=== PATIENT | female | born 1950 | race African-American/Black ===

== ENCOUNTER 2019-10-19 18:30 | Emergency (ER) | payer MEDICARE, OTHER, SELFPAY ==
[2019-10-19 18:40] VITALS: BP 155/81; PULSE 96; RESP 16; TEMP 36.1; O2SAT 99
--- NOTE | 2019-10-19 18:49 | ED.UPPEXIN ---
HPI - Extremity Injury (Upper) General Chief Complaint: Neck Pain/Injury Stated Complaint: JAW/NECK/ARM PAIN Source: patient and RN notes reviewed Mode of arrival: ambulatory Limitations: no limitations History of Present Illness HPI narrative: The right-handed patient, a smoker/nondrinker on minimal medications, presents with right jaw pain. Patient states she has had dental work in the past and now has half week dull right jaw pain like 'teeth have been pulled'. She also notes associated right deltoid shoulder discomfort that is mild, worse with motion; no sore throat, hoarseness, trismus, edema; no lateralizing weakness, headache chest/abdominal pain, numbness/weakness, neck pain. No fever, cough, sore throat; she has been wearing a splint for right CMC and CTS symptoms. Patient's had prior MRI couple years ago showing cervical spondylolysis/DJD; she declines transfer to hospital for further testing , AMA Triage/screening EKG remarkable for sinus rhythm at 90 bpm, CO 0.16, occasional PVC, normal axis, QTC 0.402 The patient has been informed that they may have pre-hypertension or Hypertension based on a BP reading in the department. I recommend that the patient call the primary care provider listed on their discharge instructions or a physician of their choice this week to arrange follow up for further evaluation of possible pre-hypertension or Hypertension Related Data Allergies Allergy/AdvReac Type Severity Reaction Status Date / Time No Known Allergies Allergy Unverified 10/19/19 18:43 Review of Systems Review of Systems: Narrative: General/Constitutional: No weight loss,fever Eyes: N0: Redness,discharge Ears/Nose/Throat: No: Epistaxis,ear discharge Respiratory: Denies: Hemoptysis Gastrointestinal: No Vomiting, Bleeding-rectal Skin: No Lumps, eruption Neurologic: No Focal Weakness,Sz Hematologic: Denies: Petechiae/Purpura Psychiatric: No: Suicida ideationl All Other Systems: Reviewed and Negative [facility] Family History Family History (Updated 01/02/19 @ 14:09 by DOCTOR UNKNOWN) Mother Patient's mother is Family history of blood dyscrasia Family history of emphysema Hypertension Sibling Family history of liver disease Family history of human immunodeficiency virus infection Other Cerebrovascular accident Social History Social History Smoking status: Never smoker Second hand tobacco smoke exposure: Yes Smoking end date: 09/11/07 Alcohol intake: current Comments At time of signature, agree with nursing past medical, surgical, social and family history. There is no relevant family history pertinent to the presenting complaint Exam Narrative: Exam Narrative: General Appearance: Well appearing, No distress EYE: PERRLA, Conjunctiva clear Ears: External ear normal Nose: Normal nose Mouth/Throat: Normal appearing, Normal lips Neck: Supple, SROM/ FAROM nontender Respiratory: Airway patent, No respiratory distress Cardiovascular: RRR Abdomen: Soft, Non-tender, No massess, Musculoskeletal: Full strength:Bi/Tri, EH L-FHL, gastroc-AT, Skin: Warm, Dry Neurological: A&O x3, CN II-X intact Normal reflexes -symmetric, 2+ Bi/Tri Psychiatric: Normal mood, Normal affect Course Vital Signs Vital signs: Vital Signs Temperature 97.0 F L 10/19/19 18:40 Pulse Rate 96 10/19/19 18:40 Respiratory Rate 16 10/19/19 18:40 Blood Pressure 155/81 H 10/19/19 18:40 Pulse Oximetry 99 10/19/19 18:40 Temperature 97.0 F L 10/19/19 18:40 Pulse Rate 96 10/19/19 18:40 Respiratory Rate 16 10/19/19 18:40 Blood Pressure 155/81 H 10/19/19 18:40 Pulse Oximetry 99 10/19/19 18:40 Discharge Plan Discharge Clinical Impression: Mandible pain, Cervical spondylosis Patient Disposition: Left Against Medical Advice Condition: Stable Prescriptions: New prednisone 20 mg tablet 60 mg PO DAILY Qty: 9 RF: 0 tramadol 50 mg tablet 50
--- NOTE | 2019-10-19 18:54 | ECG_ITS ---
Measurements Intervals [place] Rate: 90 P: 50 WV: 164 QRS: 47 QRSD: 81 T: 41 QT: 354 QTc: 434 Interpretive Statements SINUS RHYTHM VENTRICULAR PREMATURE COMPLEX BORDERLINE ST-T WAVE ABNORMALITY- INFERIOR LEADS BORDERLINE ECG Electronically Signed On 10-20-2019 7:58:47 EVENT MARKETING COORDINATOR by Santiago Paniagua D.O.
== END 2019-10-19 19:16 | disposition left against medical advice (07) ==
PROVIDERS: Emergency Provider Emergency Medicine; PCP Internal Medicine
DX: M47.812 Spondylosis without myelopathy or radiculopathy, cervical region (principal); R68.84 Jaw pain; Z85.41 Personal history of malignant neoplasm of cervix uteri; Z92.21 Personal history of antineoplastic chemotherapy; Z92.3 Personal history of irradiation
CPT/HCPCS: 93005; 99213; G0463

== ENCOUNTER 2019-11-01 16:34 | Outpatient (CLI) | payer MEDICARE, OTHER, SELFPAY ==
--- NOTE | ~2019-11-01 | CT_ITS ---
EXAMINATION: CT lung screening DATE: 11/01/2019 17:13 INDICATION: Routine dependence. Smoker. TECHNIQUE: Computed tomography (CT) of the chest was performed without intravenous contrast. The dose -length product was 99.92 mGy-cm. Automated exposure control and iterative reconstruction technique w ere employed. COMPARISON: Chest x-ray dated 09/12/2014 FINDINGS: No mediastinal lymphadenopathy. No significant pleural or pericardial effusion. Calcified g ranulomas right lower lobe. There is dependent atelectasis. Calcified granuloma left lower lobe. No n oncalcified pulmonary nodules are identified. No endobronchial lesions. The upper abdomen is unremark able. No osteolytic or osteoblastic lesions are seen. IMPRESSION: 1. Lung-RADS category 1: Negative. Continue annual screening with noncontrast low-dose chest CT in 12 months. Reviewed, dictated and finalized at location A. MECHANIC IMPRESSION: 1. Lung-RADS category 1: Negative. Continue annual screening with noncontrast l ow-dose chest CT in 12 months.
== END 2019-11-01 16:35 | disposition home or self-care (01) ==
LOC: ANHIMG 16:37
PROVIDERS: PCP Internal Medicine; Visit Provider Physician Assistant
DX: Z12.2 Encounter for screening for malignant neoplasm of respiratory organs (principal); F17.210 Nicotine dependence, cigarettes, uncomplicated
CPT/HCPCS: G0297

== ENCOUNTER 2020-10-02 09:27 | Outpatient (CLI) | payer MEDICARE, OTHER, SELFPAY ==
--- NOTE | ~2020-10-02 | MM_ITS ---
EXAMINATION: MM screening giuseppe BI w chasidy HISTORY: Screening mammogram TECHNIQUE: Craniocaudal and mediolateral oblique 3-D tomosynthesis images were obtained and synthetic 2-D images were generated. CAD analysis was submitted and interpreted. COMPARISON: 10/31/2018, 10/25/2017 bilateral digital screening mammogram examinations BREAST PARENCHYMAL COMPOSITION: There are scattered areas of fibroglandular density. FINDINGS: There is no evidence of suspicious mass, calcification, or architectural distortion to sugg est malignancy in either breast. There has been no suspicious interval change. IMPRESSION: 1. No mammographic evidence of malignancy. 2. Recommend routine screening mammography in one year. BI-RADS Category 1: Negative Reviewed, dictated and finalized at location A. PONY RIDER
== END 2020-10-02 09:28 | disposition home or self-care (01) ==
LOC: ANHIMG 09:33
PROVIDERS: PCP Internal Medicine; Visit Provider Physician Assistant
DX: Z12.31 Encounter for screening mammogram for malignant neoplasm of breast (principal)
CPT/HCPCS: 77063; 77067

== ENCOUNTER 2022-11-24 13:01 | Emergency (ER) | payer MEDICARE, SELFPAY ==
--- NOTE | ~2022-11-24 | XR_ITS ---
XR abdomen/kub 1V 11/24/2022 14:28 INDICATION: Constipation TECHNIQUE: KUB COMPARISON: None FINDINGS: Bowel gas pattern is nonobstructive. Moderate colonic fecal loading. There is no evidence o f free air, mass, organomegaly, ascites or obstruction. No abnormal calculi are seen. The bones jonny ear intact. There are surgical changes in the lower abdomen and pelvis. IMPRESSION: 1: No acute abdominal abnormality identified. Reviewed, dictated and finalized at location A.
[2022-11-24 13:10] VITALS: BP 166/78; PULSE 73; RESP 18; TEMP 36.8; O2SAT 100; O2SAT 99
[2022-11-24 13:15] VITALS: PULSE 74; RESP 20
[2022-11-24 13:30] VITALS: PULSE 73; RESP 19
[2022-11-24 13:39] LABS: Basophils Percent Auto 0.3 % (0.2-1.2); Eosinophils Percent Auto 0.3 % (0-4.4); Hematocrit 41.4 % (37.0-47.0); Hemoglobin 14.4 g/dL (12.0-15.0); Immature Granulocyte Absolute 0.03 K/mm3 (0.00-0.031); Immature Granulocyte Percent A 0.3 % (0-0.5); Lymphocytes Absolute Auto 2.65 K/mm3 (0.9-3.2); Lymphocytes Percent Auto 25.7 % (18.3-44.2); Mean Corpuscular HGB Conc 34.8 g/dl (32-36); Mean Corpuscular Hemoglobin 30.7 pg (26-34); Mean Corpuscular Volume 88.3 fl (80-100); Mean Platelet Volume 8.7 fl (7.4-10.4); Monocytes Absolute Auto 0.6 K/mm3 (0.1-0.6); Monocytes Percent Auto 5.4 % (2.6-8.5); Platelet Count Result 375 k/mm3 (150-375); Red Blood Count 4.69 M/mm3 (4.2-5.4); Red Cell Distribution Width 15.6 % (11.5-14.5); White Blood Count 10.3 K/mm3 (4.5-10.0)
[2022-11-24 13:45] VITALS: PULSE 66; RESP 16
[2022-11-24 14:06] VITALS: PULSE 67; RESP 19
[2022-11-24 14:06] LABS: Alanine Aminotransferase 26 U/L (6-35); Albumin Level 4.3 g/dL (3.5-5.1); Alkaline Phosphatase 119 U/L (38-126); Anion Gap 7 mmol/L (8-16); Aspartate Amino Transferase 28 U/L (14-36); Bilirubin,Total 0.8 mg/dL (0.2-1.3); Blood Urea Nitrogen 9 mg/dL (7-17); Carbon Dioxide 25 mmol/L (22-30); Chloride 107 mmol/L (98-107); Estimated CRCL calculation 50 ml/min; Estimated Glomerular Filt Rate > 60; Glucose 105 mg/dL (65-110); Lipase 73 U/L (23-300); Potassium 4.2 mmol/L (3.4-5.0); Sodium 139 mmol/L (137-145)
[2022-11-24 14:39] LABS: Appearance Urine Clear (Clear); Bilirubin Urine Negative (Negative); Blood Urine Negative (Negative); Color Urine Yellow (Yellow); Glucose Urine UA Negative (Negative); Ketones Urine Negative (Negative); Leukocyte Esterase Ur Negative LEU/UL (Negative); Nitrate Urine Negative (Negative); Protein Urine Negative (Negative); Specific Grav Ur 1.015 (1.001-1.035); Urobilinogen Urine 0.2 mg/dL (<2.0); pH Urine 5.5 (5.0-9.0)
[2022-11-24 15:03] LABS: Add Urine Microscopic? NO
--- NOTE | 2022-11-24 15:21 | ED.ABDPAIN ---
HPI - Abdominal Pain General Chief Complaint: Abdominal Pain Stated Complaint: abd pain Time Seen by Provider: 11/24/22 13:10 History of Present Illness HPI narrative: Patient is a 72-year-old female who presents ER with abdominal cramping. She reports that she has been having constipation and gave herself an enema that helped her have a bowel movement a couple days ago. Since then she has been unable to have another bowel movement but she has been passing gas. She has nausea when she eats. No fevers or chills or sweats. No abdominal pain. She has not started any laxative. She does report her physician suggested she start MiraLAX. No history of bowel obstruction. Related Data Allergies Allergy/AdvReac Type Severity Reaction Status Date / Time No Known Allergies Allergy Verified 11/24/22 13:13 Review of Systems Review of Systems: All systems reviewed & are unremarkable except as noted in HPI and below Constitutional: Constitutional: Denies chills and Denies fever(s) ENT: Denies nasal congestion and Denies sore throat Cardiovascular: Cardiovascular: Denies chest pain, Denies rapid heart rate and Denies radiating jaw, neck or arm pain Respiratory: Respiratory: Denies cough and Denies dyspnea Gastrointestinal: Gastrointestinal: Denies abdominal pain, Reports constipation, Denies diarrhea, Reports nausea and Denies vomiting PMFSH Past Medical History Medical History (Updated 11/24/22 @ 15:28 by Macho Shaw MD) Essential (primary) hypertension Pure hyperglyceridemia Surgical History Surgical History (Updated 11/24/22 @ 15:28 by Macho Shaw MD) History of cholecystectomy History of hysterectomy Family History Family History Mother Patient's mother is Family history of blood dyscrasia Family history of emphysema Hypertension Sibling Family history of liver disease Family history of human immunodeficiency virus infection Other Cerebrovascular accident Social History Social History Smoking packs per day: 0.5 Smoking cigarettes per day: 10.0 Years smoked: 30 Smoking pack-years: 15.00 Smoking status: Current every day smoker Second hand tobacco smoke exposure: Yes Smoking end date: 10/24/19 Alcohol intake: current Exam Narrative: GENERAL: Well-appearing, well-nourished, and in no acute distress. HEAD: Normocephalic, atraumatic. EYES: PERRL and EOMI. CHEST: Clear to auscultation. No respiratory distress. HEART: Regular rate and rhythm. Normal peripheral pulses. ABDOMEN: Soft, nontender, nondistended, normal active bowel sounds. EXTREMITIES: Normal range of motion. No edema. SKIN: Warm, dry, no rash. NEURO: Alert and oriented x3. PSYCH: Normal mood and affect. Course Course Emergency Course: Patient resting comfortably. Informed of results. No evidence of obstruction. Will treat with anti-gas and antinausea medication at home. Patient verbalized understanding of treatment plan. Vital Signs Vital signs: Vital Signs Temperature 98.3 F 11/24/22 13:10 Pulse Rate 73 11/24/22 13:10 Respiratory Rate 18 11/24/22 13:10 Blood Pressure 166/78 H 11/24/22 13:10 Pulse Oximetry 99 11/24/22 13:10 Oxygen Delivery Room Air 11/24/22 13:10 Temperature 98.3 F 11/24/22 13:10 Pulse Rate 67 11/24/22 14:06 Respiratory Rate 19 11/24/22 14:06 Blood Pressure 166/78 H 11/24/22 13:10 Pulse Oximetry 100 11/24/22 13:10 Oxygen Delivery Room Air 11/24/22 13:10 MDM - Abdominal Pain Lab Data 11/24/22 13:31 11/24/22 13:31 Labs: Lab Results 11/24/22 11/24/22 11/24/22 Range/Units 13:31 13:31 14:04 WBC 10.3 H (4.5-10.0) K/mm3 RBC 4.69 (4.2-5.4) M/mm3 Hgb 14.4 (12.0-15.0) g/dL Hct 41.4 (37.0-47.0) % MCV 88.3 (80-100) fl MCH 30.7 (26-34) pg MCHC 34.8
[2022-11-24 15:32] VITALS: BP 134/62; PULSE 68; RESP 16; O2SAT 97
== END 2022-11-24 15:33 | disposition home or self-care (01) ==
PROVIDERS: Emergency Provider Emergency Medicine; PCP Physician Assistant
DX: R14.0 Abdominal distension (gaseous) (principal); R10.9 Unspecified abdominal pain; I10 Essential (primary) hypertension; Z90.710 Acquired absence of both cervix and uterus; Z87.891 Personal history of nicotine dependence
CPT/HCPCS: 36415; 74018; 80053; 81003; 83690; 85025; 99283

== ENCOUNTER 2022-12-07 10:19 | Outpatient (CLI) | payer MEDICARE, SELFPAY ==
--- NOTE | ~2022-12-07 | MM_ITS ---
EXAMINATION: MM screening giuseppe BI w chasidy HISTORY: Screening TECHNIQUE: Craniocaudal and mediolateral oblique 3-D tomosynthesis images were obtained and synthetic 2-D images were generated. CAD analysis was submitted and interpreted. COMPARISON: Comparison to multiple prior studies sequentially, with oldest reviewed study dated 10/25. BREAST PARENCHYMAL COMPOSITION: There are scattered areas of fibroglandular density. FINDINGS: There is no evidence of suspicious mass, calcification, or architectural distortion to sugg est malignancy in either breast. There has been no suspicious interval change. IMPRESSION: 1. No mammographic evidence of malignancy. 2. Recommend routine screening mammography in one year. BI-RADS Category 1: Negative Reviewed, dictated and finalized at location A.
== END 2022-12-07 10:20 | disposition home or self-care (01) ==
LOC: ANHIMG 10:21
PROVIDERS: PCP Physician Assistant; Visit Provider Internal Medicine
DX: Z12.31 Encounter for screening mammogram for malignant neoplasm of breast (principal)
CPT/HCPCS: 77063; 77067

== ENCOUNTER 2023-02-22 11:02 | Inpatient (IN) | payer MEDICARE, SELFPAY ==
--- NOTE | ~2023-02-22 | CT_ITS ---
EXAMINATION: CT abdomen pelvis w con DATE: 02/22/23 INDICATION: Constipation. Nausea. Vomiting. Low abdominal pain. TECHNIQUE: Computed tomography (CT) of the abdomen and pelvis was performed with 100 mL Omnipaque 350 intravenous contrast. Automated exposure control and iterative reconstruction technique were employe d. The dose-length product was 387 mGy-cm. COMPARISON: CT abdomen and pelvis 09/10/2018 FINDINGS: The visualized portions of the lung bases demonstrate mild atelectasis. Calcified right jacob g nodules are consistent with old granulomatous disease. No pleural effusion. The heart size is katy l. No pericardial effusion. There is a small sliding hiatal hernia. There is mild intrahepatic biliar y duct dilatation, and the common duct measures 10 mm, which are expected findings after cholecystect darwin. The spleen, pancreas, and right adrenal gland are normal. There is a 2.0 cm mass in left adrenal gland measuring soft tissue attenuation, stable from 09/10/2018, likely an adenoma. There are cysts in the kidneys measuring up to 1.8 cm on the right. There is moderate atrophy of left kidney. There a re surgical clips from pelvic lymph node dissection. There is wall thickening of the rectosigmoid, wh ich is small in caliber, likely a stricture. The colon is distended proximal to this area and contain s liquid stool. The appendix is normal. There is calcified atherosclerosis of the aorta and many of t he other arteries. There is total occlusion of right external iliac artery with reconstitution of jag w in the right common femoral artery. There is total occlusion of left common femoral artery with rec onstitution. There is moderate lumbar spondylosis. IMPRESSION: 1. Stricture of the rectosigmoid with obstruction. The stricture could be malignant. 2. Arterial occlusive disease. Reviewed, dictated and finalized at location A. IMPRESSION: 1. Stricture of the rectosigmoid with obstruction. The stricture could be malig nant. 2. Arterial occlusive disease.
--- NOTE | ~2023-02-22 | XR_ITS ---
XR abdomen NG/feed tube rechec DATE: 02/26/2023 12:13 INDICATION: NG tube placement TECHNIQUE: Portable upright AP view on 02/26/2023 COMPARISON: 02/22/2023 KUB FINDINGS: A nasogastric tube is present in the distal stomach, the proximal side-port approximately 5 .5 cm distal to the diaphragmatic hiatus. No intraperitoneal free air is evident. Normal heart size. Visualized mid and lower lung zones are clear. No pleural effusion or pulmonary ma ss congestion is noted. IMPRESSION: NG tube in distal stomach Reviewed, dictated and finalized at Location A. Reviewed, dictated and finalized at location A. IMPRESSION: NG tube in distal stomach
--- NOTE | ~2023-02-22 | XR_ITS ---
XR abdomen NG/feed tube insert INDICATION: Evaluate NG tube position. TECHNIQUE: Limited KUB perform for evaluating NG tube . COMPARISON: 02/26/2023 FINDINGS: NG tube tip in the stomach. Visualized bowel gas pattern is unremarkable. IMPRESSION: 1: NG tube tip in the stomach. Reviewed, dictated and finalized at location []
--- NOTE | ~2023-02-22 | XR_ITS ---
EXAMINATION: XR enema water soluble DATE: 02/23/2023 10:45 INDICATION: Rectosigmoid stricture. TECHNIQUE: A electrical prospecting engineer radiograph was obtained. A catheter was inserted into the patient's rectum. Contra st was infused by gravity. Fluoroscopic spot images and conventional radiographs were obtained. Fluor oscopy exposure time was 0.2 minutes. The total number of images was 9. COMPARISON: CT abdomen and pelvis 02/22/2023 FINDINGS: There is a severe stricture of the rectosigmoid with little passage of contrast beyond the stricture. There are surgical clips from pelvic lymph node dissection. IMPRESSION: 1. Severe stricture of the rectosigmoid. Reviewed, dictated and finalized at location A.
--- NOTE | ~2023-02-22 | XR_ITS ---
XR abdomen NG/feed tube insert INDICATION: Evaluate NG tube position. TECHNIQUE: Limited KUB perform for evaluating NG tube . COMPARISON: 11/24/2022 FINDINGS: NG tube tip in the stomach. Visualized bowel gas pattern is unremarkable. IMPRESSION: 1: NG tube tip in the stomach. Reviewed, dictated and finalized at location []
[2023-02-22 20:00] VITALS: BMI 29.5
--- NOTE | 2023-02-22 21:55 | ADMGEN ---
This patient, Victor Manuel Ndiaye, was admitted to [facility] Surg Room 313-01. Patient/family oriented to hospital policies and general routines including ID bracelet, bed and alarms, visiting hours, pain management, procedures, bathroom and other care routines, personal items, smoking policy, room service/diet, and visiting hours. Information on how to activate the Rapid Response Team has been discussed. Patient/Family are encouraged to report perceived risks to care and to ask questions if they do not understand what they are told or what they should do.
[2023-02-22 22:00] VITALS: BP 157/62; PULSE 69; RESP 16; TEMP 36; O2SAT 98
--- NOTE | 2023-02-22 22:53 | PC.NURSE ---
Paper documentation exists on this patient due to [employer] downtime on 02/22/23 from 0030 to [1930] .
[2023-02-23 00:18] LABS: Estimated CRCL calculation 44 ml/min; Estimated Glomerular Filt Rate > 60
[2023-02-23] MEDS: ONDANSETRON INJ 4 MG/2 ML VIAL IV PUSH ×2 (00:25→06:34)
[2023-02-23] MEDS: PIPERACILLN/TAZ 3.375GM/NS50ML 3.375 GM/50 ML BAG IVPB ×5 (00:26→23:51)
[2023-02-23] MEDS: HYDROmorphone HCL INJ (*CRX) 1 MG/ML SYR 0.5 MG IV PUSH ×4 (01:45→15:16)
[2023-02-23] MEDS: DEXTROSE 5%/0.9% SOD CHL 1,000 ML 65 ML IV CONT ×2 (01:45→15:16)
--- NOTE | 2023-02-23 03:55 | HP_ITS ---
DATE OF SERVICE: 02/22/2023 TIME OF EVALUATION: 183. CHIEF COMPLAINT: Abdominal pain, nausea, and vomiting. HISTORY OF PRESENT ILLNESS: This is a very pleasant 72-year-old female who has been remarkably healthy aside from being treated for cervical cancer many years ago who presented to the emergency department from home for evaluation of abdominal pain, nausea, and vomiting. The patient provides the following history. She reports a gradual onset of diffuse abdominal discomfort starting Monday which she describes as a bloating and cramping like pain. She has been nauseated and she vomited over the weekend however the vomiting has ceased. Her doctor called her in some Zofran which seems to be helping. Unfortunately, she continues to have discomfort and she has not had a bowel movement since Monday. CT of the abdomen and pelvis done on arrival to the emergency department shows a at the rectosigmoid junction with obstruction and there are concerns that this stricture may be malignant. CT also showed evidence of arterial occlusive disease including total occlusion of the right external iliac with reconstitution in the right common femoral artery and total occlusion of the left common femoral artery, also with reconstitution. Her labs were significant for white blood cell count of 12.5, hemoglobin 14.5, sodium 139, potassium 3.4, BUN 18, creatinine 0.90. An NG tube has been inserted for decompression and she is being admitted in this setting for further treatment and surgery consultation. She denies fever, chills, sweats, chest pain, pleuritic pain, shortness of breath, weight loss, nausea, vomiting, melena, and hematochezia. She has never had a colonoscopy, but did have a Cologuard done last week, though she does not know the results of that as of yet. No personal or family history of colon cancer. REVIEW OF SYSTEMS: Twelve systems were reviewed. She denies fever, chills, and sweats. Weight has remained stable. No hematemesis, melena, or hematochezia. Occasional pain in calves when walking but she does not seem to have much difficulties doing whatever she wants. She has no known history of peripheral vascular disease. No paresthesias, skin color, or temperature changes of the lower extremities. Except as documented, all other systems were reviewed and are negative. MEDICAL HISTORY: Cervical cancer in 1983, status post laser treatment and ultimate hysterectomy . She was also treated with chemo and radiation. SURGICAL HISTORY: 1. Hysterectomy with bilateral salpingo-oophorectomy. 2. Cholecystectomy. HOME MEDICATIONS: None. ALLERGIES: NO KNOWN DRUG ALLERGIES. FAMILY HISTORY: Mother had emphysema and of heart disease. Father at age 93 of natural causes. She has a brother with dementia. SOCIAL HISTORY: The patient lives with her brother. 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 She has smoked half a pack of cigarettes off and on since the age of 20. No alcohol or illicit substance use. She is retired from working for the [employer]. She has no children. She designates her nephew as her surrogate decision maker and she wishes to be a full code. PHYSICAL EXAM: GENERAL: Well-developed, well-nourished female in a semi-Bravo position in bed, in no acute distress. HEENT: Normocephalic, atraumatic. Pupils reactive. Extraocular motions intact. NG tube in the right naris draining opaque clear fluid. Tacky mucous membranes. NECK: Supple. No lymphadenopathy. RESPIRATORY: Respirations are nonlabored. Lungs are clear to auscultation. CARDIOVASCULAR: Regular rate and rhythm with normal S1, S2. GASTROINTESTINAL: Abdomen is distended and slightly firm with hypoactive bowel sounds in the upper abdomen. She
[2023-02-23 06:33] VITALS: BP 161/79; PULSE 52; RESP 14; TEMP 35.3; O2SAT 100
[2023-02-23 08:13] LABS: Anion Gap 10 mmol/L (8-16); Carbon Dioxide 25 mmol/L (22-30); Chloride 104 mmol/L (98-107); Potassium 3.4 mmol/L (3.4-5.0); Sodium 139 mmol/L (137-145)
[2023-02-23 08:14] LABS: Alanine Aminotransferase 19 U/L (6-35); Albumin Level 4.6 g/dL (3.5-5.1); Alkaline Phosphatase 114 U/L (38-126); Aspartate Amino Transferase 30 U/L (14-36); Bilirubin,Total 0.7 mg/dL (0.2-1.3); Blood Urea Nitrogen 18 mg/dL (7-17); Calcium 9.5 mg/dL (8.4-10.2); Estimated CRCL calculation 44 ml/min; Estimated Glomerular Filt Rate > 60; Glucose 120 mg/dL (65-110); Lipase 75 U/L (23-300); Total Protein 8.1 g/dL (6.3-8.2)
[2023-02-23 08:16] LABS: Hematocrit 41.5 % (37.0-47.0); Hemoglobin 14.5 g/dL (12.0-15.0); Red Blood Count 4.78 M/mm3 (4.2-5.4); White Blood Count 12.8 K/mm3 (4.5-10.0)
[2023-02-23 08:17] LABS: Basophils Percent Auto 0.2 % (0.2-1.2); Eosinophils Percent Auto 0.1 % (0-4.4); Immature Granulocyte Absolute 0.04 K/mm3 (0.00-0.031); Immature Granulocyte Percent A 0.3 % (0-0.5); Lymphocytes Absolute Auto 1.83 K/mm3 (0.9-3.2); Lymphocytes Percent Auto 14.4 % (18.3-44.2); Mean Corpuscular HGB Conc 34.9 g/dl (32-36); Mean Corpuscular Hemoglobin 30.3 pg (26-34); Mean Corpuscular Volume 86.8 fl (80-100); Mean Platelet Volume 9.3 fl (7.4-10.4); Monocytes Absolute Auto 0.8 K/mm3 (0.1-0.6); Neutrophils Absolute Auto 10.1 K/mm3 (1.3-6.7); Platelet Count Result 381 k/mm3 (150-375); Red Cell Distribution Width 14.8 % (11.5-14.5)
[2023-02-23 08:18] LABS: Appearance Urine Clear (Clear); Color Urine Yellow (Yellow); Glucose Urine UA Negative (Negative); Protein Urine 1+ mg/dL (Negative); Specific Grav Ur 1.017 (1.001-1.035); pH Urine 5.5 (5.0-9.0)
[2023-02-23 08:19] LABS: Add Urine Microscopic? YES; Bilirubin Urine Negative (Negative); Blood Urine Trace (Negative); Ketones Urine Negative (Negative); Leukocyte Esterase Ur Negative LEU/UL (Negative); Nitrate Urine Negative (Negative); RBC Urine 0-2 /hpf (0-2); Urobilinogen Urine 0.2 mg/dL (<2.0)
[2023-02-23 08:20] LABS: Hyaline Casts Urine 0-2 /lpf; Squamous Epithelial Cell Urine None seen /hpf (Few); WBC Urine 0-5 /hpf
[2023-02-23 08:21] LABS: Bacteria Urine None seen /hpf
--- NOTE | 2023-02-23 09:06 | WPDGICN ---
Assessment and Plan Assessment and plan (1) Large bowel obstruction: Code(s): K56.609 - Unspecified intestinal obstruction, unspecified as to partial versus complete obstruction Status: Acute Assessment and Plan: Patient with apparent large bowel obstruction appears to be related to sigmoid mass on CT scan imaging. Plan for NG tube decompression. Agree with IV fluid replacement. Gastrografin lower GI will be ordered. Surgical consultation encouraged. Suspect this could be a malignancy. Based on imaging studies. Continue supportive care for now. GI Consult Note Consult date/time: 02/23/23 09:06 Reason for consult: large bowel obstruction HPI: Victor Manuel Ndiaye is a 72 year old female I am asked to see at the request of the hospitalist service because of a large bowel obstruction. Patient reports she was in her usual state of health. Since Monday she has had no bowel movements. Over the last 2 days has had ongoing nausea vomiting. For this reason she presented to the emergency room a CT scan revealed mass with obstruction in the sigmoid colon. Patient reports never having had a colonoscopy in the past. She bowel habits were normal up until Monday. Her family history is noncontributory. Apparently did have a cologuard test in the past but results are known. Last evening place that was placed on NG tube decompression and IV fluids admitted to the hospital. Review of Systems Review of Systems: Review of systems noncontributory. [facility] Past Medical History Medical History Essential (primary) hypertension Pure hyperglyceridemia Surgical History Surgical History History of cholecystectomy History of hysterectomy Family History Family History Mother Patient's mother is Family history of blood dyscrasia Family history of emphysema Hypertension Sibling Family history of liver disease Family history of human immunodeficiency virus infection Other Cerebrovascular accident Social History Social History Smoking packs per day: 0.5 Smoking cigarettes per day: 10.0 Years smoked: 35 Smoking pack-years: 17.50 Smoking status: Current every day smoker Tobacco type: cigarettes Second hand tobacco smoke exposure: Yes Smoking end date: 10/24/19 Alcohol intake: never Substance use: never Substance use type: does not use Lack of Transportation: No Lack of Food: Never True Current Housing: I Have Housing Concerned About Future Housing: No Difficulty Paying Gas/Electric Bills: No Difficulty Paying for Meds: No Currently Unemployed: No Education: Bachelor's Degree Difficulty w/ Childcare or Family Care: No Spiritual care concerns: No Meds Home Medications and Allergies Home Medications Medication Instructions Recorded Confirmed Type ondansetron 4 mg disintegrating 4 - 8 mg PO Q8H PRN nausea and 02/21/23 02/22/23 Rx tablet vomiting #20 tabs Allergies Allergy/AdvReac Type Severity Reaction Status Date / Time No Known Allergies Allergy Verified 01/16/23 08:58 Vital Signs Vital Signs - 24 hr 02/22/23 22:00 02/22/23 20:00 02/23/23 06:33 Temperature 96.8 F L 95.6 F L Pulse Rate 69 52 L Respiratory Rate 16 14 Blood Pressure 157/62 H 161/79 H Pulse Oximetry 98 100 Oxygen Delivery Room Air Exam Narrative: Physical exam reveals patient to be lying in bed. HEENT exam is unremarkable. Patient anicteric. NG tube is in place. Lungs are clear to auscultation and percussion. Heart is without murmur. Abdomen with mild tympany. Relatively soft. High-pitched bowel sounds are noted. Extremities without clubbing cyanosis or edema. Digital exam reveals no obvious mass. Resu
--- NOTE | 2023-02-23 10:10 | PC.NURSE ---
patient to xray. ng clamped for transport.
[2023-02-23 11:36] LABS: Basophils Percent Auto 0.3 % (0.2-1.2); Hematocrit 40.7 % (37.0-47.0); Hemoglobin 13.9 g/dL (12.0-15.0); Immature Granulocyte Absolute 0.04 K/mm3 (0.00-0.031); Immature Granulocyte Percent A 0.4 % (0-0.5); Lymphocytes Absolute Auto 1.93 K/mm3 (0.9-3.2); Lymphocytes Percent Auto 18.1 % (18.3-44.2); Mean Corpuscular HGB Conc 34.2 g/dl (32-36); Mean Corpuscular Hemoglobin 30.1 pg (26-34); Mean Corpuscular Volume 88.1 fl (80-100); Mean Platelet Volume 8.8 fl (7.4-10.4); Monocytes Absolute Auto 0.8 K/mm3 (0.1-0.6); Monocytes Percent Auto 7.2 % (2.6-8.5); Neutrophils Absolute Auto 7.9 K/mm3 (1.3-6.7); Platelet Count Result 364 k/mm3 (150-375); Red Blood Count 4.62 M/mm3 (4.2-5.4); White Blood Count 10.7 K/mm3 (4.5-10.0)
[2023-02-23 11:44] VITALS: BP 184/62; PULSE 58; RESP 18; TEMP 36.4; O2SAT 99
--- NOTE | 2023-02-23 12:45 | WPDCN ---
Assessment and Plan Assessment and plan (1) Large bowel obstruction: Code(s): K56.609 - Unspecified intestinal obstruction, unspecified as to partial versus complete obstruction Status: Acute Assessment and Plan: Patient appears to have a high-grade distal colonic obstruction in the rectosigmoid region. This could be due to malignancy and she has never had a colonoscopy in the past. This could also be due to long-term radiation stricture from her previous pelvic radiation for treatment of her cervical cancer many years ago. Other etiology such as diverticular stricture is less likely as she has not had episodes of diverticulitis in the past. Benign neoplasm is also in the differential as well. Dr. Batista from gastroenterology has seen and evaluated patient. I have ordered a CEA level to be drawn. Flexible sigmoidoscopy to see if we can biopsy the stricture to establish any possibility of malignancy would be beneficial prior to the a surgery. I did discuss with patient that she may need to have a diverting ostomy in the short term since she has such a high-grade stricture. That could hopefully be done laparoscopically. Continue on IV antibiotics for right now. We also need to consider placement of a PICC line for parental nutrition depending on how long the preoperative workup takes. HPI Data of Consult Date/Time: 02/23/23 12:45 Requesting Physician: Abdiaziz Tovar MD Primary Care Provider: Anthony Bennett PA-C Consult Narrative Reason for consult: Rectosigmoid colon obstruction. Narrative: Victor Manuel Ndiaye is a 72 year old female Who presented to the emergency room yesterday complaining of abdominal distension as well as episodes of nausea vomiting for the past week. She has noticed decreasing caliber of her formed stools for the past several weeks. She has denied any loss of weight. She denies any blood per rectum or any dark tarry stools. She has never had a colonoscopy. Prior to last week she has been eating well and not having any issues with bowel movements other than noticing decreasing caliber of her stools. In the emergency room [place] [id number]. She was afebrile. X-rays suggested a distal chronic obstruction. CT scan abdomen pelvis done this morning showed a stricture in the rectosigmoid region and a water-soluble enema this morning has also showed a high-grade rectosigmoid stricture with passage of minimal contrast proximal to the stricture. The patient has had a significant prior history of total abdominal hysterectomy and bilateral salpingo-oophorectomy for cervical cancer over 30 years ago. She did receive pelvic radiation after her surgery. Only other abdominal surgery she had was a robotic assisted laparoscopic cholecystectomy performed by myself about 8 years ago. Presently she has no nausea and her abdominal distention is improved with nasogastric and placed to decompress the GI tract. Review of Systems Review of Systems: The remainder of the review of systems to include constitutional, HEENT, cardiovascular, respiratory, GI, , integumentary, musculoskeletal, endocrine, immunologic, hematologic, psychiatric, and neurologic are all negative except for which is mentioned above in the HPI. [facility] Past Medical History Medical History Essential (primary) hypertension Pure hyperglyceridemia Surgical History Surgical History History of cholecystectomy History of hysterectomy Family History Family History Mother Patient's mother is Family history of blood dyscrasia Family history of emphysema Hypertension Sibling Family history of liver disease Family history of human immunodeficiency virus infection Other Cerebrovascular accident Social History Social History (Reviewed 0
[2023-02-23 13:59] VITALS: BP 171/63; PULSE 60; RESP 18; TEMP 36.3; O2SAT 100
--- NOTE | 2023-02-23 15:01 | PM.IMPN ---
Progress Note: A&P Assessment and Plan (1) Large bowel obstruction: Code(s): K56.609 - Unspecified intestinal obstruction, unspecified as to partial versus complete obstruction Status: Acute (2) Hyperlipidemia: Code(s): E78.5 - Hyperlipidemia, unspecified Status: Acute (3) Tobacco use: Code(s): Z72.0 - Tobacco use Status: Acute Plan This is a 72-year-old female with remote history of cervical cancer, status post chemo, radiation, who presented to the emergency department for evaluation of abdominal pain, bloating, nausea, and vomiting. CT reveal large bowel obstruction with stricture at the rectosigmoid. GI has been consulted. NG tube has been placed. Zosyn empirically for possible infection given the white cell count. 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 hydralazine ? Subjective Date/time seen: 02/23/23 15:01 Interval history: Feeling a little better. Lower abdominal pain and discomfort along with nausea vomiting CT scan findings reviewed. NG has been placed. GI has seen Review of Systems Review of Systems: All systems reviewed & are unremarkable except as noted in HPI and below Exam Narrative: GENERAL:? Well-developed, well-nourished female in a semi-Bravo position in bed, in no acute distress. HEENT:? Normocephalic, atraumatic.? Pupils reactive.? Extraocular motions intact.? NG tube in the right naris draining opaque clear fluid.? Tacky mucous membranes. NECK:? Supple.? No lymphadenopathy. RESPIRATORY:? Respirations are nonlabored. ? Lungs are clear to auscultation. CARDIOVASCULAR:? Regular rate and rhythm with normal S1, S2. GASTROINTESTINAL:? Abdomen is distended and slightly firm with hypoactive bowel sounds in the upper abdomen.? She has mild voluntary guarding, but no obvious rebound tenderness. SKIN:? Warm and dry. EXTREMITIES:? No cyanosis, clubbing, or edema.? Radial pulses palpable. Posterior tibialis pulses palpable.? No palpable nodes or cords.? Negative Martinez sign bilaterally. NEUROLOGIC:? Alert and oriented x4.? Cranial nerves 2 through 12 grossly intact.? No gross focal deficits.? Casual conversation. PSYCHIATRIC:? Normal mood and affect. Objective Data Vital Signs Vital Signs: Vital Signs - 24 hr 02/22/23 22:00 02/22/23 20:00 02/23/23 06:33 Temperature 96.8 F L 95.6 F L Pulse Rate 69 52 L Respiratory Rate 16 14 Blood Pressure 157/62 H 161/79 H Pulse Oximetry 98 100 Oxygen Delivery Room Air 02/23/23 11:44 02/23/23 13:59 Temperature 97.6 F 97.3 F L Pulse Rate 58 L 60 Respiratory Rate 18 18 Blood Pressure 184/62 H 171/63 H Pulse Oximetry 99 100 Oxygen Delivery Intake/Output Intake/Output: Intake & Output 02/20/23 02/21/23 02/22/23 02/23/23 23:59 23:59 23:59 23:59 Intake Total 100 Output Total 800 Balance -700 Meds/Results Medications: Active Medications Generic Name Dose Route Start Last Admin Trade Name Freq PRN Reason Stop Dose Admin Famotidine 20 mg 02/23/23 21:00 Famotidine 20 Mg/2 Ml Vial IV PUSH Q12HR CHANTAL Hydromorphone HCl 0.5 mg 02/23/23 00:53 02/23/23 11:56 Hydromorphone Hcl Inj (*Crx) 1 Mg/Ml Syr IV PUSH 0.5 mg Q3H PRN Administration Pain Rated 7-10 Piperacillin/Tazobactam/Dextrose 3.375 gm in 50 mls @ 100 mls/hr 02/23/23 06:00 02/23/23 12:24 Zosyn 3.375 Gm/Ns 50 Ml IVPB Infused Q6H CHANTAL Infusion Dextrose/Sodium Chloride 1,000 mls @ 65 mls/hr 02/23/23 01:35 02/23/23 01:45 Dextrose 5% Sodium Chloride 0.9% IV CONT 65 mls/hr .[id number] CHANTAL Administration Ondansetron HCl 4 mg 02/22/23 23:17 02/23/23 06:34 Ondansetron Inj 4 Mg/2 Ml Vial IV PUSH 4 mg Q6H PRN Administration Nausea And Vomiting Radiology Results: ITS Impressions Abdomen X-Ray 02/22/23 18:47 IMPRESSION:
[2023-02-23] MEDS: hydrALAZINE HCL 20 MG/ML VIAL 10 MG IV PUSH (15:16)
--- NOTE | 2023-02-23 17:30 | PC.NURSE ---
patient has 600 ml out in ng tube. orange in color. patient had a visitor that brought her in orange gatorade to drink. patient educated on intake and not to drink anything at this time. patient verbalizes understanding and states that she will not drink anymore water or gatorade.
[2023-02-23 17:48] VITALS: BP 119/73; PULSE 73; RESP 18; TEMP 36.4; O2SAT 98
[2023-02-23 20:00] VITALS: BP 149/40; PULSE 56; RESP 16; TEMP 36.3; O2SAT 94
[2023-02-23] MEDS: FAMOTIDINE 20 MG/2 ML VIAL IV PUSH (20:03)
[2023-02-24] VITALS (9 sets, daily range): BP systolic 90–186; BP diastolic 34–96; PULSE 57–68; RESP 16–20; TEMP 35.8–36.8; O2SAT 98–100; BMI 29.5
[2023-02-24] MEDS: hydrALAZINE HCL 20 MG/ML VIAL 10 MG IV PUSH (04:59)
[2023-02-24] MEDS: PIPERACILLN/TAZ 3.375GM/NS50ML 3.375 GM/50 ML BAG IVPB ×3 (05:00→20:15)
[2023-02-24 06:21] LABS: Hematocrit 39.7 % (37.0-47.0); Hemoglobin 13.3 g/dL (12.0-15.0); Mean Corpuscular HGB Conc 33.5 g/dl (32-36); Mean Corpuscular Hemoglobin 29.4 pg (26-34); Mean Corpuscular Volume 87.8 fl (80-100); Mean Platelet Volume 9.1 fl (7.4-10.4); Platelet Count Result 334 k/mm3 (150-375); Red Blood Count 4.52 M/mm3 (4.2-5.4); Red Cell Distribution Width 14.5 % (11.5-14.5); White Blood Count 10.6 K/mm3 (4.5-10.0)
[2023-02-24 06:32] LABS: Anion Gap 5 mmol/L (8-16); Blood Urea Nitrogen 13 mg/dL (7-17); Calcium 8.6 mg/dL (8.4-10.2); Carbon Dioxide 29 mmol/L (22-30); Chloride 110 mmol/L (98-107); Estimated CRCL calculation 40 ml/min; Estimated Glomerular Filt Rate > 60; Glucose 106 mg/dL (65-110); Potassium 2.9 mmol/L (3.4-5.0); Sodium 144 mmol/L (137-145)
[2023-02-24 06:57] LABS: Carcinoembryonic Antigen 15.2 ng/mL (0.0-3.0)
--- NOTE | 2023-02-24 07:16 | WPDGIPROGNO ---
Progress Note: A&P Assessment and Plan (1) Large bowel obstruction: Code(s): K56.609 - Unspecified intestinal obstruction, unspecified as to partial versus complete obstruction Status: Acute Assessment and Plan: Patient with apparent large bowel obstruction. NG tube in place for decompression. Imaging studies suggest this may be a malignancy. Tumor markers such as CEA are pending. Plan to continue NG tube decompression. Will attempt flexible sigmoidoscopy this morning after fleets enema prep. Appreciate surgical input for a ventral decompression surgery. Subjective Date/time seen: 02/24/23 07:16 Interval history: Patient alert more comfortable this morning. NG tube remains in place. Still no significant bowel action. Abdomen is softer. Appreciate surgical notes. Review of Systems Review of Systems: Review of systems noncontributory. Exam Narrative: Physical exam reveals patient be comfortable at rest. NG tube in place. HEENT exam reveals no icterus. Lungs are clear. Heart without murmur. Abdomen is soft and flatter. No significant distention. Rectal exam without lesions. Objective Data Vital Signs Vital Signs: Vital Signs - 24 hr 02/23/23 11:44 02/23/23 13:59 02/23/23 17:48 Temperature 97.6 F 97.3 F L 97.5 F L Pulse Rate 58 L 60 73 Respiratory Rate 18 18 18 Blood Pressure 184/62 H 171/63 H 119/73 Pulse Oximetry 99 100 98 Oxygen Delivery 02/23/23 20:00 02/23/23 20:00 02/24/23 00:00 Temperature 97.4 F L 97.1 F L Pulse Rate 56 L 57 L Respiratory Rate 16 16 Blood Pressure 149/40 H 151/48 H Pulse Oximetry 94 98 Oxygen Delivery Room Air 02/24/23 05:00 02/24/23 06:00 Temperature 96.4 F L Pulse Rate 60 Respiratory Rate 16 Blood Pressure 137/34 L 186/64 H Pulse Oximetry 100 Oxygen Delivery Intake/Output Intake/Output: Intake & Output 02/21/23 02/22/23 02/23/23 02/24/23 23:59 23:59 23:59 23:59 Intake Total 1150 150 Output Total 1573 850 Balance -903 -700 Meds/Results Medications: Active Medications Generic Name Dose Route Start Last Admin Trade Name Freq PRN Reason Stop Dose Admin Famotidine 20 mg 02/23/23 21:00 02/23/23 20:03 Famotidine 20 Mg/2 Ml Vial IV PUSH 20 mg Q12HR CHANTAL Administration Hydralazine HCl 10 mg 02/23/23 15:09 02/24/23 04:59 Hydralazine Hcl 20 Mg/Ml Vial IV PUSH 10 mg Q8H PRN Administration Blood Pressure - High Hydromorphone HCl 0.5 mg 02/23/23 00:53 02/23/23 15:16 Hydromorphone Hcl Inj (*Crx) 1 Mg/Ml Syr IV PUSH 0.5 mg Q3H PRN Administration Pain Rated 7-10 Piperacillin/Tazobactam/Dextrose 3.375 gm in 50 mls @ 100 mls/hr 02/23/23 06:00 02/24/23 05:00 Zosyn 3.375 Gm/Ns 50 Ml IVPB 100 mls/hr Q6H CHANTAL Administration Dextrose/Sodium Chloride 1,000 mls @ 65 mls/hr 02/23/23 01:35 02/23/23 15:16 Dextrose 5% Sodium Chloride 0.9% IV CONT 65 mls/hr .[id number] CHANTAL Administration Ondansetron HCl 4 mg 02/22/23 23:17 02/23/23 06:34 Ondansetron Inj 4 Mg/2 Ml Vial IV PUSH 4 mg Q6H PRN Administration Nausea And Vomiting Radiology Results: ITS Impressions Abdomen X-Ray 02/22/23 18:47 IMPRESSION: 1: NG tube tip in the stomach. Abdomen/Pelvis CT 02/23/23 07:30 IMPRESSION: 1. Stricture of the rectosigmoid with obstruction. The stricture could be malignant. 2. Arterial occlusive disease. Enema w/Water Soluble 02/23/23 10:59 IMPRESSION: 1. Severe stricture of the rectosigmoid. Labs Labs: Laboratory Results - last 24 hr 02/22/23 02/22/23 02/22/23 13:37 15:35 15:35 WBC 12.8 H RBC 4.78 Hgb 14.5 Hct 41.5 MCV 86.8 MCH 30.3 MCHC 34.9 RDW 14.8 H Plt Count 381 H MPV 9.3 Immature Gran % (Auto) 0.3 Neut % (Auto) 79.0 H Lymph % (Auto) 14.4 L [place] % (Auto) 6.0 Eos % (Auto) 0.1 Baso % (Auto) 0.2 Lymph # (Auto) 1.83 Wake # (Auto
[2023-02-24] MEDS: FAMOTIDINE 20 MG/2 ML VIAL IV PUSH ×2 (08:05→20:16)
--- NOTE | 2023-02-24 08:21 | WPDANESEPPF ---
Anes - Initial Pre Proc Eval Procedure: Operation Date: 02/24/23 14:00 Proposed Procedures p Flexible Sigmoidoscopy - Alirio Batista MD Date/Time: 02/24/23 08:21 Surgeon: Abdiaziz Tovar MD Pre Op Diagnosis: LBO/Rectosigmoid Stricture Patient Data Age: 72 Gender: F Height: 1.52 m Weight: 68.63 kg Last Vital Signs Temp 35.8 C L 02/24/23 06:00 Pulse 60 02/24/23 06:00 Resp 16 02/24/23 06:00 BP 186/64 H 02/24/23 06:00 Pulse Ox 100 02/24/23 06:00 O2 Del Method Room Air 02/23/23 20:00 Allergies Allergy/AdvReac Type Severity Reaction Status Date / Time No Known Allergies Allergy Verified 01/16/23 08:58 Home Medications Medication Instructions Recorded Confirmed Type ondansetron 4 mg disintegrating 4 - 8 mg PO Q8H PRN nausea and 02/21/23 02/22/23 Rx tablet vomiting #20 tabs Laboratory Tests 02/22/23 02/22/23 02/23/23 13:37 15:35 11:21 WBC 10.7 H K/mm3 (4.5-10.0) RBC 4.62 M/mm3 (4.2-5.4) Hgb 13.9 g/dL (12.0-15.0) Hct 40.7 % (37.0-47.0) MCV 88.1 fl (80-100) MCH 30.1 pg (26-34) MCHC 34.2 g/dl (32-36) RDW 15.0 H % (11.5-14.5) Plt Count 364 k/mm3 (150-375) MPV 8.8 fl (7.4-10.4) Immature Gran % (Auto) 0.4 % (0-0.5) Neut % (Auto) 74.0 H % (45.5-73.1) Lymph % (Auto) 18.1 L % (18.3-44.2) [place] % (Auto) 7.2 % (2.6-8.5) Eos % (Auto) 0.0 % (0-4.4) Baso % (Auto) 0.3 % (0.2-1.2) Lymph # (Auto) 1.93 K/mm3 (0.9-3.2) [place] # (Auto) 0.8 H K/mm3 (0.1-0.6) Eos # (Auto) 0.0 K/mm3 (0-0.3) Baso # (Auto) 0.0 K/mm3 (0.0-0.1) Abs Immat Gran (auto) 0.04 H K/mm3 (0.00-0.031) Absolute Neuts (auto) 7.9 H K/mm3 (1.3-6.7) Absolute Nucleated RBC 0.0 K/mm3 (0.0-0.012) Nucleated RBC % 0.0 % (0.0-0.2) Sodium Potassium Chloride Carbon Dioxide Anion Gap BUN Creatinine Estim Creat Clear Calc Estimated GFR Glucose Lactic Acid Cancelled Calcium Carcinoembryonic Ag Urine Color Yellow (Yellow) Urine Appearance Clear (Clear) Urine pH 5.5 (5.0-9.0) Ur Specific [place] 1.017 (1.001-1.035) Urine Protein 1+ H mg/dL (Negative) Urine Glucose (UA) Negative mg/dL (Negative) Urine Ketones Negative mg/dL (Negative) Ur Blood (Man) Trace (Negative) Urine Nitrate Negative (Negative) Urine Bilirubin Negative (Negative) Urine Urobilinogen 0.2 mg/dL (<2.0) Leukocyte Esterase Rfl Negative CAPRI/UL (Negative) Urine RBC 0-2 /hpf (0-2) Urine WBC 0-5 /hpf Ur Squamous Epith Cells None seen /hpf (Few) Urine Bacteria None seen /hpf Hyaline Casts 0-2 /lpf (None) 02/24/23 06:02 WBC 10.6 H K/mm3 (4.5-10.0) RBC 4.52 M/mm3 (4.2-5.4) Hgb 13.3 g/dL (12.0-15.0) Hct 39.7 % (37.0-47.0) MCV 87.8 fl (80-100) MCH 29.4 pg (26-34) MCHC 33.5 g/dl (32-36) RDW 14.5 % (11.5-14.5) Plt Count 334 k/mm3 (150-375) MPV 9.1 fl (7.4-10.4) Immature Gran % (Auto) Neut % (Auto) Lymph % (Auto) [place] % (Auto) Eos % (Auto) Baso % (Auto) Lymph # (Auto) [place] # (Auto) Eos # (Auto) Baso # (Auto) Abs Immat Gran (auto) Absolute Neuts (auto) Absolute Nucleated RBC Nucleated RBC % Sodium 144 mmol/L (137-145) Potassium 2.9 L mmol/L (3.4-5.0) Chloride 110 H mmol/L (98-107) Carbon Dioxide 29 mmol/L (22-30) Anion Gap 5 L mmol/L (8-16) BUN 13 D
[2023-02-24] MEDS: LACTATED RINGERS 1,000 ML 150 ML IV CONT (09:33)
[2023-02-24] MEDS: DEXTROSE 5%/0.9% SOD CHL 1,000 ML 65 ML IV CONT (11:21)
--- NOTE | 2023-02-24 11:52 | PM.IMPN ---
Progress Note: A&P Assessment and Plan (1) Large bowel obstruction: Code(s): K56.609 - Unspecified intestinal obstruction, unspecified as to partial versus complete obstruction Status: Acute (2) Hyperlipidemia: Code(s): E78.5 - Hyperlipidemia, unspecified Status: Acute (3) Tobacco use: Code(s): Z72.0 - Tobacco use Status: Acute Plan This is a 72-year-old female with remote history of cervical cancer, status post chemo, radiation, who presented to the emergency department for evaluation of abdominal pain, bloating, nausea, and vomiting. CT reveal large bowel obstruction with stricture at the rectosigmoid. GI has been consulted. NG tube has been placed. Zosyn empirically for possible infection given the white cell count. CEA came back at 15.2. Colonoscopy performed showed colonic stenosis an obstructive lesion at 10 cm from the NS. Grossly suspicious for malignancy. Biopsies were taken. Unable to traverse this narrowing. No clear opening identified. General surgery on board. Needs to be NPO Will give ice chips this to motion for comfort. TPN and PICC line plan noted which has been ordered by her surgery. Plan for decompressive diverting colostomy next week. 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 hydralazine ? Subjective Date/time seen: 02/24/23 11:52 Interval history: Overnight events. WBC count 10.6 hypokalemic at 2.9 CEA came back at 15.2. Colonoscopy performed showed colonic stenosis an obstructive lesion at 10 cm from the NS. Grossly suspicious for malignancy. Biopsies were taken. Unable to traverse this narrowing. No clear opening identified. General surgery on board. Patient denies any abdominal pain. Feels thirsty and wants to drink. Review of Systems Review of Systems: All systems reviewed & are unremarkable except as noted in HPI and below Exam Narrative: GENERAL:? Well-developed, well-nourished female in a semi-Bravo position in bed, in no acute distress. HEENT:? Normocephalic, atraumatic.? Pupils reactive.? Extraocular motions intact.? NG tube in the right naris draining opaque clear fluid.? Tacky mucous membranes. NECK:? Supple.? No lymphadenopathy. RESPIRATORY:? Respirations are nonlabored. ? Lungs are clear to auscultation. CARDIOVASCULAR:? Regular rate and rhythm with normal S1, S2. GASTROINTESTINAL:? Abdomen is distended and slightly firm with hypoactive bowel sounds in the upper abdomen.? She has mild voluntary guarding, but no obvious rebound tenderness. SKIN:? Warm and dry. EXTREMITIES:? No cyanosis, clubbing, or edema.? Radial pulses palpable. Posterior tibialis pulses palpable.? No palpable nodes or cords.? Negative Martinez sign bilaterally. NEUROLOGIC:? Alert and oriented x4.? Cranial nerves 2 through 12 grossly intact.? No gross focal deficits.? Casual conversation. PSYCHIATRIC:? Normal mood and affect. Objective Data Vital Signs Vital Signs: Vital Signs - 24 hr 02/23/23 13:59 02/23/23 17:48 02/23/23 20:00 Temperature 97.3 F L 97.5 F L 97.4 F L Pulse Rate 60 73 56 L Respiratory Rate 18 18 16 Blood Pressure 171/63 H 119/73 149/40 H Pulse Oximetry 100 98 94 Oxygen Delivery 02/23/23 20:00 02/24/23 00:00 02/24/23 05:00 Temperature 97.1 F L Pulse Rate 57 L Respiratory Rate 16 Blood Pressure 151/48 H 137/34 L Pulse Oximetry 98 Oxygen Delivery Room Air 02/24/23 06:00 02/24/23 09:30 02/24/23 08:00 Temperature 96.4 F L 98.3 F Pulse Rate 60 62 Respiratory Rate 16 16 Blood Pressure 186/64 H 150/58 H Pulse Oximetry 100 100 Oxygen Delivery Room Air Room Air 02/24/23 10:23 02/24/23 10:33 02/24/23 10:43 Temperature Pulse Rate 68 67 66 Respiratory Rate 16 18 17 Blood Pressure 90/38 L 98/46 L 159/61 H Pulse Oximetry 99
--- NOTE | 2023-02-24 11:55 | PM.PNGS ---
Progress Note: A&P Assessment and Plan (1) Large bowel obstruction: Code(s): K56.609 - Unspecified intestinal obstruction, unspecified as to partial versus complete obstruction Status: Acute Assessment and Plan: Patient has near complete obstruction of the rectosigmoid junction. Biopsies the mass are pending. She may need to have a decompressive diverting colostomy early next week. For now will keep the nasogastric tube in place and I have ordered a PICC line to be started and was started on TPN this weekend. If the pathology reveals rectal cancer then she may need a low anterior resection but further workup and possible neoadjuvant therapy might be considered before definitive resection. Continue supportive management and await biopsy results. Plan was discussed with the patient she understands. Subjective Subjective Date/Time Seen: 02/24/23 11:55 Interval history: Patient had flexible sigmoidoscopy today. Dr. Batista performed the procedure an finding showed a nearly complete obstruction of the rectosigmoid junction. The mass extends about 10cm from the anal verge on endoscopy. Biopsies were taken and results are pending. Patient remains with a nasogastric tube in place. Output was 1.5L yesterday. She denies any abdominal pain. Exam Const: General: comfortable and no acute distress Neck: Neck: supple and no JVD Resp: Effort & Inspection: normal respiratory effort Auscultation: clear to auscultation bilaterally Cardio: Rate: regular rate Rhythm: regular rhythm GI: Other: Abdomen is soft and mildly distended. No tenderness is noted. Objective Data Vital Signs Vital Signs: Vital Signs - 24 hr 02/23/23 13:59 02/23/23 17:48 02/23/23 20:00 Temperature 36.3 C L 36.4 C L 36.3 C L Pulse Rate 60 73 56 L Respiratory Rate 18 18 16 Blood Pressure 171/63 H 119/73 149/40 H Pulse Oximetry 100 98 94 Oxygen Delivery 02/23/23 20:00 02/24/23 00:00 02/24/23 05:00 Temperature 36.2 C L Pulse Rate 57 L Respiratory Rate 16 Blood Pressure 151/48 H 137/34 L Pulse Oximetry 98 Oxygen Delivery Room Air 02/24/23 06:00 02/24/23 09:30 02/24/23 08:00 Temperature 35.8 C L 36.8 C Pulse Rate 60 62 Respiratory Rate 16 16 Blood Pressure 186/64 H 150/58 H Pulse Oximetry 100 100 Oxygen Delivery Room Air Room Air 02/24/23 10:23 02/24/23 10:33 02/24/23 10:43 Temperature Pulse Rate 68 67 66 Respiratory Rate 16 18 17 Blood Pressure 90/38 L 98/46 L 159/61 H Pulse Oximetry 99 99 100 Oxygen Delivery Room Air Room Air Room Air Intake/Output Intake/Output: Intake & Output 02/21/23 02/22/23 02/23/23 02/24/23 23:59 23:59 23:59 23:59 Intake Total 1150 1200 Output Total 2053 850 Balance -903 350 Meds/Results Medications: Active Medications Generic Name Dose Route Start Last Admin Trade Name Freq PRN Reason Stop Dose Admin Famotidine 20 mg 02/23/23 21:00 02/24/23 08:05 Famotidine 20 Mg/2 Ml Vial IV PUSH 20 mg Q12HR CHANTAL Administration Hydralazine HCl 10 mg 02/23/23 15:09 02/24/23 04:59 Hydralazine Hcl 20 Mg/Ml Vial IV PUSH 10 mg Q8H PRN Administration Blood Pressure - High Hydromorphone HCl 0.5 mg 02/23/23 00:53 02/23/23 15:16 Hydromorphone Hcl Inj (*Crx) 1 Mg/Ml Syr IV PUSH 0.5 mg Q3H PRN Administration Pain Rated 7-10 Piperacillin/Tazobactam/Dextrose 3.375 gm in 50 mls @ 100 mls/hr 02/23/23 06:00 02/24/23 11:22 Zosyn 3.375 Gm/Ns 50 Ml IVPB 100 mls/hr Q6H CHANTAL Administration Dextrose/Sodium Chloride 1,000 mls @ 65 mls/hr 02/23/23 01:35 02/24/23 11:30 Dextrose 5% Sodium Chloride 0.9% IV CONT 0 mls/hr .[id number] CHANTAL Infusion Multivitamins 2.5 ml/ 2,005 mls @ 40 mls/hr 02/24/23 13:00 Multivitamins 2.5 ml/ Amino IV CONT Acids/Electrolytes/Dextrose .Q24H CHANTAL Protocol Dextrose 1,000 mls @ 50 mls/hr 02/24/23 11:26 Dextrose 10% IV CONT .Q20H PRN if PN is interrupte
[2023-02-24 12:00] LABS: Glucose Point of Care 98 mg/dl (65-105)
[2023-02-24] MEDS: POTASSIUM CHLORIDE INJ 40 MEQ in SODIUM CHLORIDE 0.9% IV 500 ML 130 MEQ IVPB (12:12)
[2023-02-24] MEDS: LIDOCAINE HCL 1% PF INJ 5 ML VIAL INFILTRATE (13:15)
--- NOTE | 2023-02-24 13:32 | PCCCNOTE ---
On 02/24/23, the student, [Lluvia Obrien], provided care and completed [facility] documentation on this patient. I have reviewed the student's documentation and agree with the findings.
[2023-02-24] MEDS: AMINO ACIDS 5%/D15W/E-LYTES/CA 2,000 ML with MULTIVITAMINS-12 INJ VIAL 1 2.5 ML, MULTIV... 40 ML IV CONT (15:12)
--- NOTE | 2023-02-24 16:44 | PC.NURSE ---
Communications Equipment Operator was informed upon her inquiry that pt did NOT have a PICC and that the labs due at 1130 would have to be drawn as per standard protocol. I received a call from another oil well shooter at 1645 wanting to know why I did not draw the labs. I informed this oil well shooter that the labs were due at 1130 and pt did not have a PICC until after 1400 therefore any questions as to why the prior oil well shooter chose not to draw the labs should be directed to that person. I was then informed that I would now need to draw those labs as pt currently has a PICC. Pt has continuous TPN running in one lumen and potassium running in the other lumen. Labs will be drawn after the potassium completes.
[2023-02-24 17:53] LABS: Glucose Point of Care 150 mg/dl (65-105)
[2023-02-24] MEDS: CENTRAL LINE FLUSH 10 ML IV PUSH (20:16)
[2023-02-25 00:15] LABS: Glucose Point of Care 138 mg/dl (65-105)
[2023-02-25] MEDS: PIPERACILLN/TAZ 3.375GM/NS50ML 3.375 GM/50 ML BAG IVPB ×4 (00:37→17:30)
[2023-02-25 05:06] LABS: Glucose Point of Care 108 mg/dl (65-105)
[2023-02-25] MEDS: DEXTROSE 5%/0.9% SOD CHL 1,000 ML 65 ML IV CONT (05:30)
[2023-02-25 05:50] LABS: Basophils Percent Auto 0.2 % (0.2-1.2); Eosinophils Absolute Auto 0.1 K/mm3 (0-0.3); Eosinophils Percent Auto 0.7 % (0-4.4); Hemoglobin 11.4 g/dL (12.0-15.0); Immature Granulocyte Absolute 0.03 K/mm3 (0.00-0.031); Immature Granulocyte Percent A 0.4 % (0-0.5); Lymphocytes Percent Auto 28.2 % (18.3-44.2); Mean Corpuscular HGB Conc 34.5 g/dl (32-36); Mean Corpuscular Hemoglobin 30.6 pg (26-34); Mean Corpuscular Volume 88.7 fl (80-100); Mean Platelet Volume 9.1 fl (7.4-10.4); Monocytes Absolute Auto 0.7 K/mm3 (0.1-0.6); Monocytes Percent Auto 8.7 % (2.6-8.5); Neutrophils Absolute Auto 5.3 K/mm3 (1.3-6.7); Neutrophils Percent Auto 61.8 % (45.5-73.1); Platelet Count Result 274 k/mm3 (150-375); Red Blood Count 3.72 M/mm3 (4.2-5.4); Red Cell Distribution Width 14.8 % (11.5-14.5); White Blood Count 8.5 K/mm3 (4.5-10.0)
[2023-02-25 05:55] VITALS: BP 176/56; PULSE 80; RESP 18; TEMP 36.5; O2SAT 100
[2023-02-25 06:02] LABS: Partial Thromboplastin Time 28.5 SECONDS (22.3-36.8)
[2023-02-25 06:13] LABS: Alanine Aminotransferase 16 U/L (6-35); Albumin Level 2.7 g/dL (3.5-5.1); Alkaline Phosphatase 71 U/L (38-126); Anion Gap 3 mmol/L (8-16); Aspartate Amino Transferase 22 U/L (14-36); Bilirubin,Total 0.6 mg/dL (0.2-1.3); Blood Urea Nitrogen 11 mg/dL (7-17); Calcium 7.2 mg/dL (8.4-10.2); Carbon Dioxide 27 mmol/L (22-30); Chloride 113 mmol/L (98-107); Estimated CRCL calculation 42 ml/min; Estimated Glomerular Filt Rate > 60; Glucose 351 mg/dL (65-110); Magnesium 1.9 mg/dL (1.6-2.3); Potassium 2.5 mmol/L (3.4-5.0); Sodium 143 mmol/L (137-145)
[2023-02-25] MEDS: POTASSIUM CHLORIDE INJ 40 MEQ in SODIUM CHLORIDE 0.9% IV 500 ML 130 MEQ IVPB (06:54)
[2023-02-25 07:01] LABS: Transferrin 134 mg/dL (206-381)
[2023-02-25] MEDS: FAMOTIDINE 20 MG/2 ML VIAL IV PUSH ×2 (09:27→20:58)
[2023-02-25] MEDS: FAT EMULSIONS IV 20% 250 ML 20.8 ML IVPB (09:27)
--- NOTE | 2023-02-25 09:36 | WPDGIPROGNO ---
Progress Note: A&P Assessment and Plan (1) Large bowel obstruction: Code(s): K56.609 - Unspecified intestinal obstruction, unspecified as to partial versus complete obstruction Status: Acute Assessment and Plan: Patient with large bowel obstruction. Near complete obstruction noted by flex sig yesterday at the rectosigmoid junction. Only 10cm proximal to the anal verge. Multiple biopsies taken and are pending at this time. Patient has a history of cervical cancer. Plan to review histology to determine whether this is recurrence of cervical cancer a new colon malignancy. Surgical decompression anticipated early next week. Tube decompression NPO for now. Subjective Date/time seen: 02/25/23 09:36 Interval history: patient alert comfortable today. Remains on NG tube decompression. Denies abdominal pain. Review of Systems Review of Systems: Review of systems noncontributory. Exam Narrative: Physical exam reveals abdomen to be soft and flat. Bowel sounds are present. No palpable masses. NG tube decompression and place. Lungs are clear. Heart without murmur. Objective Data Vital Signs Vital Signs: Vital Signs - 24 hr 02/24/23 10:23 02/24/23 10:33 02/24/23 10:43 Temperature Pulse Rate 68 67 66 Respiratory Rate 16 18 17 Blood Pressure 90/38 L 98/46 L 159/61 H Pulse Oximetry 99 99 100 Oxygen Delivery Room Air Room Air Room Air 02/24/23 13:51 02/24/23 21:23 02/25/23 05:55 Temperature 97.5 F L 97.3 F L 97.7 F Pulse Rate 60 60 80 Respiratory Rate 20 16 18 Blood Pressure 122/96 H 154/60 H 176/56 H Pulse Oximetry 100 100 100 Oxygen Delivery Intake/Output Intake/Output: Intake & Output 02/22/23 02/23/23 02/24/23 02/25/23 23:59 23:59 23:59 23:59 Intake Total 1150 1300 1550 Output Total 2053 850 Balance -135 004 2270 Meds/Results Medications: Active Medications Generic Name Dose Route Start Last Admin Trade Name Freq PRN Reason Stop Dose Admin Famotidine 20 mg 02/23/23 21:00 02/25/23 09:27 Famotidine 20 Mg/2 Ml Vial IV PUSH 20 mg Q12HR CHANTAL Administration Hydralazine HCl 10 mg 02/23/23 15:09 02/24/23 04:59 Hydralazine Hcl 20 Mg/Ml Vial IV PUSH 10 mg Q8H PRN Administration Blood Pressure - High Hydromorphone HCl 0.5 mg 02/23/23 00:53 02/23/23 15:16 Hydromorphone Hcl Inj (*Crx) 1 Mg/Ml Syr IV PUSH 0.5 mg Q3H PRN Administration Pain Rated 7-10 Piperacillin/Tazobactam/Dextrose 3.375 gm in 50 mls @ 100 mls/hr 02/23/23 06:00 02/25/23 09:22 Zosyn 3.375 Gm/Ns 50 Ml IVPB Infused Q6H CHANTAL Infusion Multivitamins 2.5 ml/ 2,005 mls @ 40 mls/hr 02/24/23 13:00 02/24/23 15:12 Multivitamins 2.5 ml/ Amino IV CONT 40 mls/hr Acids/Electrolytes/Dextrose .Q24H CHANTAL Administration Protocol Dextrose 1,000 mls @ 50 mls/hr 02/24/23 11:26 Dextrose 10% IV CONT .Q20H PRN if PN is interrupted Fat Emulsion Intravenous 250 mls @ 20.833 mls/hr 02/25/23 09:00 02/25/23 09:27 Lipids 20% IVPB 20.8 mls/hr DAILY CHANTAL Administration Potassium Chloride 40 meq/ 520 mls @ 130 mls/hr 02/25/23 06:19 02/25/23 06:54 Sodium Chloride IVPB 02/25/23 10:18 130 mls/hr ONCE ONE Administration Ondansetron HCl 4 mg 02/22/23 23:17 02/23/23 06:34 Ondansetron Inj 4 Mg/2 Ml Vial IV PUSH 4 mg Q6H PRN Administration Nausea And Vomiting Sodium Chloride 10 ml 02/24/23 22:00 02/25/23 06:26 Central Line Flush IV PUSH Not Given Q8HR CHANTAL Sodium Chloride 10 ml 02/24/23 15:03 Central Line Flush IV PUSH PRN PRN with TPN bag changes Sodium Chloride 20 ml 02/24/23 15:03 Central Line Flush IV PUSH PRN PRN after blood draws Radiology Results: ITS Impressions Abdomen X-Ray 02/22/23 18:47 IMPRESSION: 1: NG tube tip in the stomach. Abdomen/Pelvis CT 02/23/23 07:30 IMPRESSION: 1. Stricture of the rectosigmoid with obst
--- NOTE | 2023-02-25 11:18 | PM.IMPN ---
Progress Note: A&P Assessment and Plan (1) Large bowel obstruction: Code(s): K56.609 - Unspecified intestinal obstruction, unspecified as to partial versus complete obstruction Status: Acute (2) Hyperlipidemia: Code(s): E78.5 - Hyperlipidemia, unspecified Status: Acute (3) Tobacco use: Code(s): Z72.0 - Tobacco use Status: Acute Plan This is a 72-year-old female with remote history of cervical cancer, status post chemo, radiation, who presented to the emergency department for evaluation of abdominal pain, bloating, nausea, and vomiting. CT reveal large bowel obstruction with stricture at the rectosigmoid. GI has been consulted. NG tube has been placed. Zosyn empirically for possible infection given the white cell count. CEA came back at 15.2. Colonoscopy performed showed colonic stenosis an obstructive lesion at 10 cm from the NS. Grossly suspicious for malignancy. Biopsies were taken. Unable to traverse this narrowing. No clear opening identified. General surgery on board. Needs to be NPO Will give ice chips this to motion for comfort. Plan for decompressive diverting colostomy next week. Awaiting pathology. Continue TPN as ordered. Discussed with daughter over the phone who is an anesthesiologist 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 asymptomatic needs follow-up as an outpatient basis Tobacco use Remote history of cervical cancer DVT prophylaxis SCDs Hypertension will order p.r.n. hydralazine ? Subjective Date/time seen: 02/25/23 11:18 Interval history: No overnight events. States her stomach is growling. No pain no nausea vomiting. NG in place. Having loose stool Review of Systems Review of Systems: All systems reviewed & are unremarkable except as noted in HPI and below Exam Narrative: GENERAL:? Well-developed, well-nourished female in a semi-Bravo position in bed, in no acute distress. HEENT:? Normocephalic, atraumatic.? Pupils reactive.? Extraocular motions intact.? NG tube in the right naris draining opaque clear fluid. NECK:? Supple.? No lymphadenopathy. RESPIRATORY:? Respirations are nonlabored. ? Lungs are clear to auscultation. CARDIOVASCULAR:? Regular rate and rhythm with normal S1, S2. GASTROINTESTINAL:? Abdomen is distended and slightly firm with hypoactive bowel sounds in the upper abdomen.? She has mild voluntary guarding, but no obvious rebound tenderness. SKIN:? Warm and dry. EXTREMITIES:? No cyanosis, clubbing, or edema.? Radial pulses palpable. Posterior tibialis pulses palpable.? No palpable nodes or cords.? Negative Martinez sign bilaterally. NEUROLOGIC:? Alert and oriented x4.? Cranial nerves 2 through 12 grossly intact.? No gross focal deficits.? Casual conversation. PSYCHIATRIC:? Normal mood and affect. Objective Data Vital Signs Vital Signs: Vital Signs - 24 hr 02/24/23 13:51 02/24/23 21:23 02/25/23 05:55 Temperature 97.5 F L 97.3 F L 97.7 F Pulse Rate 60 60 80 Respiratory Rate 20 16 18 Blood Pressure 122/96 H 154/60 H 176/56 H Pulse Oximetry 100 100 100 Oxygen Delivery 02/25/23 09:20 Temperature Pulse Rate Respiratory Rate Blood Pressure Pulse Oximetry Oxygen Delivery Room Air Intake/Output Intake/Output: Intake & Output 02/22/23 02/23/23 02/24/23 02/25/23 23:59 23:59 23:59 23:59 Intake Total 1150 1300 1550 Output Total 2053 1350 300 Balance -903 -50 1250 Meds/Results Medications: Active Medications Generic Name Dose Route Start Last Admin Trade Name Freq PRN Reason Stop Dose Admin Famotidine 20 mg 02/23/23 21:00 02/25/23 09:27 Famotidine 20 Mg/2 Ml Vial IV PUSH 20 mg Q12HR CHANTAL Administration Hydralazine HCl 10 mg 02/23/23 15:09 02/24/23 04:59 Hydralazine Hcl 20 Mg/Ml Vial IV PUSH 10 mg Q8H PRN Administration Blood Pressure - High Hydromorphone HCl 0.5 mg 02/23/23 00:53 02/23/23 15:16 Hydromorphone Hcl Inj (*Crx) 1 Mg/Ml Syr
[2023-02-25] MEDS: CENTRAL LINE FLUSH 10 ML IV PUSH ×2 (12:05→21:03)
[2023-02-25 12:07] LABS: Glucose Point of Care 128 mg/dl (65-105)
[2023-02-25 12:52] LABS: Triglycerides 108 mg/dL (<150)
[2023-02-25 13:22] LABS: Potassium 4.5 mmol/L (3.4-5.0)
[2023-02-25 13:58] VITALS: BP 152/69; PULSE 54; RESP 18; TEMP 36.2; O2SAT 100
[2023-02-25] MEDS: AMINO ACIDS 5%/D15W/E-LYTES/CA 2,000 ML with MULTIVITAMINS-12 INJ VIAL 1 2.5 ML, MULTIV... 40 ML IV CONT (17:30)
--- NOTE | 2023-02-25 17:46 | PM.PNGS ---
Progress Note: A&P Assessment and Plan (1) Large bowel obstruction: Code(s): K56.609 - Unspecified intestinal obstruction, unspecified as to partial versus complete obstruction Status: Acute Assessment and Plan: exam benign, cont NG decompression but ok to have sips/chips, cont TPN, await path, OOB Subjective Subjective Date/Time Seen: 02/25/23 17:46 Interval history: feels ok, reports she is hungry and wants to eat Review of Systems Review of Systems: All systems reviewed & are unremarkable except as noted in HPI and below Exam Const: General: cooperative, comfortable and no acute distress GI: Inspection: normal to inspection and distended GI Palp: Yes abdominal tenderness, Yes Soft to palpation, Yes Tenderness to palpation present (GI), No Guarding due to palpation present (GI) and No Rigid due to palpation Objective Data Vital Signs Vital Signs: Vital Signs - 24 hr 02/24/23 21:23 02/25/23 05:55 02/25/23 09:20 Temperature 36.3 C L 36.5 C Pulse Rate 60 80 Respiratory Rate 16 18 Blood Pressure 154/60 H 176/56 H Pulse Oximetry 100 100 Oxygen Delivery Room Air 02/25/23 13:58 Temperature 36.2 C L Pulse Rate 54 L Respiratory Rate 18 Blood Pressure 152/69 H Pulse Oximetry 100 Oxygen Delivery Intake/Output Intake/Output: Intake & Output 02/22/23 02/23/23 02/24/23 02/25/23 23:59 23:59 23:59 23:59 Intake Total 1150 1300 4640 Output Total 2053 1350 850 Balance -903 -50 3790 Meds/Results Medications: Active Medications Generic Name Dose Route Start Last Admin Trade Name Freq PRN Reason Stop Dose Admin Famotidine 20 mg 02/23/23 21:00 02/25/23 09:27 Famotidine 20 Mg/2 Ml Vial IV PUSH 20 mg Q12HR CHANTAL Administration Hydralazine HCl 10 mg 02/23/23 15:09 02/24/23 04:59 Hydralazine Hcl 20 Mg/Ml Vial IV PUSH 10 mg Q8H PRN Administration Blood Pressure - High Hydromorphone HCl 0.5 mg 02/23/23 00:53 02/23/23 15:16 Hydromorphone Hcl Inj (*Crx) 1 Mg/Ml Syr IV PUSH 0.5 mg Q3H PRN Administration Pain Rated 7-10 Piperacillin/Tazobactam/Dextrose 3.375 gm in 50 mls @ 100 mls/hr 02/23/23 06:00 02/25/23 17:30 Zosyn 3.375 Gm/Ns 50 Ml IVPB 100 mls/hr Q6H CHANTAL Administration Multivitamins 2.5 ml/ 2,005 mls @ 40 mls/hr 02/24/23 13:00 02/25/23 17:30 Multivitamins 2.5 ml/ Amino IV CONT 40 mls/hr Acids/Electrolytes/Dextrose .Q24H CHANTAL Administration Protocol Dextrose 1,000 mls @ 50 mls/hr 02/24/23 11:26 Dextrose 10% IV CONT .Q20H PRN if PN is interrupted Fat Emulsion Intravenous 250 mls @ 20.833 mls/hr 02/25/23 09:00 02/25/23 12:05 Lipids 20% IVPB 20.8 mls/hr DAILY CHANTAL Infusion Ondansetron HCl 4 mg 02/22/23 23:17 02/23/23 06:34 Ondansetron Inj 4 Mg/2 Ml Vial IV PUSH 4 mg Q6H PRN Administration Nausea And Vomiting Sodium Chloride 10 ml 02/24/23 22:00 02/25/23 12:05 Central Line Flush IV PUSH 10 ml Q8HR CHANTAL Administration Sodium Chloride 10 ml 02/24/23 15:03 Central Line Flush IV PUSH PRN PRN with TPN bag changes Sodium Chloride 20 ml 02/24/23 15:03 Central Line Flush IV PUSH PRN PRN after blood draws Radiology Results: ITS Impressions Abdomen X-Ray 02/22/23 18:47 IMPRESSION: 1: NG tube tip in the stomach. Abdomen/Pelvis CT 02/23/23 07:30 IMPRESSION: 1. Stricture of the rectosigmoid with obstruction. The stricture could be malignant. 2. Arterial occlusive disease. Enema w/Water Soluble 02/23/23 10:59 IMPRESSION: 1. Severe stricture of the rectosigmoid. Labs Labs: Laboratory Results - last 24 hr 02/24/23 02/25/23 02/25/23 17:50 00:11 05:02 WBC RBC Hgb Hct MCV MCH MCHC RDW Plt Count MPV Immature Gran % (Auto) Neut % (Auto) Lymph % (Auto) [place] % (Auto) Eos % (Auto) Baso % (Auto) Lymph # (Auto) [place] # (Aut
[2023-02-25 18:33] LABS: Glucose Point of Care 137 mg/dl (65-105)
[2023-02-25 21:10] VITALS: BP 142/61; PULSE 70; RESP 14; TEMP 36.3; O2SAT 100
[2023-02-25 23:16] LABS: Glucose Point of Care 113 mg/dl (65-105)
[2023-02-26] MEDS: PIPERACILLN/TAZ 3.375GM/NS50ML 3.375 GM/50 ML BAG IVPB ×4 (00:12→18:19)
[2023-02-26 05:48] VITALS: BP 142/44; PULSE 61; RESP 14; TEMP 36.5; O2SAT 100
[2023-02-26] MEDS: CENTRAL LINE FLUSH 10 ML IV PUSH ×3 (06:09→21:05)
[2023-02-26 06:16] LABS: Basophils Percent Auto 0.2 % (0.2-1.2); Eosinophils Absolute Auto 0.2 K/mm3 (0-0.3); Eosinophils Percent Auto 1.7 % (0-4.4); Hematocrit 34.4 % (37.0-47.0); Hemoglobin 11.9 g/dL (12.0-15.0); Immature Granulocyte Absolute 0.03 K/mm3 (0.00-0.031); Immature Granulocyte Percent A 0.3 % (0-0.5); Lymphocytes Absolute Auto 2.34 K/mm3 (0.9-3.2); Lymphocytes Percent Auto 26.7 % (18.3-44.2); Mean Corpuscular HGB Conc 34.6 g/dl (32-36); Mean Corpuscular Hemoglobin 30.1 pg (26-34); Mean Corpuscular Volume 87.1 fl (80-100); Mean Platelet Volume 8.8 fl (7.4-10.4); Monocytes Absolute Auto 0.7 K/mm3 (0.1-0.6); Monocytes Percent Auto 7.5 % (2.6-8.5); Neutrophils Absolute Auto 5.6 K/mm3 (1.3-6.7); Neutrophils Percent Auto 63.6 % (45.5-73.1); Platelet Count Result 267 k/mm3 (150-375); Red Blood Count 3.95 M/mm3 (4.2-5.4); Red Cell Distribution Width 14.5 % (11.5-14.5); White Blood Count 8.8 K/mm3 (4.5-10.0)
[2023-02-26 06:18] LABS: Glucose Point of Care 116 mg/dl (65-105)
[2023-02-26 07:09] LABS: Alanine Aminotransferase 16 U/L (6-35); Alkaline Phosphatase 63 U/L (38-126); Anion Gap 5 mmol/L (8-16); Aspartate Amino Transferase 18 U/L (14-36); Bilirubin,Total 0.6 mg/dL (0.2-1.3); Blood Urea Nitrogen 11 mg/dL (7-17); Carbon Dioxide 28 mmol/L (22-30); Chloride 106 mmol/L (98-107); Estimated CRCL calculation 42 ml/min; Estimated Glomerular Filt Rate > 60; Glucose 109 mg/dL (65-110); Potassium 2.7 mmol/L (3.4-5.0); Sodium 139 mmol/L (137-145)
[2023-02-26] MEDS: FAT EMULSIONS IV 20% 250 ML 20.8 ML IVPB (09:04)
[2023-02-26] MEDS: FAMOTIDINE 20 MG/2 ML VIAL IV PUSH ×2 (09:04→21:02)
[2023-02-26] MEDS: POTASSIUM CHLORIDE INJ 40 MEQ in SODIUM CHLORIDE 0.9% IV 500 ML 130 MEQ IVPB (09:04)
--- NOTE | 2023-02-26 09:22 | WPDGIPROGNO ---
Progress Note: A&P Assessment and Plan (1) Large bowel obstruction: Code(s): K56.609 - Unspecified intestinal obstruction, unspecified as to partial versus complete obstruction Status: Acute Assessment and Plan: Patient with large bowel obstruction. Obstructing lesion only 10cm from anal verge. Histology pending from colonoscopy on Monday. Plan for surgical decompression. NG tube likely will need to be advanced a little. This information related to the nursing service. Continue NG tube decompression for now. Subjective Date/time seen: 02/26/23 09:22 Interval history: Patient alert comfortable this morning. NG tube repeat main is in place although appears to have come out somewhat. Patient denies specific abdominal pain. Anxious to have decompression surgery. She is hungry. Biopsies of obstructing lesion still pending. Review of Systems Review of Systems: Review of systems noncontributory. Exam Narrative: Physical exam reveals patient to be comfortable rest. Ambulating in room. NG tube appears to have come out somewhat. Lungs are clear. Heart without murmur. Abdomen bowel sounds present soft nontender with no organomegaly. Objective Data Vital Signs Vital Signs: Vital Signs - 24 hr 02/25/23 13:58 02/25/23 21:10 02/26/23 05:48 Temperature 97.2 F L 97.3 F L 97.7 F Pulse Rate 54 L 70 61 Respiratory Rate 18 14 14 Blood Pressure 152/69 H 142/61 H 142/44 H Pulse Oximetry 100 100 100 Intake/Output Intake/Output: Intake & Output 02/23/23 02/24/23 02/25/23 02/26/23 23:59 23:59 23:59 23:59 Intake Total 1150 1300 4690 300 Output Total 2053 1350 850 Balance -903 -50 3840 300 Meds/Results Medications: Active Medications Generic Name Dose Route Start Last Admin Trade Name Freq PRN Reason Stop Dose Admin Famotidine 20 mg 02/23/23 21:00 02/26/23 09:04 Famotidine 20 Mg/2 Ml Vial IV PUSH 20 mg Q12HR CHANTAL Administration Hydralazine HCl 10 mg 02/23/23 15:09 02/24/23 04:59 Hydralazine Hcl 20 Mg/Ml Vial IV PUSH 10 mg Q8H PRN Administration Blood Pressure - High Hydromorphone HCl 0.5 mg 02/23/23 00:53 02/23/23 15:16 Hydromorphone Hcl Inj (*Crx) 1 Mg/Ml Syr IV PUSH 0.5 mg Q3H PRN Administration Pain Rated 7-10 Piperacillin/Tazobactam/Dextrose 3.375 gm in 50 mls @ 100 mls/hr 02/23/23 06:00 02/26/23 06:09 Zosyn 3.375 Gm/Ns 50 Ml IVPB 100 mls/hr Q6H CHANTAL Administration Multivitamins 2.5 ml/ 2,005 mls @ 40 mls/hr 02/24/23 13:00 02/25/23 17:30 Multivitamins 2.5 ml/ Amino IV CONT 40 mls/hr Acids/Electrolytes/Dextrose .Q24H CHANTAL Administration Protocol Dextrose 1,000 mls @ 50 mls/hr 02/24/23 11:26 Dextrose 10% IV CONT .Q20H PRN if PN is interrupted Fat Emulsion Intravenous 250 mls @ 20.833 mls/hr 02/25/23 09:00 02/26/23 09:04 Lipids 20% IVPB 20.8 mls/hr DAILY CHANTAL Administration Potassium Chloride 40 meq/ 520 mls @ 130 mls/hr 02/26/23 08:30 02/26/23 09:04 Sodium Chloride IVPB 02/26/23 12:29 130 mls/hr ONCE ONE Administration Ondansetron HCl 4 mg 02/22/23 23:17 02/23/23 06:34 Ondansetron Inj 4 Mg/2 Ml Vial IV PUSH 4 mg Q6H PRN Administration Nausea And Vomiting Sodium Chloride 10 ml 02/24/23 22:00 02/26/23 06:09 Central Line Flush IV PUSH 10 ml Q8HR CHANTAL Administration Sodium Chloride 10 ml 02/24/23 15:03 Central Line Flush IV PUSH PRN PRN with TPN bag changes Sodium Chloride 20 ml 02/24/23 15:03 Central Line Flush IV PUSH PRN PRN after blood draws Radiology Results: ITS Impressions Abdomen X-Ray 02/22/23 18:47 IMPRESSION: 1: NG tube tip in the stomach. Abdomen/Pelvis CT 02/23/23 07:30 IMPRESSION: 1. Stricture of the rectosigmoid with obstruction. The stricture could be malignant. 2. Arterial occlusive disease. Enema w/Water Soluble 02/23/23 10:59 IMPRESSION: 1.
--- NOTE | 2023-02-26 11:52 | PM.PNGS ---
Progress Note: A&P Assessment and Plan (1) Large bowel obstruction: Code(s): K56.609 - Unspecified intestinal obstruction, unspecified as to partial versus complete obstruction Status: Acute Assessment and Plan: await path, plan for surgery early next week, cont TPN for now Subjective Subjective Date/Time Seen: 02/26/23 11:52 Interval history: no acute issues, cont to have loose BMs, +flatus Review of Systems Review of Systems: All systems reviewed & are unremarkable except as noted in HPI and below Exam Const: General: cooperative, comfortable and no acute distress Resp: Auscultation: clear to auscultation bilaterally Cardio: Rate: regular rate Rhythm: regular rhythm GI: Inspection: normal to inspection and distended GI Palp: No abdominal tenderness, Yes Soft to palpation, No Tenderness to palpation present (GI), No Guarding due to palpation present (GI) and No Rigid due to palpation Objective Data Vital Signs Vital Signs: Vital Signs - 24 hr 02/25/23 13:58 02/25/23 21:10 02/26/23 05:48 Temperature 36.2 C L 36.3 C L 36.5 C Pulse Rate 54 L 70 61 Respiratory Rate 18 14 14 Blood Pressure 152/69 H 142/61 H 142/44 H Pulse Oximetry 100 100 100 Intake/Output Intake/Output: Intake & Output 02/23/23 02/24/23 02/25/23 02/26/23 23:59 23:59 23:59 23:59 Intake Total 1150 1300 4690 300 Output Total 2053 1350 850 Balance -903 -50 3840 300 Meds/Results Medications: Active Medications Generic Name Dose Route Start Last Admin Trade Name Freq PRN Reason Stop Dose Admin Famotidine 20 mg 02/23/23 21:00 02/26/23 09:04 Famotidine 20 Mg/2 Ml Vial IV PUSH 20 mg Q12HR CHANTAL Administration Hydralazine HCl 10 mg 02/23/23 15:09 02/24/23 04:59 Hydralazine Hcl 20 Mg/Ml Vial IV PUSH 10 mg Q8H PRN Administration Blood Pressure - High Hydromorphone HCl 0.5 mg 02/23/23 00:53 02/23/23 15:16 Hydromorphone Hcl Inj (*Crx) 1 Mg/Ml Syr IV PUSH 0.5 mg Q3H PRN Administration Pain Rated 7-10 Piperacillin/Tazobactam/Dextrose 3.375 gm in 50 mls @ 100 mls/hr 02/23/23 06:00 02/26/23 06:09 Zosyn 3.375 Gm/Ns 50 Ml IVPB 100 mls/hr Q6H CHANTAL Administration Multivitamins 2.5 ml/ 2,005 mls @ 40 mls/hr 02/24/23 13:00 02/25/23 17:30 Multivitamins 2.5 ml/ Amino IV CONT 40 mls/hr Acids/Electrolytes/Dextrose .Q24H CHANTAL Administration Protocol Dextrose 1,000 mls @ 50 mls/hr 02/24/23 11:26 Dextrose 10% IV CONT .Q20H PRN if PN is interrupted Fat Emulsion Intravenous 250 mls @ 20.833 mls/hr 02/25/23 09:00 02/26/23 09:04 Lipids 20% IVPB 20.8 mls/hr DAILY CHANTAL Administration Potassium Chloride 40 meq/ 520 mls @ 130 mls/hr 02/26/23 08:30 02/26/23 09:04 Sodium Chloride IVPB 02/26/23 12:29 130 mls/hr ONCE ONE Administration Ondansetron HCl 4 mg 02/22/23 23:17 02/23/23 06:34 Ondansetron Inj 4 Mg/2 Ml Vial IV PUSH 4 mg Q6H PRN Administration Nausea And Vomiting Sodium Chloride 10 ml 02/24/23 22:00 02/26/23 06:09 Central Line Flush IV PUSH 10 ml Q8HR CHANTAL Administration Sodium Chloride 10 ml 02/24/23 15:03 Central Line Flush IV PUSH PRN PRN with TPN bag changes Sodium Chloride 20 ml 02/24/23 15:03 Central Line Flush IV PUSH PRN PRN after blood draws Radiology Results: ITS Impressions Abdomen X-Ray 02/22/23 18:47 IMPRESSION: 1: NG tube tip in the stomach. Abdomen/Pelvis CT 02/23/23 07:30 IMPRESSION: 1. Stricture of the rectosigmoid with obstruction. The stricture could be malignant. 2. Arterial occlusive disease. Enema w/Water Soluble 02/23/23 10:59 IMPRESSION: 1. Severe stricture of the rectosigmoid. Labs Labs: Laboratory Results - last 24 hr 02/25/23 02/25/23 02/25/23 05:33 12:02 13:05 WBC RBC Hgb Hct MCV MCH MCHC RDW Plt Count MPV Immature Gran % (Auto) Neut %
--- NOTE | 2023-02-26 11:59 | PM.IMPN ---
Progress Note: A&P Assessment and Plan (1) Large bowel obstruction: Code(s): K56.609 - Unspecified intestinal obstruction, unspecified as to partial versus complete obstruction Status: Acute (2) Hyperlipidemia: Code(s): E78.5 - Hyperlipidemia, unspecified Status: Acute (3) Tobacco use: Code(s): Z72.0 - Tobacco use Status: Acute Plan This is a 72-year-old female with remote history of cervical cancer, status post chemo, radiation, who presented to the emergency department for evaluation of abdominal pain, bloating, nausea, and vomiting. CT reveal large bowel obstruction with stricture at the rectosigmoid. GI has been consulted. NG tube has been placed. Zosyn empirically for possible infection given the white cell count. CEA came back at 15.2. Colonoscopy performed showed colonic stenosis an obstructive lesion at 10 cm from the NS. Grossly suspicious for malignancy. Biopsies were taken. Unable to traverse this narrowing. No clear opening identified. General surgery on board. Needs to be NPO Will give ice chips this to motion for comfort. Plan for decompressive diverting colostomy next week. Awaiting pathology. Continue TPN as ordered. 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 hydralazine ? Subjective Date/time seen: 02/26/23 11:59 Interval history: No new complaints. No fever chills. No abdominal pain. Having some loose stool. Review of Systems Review of Systems: All systems reviewed & are unremarkable except as noted in HPI and below Exam Narrative: GENERAL:? Well-developed, well-nourished female in a semi-Bravo position in bed, in no acute distress. HEENT:? Normocephalic, atraumatic.? Pupils reactive.? Extraocular motions intact.? NG tube in the right naris draining opaque clear fluid. NECK:? Supple.? No lymphadenopathy. RESPIRATORY:? Respirations are nonlabored. ? Lungs are clear to auscultation. CARDIOVASCULAR:? Regular rate and rhythm with normal S1, S2. GASTROINTESTINAL:? Abdomen is distended and slightly firm with hypoactive bowel sounds in the upper abdomen.? She has mild voluntary guarding, but no obvious rebound tenderness. SKIN:? Warm and dry. EXTREMITIES:? No cyanosis, clubbing, or edema.? Radial pulses palpable. Posterior tibialis pulses palpable.? No palpable nodes or cords.? Negative Martinez sign bilaterally. NEUROLOGIC:? Alert and oriented x4.? Cranial nerves 2 through 12 grossly intact.? No gross focal deficits.? Casual conversation. PSYCHIATRIC:? Normal mood and affect. Objective Data Vital Signs Vital Signs: Vital Signs - 24 hr 02/25/23 13:58 02/25/23 21:10 02/26/23 05:48 Temperature 97.2 F L 97.3 F L 97.7 F Pulse Rate 54 L 70 61 Respiratory Rate 18 14 14 Blood Pressure 152/69 H 142/61 H 142/44 H Pulse Oximetry 100 100 100 Intake/Output Intake/Output: Intake & Output 02/23/23 02/24/23 02/25/23 02/26/23 23:59 23:59 23:59 23:59 Intake Total 1150 1300 4690 300 Output Total 2053 1350 850 Balance -903 -50 3840 300 Meds/Results Medications: Active Medications Generic Name Dose Route Start Last Admin Trade Name Freq PRN Reason Stop Dose Admin Famotidine 20 mg 02/23/23 21:00 02/26/23 09:04 Famotidine 20 Mg/2 Ml Vial IV PUSH 20 mg Q12HR CHANTAL Administration Hydralazine HCl 10 mg 02/23/23 15:09 02/24/23 04:59 Hydralazine Hcl 20 Mg/Ml Vial IV PUSH 10 mg Q8H PRN Administration Blood Pressure - High Hydromorphone HCl 0.5 mg 02/23/23 00:53 02/23/23 15:16 Hydromorphone Hcl Inj (*Crx) 1 Mg/Ml Syr IV PUSH 0.5 mg Q3H PRN Administration Pain Rated 7-10 Piperacillin/Tazobactam/Dextrose 3.375 gm in 50 mls @ 100 mls/hr 02/23/23 06:00 02/26/23 06:09 Zosyn 3.375 Gm/Ns 50 Ml IVPB 100 mls/hr Q6H CHANTAL Administratio
[2023-02-26 12:06] LABS: Glucose Point of Care 102 mg/dl (65-105)
[2023-02-26 14:00] VITALS: BP 110/88; PULSE 62; RESP 16; TEMP 36.4; O2SAT 100
[2023-02-26 18:11] LABS: Glucose Point of Care 120 mg/dl (65-105)
[2023-02-26] MEDS: AMINO ACIDS 5%/D15W/E-LYTES/CA 2,000 ML with MULTIVITAMINS-12 INJ VIAL 1 2.5 ML, MULTIV... 40 ML IV CONT (19:48)
[2023-02-26 21:14] VITALS: BP 123/62; PULSE 62; RESP 14; TEMP 36.3; O2SAT 100
[2023-02-27] MEDS: PIPERACILLN/TAZ 3.375GM/NS50ML 3.375 GM/50 ML BAG IVPB ×2 (00:15→05:35)
[2023-02-27 00:53] LABS: Glucose Point of Care 107 mg/dl (65-105)
[2023-02-27] MEDS: CENTRAL LINE FLUSH 10 ML IV PUSH ×2 (05:43→22:55)
[2023-02-27 05:55] LABS: Basophils Percent Auto 0.4 % (0.2-1.2); Eosinophils Absolute Auto 0.2 K/mm3 (0-0.3); Hematocrit 33.5 % (37.0-47.0); Hemoglobin 11.7 g/dL (12.0-15.0); Immature Granulocyte Absolute 0.02 K/mm3 (0.00-0.031); Immature Granulocyte Percent A 0.2 % (0-0.5); Lymphocytes Absolute Auto 2.33 K/mm3 (0.9-3.2); Lymphocytes Percent Auto 27.3 % (18.3-44.2); Mean Corpuscular HGB Conc 34.9 g/dl (32-36); Mean Corpuscular Hemoglobin 30.5 pg (26-34); Mean Corpuscular Volume 87.5 fl (80-100); Mean Platelet Volume 9.2 fl (7.4-10.4); Monocytes Absolute Auto 0.6 K/mm3 (0.1-0.6); Monocytes Percent Auto 6.8 % (2.6-8.5); Neutrophils Absolute Auto 5.4 K/mm3 (1.3-6.7); Neutrophils Percent Auto 63.3 % (45.5-73.1); Platelet Count Result 279 k/mm3 (150-375); Red Blood Count 3.83 M/mm3 (4.2-5.4); Red Cell Distribution Width 14.7 % (11.5-14.5); White Blood Count 8.6 K/mm3 (4.5-10.0)
[2023-02-27 05:58] LABS: Glucose Point of Care 117 mg/dl (65-105)
[2023-02-27 06:00] VITALS: BP 145/59; PULSE 54; RESP 16; TEMP 36.2; O2SAT 100
[2023-02-27 06:03] LABS: Alanine Aminotransferase 16 U/L (6-35); Albumin Level 3.3 g/dL (3.5-5.1); Alkaline Phosphatase 64 U/L (38-126); Anion Gap 5 mmol/L (8-16); Aspartate Amino Transferase 15 U/L (14-36); Bilirubin,Total 0.7 mg/dL (0.2-1.3); Blood Urea Nitrogen 11 mg/dL (7-17); Calcium 8.2 mg/dL (8.4-10.2); Carbon Dioxide 26 mmol/L (22-30); Chloride 110 mmol/L (98-107); Estimated CRCL calculation 42 ml/min; Estimated Glomerular Filt Rate > 60; Glucose 105 mg/dL (65-110); Magnesium 2.1 mg/dL (1.6-2.3); Potassium 3.1 mmol/L (3.4-5.0); Sodium 141 mmol/L (137-145)
[2023-02-27 06:08] LABS: Prothrombin Time 14.2 Seconds (11.1-14.7)
[2023-02-27 06:09] LABS: Partial Thromboplastin Time 29.8 SECONDS (22.3-36.8)
[2023-02-27 06:10] LABS: Transferrin 147 mg/dL (206-381)
[2023-02-27] MEDS: FAT EMULSIONS IV 20% 250 ML 20.8 ML IVPB (08:42)
[2023-02-27] MEDS: FAMOTIDINE 20 MG/2 ML VIAL IV PUSH ×2 (08:42→20:42)
[2023-02-27] MEDS: KCL 40 MEQ/WATER 100 ML 100 ML 25 ML IVPB (08:42)
[2023-02-27 10:54] LABS: Triglycerides 93 mg/dL (<150)
--- NOTE | 2023-02-27 11:54 | PM.IMPN ---
Progress Note: A&P Assessment and Plan (1) Large bowel obstruction: Code(s): K56.609 - Unspecified intestinal obstruction, unspecified as to partial versus complete obstruction Status: Acute (2) Hyperlipidemia: Code(s): E78.5 - Hyperlipidemia, unspecified Status: Acute (3) Tobacco use: Code(s): Z72.0 - Tobacco use Status: Acute Plan This is a 72-year-old female with remote history of cervical cancer, status post chemo, radiation, who presented to the emergency department for evaluation of abdominal pain, bloating, nausea, and vomiting. CT reveal large bowel obstruction with stricture at the rectosigmoid. GI has been consulted. NG tube has been placed. Zosyn empirically for possible infection given the white cell count which has now been discontinued. CEA came back at 15.2. Colonoscopy performed showed colonic stenosis an obstructive lesion at 10 cm from the NS. Grossly suspicious for malignancy. Biopsies were taken. Unable to traverse this narrowing. No clear opening identified. General surgery on board. Needs to be NPO Will give ice chips this to motion for comfort. Plan for decompressive diverting colostomy this week. Awaiting pathology. Continue TPN as ordered. 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 hydralazine ? Subjective Date/time seen: 02/27/23 11:54 Interval history: No overnight events. Feels well. No nausea vomiting. No abdominal pain. Awaiting pathology report. Review of Systems Review of Systems: All systems reviewed & are unremarkable except as noted in HPI and below Exam Narrative: GENERAL:? Well-developed, well-nourished female in a semi-Bravo position in bed, in no acute distress. HEENT:? Normocephalic, atraumatic.? Pupils reactive.? Extraocular motions intact.? NG tube in the right naris draining opaque clear fluid. NECK:? Supple.? No lymphadenopathy. RESPIRATORY:? Respirations are nonlabored. ? Lungs are clear to auscultation. CARDIOVASCULAR:? Regular rate and rhythm with normal S1, S2. GASTROINTESTINAL:? Abdomen is distended and slightly firm with hypoactive bowel sounds in the upper abdomen.? She has mild voluntary guarding, but no obvious rebound tenderness. SKIN:? Warm and dry. EXTREMITIES:? No cyanosis, clubbing, or edema.? Radial pulses palpable. Posterior tibialis pulses palpable.? No palpable nodes or cords.? Negative Martinez sign bilaterally. NEUROLOGIC:? Alert and oriented x4.? Cranial nerves 2 through 12 grossly intact.? No gross focal deficits.? Casual conversation. PSYCHIATRIC:? Normal mood and affect. Objective Data Vital Signs Vital Signs: Vital Signs - 24 hr 02/26/23 14:00 02/26/23 21:14 02/26/23 20:10 Temperature 97.5 F L 97.4 F L Pulse Rate 62 62 Respiratory Rate 16 14 Blood Pressure 110/88 123/62 Pulse Oximetry 100 100 Oxygen Delivery Room Air 02/27/23 06:00 02/27/23 08:40 Temperature 97.1 F L Pulse Rate 54 L Respiratory Rate 16 Blood Pressure 145/59 H Pulse Oximetry 100 Oxygen Delivery Room Air Intake/Output Intake/Output: Intake & Output 02/24/23 02/25/23 02/26/23 02/27/23 23:59 23:59 23:59 23:59 Intake Total 1300 4690 3225 50 Output Total 1373 484 5406 Balance -50 3840 3225 -1974 Meds/Results Medications: Active Medications Generic Name Dose Route Start Last Admin Trade Name Freq PRN Reason Stop Dose Admin Famotidine 20 mg 02/23/23 21:00 02/27/23 08:42 Famotidine 20 Mg/2 Ml Vial IV PUSH 20 mg Q12HR CHANTAL Administration Hydralazine HCl 10 mg 02/23/23 15:09 02/24/23 04:59 Hydralazine Hcl 20 Mg/Ml Vial IV PUSH 10 mg Q8H PRN Administration Blood Pressure - High Hydromorphone HCl 0.5 mg 02/23/23 00:53 02/23/23 15:16 Hydromorphone Hcl Inj (*Crx) 1 Mg/Ml Syr IV PUSH
[2023-02-27 12:18] LABS: Glucose Point of Care 119 mg/dl (65-105)
--- NOTE | 2023-02-27 12:47 | PCCCNOTE ---
On 02/27/23, the student, [Lluvia Obrien], provided care and completed [facility] documentation on this patient. I have reviewed the student's documentation and agree with the findings.
[2023-02-27 13:42] VITALS: BP 167/55; PULSE 54; RESP 16; TEMP 36.4; O2SAT 100
--- NOTE | 2023-02-27 15:26 | PM.PNGS ---
Progress Note: A&P Assessment and Plan (1) Large bowel obstruction: Code(s): K56.609 - Unspecified intestinal obstruction, unspecified as to partial versus complete obstruction Status: Acute Assessment and Plan: Large near obstructing rectosigmoid mass extending distally to about 10cm from the anal verge on endoscopy. Biopsy results are still pending. CEA level is elevated at 15 which is suggestive of this being a colorectal malignancy. I have discussed with her proceeding with a decompressive diverting colostomy laparoscopically. She is agreeable to having that done. If the pathology confirms that this is a rectal cancer she may be a candidate for neoadjuvant chemoradiation therapy before any attempt at definitive resection. For this reason she was still need to have a diverting colostomy to allow her to eat while she is undergoing neoadjuvant therapy. Upon attempting a laparoscopic diverting loop colostomy tomorrow. Risks, benefits, indications, and expected outcomes were discussed with the patient. She agrees to proceed. Subjective Subjective Date/Time Seen: 02/27/23 15:26 Interval history: Patient without acute changes. Clinically she is very stable. She remains on TPN as she has a distal large bowel rectosigmoid mass causing almost near obstruction. She is having some liquid bowel movements drinking liquids. Recent colonoscopy shows a mass which is in the mid rectal area and pathology is still pending. Her CEA level is elevated at 15. Exam GI: Other: Abdomen soft and nondistended. No abdominal tenderness. No masses appreciated no ventral hernias are noted. Objective Data Vital Signs Vital Signs: Vital Signs - 24 hr 02/26/23 21:14 02/26/23 20:10 02/27/23 06:00 Temperature 36.3 C L 36.2 C L Pulse Rate 62 54 L Respiratory Rate 14 16 Blood Pressure 123/62 145/59 H Pulse Oximetry 100 100 Oxygen Delivery Room Air 02/27/23 08:40 02/27/23 13:42 Temperature 36.4 C Pulse Rate 54 L Respiratory Rate 16 Blood Pressure 167/55 H Pulse Oximetry 100 Oxygen Delivery Room Air Intake/Output Intake/Output: Intake & Output 02/24/23 02/25/23 02/26/23 02/27/23 23:59 23:59 23:59 23:59 Intake Total 1300 4690 3225 50 Output Total 7667 477 7525 Balance -50 3840 3225 -1974 Meds/Results Medications: Active Medications Generic Name Dose Route Start Last Admin Trade Name Freq PRN Reason Stop Dose Admin Famotidine 20 mg 02/23/23 21:00 02/27/23 08:42 Famotidine 20 Mg/2 Ml Vial IV PUSH 20 mg Q12HR CHANTAL Administration Hydralazine HCl 10 mg 02/23/23 15:09 02/24/23 04:59 Hydralazine Hcl 20 Mg/Ml Vial IV PUSH 10 mg Q8H PRN Administration Blood Pressure - High Hydromorphone HCl 0.5 mg 02/23/23 00:53 02/23/23 15:16 Hydromorphone Hcl Inj (*Crx) 1 Mg/Ml Syr IV PUSH 0.5 mg Q3H PRN Administration Pain Rated 7-10 Multivitamins 2.5 ml/ 2,005 mls @ 40 mls/hr 02/24/23 13:00 02/26/23 19:48 Multivitamins 2.5 ml/ Amino IV CONT 40 mls/hr Acids/Electrolytes/Dextrose .Q24H CHANTAL Administration Protocol Dextrose 1,000 mls @ 50 mls/hr 02/24/23 11:26 Dextrose 10% IV CONT .Q20H PRN if PN is interrupted Fat Emulsion Intravenous 250 mls @ 20.833 mls/hr 02/25/23 09:00 02/27/23 08:42 Lipids 20% IVPB 20.8 mls/hr DAILY CHANTAL Administration Ondansetron HCl 4 mg 02/22/23 23:17 02/23/23 06:34 Ondansetron Inj 4 Mg/2 Ml Vial IV PUSH 4 mg Q6H PRN Administration Nausea And Vomiting Sodium Chloride 10 ml 02/24/23 22:00 02/27/23 05:43 Central Line Flush IV PUSH 10 ml Q8HR CHANTAL Administration Sodium Chloride 10 ml 02/24/23 15:03 Central Line Flush IV PUSH PRN PRN with TPN bag changes Sodium Chloride 20 ml 02/24/23 15:03 Central Line Flush IV PUSH PRN PRN after blood draws Radiology Results: ITS Impressions Abdomen/Pelvis CT 02/23/23 07:30 IMPRESSION:
--- NOTE | 2023-02-27 16:49 | PC.NURSE ---
Pt is A&O4 female who participates and contributes in plan of care. Pt denies any pain at this time. Pt is up independent in the room within the lengths of her NG tube. Pt NG came out this shift and new NG was placed. KUB done per protocol that shows proper placement of NG tube. Pt tolerated placement well. Pt denies any needs at this time. Pt to go NPO tonight for procedure tomorrow. Will continue to monitor pt.
[2023-02-27 18:26] LABS: Glucose Point of Care 125 mg/dl (65-105)
[2023-02-27] MEDS: AMINO ACIDS 5%/D15W/E-LYTES/CA 2,000 ML with MULTIVITAMINS-12 INJ VIAL 1 2.5 ML, MULTIV... 40 ML IV CONT (20:42)
[2023-02-27 22:00] VITALS: BP 153/75; PULSE 65; RESP 18; TEMP 36.9; O2SAT 100
[2023-02-28] VITALS (13 sets, daily range): BP systolic 126–204; BP diastolic 48–78; PULSE 54–91; RESP 13–19; TEMP 35.7–36.7; O2SAT 95–100
[2023-02-28 00:47] LABS: Glucose Point of Care 118 mg/dl (65-105)
[2023-02-28] MEDS: CENTRAL LINE FLUSH 10 ML IV PUSH ×2 (06:13→22:35)
[2023-02-28 06:27] LABS: Glucose Point of Care 129 mg/dl (65-105)
[2023-02-28 06:53] LABS: Anion Gap 4 mmol/L (8-16); Blood Urea Nitrogen 11 mg/dL (7-17); Calcium 8.5 mg/dL (8.4-10.2); Carbon Dioxide 28 mmol/L (22-30); Chloride 109 mmol/L (98-107); Estimated CRCL calculation 49 ml/min; Estimated Glomerular Filt Rate > 60; Glucose 107 mg/dL (65-110); Phosphorus 3.6 mg/dL (2.5-4.5); Potassium 3.4 mmol/L (3.4-5.0); Sodium 141 mmol/L (137-145)
[2023-02-28] MEDS: FAMOTIDINE 20 MG/2 ML VIAL IV PUSH ×2 (09:27→22:35)
[2023-02-28] MEDS: FAT EMULSIONS IV 20% 250 ML 20.8 ML IVPB (09:27)
[2023-02-28 11:35] LABS: Glucose Point of Care 122 mg/dl (65-105)
--- NOTE | 2023-02-28 11:54 | PCNFU ---
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 Goal:Meet estimated nutritional needs Pt current nutrition is NPO, TPN for nutrition. Nutrition recommendation: Advance TPN rate to 60ml/hr to better meet estimated needs Last recorded weight is 66.7 kg. Bowel Motility: +BM 02/26 Labs Reviewed: Hgb:11.7, HCT:33.5, Glu:129 Meds Noted: zofran Skin: WNL Additional Notes: Pt continues on TPN for nutrition support. Currently running Clinimix E 01/23 @ 40ml/hr which provides 1182 kcals and 48 g protein. Recommended goal rate for TPN is at 60ml/hr-providing 1522 kcals/72 g protein. Informed nursing. Pt going for surgery this afternoon, will speak with physician. Will monitor, weight, labs, skin, TPN every Monday and Monday.
--- NOTE | 2023-02-28 12:49 | PCWOUND ---
Received orders to wanda patient's left lower abdomen for colostomy. patient abdomen assessed for optimal spot, there is large skin fold noted at the umbilicus. Placed black X just above the fold, covered with tegaderm. Notified surgeon that marking couldn't be placed in the lower abdomen, but more midlevel due to skin fold. Will follow patient after surgery for ostomy education.
[2023-02-28] MEDS: LACTATED RINGERS 1,000 ML 30 ML IV CONT ×2 (14:38→21:07)
[2023-02-28 14:49] LABS: Glucose Point of Care 114 mg/dl (65-105)
--- NOTE | 2023-02-28 15:36 | PM.PNGS ---
Progress Note: A&P Assessment and Plan (1) Large bowel obstruction: Code(s): K56.609 - Unspecified intestinal obstruction, unspecified as to partial versus complete obstruction Status: Acute Assessment and Plan: Preliminary pathology report reveals that the biopsy of the rectal mass is malignant. Definitive type of cancer is still pending further stains. We will go and proceed with laparoscopic attempt at a loop colostomy diversion today. Continue TPN. Subjective Subjective Date/Time Seen: 02/28/23 15:36 Interval history: Patient without acute changes. Nasogastric tube still in place. Remains on TPN. Ready for surgery today pathology to have a preliminary reading that the biopsy the mass is definitely malignant. Further stains are being performed to determine if this is a primary rectal cancer verses metastatic cervical cancer or other metastasis. Exam Resp: Effort & Inspection: normal respiratory effort Auscultation: clear to auscultation bilaterally Cardio: Rate: regular rate Rhythm: regular rhythm GI: Other: Abdomen is soft and nondistended. No tenderness to palpation. Benign. Objective Data Vital Signs Vital Signs: Vital Signs - 24 hr 02/27/23 22:00 02/27/23 20:40 02/28/23 06:00 Temperature 36.9 C 35.9 C L Pulse Rate 65 84 Respiratory Rate 18 18 Blood Pressure 153/75 H 126/54 L Pulse Oximetry 100 99 Oxygen Delivery Room Air 02/28/23 08:00 02/28/23 14:30 Temperature 36.7 C Pulse Rate 54 L Respiratory Rate 18 Blood Pressure 152/55 H Pulse Oximetry 100 Oxygen Delivery Room Air Room Air Intake/Output Intake/Output: Intake & Output 02/25/23 02/26/23 02/27/23 02/28/23 23:59 23:59 23:59 23:59 Intake Total 4690 3225 400 100 Output Total 850 2625 1200 Balance 3840 3225 -2225 -1100 Meds/Results Medications: Active Medications Generic Name Dose Route Start Last Admin Trade Name Freq PRN Reason Stop Dose Admin Famotidine 20 mg 02/23/23 21:00 02/28/23 09:27 Famotidine 20 Mg/2 Ml Vial IV PUSH 20 mg Q12HR CHANTAL Administration Hydralazine HCl 10 mg 02/23/23 15:09 02/24/23 04:59 Hydralazine Hcl 20 Mg/Ml Vial IV PUSH 10 mg Q8H PRN Administration Blood Pressure - High Hydromorphone HCl 0.5 mg 02/23/23 00:53 02/23/23 15:16 Hydromorphone Hcl Inj (*Crx) 1 Mg/Ml Syr IV PUSH 0.5 mg Q3H PRN Administration Pain Rated 7-10 Dextrose 1,000 mls @ 50 mls/hr 02/24/23 11:26 Dextrose 10% IV CONT .Q20H PRN if PN is interrupted Fat Emulsion Intravenous 250 mls @ 20.833 mls/hr 02/25/23 09:00 02/28/23 09:27 Lipids 20% IVPB 20.8 mls/hr DAILY CHANTAL Administration Multivitamins 2.5 ml/ 2,005 mls @ 40 mls/hr 02/27/23 20:00 02/27/23 20:42 Multivitamins 2.5 ml/ Amino IV CONT 40 mls/hr Acids/Electrolytes/Dextrose .Q24H CHANTAL Administration Protocol Lactated Ringer's 1,000 mls @ 30 mls/hr 02/28/23 15:15 02/28/23 14:38 Lr - Lactated Ringers Iv IV CONT 30 mls/hr .Q24H CHANTAL Administration Ondansetron HCl 4 mg 02/22/23 23:17 02/23/23 06:34 Ondansetron Inj 4 Mg/2 Ml Vial IV PUSH 4 mg Q6H PRN Administration Nausea And Vomiting Sodium Chloride 10 ml 02/24/23 22:00 02/28/23 06:13 Central Line Flush IV PUSH 10 ml Q8HR CHANTAL Administration Sodium Chloride 10 ml 02/24/23 15:03 Central Line Flush IV PUSH PRN PRN with TPN bag changes Sodium Chloride 20 ml 02/24/23 15:03 Central Line Flush IV PUSH PRN PRN after blood draws Radiology Results: ITS Impressions Abdomen/Pelvis CT 02/23/23 07:30 IMPRESSION: 1. Stricture of the rectosigmoid with obstruction. The stricture could be malignant. 2. Arterial occlusive disease. Enema w/Water Soluble 02/23/23 10:59 IMPRESSION: 1. Severe stricture of the rectosigmoid. Abdomen X-Ray 02/27/23 12:28 IMPRESSION: 1: NG tube tip in the stomach. Labs
--- NOTE | 2023-02-28 15:49 | WPDPN ---
Progress Note: A&P Assessment and Plan (1) Large bowel obstruction: Code(s): K56.609 - Unspecified intestinal obstruction, unspecified as to partial versus complete obstruction Status: Acute (2) Hyperlipidemia: Code(s): E78.5 - Hyperlipidemia, unspecified Status: Acute (3) Tobacco use: Code(s): Z72.0 - Tobacco use Status: Acute Plan This is a 72-year-old female with remote history of cervical cancer, status post chemo, radiation, who presented to the emergency department for evaluation of abdominal pain, bloating, nausea, and vomiting. CT reveal large bowel obstruction with stricture at the rectosigmoid. GI has been consulted. NG tube has been placed. Zosyn empirically for possible infection given the white cell count which has now been discontinued. CEA came back at 15.2. Colonoscopy performed showed colonic stenosis an obstructive lesion at 10 cm from the NS. Grossly suspicious for malignancy. Biopsies were taken. Unable to traverse this narrowing. No clear opening identified. General surgery on board. Needs to be NPO Will give ice chips this to motion for comfort. Plan for decompressive diverting colostomy this week. Awaiting pathology. Continue TPN as ordered. 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 hydralazine ? 02/28/2023 interval history: Patient with sigmoid mass had a biopsy concerning for malignancy seen by surgery service and patient is scheduled to have diverting colostomy today, patient states feeling better having loose bowel movement denies any abdominal pain nausea or vomiting fever or chill, will continue to monitor Subjective Date/time seen: 02/28/23 15:49 Interval history: This is a 72-year-old female with remote history of cervical cancer, status post chemo, radiation, who presented to the emergency department for evaluation of abdominal pain, bloating, nausea, and vomiting. CT reveal large bowel obstruction with stricture at the rectosigmoid. GI has been consulted. NG tube has been placed. Zosyn empirically for possible infection given the white cell count which has now been discontinued. CEA came back at 15.2. Colonoscopy performed showed colonic stenosis an obstructive lesion at 10 cm from the NS. Grossly suspicious for malignancy. Biopsies were taken. Unable to traverse this narrowing. No clear opening identified. General surgery on board. Needs to be NPO Will give ice chips this to motion for comfort. Plan for decompressive diverting colostomy this week. Awaiting pathology. Continue TPN as ordered. 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 asymptomatic needs follow-up as an outpatient basis 02/28/2023 interval history: Patient with sigmoid mass had a biopsy concerning for malignancy seen by surgery service and patient is scheduled to have diverting colostomy today, patient states feeling better having loose bowel movement denies any abdominal pain nausea or vomiting fever or chill, will continue to monitor Review of Systems Review of Systems: All systems reviewed & are unremarkable except as noted in HPI and below Exam Narrative: Patient is comfortable, NAD HEENT: eyes are clear and none icteric LUNGS: Normal respiratory effort ABD: Distended Lower extremities: no edema SKIN: nonjaundiced Neuro: grossly intact. Objective Data Vital Signs Vital Signs: Vital Signs - 24 hr 02/27/23 22:00 02/27/23 20:40 02/28/23 06:00 Temperature 98.5 F 96.6 F L Pulse Rate 65 84 Respiratory Rate 18 18 Blood Pressure 153/75 H 126/54 L Pulse Oximetry 100 99 Oxygen Delivery Room Air 02/28/23 08:00 02/28/23 14:30 Temperature 98.1 F Pulse Rate 54 L Respiratory Rate 18 Blood Pressure 152/55 H Pulse Oximetry 100 Oxy
--- NOTE | 2023-02-28 17:11 | WPDHPUPDATE1 ---
History and Physical Update Update Date/Time: 02/28/23 17:11 History and Physical has been reviewed, including an updated exam of the patient. There are NO changes in the patient's condition. Risks, benefits, and alternatives have been discussed and questions answered. Patient agrees to proceed with procedure.
--- NOTE | 2023-02-28 17:35 | WPDANESEPPF ---
Anes - Initial Pre Proc Eval Procedure: Operation Date: 02/24/23 14:00 Proposed Procedures p Flexible Sigmoidoscopy - Alirio Batista MD Operation Date: 02/28/23 16:00 Proposed Procedures p Laparoscopic Diverting Loop Colostomy - Enrique Gonzales MD Date/Time: 02/28/23 17:35 Surgeon: Abdiaziz Tovar MD Pre Op Diagnosis: LBO/Rectosigmoid Stricture Patient Data Age: 72 Gender: F Height: 1.52 m Weight: 66.7 kg Last Vital Signs Temp 36.7 C 02/28/23 14:30 Pulse 54 L 02/28/23 14:30 Resp 18 02/28/23 14:30 BP 152/55 H 02/28/23 14:30 Pulse Ox 100 02/28/23 14:30 O2 Del Method Room Air 02/28/23 14:30 Allergies Allergy/AdvReac Type Severity Reaction Status Date / Time No Known Allergies Allergy Verified 01/16/23 08:58 Home Medications Medication Instructions Recorded Confirmed Type ondansetron 4 mg disintegrating 4 - 8 mg PO Q8H PRN nausea and 02/21/23 02/22/23 Rx tablet vomiting #20 tabs Laboratory Tests 02/27/23 02/28/23 02/28/23 18:23 00:45 06:15 Sodium Potassium Chloride Carbon Dioxide Anion Gap BUN Creatinine Estim Creat Clear Calc Estimated GFR Glucose POC Capillary Glucose 125 H mg/dl 118 H mg/dl 129 H mg/dl (65-105) (65-105) (65-105) Calcium Phosphorus 02/28/23 02/28/23 02/28/23 06:23 11:27 14:34 Sodium 141 mmol/L (137-145) Potassium 3.4 mmol/L (3.4-5.0) Chloride 109 H mmol/L (98-107) Carbon Dioxide 28 mmol/L (22-30) Anion Gap 4 L mmol/L (8-16) BUN 11 mg/dL (7-17) Creatinine 0.80 mg/dL (0.7-1.0) Estim Creat Clear Calc 49 ml/min Estimated GFR > 60 (59 - ) Glucose 107 mg/dL (65-110) POC Capillary Glucose 122 H mg/dl 114 H mg/dl (65-105) (65-105) Calcium 8.5 mg/dL (8.4-10.2) Phosphorus 3.6 mg/dL (2.5-4.5) Patient hx anesthesia problems: none Family hx anesthesia problems: none Results Review: All pre-operative results and documents have been reviewed as part of the pre-operative evaluation. [facility] Past Medical History Medical History Cervical cancer Essential (primary) hypertension Pure hyperglyceridemia Tobacco use Surgical History Surgical History History of cholecystectomy History of hysterectomy Family History Family History Mother Patient's mother is Family history of blood dyscrasia Family history of emphysema Hypertension Sibling Family history of liver disease Family history of human immunodeficiency virus infection Other Cerebrovascular accident Social History Social History Smoking packs per day: 0.5 Smoking cigarettes per day: 10.0 Years smoked: 35 Smoking pack-years: 17.50 Smoking status: Current every day smoker Tobacco type: cigarettes Second hand tobacco smoke exposure: Yes Smoking end date: 10/24/19 Alcohol intake: never Substance use: never Substance use type: does not use Lack of Transportation: No Lack of Food: Never True Current Housing: I Have Housing Concerned About Future Housing: No Difficulty Paying Gas/Electric Bills: No Difficulty Paying for Meds: No Currently Unemployed: No Education: Bachelor's Degree Difficulty w/ Childcare or Family Care: No Spiritual care concerns: No Anes - Eval Final PreProcedure Day of Procedure 02/28/23 17:35 Patient weight: overweight Heart: regular rate and rhythm Lungs: clear to auscultation and normal air movement Airway: Mallampati scale class II Neurological: alert and oriented Last oral intake: >/= 8 hours ASA classification: IV Emergent
[2023-02-28] MEDS: LIDO 1%/EPINEPHRINE 1:100,000 50 ML VIAL 20 ML INFILTRATE (19:00)
[2023-02-28] MEDS: BUPivacaine HCL 0.5% 10 ML AMP 20 ML INFILTRATE (19:00)
--- NOTE | 2023-02-28 20:42 | PC.NURSE ---
pt remains off floor in surgery at this time
--- NOTE | 2023-02-28 20:58 | PM.OP ---
Procedure Note - Brief Procedure Note - Brief Date of procedure: 02/28/23 Obstructing rectal cancer Post-op diagnosis: Same Procedure performed: Laparoscopic diverting loop colostomy Surgeon: Enrique Gonzales MD Anesthesia: GETA Estimated blood loss (mL): 25 Urine output (mL): 200 Drains: No Packing: No Pathology: None sent Complications: No immediate complications Condition: Stable Disposition: PACU
--- NOTE | 2023-02-28 21:07 | PC.NURSE ---
pt still off floor
[2023-02-28 21:12] LABS: Glucose Point of Care 124 mg/dl (65-105)
[2023-02-28] MEDS: hydrALAZINE HCL 20 MG/ML VIAL 10 MG IV PUSH (21:50)
--- NOTE | 2023-02-28 22:07 | PC.NURSE ---
report received pt to return from surgery
--- NOTE | 2023-02-28 22:09 | PC.NURSE ---
murray and NG removed in post op
[2023-02-28] MEDS: AMINO ACIDS 5%/D15W/E-LYTES/CA 2,000 ML with MULTIVITAMINS-12 INJ VIAL 1 2.5 ML, MULTIV... 40 ML IV CONT (22:34)
--- NOTE | 2023-02-28 22:43 | PC.NURSE ---
pt back from surgery
[2023-03-01] VITALS (7 sets, daily range): BP systolic 128–170; BP diastolic 49–82; PULSE 56–77; RESP 14–18; TEMP 36.1–37.1; O2SAT 97–100
--- NOTE | 2023-03-01 00:03 | PC.NURSE ---
pt having difficulty urinating unable to void since murray pulled, bladder scan 650ml, called MD Veras to seen if murray can be replaced.
[2023-03-01] MEDS: CENTRAL LINE FLUSH 10 ML IV PUSH ×3 (06:00→22:11)
[2023-03-01 06:30] LABS: Glucose Point of Care 127 mg/dl (65-105)
[2023-03-01 07:18] LABS: Anion Gap 6 mmol/L (8-16); Blood Urea Nitrogen 13 mg/dL (7-17); Calcium 8.5 mg/dL (8.4-10.2); Carbon Dioxide 25 mmol/L (22-30); Chloride 108 mmol/L (98-107); Estimated CRCL calculation 55 ml/min; Estimated Glomerular Filt Rate > 60; Glucose 116 mg/dL (65-110); Phosphorus 3.2 mg/dL (2.5-4.5); Sodium 139 mmol/L (137-145); Triglycerides 63 mg/dL (<150)
[2023-03-01] MEDS: FAMOTIDINE 20 MG/2 ML VIAL IV PUSH ×2 (08:43→20:10)
[2023-03-01] MEDS: oxyCODONE HCL (*CRX) 5 MG TAB IR PO (08:43)
[2023-03-01] MEDS: FAT EMULSIONS IV 20% 250 ML 20.8 ML IVPB (08:43)
--- NOTE | 2023-03-01 11:17 | PM.PNGS ---
Progress Note: A&P Assessment and Plan (1) Large bowel obstruction: Code(s): K56.609 - Unspecified intestinal obstruction, unspecified as to partial versus complete obstruction Status: Acute Assessment and Plan: Postop day 1. Status post laparoscopic diverting loop decompressive descending colostomy. She is doing well today. No output through the ostomy yet. We will continue with clear liquids and may be advanced to full liquids later that afternoon. Will finish the current bag of TPN and then stop. Hopefully can advance to solid food tomorrow and then discharge after teaching for her colostomy and home health nursing set up to aid with colostomy care at home. I spoke with Dr. Maritza Pena who is a colorectal surgeon at [facility] and I will arrange for outpatient evaluation and staging of her rectal cancer at [facility]. 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 Continue supportive management. Go ahead and consult PT and OT the aid with mobilization and safety eval before discharge home. Subjective Subjective Date/Time Seen: 03/01/23 11:17 Post Op day: 1 (Status post laparoscopic diverting loop descending colostomy.) Interval history: Patient is doing well this morning. She is having some pain in the take a pain pill today. No nausea or vomiting. She is tolerating clear liquids. No fever. She has been seen by the wound ostomy nurse but did not feel like participating in ostomy care teaching today. patient information coordinator has been consulted to arrange for home health nurse to aid with colostomy management at home. Exam GI: Other: Abdomen is soft and nondistended. Left lower quadrant loop colostomy viable with some bloody serous drainage but no air or liquid stool in the bag get. Port site incisions are healing well. Objective Data Vital Signs Vital Signs: Vital Signs - 24 hr 02/28/23 14:30 02/28/23 20:55 02/28/23 21:10 Temperature 36.7 C 35.7 C L Pulse Rate 54 L 91 86 Respiratory Rate 18 17 13 Blood Pressure 152/55 H 165/48 H 172/63 H Pulse Oximetry 100 100 100 Oxygen Delivery Room Air Simple Face Mask Simple Face Mask Oxygen Flow Rate 10 10 02/28/23 21:25 02/28/23 21:40 02/28/23 21:55 Temperature Pulse Rate 86 80 82 Respiratory Rate 19 13 17 Blood Pressure 157/77 H 204/74 H Pulse Oximetry 100 96 96 Oxygen Delivery Simple Face Mask Room Air Room Air Oxygen Flow Rate 10 02/28/23 22:06 02/28/23 22:15 02/28/23 22:30 Temperature 36.2 C L 36.1 C L Pulse Rate 82 80 77 Respiratory Rate 14 16 16 Blood Pressure 183/63 H 155/78 H 150/49 H Pulse Oximetry 96 95 100 Oxygen Delivery Room Air Oxygen Flow Rate 02/28/23 23:00 02/28/23 22:43 03/01/23 00:00 Temperature 36.1 C L 36.1 C L Pulse Rate 79 79 77 Respiratory Rate 18 18 16 Blood Pressure 144/57 H 151/54 H Pulse Oximetry 98 98 97 Oxygen Delivery Room Air Oxygen Flow Rate 03/01/23 05:00 03/01/23 08:00 03/01/23 08:00 Temperature 36.7 C 36.4 C L Pulse Rate 59 L 60 60 Respiratory Rate 16 14 14 Blood Pressure 154/50 H 170/53 H Pulse Oximetry 99 100 100 Oxygen Delivery Room Air Oxygen Flow Rate Intake/Output Intake/Output: Intake & Output 02/26/23 02/27/23 02/28/23 03/01/23 23:59 23:59 23:59 23:59 Intake Total 3225 400 2705 120 Output Total 2625 1400 1000 Balance 6866 -9437 1305 -880 Meds/Results Medications: Active Medications Generic Name Dose Route Start Last Admin Trade Name Freq PRN Reason Stop Dose Admin Famotidine 20 mg 02/23/23 21:00 03/01/23 08:43 Famotidine 20 Mg/2 Ml Vial IV PUSH 20 mg Q12HR CHANTLA Administration Hydralazine HCl 10 mg 02/23/23 15:09 02/24/23 04:59 Hydralazine Hcl 20 Mg/Ml Vial IV PUSH 10 mg Q8H PRN Administration Blood Pressure - High Hydromorphone HCl 1 mg 02/28/23 22:08 Hydromorphone Hcl Inj (*Crx) 1 Mg/Ml
--- NOTE | 2023-03-01 12:48 | WPDPN ---
Progress Note: A&P Assessment and Plan (1) Large bowel obstruction: Code(s): K56.609 - Unspecified intestinal obstruction, unspecified as to partial versus complete obstruction Status: Acute (2) Hyperlipidemia: Code(s): E78.5 - Hyperlipidemia, unspecified Status: Acute (3) Tobacco use: Code(s): Z72.0 - Tobacco use Status: Acute Plan This is a 72-year-old female with remote history of cervical cancer, status post chemo, radiation, who presented to the emergency department for evaluation of abdominal pain, bloating, nausea, and vomiting. CT reveal large bowel obstruction with stricture at the rectosigmoid. GI has been consulted. NG tube has been placed. Zosyn empirically for possible infection given the white cell count which has now been discontinued. CEA came back at 15.2. Colonoscopy performed showed colonic stenosis an obstructive lesion at 10 cm from the NS. Grossly suspicious for malignancy. Biopsies were taken. Unable to traverse this narrowing. No clear opening identified. General surgery on board. Needs to be NPO Will give ice chips this to motion for comfort. Plan for decompressive diverting colostomy this week. Awaiting pathology. Continue TPN as ordered. 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 hydralazine 03/01/2023 interval history: Patient with sigmoid mass had a biopsy concerning for malignancy seen by surgery service and patient had diverting colostomy on 02/28 POD#1, seen by her surgoen and will follow up with colorectal oncologist at [facility] as an outpatient, patient states feeling better, denies any abdominal pain nausea or vomiting fever or chill, will have PT/OT evaluate the patient in anticipation of discharge, will continue to monitor Subjective Date/time seen: 03/01/23 12:48 Interval history: This is a 72-year-old female with remote history of cervical cancer, status post chemo, radiation, who presented to the emergency department for evaluation of abdominal pain, bloating, nausea, and vomiting. CT reveal large bowel obstruction with stricture at the rectosigmoid. GI has been consulted. NG tube has been placed. Zosyn empirically for possible infection given the white cell count which has now been discontinued. CEA came back at 15.2. Colonoscopy performed showed colonic stenosis an obstructive lesion at 10 cm from the NS. Grossly suspicious for malignancy. Biopsies were taken. Unable to traverse this narrowing. No clear opening identified. General surgery on board. Needs to be NPO Will give ice chips this to motion for comfort. Plan for decompressive diverting colostomy this week. Awaiting pathology. Continue TPN as ordered. 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 asymptomatic needs follow-up as an outpatient basis 03/01/2023 interval history: Patient with sigmoid mass had a biopsy concerning for malignancy seen by surgery service and patient had diverting colostomy on 02/28 POD#1, seen by her surgoen and will follow up with colorectal oncologist [facility] as an outpatient, patient states feeling better, denies any abdominal pain nausea or vomiting fever or chill, will have PT/OT evaluate the patient in anticipation of discharge, will continue to monitor Review of Systems Review of Systems: All systems reviewed & are unremarkable except as noted in HPI and below Exam Narrative: Patient is comfortable, NAD HEENT: eyes are clear and none icteric LUNGS: Normal respiratory effort ABD: Distended Lower extremities: no edema SKIN: nonjaundiced Neuro: grossly intact. Objective Data Vital Signs Vital Signs: Vital Signs - 24 hr 02/28/23 14:30 02/28/23 20:55 02/28/23 21:10 Temperature 98.1 F 96.3 F L Pulse Rate 54 L 91 86 Respirat
--- NOTE | 2023-03-01 13:31 | W.PM.PROC2 ---
Procedure Note - Detailed Date of Procedure 02/28/23 Pre-op Diagnosis Obstructing rectal cancer Post-op Diagnosis Same Procedure Performed Laparoscopic diverting descending loop colostomy. Surgeon Enrique Gonzales MD Legal Operations Manager N[employer] [facility] [facility] General Indications Patient is a 72-year-old female who has a prior history of cervical cancer over 30 years ago who underwent a total hysterectomy and pelvic lymph node dissection. Received pelvic radiation after the surgery. She then presented recently with a large bowel obstruction. CT scan revealed thickening of the rectosigmoid junction. A colonoscopy was performed showing a nearly completely obstructing mass with the lower extent of the mass being only at 10cm from the anal verge biopsies of the mass reveals a malignancy and final pathology is pending additional special stains to determine if this is a primary rectal cancer versus metastatic for cancer or other cancer. She presents now for a diverting loop colostomy due to the distal rectal obstruction. Findings Initially on entering the abdomen laparoscopically there were some adhesions of the omentum to the former lower midline scar. Once these were released I could see in the pelvis and there was 1 or 2 loops of small bowel going deep in the pelvis with adhesions to the lateral pelvic sidewall. The sigmoid colon was adherent to the retroperitoneum and pelvic sidewall in the left side. There really was not much redundant sigmoid colon. No peritoneal nodules were seen. The liver inspection appeared to be normal. There is no evidence of small-bowel obstruction. Description of Procedure after informed consent was obtained patient brought to the operating room where she was placed supine position and general endotracheal anesthesia was administered. A Rowe catheter was placed to decompress the bladder. She already had a nasogastric tube placed. The abdomen was then prepped and draped usual sterile fashion. A time-out was then performed correctly identifying the patient as well as procedure to be performed. She was given Ancef perioperative IV antibiotics. I then entered the abdomen the left upper quadrant utilizing a 5mm Optiview port with a direct optical insertion. Once inside the abdomen insufflated to adequate pneumoperitoneum 15mmHg of CO2. I could see there were some adhesions of the omentum to the periumbilical in the lower midline of the abdominal wall region. I then placed additional 5mm right upper quadrant trocar port under direct visualization and then switched the laparoscopic to the right upper quadrant selected see the left side of the abdomen. I then proceeded used energized laparoscopic cristino I then also placed another 5mm right lateral abdominal wall trocar port and working through these 3 ports I was able to get the small bowel out of the pelvis for the most part with the patient going in the head-down Trendelenburg position. There were couple loops of small bowel which were adherent to the sigmoid colon and the left no pelvic sidewall. I was able to do a limited a he has a lies of the small bowel to get enough without away so that I could easily see the proximal sigmoid colon and descending left colon. I then proceeded to mobilize the mid and distal portion of the left descending colon and proximal sigmoid colon. A fissure energy device was then used to divide the lateral peritoneal attachments to the proximal sigmoid colon and descending left colon. I continued dissection in the avascular plane and continued to mobilize the proximal sigmoid and descending left colon to almost the midline. Once this was done I felt that I could get this portion of the descending colon and proximal sigmoid colon up to the abdominal wall on the left lower quadrant. I then defect through the mesentery utilizing the LigaSure device and then placed a laparoscopic intermittent through this defect to hold the colon up to the under
[2023-03-01 18:20] LABS: Glucose Point of Care 146 mg/dl (65-105)
[2023-03-01] MEDS: AMINO ACIDS 5%/D15W/E-LYTES/CA 2,000 ML with MULTIVITAMINS-12 INJ VIAL 1 2.5 ML, MULTIV... 20 ML IV CONT (20:10)
[2023-03-02 00:13] LABS: Glucose Point of Care 118 mg/dl (65-105)
[2023-03-02 05:41] LABS: Glucose Point of Care 121 mg/dl (65-105)
[2023-03-02 05:53] LABS: Basophils Percent Auto 0.2 % (0.2-1.2); Eosinophils Absolute Auto 0.1 K/mm3 (0-0.3); Eosinophils Percent Auto 1.1 % (0-4.4); Hematocrit 30.7 % (37.0-47.0); Hemoglobin 10.5 g/dL (12.0-15.0); Immature Granulocyte Absolute 0.05 K/mm3 (0.00-0.031); Immature Granulocyte Percent A 0.4 % (0-0.5); Lymphocytes Absolute Auto 2.03 K/mm3 (0.9-3.2); Lymphocytes Percent Auto 16.1 % (18.3-44.2); Mean Corpuscular HGB Conc 34.2 g/dl (32-36); Mean Corpuscular Hemoglobin 29.8 pg (26-34); Mean Corpuscular Volume 87.2 fl (80-100); Mean Platelet Volume 9.6 fl (7.4-10.4); Monocytes Absolute Auto 1.2 K/mm3 (0.1-0.6); Monocytes Percent Auto 9.3 % (2.6-8.5); Neutrophils Absolute Auto 9.2 K/mm3 (1.3-6.7); Neutrophils Percent Auto 72.9 % (45.5-73.1); Platelet Count Result 334 k/mm3 (150-375); Red Blood Count 3.52 M/mm3 (4.2-5.4); Red Cell Distribution Width 14.6 % (11.5-14.5); White Blood Count 12.6 K/mm3 (4.5-10.0)
[2023-03-02] MEDS: CENTRAL LINE FLUSH 10 ML IV PUSH ×3 (05:55→23:12)
[2023-03-02 06:07] LABS: Alanine Aminotransferase 45 U/L (6-35); Albumin Level 3.2 g/dL (3.5-5.1); Alkaline Phosphatase 73 U/L (38-126); Anion Gap 3 mmol/L (8-16); Aspartate Amino Transferase 23 U/L (14-36); Bilirubin,Total 0.5 mg/dL (0.2-1.3); Blood Urea Nitrogen 10 mg/dL (7-17); Carbon Dioxide 28 mmol/L (22-30); Chloride 108 mmol/L (98-107); Estimated CRCL calculation 44 ml/min; Estimated Glomerular Filt Rate > 60; Glucose 116 mg/dL (65-110); Phosphorus 3.3 mg/dL (2.5-4.5); Sodium 139 mmol/L (137-145)
[2023-03-02 06:17] VITALS: BP 134/50; PULSE 65; RESP 16; TEMP 36.9; O2SAT 100
[2023-03-02] MEDS: POTASSIUM CHLORIDE 20 MEQ ER TABLET 40 MEQ PO (09:14)
[2023-03-02] MEDS: FAMOTIDINE 20 MG/2 ML VIAL IV PUSH ×2 (09:15→20:55)
--- NOTE | 2023-03-02 10:34 | PM.PNGS ---
Progress Note: A&P Assessment and Plan (1) Large bowel obstruction: Code(s): K56.609 - Unspecified intestinal obstruction, unspecified as to partial versus complete obstruction Status: Acute Assessment and Plan: Patient is now status post laparoscopic diverting loop colostomy to decompress the bowel since she has this obstructing rectal cancer. Final pathology is come back in is confirmed this is a case of rectal cancer. For have wound ostomy nurses complete teaching and probably discharge home later today or tomorrow. Nurses been set up to help with colostomy retirement. I will arrange for referral to see Dr. Maritza Pena who is a colorectal surgeon [facility] to further evaluate her and treat her for her rectal cancer. Continue supportive management today. Will also her Rowe catheter out today hopefully she can urinate on her own. Subjective Subjective Date/Time Seen: 03/02/23 10:34 Post Op day: 2 (Status post laparoscopic diverting loop colostomy) Interval history: Patient is doing well today. Sitting up in chair and tolerating solid food. Started to have some gas output into the colostomy bag. No stool yet. Pain is well controlled. He has been weaned off. She did have some urinary retention yesterday was required with replacement of Rowe catheter with output about 650cc urine. Ostomy care nurses are would come by again and tried teaching again with her. Care coordination has arrange for home health nurse. Exam GI: Other: Abdomen soft and nondistended. Incisions are healing well. Left lower quadrant colostomy is viable with some serosanguineous output air but no stool yet. No retraction of the ostomy. Ostomy bridge remains in place. Psych: Mental Status: mental status grossly normal Objective Data Vital Signs Vital Signs: Vital Signs - 24 hr 03/01/23 12:00 03/01/23 15:13 03/01/23 16:00 Temperature 36.4 C L 37.1 C Pulse Rate 56 L 67 Respiratory Rate 14 14 Blood Pressure 141/49 H 128/82 Pulse Oximetry 98 100 Oxygen Delivery Room Air 03/01/23 20:00 03/01/23 21:12 03/02/23 06:17 Temperature 36.3 C L 36.9 C Pulse Rate 68 65 Respiratory Rate 18 16 Blood Pressure 157/54 H 134/50 L Pulse Oximetry 98 97 100 Oxygen Delivery Room Air Intake/Output Intake/Output: Intake & Output 02/27/23 02/28/23 03/01/23 03/02/23 23:59 23:59 23:59 23:59 Intake Total 400 2705 2665 250 Output Total 2625 1400 1800 550 Balance -2225 1305 865 -300 Meds/Results Medications: Active Medications Generic Name Dose Route Start Last Admin Trade Name Freq PRN Reason Stop Dose Admin Famotidine 20 mg 02/23/23 21:00 03/02/23 09:15 Famotidine 20 Mg/2 Ml Vial IV PUSH 20 mg Q12HR CHANTAL Administration Hydralazine HCl 10 mg 02/23/23 15:09 02/24/23 04:59 Hydralazine Hcl 20 Mg/Ml Vial IV PUSH 10 mg Q8H PRN Administration Blood Pressure - High Hydromorphone HCl 1 mg 02/28/23 22:08 Hydromorphone Hcl Inj (*Crx) 1 Mg/Ml Syr IV PUSH Q3H PRN Pain Rated 7-10 Dextrose 1,000 mls @ 50 mls/hr 02/24/23 11:26 Dextrose 10% IV CONT .Q20H PRN if PN is interrupted Lactated Ringer's 1,000 mls @ 30 mls/hr 02/28/23 15:15 02/28/23 20:55 Lr - Lactated Ringers Iv IV CONT Infused .Q24H CHANTAL Infusion Ondansetron HCl 4 mg 02/22/23 23:17 02/23/23 06:34 Ondansetron Inj 4 Mg/2 Ml Vial IV PUSH 4 mg Q6H PRN Administration Nausea And Vomiting Oxycodone HCl 5 mg 02/28/23 22:08 03/01/23 08:43 Oxycodone Hcl (*Crx) 5 Mg Tab Ir PO 5 mg Q4H PRN Administration Pain Rated 7-10 Sodium Chloride 10 ml 02/24/23 22:00 03/02/23 05:55 Central Line Flush IV PUSH 10 ml Q8HR CHANTAL Administration Sodium Chloride 10 ml 02/24/23 15:03 Central Line Flush IV PUSH PRN PRN with TPN bag changes Sodium Chloride 20 ml 02/24/23 15:03 Central Line Flush IV PUSH PRN PRN after blood draws
[2023-03-02 12:18] LABS: Glucose Point of Care 112 mg/dl (65-105)
--- NOTE | 2023-03-02 12:31 | WPDPN ---
Progress Note: A&P Assessment and Plan (1) Large bowel obstruction: Code(s): K56.609 - Unspecified intestinal obstruction, unspecified as to partial versus complete obstruction Status: Acute (2) Hyperlipidemia: Code(s): E78.5 - Hyperlipidemia, unspecified Status: Acute (3) Tobacco use: Code(s): Z72.0 - Tobacco use Status: Acute Plan This is a 72-year-old female with remote history of cervical cancer, status post chemo, radiation, who presented to the emergency department for evaluation of abdominal pain, bloating, nausea, and vomiting. CT reveal large bowel obstruction with stricture at the rectosigmoid. GI has been consulted. NG tube has been placed. Zosyn empirically for possible infection given the white cell count which has now been discontinued. CEA came back at 15.2. Colonoscopy performed showed colonic stenosis an obstructive lesion at 10 cm from the NS. Grossly suspicious for malignancy. Biopsies were taken. Unable to traverse this narrowing. No clear opening identified. General surgery on board. Needs to be NPO Will give ice chips this to motion for comfort. Plan for decompressive diverting colostomy this week. Awaiting pathology. Continue TPN as ordered. 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 hydralazine 03/02/2023 interval history: Patient with sigmoid mass had a biopsy concerning for malignancy seen by surgery service and patient had diverting colostomy on 02/28 POD#2 seen by her surgoen and will follow up with colorectal oncologist and a surgeon at [facility] as an outpatient, patient had been participating in PT OT, patient has received teaching colostomy bag management, patient states feeling better, denies any abdominal pain nausea or vomiting fever or chill, will have PT/OT evaluate the patient in anticipation of discharge, will continue to monitor Subjective Date/time seen: 03/02/23 12:31 Interval history: This is a 72-year-old female with remote history of cervical cancer, status post chemo, radiation, who presented to the emergency department for evaluation of abdominal pain, bloating, nausea, and vomiting. CT reveal large bowel obstruction with stricture at the rectosigmoid. GI has been consulted. NG tube has been placed. Zosyn empirically for possible infection given the white cell count which has now been discontinued. CEA came back at 15.2. Colonoscopy performed showed colonic stenosis an obstructive lesion at 10 cm from the NS. Grossly suspicious for malignancy. Biopsies were taken. Unable to traverse this narrowing. No clear opening identified. General surgery on board. Needs to be NPO Will give ice chips this to motion for comfort. Plan for decompressive diverting colostomy this week. Awaiting pathology. Continue TPN as ordered. 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 asymptomatic needs follow-up as an outpatient basis 03/02/2023 interval history: Patient with sigmoid mass had a biopsy concerning for malignancy seen by surgery service and patient had diverting colostomy on 02/28 POD#2 seen by her surgoen and will follow up with colorectal oncologist and a surgeon at [facility] as an outpatient, patient had been participating in PT OT, patient has received teaching colostomy bag management, patient states feeling better, denies any abdominal pain nausea or vomiting fever or chill, will have PT/OT evaluate the patient in anticipation of discharge, will continue to monitor Review of Systems Review of Systems: All systems reviewed & are unremarkable except as noted in HPI and below Exam Narrative: Patient is comfortable, NAD HEENT: eyes are clear and none icteric LUNGS: Normal respiratory effort ABD: Distended Lower extremities: no edema SKIN:
[2023-03-02 14:00] VITALS: BP 144/53; PULSE 64; RESP 14; TEMP 36.5; O2SAT 98
[2023-03-02 18:24] LABS: Glucose Point of Care 147 mg/dl (65-105)
[2023-03-02 22:10] VITALS: BP 136/58; PULSE 71; RESP 18; TEMP 36.1; O2SAT 100
[2023-03-02] MEDS: oxyCODONE HCL (*CRX) 5 MG TAB IR PO (22:48)
[2023-03-03 00:24] LABS: Glucose Point of Care 115 mg/dl (65-105)
[2023-03-03] MEDS: CENTRAL LINE FLUSH 10 ML IV PUSH ×3 (05:42→20:15)
[2023-03-03 05:48] LABS: Anion Gap 5 mmol/L (8-16); Blood Urea Nitrogen 10 mg/dL (7-17); Calcium 8.2 mg/dL (8.4-10.2); Carbon Dioxide 29 mmol/L (22-30); Chloride 105 mmol/L (98-107); Estimated CRCL calculation 44 ml/min; Estimated Glomerular Filt Rate > 60; Glucose 100 mg/dL (65-110); Phosphorus 3.7 mg/dL (2.5-4.5); Potassium 3.6 mmol/L (3.4-5.0); Sodium 139 mmol/L (137-145)
[2023-03-03 05:56] LABS: Glucose Point of Care 111 mg/dl (65-105)
[2023-03-03 06:01] VITALS: BP 118/50; PULSE 62; RESP 16; TEMP 36.5; O2SAT 99
[2023-03-03] MEDS: FAMOTIDINE 20 MG/2 ML VIAL IV PUSH ×2 (08:41→20:14)
[2023-03-03 11:00] LABS: Triglycerides 124 mg/dL (<150)
[2023-03-03 12:07] LABS: Glucose Point of Care 106 mg/dl (65-105)
--- NOTE | 2023-03-03 13:28 | PM.PNGS ---
Progress Note: A&P Assessment and Plan (1) Large bowel obstruction: Code(s): K56.609 - Unspecified intestinal obstruction, unspecified as to partial versus complete obstruction Status: Acute Assessment and Plan: The obstruction is due to a large primary rectal cancer. Biopsy results confirm this. She has been diverted so that this decompresses the colon relieved the obstruction. The colostomy teaching has begun and home health nurses for aid in the managing of this new colostomy is arranged. We will see if we can get a colostomy bag to fit and not leak. Hopefully we can discharge her from the hospital this weekend. I will arrange for follow-up outpatient appointment to see Dr. Pena at [facility] for colorectal surgery evaluation as an outpatient. Subjective Subjective Date/Time Seen: 03/03/23 13:28 Post Op day: 3 Interval history: Patient is doing well today. She is tolerating a regular diet without difficulty. There is ostomy output of stool. Biggest problem right now is getting a good seal on the ostomy bag. He continues to have leaking from around the ostomy appliance. Wound care nurses are involved. Exam GI: Other: Abdomen is soft and nondistended. Port sites are healing well. The left lower quadrant diverting loop colostomy is functioning and the ostomy is viable. There is no retraction of the ostomy. The colostomy bridge remains in place. Neuro: Speech: normal speech Sensory Exam: normal sensation Psych: Mental Status: mental status grossly normal Affect: normal affect Objective Data Vital Signs Vital Signs: Vital Signs - 24 hr 03/02/23 14:00 03/02/23 22:10 03/02/23 20:00 Temperature 36.5 C 36.1 C L Pulse Rate 64 71 Respiratory Rate 14 18 Blood Pressure 144/53 H 136/58 L Pulse Oximetry 98 100 Oxygen Delivery Room Air 03/03/23 06:01 03/03/23 08:40 Temperature 36.5 C Pulse Rate 62 Respiratory Rate 16 Blood Pressure 118/50 L Pulse Oximetry 99 Oxygen Delivery Room Air Intake/Output Intake/Output: Intake & Output 02/28/23 03/01/23 03/02/23 03/03/23 23:59 23:59 23:59 23:59 Intake Total 2705 2665 1430 360 Output Total 1400 1800 650 400 Balance 1305 865 780 -40 Meds/Results Medications: Active Medications Generic Name Dose Route Start Last Admin Trade Name Freq PRN Reason Stop Dose Admin Famotidine 20 mg 02/23/23 21:00 03/03/23 08:41 Famotidine 20 Mg/2 Ml Vial IV PUSH 20 mg Q12HR CHANTAL Administration Hydralazine HCl 10 mg 02/23/23 15:09 02/24/23 04:59 Hydralazine Hcl 20 Mg/Ml Vial IV PUSH 10 mg Q8H PRN Administration Blood Pressure - High Hydromorphone HCl 1 mg 02/28/23 22:08 Hydromorphone Hcl Inj (*Crx) 1 Mg/Ml Syr IV PUSH Q3H PRN Pain Rated 7-10 Dextrose 1,000 mls @ 50 mls/hr 02/24/23 11:26 Dextrose 10% IV CONT .Q20H PRN if PN is interrupted Ondansetron HCl 4 mg 02/22/23 23:17 02/23/23 06:34 Ondansetron Inj 4 Mg/2 Ml Vial IV PUSH 4 mg Q6H PRN Administration Nausea And Vomiting Oxycodone HCl 5 mg 02/28/23 22:08 03/02/23 22:48 Oxycodone Hcl (*Crx) 5 Mg Tab Ir PO 5 mg Q4H PRN Administration Pain Rated 7-10 Sodium Chloride 10 ml 02/24/23 22:00 03/03/23 08:43 Central Line Flush IV PUSH 10 ml Q8HR CHANTAL Administration Sodium Chloride 10 ml 02/24/23 15:03 Central Line Flush IV PUSH PRN PRN with TPN bag changes Sodium Chloride 20 ml 02/24/23 15:03 Central Line Flush IV PUSH PRN PRN after blood draws Radiology Results: ITS Impressions Abdomen/Pelvis CT 02/23/23 07:30 IMPRESSION: 1. Stricture of the rectosigmoid with obstruction. The stricture could be malignant. 2. Arterial occlusive disease. Enema w/Water Soluble 02/23/23 10:59 IMPRESSION: 1. Severe stricture of the rectosigmoid. Abdomen X-Ray 02/27/23 12:28 IMPRESSION: 1: NG tube tip in the stomach.
--- NOTE | 2023-03-03 13:37 | WPDPN ---
Progress Note: A&P Assessment and Plan (1) Large bowel obstruction: Code(s): K56.609 - Unspecified intestinal obstruction, unspecified as to partial versus complete obstruction Status: Acute (2) Hyperlipidemia: Code(s): E78.5 - Hyperlipidemia, unspecified Status: Acute (3) Tobacco use: Code(s): Z72.0 - Tobacco use Status: Acute Plan This is a 72-year-old female with remote history of cervical cancer, status post chemo, radiation, who presented to the emergency department for evaluation of abdominal pain, bloating, nausea, and vomiting. CT reveal large bowel obstruction with stricture at the rectosigmoid. GI has been consulted. NG tube has been placed. Zosyn empirically for possible infection given the white cell count which has now been discontinued. CEA came back at 15.2. Colonoscopy performed showed colonic stenosis an obstructive lesion at 10 cm from the NS. Grossly suspicious for malignancy. Biopsies were taken. Unable to traverse this narrowing. No clear opening identified. General surgery on board. Needs to be NPO Will give ice chips this to motion for comfort. Plan for decompressive diverting colostomy this week. Awaiting pathology. Continue TPN as ordered. 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 hydralazine 03/03/2023 interval history: Patient with sigmoid mass had a biopsy concerning for malignancy seen by surgery service and patient had diverting colostomy on 02/28 POD#3 seen by her surgoen wish to monitor over the weekend to check any leakage in the colostomy bag will monitor, and patient will follow up with colorectal oncologist and a surgeon at [facility] as an outpatient, patient had been participating in PT OT, patient has received teaching colostomy bag management, patient states feeling better, denies any abdominal pain nausea or vomiting fever or chill, will have PT/OT evaluate the patient in anticipation of discharge soon, will continue to monitor Subjective Date/time seen: 03/03/23 13:37 Interval history: This is a 72-year-old female with remote history of cervical cancer, status post chemo, radiation, who presented to the emergency department for evaluation of abdominal pain, bloating, nausea, and vomiting. CT reveal large bowel obstruction with stricture at the rectosigmoid. GI has been consulted. NG tube has been placed. Zosyn empirically for possible infection given the white cell count which has now been discontinued. CEA came back at 15.2. Colonoscopy performed showed colonic stenosis an obstructive lesion at 10 cm from the NS. Grossly suspicious for malignancy. Biopsies were taken. Unable to traverse this narrowing. No clear opening identified. General surgery on board. Needs to be NPO Will give ice chips this to motion for comfort. Plan for decompressive diverting colostomy this week. Awaiting pathology. Continue TPN as ordered. 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 asymptomatic needs follow-up as an outpatient basis 03/03/2023 interval history: Patient with sigmoid mass had a biopsy concerning for malignancy seen by surgery service and patient had diverting colostomy on 02/28 POD#3 seen by her surgoen wish to monitor over the weekend to check any leakage in the colostomy bag will monitor, and patient will follow up with colorectal oncologist and a surgeon at [facility] as an outpatient, patient had been participating in PT OT, patient has received teaching colostomy bag management, patient states feeling better, denies any abdominal pain nausea or vomiting fever or chill, will have PT/OT evaluate the patient in anticipation of discharge soon, will continue to monitor Review of Systems Review of Systems: All systems reviewed & are unremarkable except
[2023-03-03 13:52] VITALS: BP 133/55; PULSE 60; RESP 15; TEMP 36.2; O2SAT 100
--- NOTE | 2023-03-03 14:07 | PCNFU ---
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 Meet estimanted nutritional needs - Meeting goal PO Goal: Pt current nutrition is Regular diet/ intakes 5-75%. Nutrition recommendation: Oral nutrition supplement: Ensure Enlive BID for additional 350 kcal and 20 g protein each Last recorded weight is 66 kg. Bowel Motility: Last bowel movement 03/02/23 Labs Reviewed:Reviewed. Pertinent labs WNL Meds Noted: Zosyn, Zofran, Dilaudid Skin: Abd incision Additional Notes: TPN stopped, on regular diet. Tolerating diet well. Feeling improved. Has not had ostomy teaching yet. Will DC home with home health. Agreeable to Ensure. Will monitor, weight, labs, skin, TPN every Monday and Monday.
[2023-03-03] MEDS: oxyCODONE HCL (*CRX) 5 MG TAB IR PO ×2 (15:05→20:15)
[2023-03-03 19:15] LABS: Glucose Point of Care 129 mg/dl (65-105)
[2023-03-03 20:00] VITALS: PULSE 82; RESP 16; O2SAT 98
[2023-03-03 21:18] VITALS: BP 115/68; PULSE 85; RESP 20; TEMP 36.5; O2SAT 100
[2023-03-04 00:04] LABS: Glucose Point of Care 116 mg/dl (65-105)
[2023-03-04] MEDS: CENTRAL LINE FLUSH 10 ML IV PUSH ×3 (05:20→21:11)
[2023-03-04 05:45] VITALS: BP 140/51; PULSE 66; RESP 16; TEMP 36.5; O2SAT 99
[2023-03-04 06:12] LABS: Glucose Point of Care 92 mg/dl (65-105)
[2023-03-04 06:30] LABS: Anion Gap 3 mmol/L (8-16); Blood Urea Nitrogen 8 mg/dL (7-17); Calcium 8.1 mg/dL (8.4-10.2); Carbon Dioxide 27 mmol/L (22-30); Chloride 107 mmol/L (98-107); Estimated CRCL calculation 48 ml/min; Estimated Glomerular Filt Rate > 60; Glucose 91 mg/dL (65-110); Potassium 3.4 mmol/L (3.4-5.0); Sodium 137 mmol/L (137-145)
[2023-03-04] MEDS: FAMOTIDINE 20 MG/2 ML VIAL IV PUSH ×2 (08:29→21:03)
[2023-03-04 09:34] LABS: Hematocrit 31.3 % (37.0-47.0); Hemoglobin 10.6 g/dL (12.0-15.0); Mean Corpuscular HGB Conc 33.9 g/dl (32-36); Mean Corpuscular Hemoglobin 29.6 pg (26-34); Mean Corpuscular Volume 87.4 fl (80-100); Mean Platelet Volume 9.5 fl (7.4-10.4); Platelet Count Result 307 k/mm3 (150-375); Red Blood Count 3.58 M/mm3 (4.2-5.4); Red Cell Distribution Width 14.3 % (11.5-14.5); White Blood Count 10.5 K/mm3 (4.5-10.0)
--- NOTE | 2023-03-04 10:03 | WPDPN ---
Progress Note: A&P Assessment and Plan (1) Large bowel obstruction: Code(s): K56.609 - Unspecified intestinal obstruction, unspecified as to partial versus complete obstruction Status: Acute (2) Hyperlipidemia: Code(s): E78.5 - Hyperlipidemia, unspecified Status: Acute (3) Tobacco use: Code(s): Z72.0 - Tobacco use Status: Acute Plan This is a 72-year-old female with remote history of cervical cancer, status post chemo, radiation, who presented to the emergency department for evaluation of abdominal pain, bloating, nausea, and vomiting. CT reveal large bowel obstruction with stricture at the rectosigmoid. GI has been consulted. NG tube has been placed. Zosyn empirically for possible infection given the white cell count which has now been discontinued. CEA came back at 15.2. Colonoscopy performed showed colonic stenosis an obstructive lesion at 10 cm from the NS. Grossly suspicious for malignancy. Biopsies were taken. Unable to traverse this narrowing. No clear opening identified. General surgery on board. Needs to be NPO Will give ice chips this to motion for comfort. Plan for decompressive diverting colostomy this week. Awaiting pathology. Continue TPN as ordered. 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 hydralazine 03/04/2023 interval history: Patient with sigmoid mass had a biopsy concerning for malignancy seen by surgery service and patient had diverting colostomy on 02/28 POD#4 seen by her surgoen wish to monitor over the weekend to check any leakage from the bag as the bag does not close properly in the colostomy bag will monitor, and patient will follow up with colorectal oncologist and a surgeon at [facility] as an outpatient, patient had been participating in PT OT, patient has received teaching colostomy bag management, patient states feeling better, denies any abdominal pain nausea or vomiting fever or chill, will have PT/OT evaluate the patient in anticipation of discharge soon, will continue to monitor Subjective Date/time seen: 03/04/23 10:03 Interval history: This is a 72-year-old female with remote history of cervical cancer, status post chemo, radiation, who presented to the emergency department for evaluation of abdominal pain, bloating, nausea, and vomiting. CT reveal large bowel obstruction with stricture at the rectosigmoid. GI has been consulted. NG tube has been placed. Zosyn empirically for possible infection given the white cell count which has now been discontinued. CEA came back at 15.2. Colonoscopy performed showed colonic stenosis an obstructive lesion at 10 cm from the NS. Grossly suspicious for malignancy. Biopsies were taken. Unable to traverse this narrowing. No clear opening identified. General surgery on board. Needs to be NPO Will give ice chips this to motion for comfort. Plan for decompressive diverting colostomy this week. Awaiting pathology. Continue TPN as ordered. 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 asymptomatic needs follow-up as an outpatient basis 03/04/2023 interval history: Patient with sigmoid mass had a biopsy concerning for malignancy seen by surgery service and patient had diverting colostomy on 02/28 POD#4 seen by her surgoen wish to monitor over the weekend to check any leakage from the bag as the bag does not close properly in the colostomy bag will monitor, and patient will follow up with colorectal oncologist and a surgeon at [facility] as an outpatient, patient had been participating in PT OT, patient has received teaching colostomy bag management, patient states feeling better, denies any abdominal pain nausea or vomiting fever or chill, will have PT/OT evaluate the patient in anticipation of discharge soon, will continue to
--- NOTE | 2023-03-04 10:34 | PM.PNGS ---
Progress Note: A&P Assessment and Plan (1) Large bowel obstruction: Code(s): K56.609 - Unspecified intestinal obstruction, unspecified as to partial versus complete obstruction Status: Acute Assessment and Plan: Clinically stable. However logistically there is going to be issues with sending her home today and getting home health to help with the ostomy care as she is still having leaking from around the ostomy. We will plan on removing the ostomy bridge on Monday hopefully we will be able to the get the wound ostomy nurses to fit a ostomy appliance on their without any leaking. Continue current supportive management Subjective Subjective Date/Time Seen: 03/04/23 10:34 Post Op day: 5 (Status post diverting loop descending colostomy secondary to obstructing rectal cancer) Patient reports: no new complaints (She is tolerating her diet. Ostomy is working. Biggest problem is getting a good seal on the ostomy appliance.) Exam GI: Other: Abdomen soft nondistended. Left lower quadrant diverting loop ostomy is viable and productive of stool. Objective Data Vital Signs Vital Signs: Vital Signs - 24 hr 03/03/23 13:52 03/03/23 21:18 03/03/23 20:00 Temperature 36.2 C L 36.5 C Pulse Rate 60 85 82 Respiratory Rate 15 20 16 Blood Pressure 133/55 L 115/68 Pulse Oximetry 100 100 98 Oxygen Delivery Room Air 03/04/23 05:45 03/04/23 08:25 Temperature 36.5 C Pulse Rate 66 Respiratory Rate 16 Blood Pressure 140/51 L Pulse Oximetry 99 Oxygen Delivery Room Air Intake/Output Intake/Output: Intake & Output 03/01/23 03/02/23 03/03/23 03/04/23 23:59 23:59 23:59 23:59 Intake Total 2665 1430 1200 240 Output Total 1202 937 0670 Balance 865 780 0 240 Meds/Results Medications: Active Medications Generic Name Dose Route Start Last Admin Trade Name Freq PRN Reason Stop Dose Admin Famotidine 20 mg 02/23/23 21:00 03/04/23 08:29 Famotidine 20 Mg/2 Ml Vial IV PUSH 20 mg Q12HR CHANTAL Administration Hydralazine HCl 10 mg 02/23/23 15:09 02/24/23 04:59 Hydralazine Hcl 20 Mg/Ml Vial IV PUSH 10 mg Q8H PRN Administration Blood Pressure - High Hydromorphone HCl 1 mg 02/28/23 22:08 Hydromorphone Hcl Inj (*Crx) 1 Mg/Ml Syr IV PUSH Q3H PRN Pain Rated 7-10 Dextrose 1,000 mls @ 50 mls/hr 02/24/23 11:26 Dextrose 10% IV CONT .Q20H PRN if PN is interrupted Ondansetron HCl 4 mg 02/22/23 23:17 02/23/23 06:34 Ondansetron Inj 4 Mg/2 Ml Vial IV PUSH 4 mg Q6H PRN Administration Nausea And Vomiting Oxycodone HCl 5 mg 02/28/23 22:08 03/03/23 20:15 Oxycodone Hcl (*Crx) 5 Mg Tab Ir PO 5 mg Q4H PRN Administration Pain Rated 7-10 Sodium Chloride 10 ml 02/24/23 22:00 03/04/23 08:29 Central Line Flush IV PUSH 10 ml Q8HR CHANTAL Administration Sodium Chloride 10 ml 02/24/23 15:03 Central Line Flush IV PUSH PRN PRN with TPN bag changes Sodium Chloride 20 ml 02/24/23 15:03 Central Line Flush IV PUSH PRN PRN after blood draws Radiology Results: ITS Impressions Abdomen/Pelvis CT 02/23/23 07:30 IMPRESSION: 1. Stricture of the rectosigmoid with obstruction. The stricture could be malignant. 2. Arterial occlusive disease. Enema w/Water Soluble 02/23/23 10:59 IMPRESSION: 1. Severe stricture of the rectosigmoid. Abdomen X-Ray 02/27/23 12:28 IMPRESSION: 1: NG tube tip in the stomach. Labs Labs: Laboratory Results - last 24 hr 03/03/23 03/03/23 03/03/23 05:25 12:04 19:13 WBC RBC Hgb Hct MCV MCH MCHC RDW Plt Count MPV Sodium Potassium Chloride Carbon Dioxide Anion Gap BUN Creatinine Estim Creat Clear Calc Estimated GFR Glucose POC Capillary Glucose 106 H 129 H Calcium Triglycerides 124 03/04/23 03/04/23 03/04/23 00:01 05:45 09:23 WBC 10.
[2023-03-04 12:00] LABS: Glucose Point of Care 90 mg/dl (65-105)
[2023-03-04 14:00] VITALS: BP 124/67; PULSE 73; RESP 16; TEMP 36.1; O2SAT 97
[2023-03-04 18:48] LABS: Glucose Point of Care 131 mg/dl (65-105)
[2023-03-04 20:00] VITALS: PULSE 67; RESP 22; O2SAT 99
[2023-03-04] MEDS: oxyCODONE HCL (*CRX) 5 MG TAB IR PO (21:11)
[2023-03-04 21:47] VITALS: BP 133/59; PULSE 67; RESP 22; TEMP 36.3; O2SAT 99
[2023-03-05 02:03] LABS: Glucose Point of Care 105 mg/dl (65-105)
[2023-03-05 05:28] LABS: Anion Gap 5 mmol/L (8-16); Blood Urea Nitrogen 8 mg/dL (7-17); Calcium 8.4 mg/dL (8.4-10.2); Carbon Dioxide 27 mmol/L (22-30); Chloride 105 mmol/L (98-107); Estimated CRCL calculation 48 ml/min; Estimated Glomerular Filt Rate > 60; Glucose 98 mg/dL (65-110); Potassium 3.6 mmol/L (3.4-5.0); Sodium 137 mmol/L (137-145); Triglycerides 112 mg/dL (<150)
[2023-03-05] MEDS: CENTRAL LINE FLUSH 10 ML IV PUSH ×3 (05:29→20:14)
[2023-03-05 05:57] LABS: Glucose Point of Care 110 mg/dl (65-105)
[2023-03-05 06:00] VITALS: BP 136/53; PULSE 60; RESP 18; TEMP 36.7; O2SAT 99
[2023-03-05] MEDS: FAMOTIDINE 20 MG/2 ML VIAL IV PUSH ×2 (09:50→20:14)
--- NOTE | 2023-03-05 10:42 | WPDPN ---
Progress Note: A&P Assessment and Plan (1) Large bowel obstruction: Code(s): K56.609 - Unspecified intestinal obstruction, unspecified as to partial versus complete obstruction Status: Acute (2) Hyperlipidemia: Code(s): E78.5 - Hyperlipidemia, unspecified Status: Acute (3) Tobacco use: Code(s): Z72.0 - Tobacco use Status: Acute Plan This is a 72-year-old female with remote history of cervical cancer, status post chemo, radiation, who presented to the emergency department for evaluation of abdominal pain, bloating, nausea, and vomiting. CT reveal large bowel obstruction with stricture at the rectosigmoid. GI has been consulted. NG tube has been placed. Zosyn empirically for possible infection given the white cell count which has now been discontinued. CEA came back at 15.2. Colonoscopy performed showed colonic stenosis an obstructive lesion at 10 cm from the NS. Grossly suspicious for malignancy. Biopsies were taken. Unable to traverse this narrowing. No clear opening identified. General surgery on board. Needs to be NPO Will give ice chips this to motion for comfort. Plan for decompressive diverting colostomy this week. Awaiting pathology. Continue TPN as ordered. 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 hydralazine 03/05/2023 interval history: Patient with sigmoid mass had a biopsy concerning for malignancy seen by surgery service and patient had diverting colostomy on 02/28 POD#5 seen by her surgoen wish to monitor over the weekend to check any leakage from the bag as the bag does not close properly in the colostomy bag, patient may need surgical revision, will monitor, and patient will follow up with colorectal oncologist and a surgeon at [facility] as an outpatient, patient had been participating in PT OT, patient has received teaching colostomy bag management, however does not follow insturction, patient states feeling better, denies any abdominal pain nausea or vomiting fever or chill, will have PT/OT evaluate the patient in anticipation of discharge soon, will continue to monitor Subjective Date/time seen: 03/05/23 10:42 Interval history: This is a 72-year-old female with remote history of cervical cancer, status post chemo, radiation, who presented to the emergency department for evaluation of abdominal pain, bloating, nausea, and vomiting. CT reveal large bowel obstruction with stricture at the rectosigmoid. GI has been consulted. NG tube has been placed. Zosyn empirically for possible infection given the white cell count which has now been discontinued. CEA came back at 15.2. Colonoscopy performed showed colonic stenosis an obstructive lesion at 10 cm from the NS. Grossly suspicious for malignancy. Biopsies were taken. Unable to traverse this narrowing. No clear opening identified. General surgery on board. Needs to be NPO Will give ice chips this to motion for comfort. Plan for decompressive diverting colostomy this week. Awaiting pathology. Continue TPN as ordered. 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 asymptomatic needs follow-up as an outpatient basis 03/05/2023 interval history: Patient with sigmoid mass had a biopsy concerning for malignancy seen by surgery service and patient had diverting colostomy on 02/28 POD#5 seen by her surgoen wish to monitor over the weekend to check any leakage from the bag as the bag does not close properly in the colostomy bag, patient may need surgical revision, will monitor, and patient will follow up with colorectal oncologist and a surgeon at [facility] as an outpatient, patient had been participating in PT OT, patient has received teaching colostomy bag management, however does not follow insturction, patient states feeling be
--- NOTE | 2023-03-05 10:54 | PM.PNGS ---
Progress Note: A&P Assessment and Plan (1) Rectal cancer: Code(s): C20 - Malignant neoplasm of rectum Status: Acute Assessment and Plan: Patient is doing well overall. She is to having issues with leaking from her colostomy bag. We will remove the colostomy bridge tomorrow and see if we get a better fit on the bag to the colostomy and prevent further leaking. Plan is to refer her to Dr. Maritza Pena at [facility], located [facility] for colorectal surgery evaluation as an outpatient. Subjective Subjective Date/Time Seen: 03/05/23 10:54 Interval history: Patient is doing well today. No complaints. New ostomy bag is in place without leaking at the moment. Ostomy output is good. Exam GI: Other: Abdomen is soft and nondistended. Laparoscopic incisions are healing well. The left lower quadrant ostomy is active of stool and viable. Colostomy bridge was then placed. Currently there is no leaking of stool from around the ostomy bag. Objective Data Vital Signs Vital Signs: Vital Signs - 24 hr 03/04/23 14:00 03/04/23 21:47 03/04/23 20:00 Temperature 36.1 C L 36.3 C L Pulse Rate 73 67 67 Respiratory Rate 16 22 H 22 H Blood Pressure 124/67 133/59 L Pulse Oximetry 97 99 99 Oxygen Delivery Room Air 03/05/23 06:00 Temperature 36.7 C Pulse Rate 60 Respiratory Rate 18 Blood Pressure 136/53 L Pulse Oximetry 99 Oxygen Delivery Intake/Output Intake/Output: Intake & Output 03/02/23 03/03/23 03/04/23 03/05/23 23:59 23:59 23:59 23:59 Intake Total 1430 1200 960 740 Output Total 650 1200 900 150 Balance 780 0 60 590 Meds/Results Medications: Active Medications Generic Name Dose Route Start Last Admin Trade Name Freq PRN Reason Stop Dose Admin Famotidine 20 mg 02/23/23 21:00 03/05/23 09:50 Famotidine 20 Mg/2 Ml Vial IV PUSH 20 mg Q12HR CHANTAL Administration Hydralazine HCl 10 mg 02/23/23 15:09 02/24/23 04:59 Hydralazine Hcl 20 Mg/Ml Vial IV PUSH 10 mg Q8H PRN Administration Blood Pressure - High Hydromorphone HCl 1 mg 02/28/23 22:08 Hydromorphone Hcl Inj (*Crx) 1 Mg/Ml Syr IV PUSH Q3H PRN Pain Rated 7-10 Dextrose 1,000 mls @ 50 mls/hr 02/24/23 11:26 Dextrose 10% IV CONT .Q20H PRN if PN is interrupted Ondansetron HCl 4 mg 02/22/23 23:17 02/23/23 06:34 Ondansetron Inj 4 Mg/2 Ml Vial IV PUSH 4 mg Q6H PRN Administration Nausea And Vomiting Oxycodone HCl 5 mg 02/28/23 22:08 03/04/23 21:11 Oxycodone Hcl (*Crx) 5 Mg Tab Ir PO 5 mg Q4H PRN Administration Pain Rated 7-10 Sodium Chloride 10 ml 02/24/23 22:00 03/05/23 09:51 Central Line Flush IV PUSH 10 ml Q8HR CHANTAL Administration Sodium Chloride 10 ml 02/24/23 15:03 Central Line Flush IV PUSH PRN PRN with TPN bag changes Sodium Chloride 20 ml 02/24/23 15:03 Central Line Flush IV PUSH PRN PRN after blood draws Radiology Results: ITS Impressions Abdomen/Pelvis CT 02/23/23 07:30 IMPRESSION: 1. Stricture of the rectosigmoid with obstruction. The stricture could be malignant. 2. Arterial occlusive disease. Enema w/Water Soluble 02/23/23 10:59 IMPRESSION: 1. Severe stricture of the rectosigmoid. Abdomen X-Ray 02/27/23 12:28 IMPRESSION: 1: NG tube tip in the stomach. Labs Labs: Laboratory Results - last 24 hr 03/04/23 03/04/23 03/05/23 11:53 18:38 01:58 Sodium Potassium Chloride Carbon Dioxide Anion Gap BUN Creatinine Estim Creat Clear Calc Estimated GFR Glucose POC Capillary Glucose 90 131 H 105 Calcium Triglycerides 03/05/23 03/05/23 03/05/23 05:06 05:06 05:54 Sodium 137 Potassium 3.6 Chloride 105 Carbon Dioxide 27 Anion Gap 5 L BUN 8 Creatinine 0.80 Estim Creat Clear Calc 48 Estimated GFR > 60 Glucose 98 POC Capillary Glucose 110 H Calcium 8.4 T
[2023-03-05 12:38] LABS: Glucose Point of Care 125 mg/dl (65-105)
[2023-03-05 14:00] VITALS: BP 129/45; PULSE 63; RESP 16; TEMP 36.5; O2SAT 99
[2023-03-05 18:37] LABS: Glucose Point of Care 168 mg/dl (65-105)
[2023-03-05 20:00] VITALS: PULSE 73; RESP 16; O2SAT 100
[2023-03-05 21:30] VITALS: BP 132/54; PULSE 73; RESP 16; TEMP 36.8; O2SAT 100
[2023-03-05 23:20] LABS: Glucose Point of Care 126 mg/dl (65-105)
[2023-03-06 05:13] LABS: Glucose Point of Care 123 mg/dl (65-105)
[2023-03-06] MEDS: CENTRAL LINE FLUSH 10 ML IV PUSH ×2 (05:17→13:30)
[2023-03-06 05:26] VITALS: BP 139/52; PULSE 71; RESP 16; TEMP 36.1; O2SAT 98
[2023-03-06 06:18] LABS: Basophils Percent Auto 0.2 % (0.2-1.2); Eosinophils Absolute Auto 0.3 K/mm3 (0-0.3); Eosinophils Percent Auto 2.7 % (0-4.4); Hematocrit 31.4 % (37.0-47.0); Hemoglobin 10.7 g/dL (12.0-15.0); Immature Granulocyte Absolute 0.05 K/mm3 (0.00-0.031); Immature Granulocyte Percent A 0.5 % (0-0.5); Lymphocytes Absolute Auto 1.74 K/mm3 (0.9-3.2); Lymphocytes Percent Auto 17.3 % (18.3-44.2); Mean Corpuscular HGB Conc 34.1 g/dl (32-36); Mean Corpuscular Hemoglobin 29.6 pg (26-34); Mean Corpuscular Volume 86.7 fl (80-100); Mean Platelet Volume 9.1 fl (7.4-10.4); Monocytes Absolute Auto 0.6 K/mm3 (0.1-0.6); Monocytes Percent Auto 6.1 % (2.6-8.5); Neutrophils Absolute Auto 7.4 K/mm3 (1.3-6.7); Neutrophils Percent Auto 73.2 % (45.5-73.1); Platelet Count Result 338 k/mm3 (150-375); Red Blood Count 3.62 M/mm3 (4.2-5.4); Red Cell Distribution Width 14.3 % (11.5-14.5); White Blood Count 10.1 K/mm3 (4.5-10.0)
[2023-03-06 06:22] LABS: INR 1.1; Prothrombin Time 14.3 Seconds (11.1-14.7)
[2023-03-06 06:23] LABS: Alanine Aminotransferase 25 U/L (6-35); Albumin Level 3.1 g/dL (3.5-5.1); Alkaline Phosphatase 75 U/L (38-126); Anion Gap 3 mmol/L (8-16); Aspartate Amino Transferase 17 U/L (14-36); Bilirubin,Total 0.3 mg/dL (0.2-1.3); Blood Urea Nitrogen 6 mg/dL (7-17); Calcium 8.3 mg/dL (8.4-10.2); Carbon Dioxide 27 mmol/L (22-30); Chloride 107 mmol/L (98-107); Estimated CRCL calculation 45 ml/min; Estimated Glomerular Filt Rate > 60; Glucose 133 mg/dL (65-110); Magnesium 1.9 mg/dL (1.6-2.3); Partial Thromboplastin Time 32.4 SECONDS (22.3-36.8); Potassium 3.3 mmol/L (3.4-5.0); Sodium 137 mmol/L (137-145)
[2023-03-06 06:31] LABS: Transferrin 113 mg/dL (206-381)
[2023-03-06] MEDS: FAMOTIDINE 20 MG/2 ML VIAL IV PUSH (08:08)
[2023-03-06] MEDS: POTASSIUM CHLORIDE 20 MEQ ER TABLET 40 MEQ PO (08:09)
[2023-03-06] MEDS: HYDROmorphone HCL INJ (*CRX) 1 MG/ML SYR IV PUSH (10:39)
--- NOTE | 2023-03-06 12:02 | PM.PNGS ---
Progress Note: A&P Assessment and Plan (1) Rectal cancer: Code(s): C20 - Malignant neoplasm of rectum Status: Acute Assessment and Plan: Will remove the colostomy bridge today. Ostomy nurses will then apply an appropriate ostomy bag and hopefully this will keep her from leaking. There was no issues later this afternoon we will plan on discharging her home with home health to aid with colostomy care. We will get her set for referral to see Dr. Pena at [facility] for colorectal surgery evaluation for rectal cancer. Subjective Subjective Date/Time Seen: 03/06/23 12:02 Interval history: Patient doing well today. Did not have any leaking from the colostomy bag yesterday. Eating normal diet without difficulty. No fevers. Exam GI: Other: Abdomen remains soft and benign. Removing the ostomy appliance there is some erythema of the lower portion of the abdominal wall with irritation of the skin from the stool. No ulceration is seen. Colostomy bridge is still in place. Ostomy is functioning well without any issues of viability. Objective Data Vital Signs Vital Signs: Vital Signs - 24 hr 03/05/23 14:00 03/05/23 21:30 03/05/23 20:00 Temperature 36.5 C 36.8 C Pulse Rate 63 73 73 Respiratory Rate 16 16 16 Blood Pressure 129/45 L 132/54 L Pulse Oximetry 99 100 100 Oxygen Delivery Room Air 03/06/23 05:26 03/06/23 08:00 Temperature 36.1 C L Pulse Rate 71 Respiratory Rate 16 Blood Pressure 139/52 L Pulse Oximetry 98 Oxygen Delivery Room Air Intake/Output Intake/Output: Intake & Output 03/03/23 03/04/23 03/05/23 03/06/23 23:59 23:59 23:59 23:59 Intake Total 0980 229 3573 240 Output Total 1200 900 150 0 Balance 0 60 1870 240 Meds/Results Medications: Active Medications Generic Name Dose Route Start Last Admin Trade Name Freq PRN Reason Stop Dose Admin Famotidine 20 mg 02/23/23 21:00 03/06/23 08:08 Famotidine 20 Mg/2 Ml Vial IV PUSH 20 mg Q12HR CHANTAL Administration Hydralazine HCl 10 mg 02/23/23 15:09 02/24/23 04:59 Hydralazine Hcl 20 Mg/Ml Vial IV PUSH 10 mg Q8H PRN Administration Blood Pressure - High Hydromorphone HCl 1 mg 02/28/23 22:08 Hydromorphone Hcl Inj (*Crx) 1 Mg/Ml Syr IV PUSH Q3H PRN Pain Rated 7-10 Dextrose 1,000 mls @ 50 mls/hr 02/24/23 11:26 Dextrose 10% IV CONT .Q20H PRN if PN is interrupted Ondansetron HCl 4 mg 02/22/23 23:17 02/23/23 06:34 Ondansetron Inj 4 Mg/2 Ml Vial IV PUSH 4 mg Q6H PRN Administration Nausea And Vomiting Oxycodone HCl 5 mg 02/28/23 22:08 03/04/23 21:11 Oxycodone Hcl (*Crx) 5 Mg Tab Ir PO 5 mg Q4H PRN Administration Pain Rated 7-10 Sodium Chloride 10 ml 02/24/23 22:00 03/06/23 05:17 Central Line Flush IV PUSH 10 ml Q8HR CHANTAL Administration Sodium Chloride 20 ml 02/24/23 15:03 Central Line Flush IV PUSH PRN PRN after blood draws Radiology Results: ITS Impressions Abdomen/Pelvis CT 02/23/23 07:30 IMPRESSION: 1. Stricture of the rectosigmoid with obstruction. The stricture could be malignant. 2. Arterial occlusive disease. Enema w/Water Soluble 02/23/23 10:59 IMPRESSION: 1. Severe stricture of the rectosigmoid. Abdomen X-Ray 02/27/23 12:28 IMPRESSION: 1: NG tube tip in the stomach. Labs Labs: Laboratory Results - last 24 hr 03/05/23 03/05/23 03/05/23 12:31 18:33 23:15 WBC RBC Hgb Hct MCV MCH MCHC RDW Plt Count MPV Immature Gran % (Auto) Neut % (Auto) Lymph % (Auto) Harney % (Auto) Eos % (Auto) Baso % (Auto) Lymph # (Auto) Harney # (Auto) Eos # (Auto) Baso # (Auto) Abs Immat Gran (auto) Absolute Neuts (auto) Absolute Nucleated RBC Nucleated RBC % PT INR APTT Sodium Potassium Chloride Carbon Dioxide Anion Gap BUN Crea
--- NOTE | 2023-03-06 12:19 | WPDPN ---
Progress Note: A&P Assessment and Plan (1) Large bowel obstruction: Code(s): K56.609 - Unspecified intestinal obstruction, unspecified as to partial versus complete obstruction Status: Acute (2) Hyperlipidemia: Code(s): E78.5 - Hyperlipidemia, unspecified Status: Acute (3) Tobacco use: Code(s): Z72.0 - Tobacco use Status: Acute Plan This is a 72-year-old female with remote history of cervical cancer, status post chemo, radiation, who presented to the emergency department for evaluation of abdominal pain, bloating, nausea, and vomiting. CT reveal large bowel obstruction with stricture at the rectosigmoid. GI has been consulted. NG tube has been placed. Zosyn empirically for possible infection given the white cell count which has now been discontinued. CEA came back at 15.2. Colonoscopy performed showed colonic stenosis an obstructive lesion at 10 cm from the NS. Grossly suspicious for malignancy. Biopsies were taken. Unable to traverse this narrowing. No clear opening identified. General surgery on board. Needs to be NPO Will give ice chips this to motion for comfort. Plan for decompressive diverting colostomy this week. Awaiting pathology. Continue TPN as ordered. 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 hydralazine 03/06/2023 interval history: Patient with sigmoid mass had a biopsy concerning for malignancy seen by surgery service and patient had diverting colostomy on 02/28 POD#6 seen by her surgoen wish to monitor over the weekend to check any leakage from the bag as the bag does not close properly in the colostomy bag, today the surgeon will take the patient to OR and remove the colostomy bridge and have ostomy nurse apply apporoptriate ostomy bag, and patient will follow up with colorectal oncologist [facility], patient had been participating in PT OT, patient has received teaching colostomy bag management, however does not follow insturction, patient states feeling better, denies any abdominal pain nausea or vomiting fever or chill, will have PT/OT evaluate the patient in anticipation of discharge soon, will continue to monitor Subjective Date/time seen: 03/06/23 12:19 Interval history: This is a 72-year-old female with remote history of cervical cancer, status post chemo, radiation, who presented to the emergency department for evaluation of abdominal pain, bloating, nausea, and vomiting. CT reveal large bowel obstruction with stricture at the rectosigmoid. GI has been consulted. NG tube has been placed. Zosyn empirically for possible infection given the white cell count which has now been discontinued. CEA came back at 15.2. Colonoscopy performed showed colonic stenosis an obstructive lesion at 10 cm from the NS. Grossly suspicious for malignancy. Biopsies were taken. Unable to traverse this narrowing. No clear opening identified. General surgery on board. Needs to be NPO Will give ice chips this to motion for comfort. Plan for decompressive diverting colostomy this week. Awaiting pathology. Continue TPN as ordered. 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 asymptomatic needs follow-up as an outpatient basis 03/06/2023 interval history: Patient with sigmoid mass had a biopsy concerning for malignancy seen by surgery service and patient had diverting colostomy on 02/28 POD#6 seen by her surgoen wish to monitor over the weekend to check any leakage from the bag as the bag does not close properly in the colostomy bag, today the surgeon will take the patient to OR and remove the colostomy bridge and have ostomy nurse apply apporoptriate ostomy bag, and patient will follow up with colorectal oncologist and a [facility] as an outpat
[2023-03-06 14:00] VITALS: BP 114/79; PULSE 71; RESP 14; TEMP 36.6; O2SAT 99
[2023-03-06] MEDS: NEOMYCIN/POLYMYXIN/BACITRACIN OINTMENT PACKET 1 PACKET (18:53)
--- NOTE | 2023-03-07 13:05 | PM.DS ---
DS: Admitting Diagnosis Discharge Date 03/06/23 Admitting Diagnosis Abdominal pain, nausea, and vomiting. ? DS: Discharge Diagnosis Discharge Diagnosis (1) Large bowel obstruction: Code(s): K56.609 - Unspecified intestinal obstruction, unspecified as to partial versus complete obstruction Status: Acute (2) Hyperlipidemia: Code(s): E78.5 - Hyperlipidemia, unspecified Status: Acute (3) Tobacco use: Code(s): Z72.0 - Tobacco use Status: Acute Plan This is a 72-year-old female with remote history of cervical cancer, status post chemo, radiation, who presented to the emergency department for evaluation of abdominal pain, bloating, nausea, and vomiting. CT reveal large bowel obstruction with stricture at the rectosigmoid. GI has been consulted. NG tube has been placed. Zosyn empirically for possible infection given the white cell count which has now been discontinued. CEA came back at 15.2. Colonoscopy performed showed colonic stenosis an obstructive lesion at 10 cm from the NS. Grossly suspicious for malignancy. Biopsies were taken. Unable to traverse this narrowing. No clear opening identified. General surgery on board. Needs to be NPO Will give ice chips this to motion for comfort. Plan for decompressive diverting colostomy this week. Awaiting pathology. Continue TPN as ordered. 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 hydralazine 03/06/2023 interval history: Patient with sigmoid mass had a biopsy concerning for malignancy seen by surgery service and patient had diverting colostomy on 02/28 POD#6 seen by her surgoen wish to monitor over the weekend to check any leakage from the bag as the bag does not close properly in the colostomy bag, today the surgeon will take the patient to OR and remove the colostomy bridge and have ostomy nurse apply apporoptriate ostomy bag, and patient will follow up with colorectal oncologist and a surgeon at [facility] as an outpatient, patient had been participating in PT OT, patient has received teaching colostomy bag management, however does not follow insturction, patient states feeling better, denies any abdominal pain nausea or vomiting fever or chill, will have PT/OT evaluate the patient in anticipation of discharge soon, will continue to monitor DS: Summary Hospital Course Reason for hospitalization: CHIEF COMPLAINT:? Abdominal pain, nausea, and vomiting. ? HISTORY OF PRESENT ILLNESS:? This is a very pleasant 72-year-old female who has been remarkably healthy aside from being treated for cervical cancer many years ago who presented to the emergency department from home for evaluation of abdominal pain, nausea, and vomiting. The patient provides the following history. She reports a gradual onset of diffuse abdominal discomfort starting Monday which she describes as a bloating and cramping like pain. She has been nauseated and she vomited over the weekend however the vomiting has ceased. Her doctor called her in some Zofran which seems to be helping. Unfortunately, she continues to have discomfort and she has not had a bowel movement since Monday. CT of the abdomen and pelvis done on arrival to the emergency department shows a ?at the rectosigmoid junction with obstruction and there are concerns that this stricture may be malignant. CT also showed evidence of arterial occlusive disease including total occlusion of the right external iliac with reconstitution in the right common femoral artery and total occlusion of the left common femoral artery, also with reconstitution. Her labs were significant for white blood cell count of 12.5, hemoglobin 14.5, sodium 139, potassium 3.4, BUN 18, creatinine 0.90.? An NG tube has been inserted for decompression and she is being admitted i
== END 2023-03-06 19:05 | disposition home health service (06) | DRG 330 ==
LOC: ANHED 16:57 → ANH3MEDSUR 23:03
PROVIDERS: Family Medicine; Internal Medicine; Internal Medicine Gastroenterology; Physician Assistant; Surgery; Admitting Provider Chiropractor; Emergency Provider Physician Assistant; PCP Physician Assistant; Visit Provider Hospitalist
PROC: 0DJD8ZZ Inspection of Lower Intestinal Tract, Via Natural or Artificial Opening Endoscopic (ICD-10-PCS; CPT 45330; principal; 2023-02-24 14:00)
PROC: 0DTF4ZZ Resection of Right Large Intestine, Percutaneous Endoscopic Approach (ICD-10-PCS; CPT 44204; principal; 2023-02-28 16:00)
DX: C20 Malignant neoplasm of rectum (principal); K56.609 Unspecified intestinal obstruction, unspecified as to partial versus complete obstruction; E78.00 Pure hypercholesterolemia, unspecified; I10 Essential (primary) hypertension; I73.9 Peripheral vascular disease, unspecified; F17.210 Nicotine dependence, cigarettes, uncomplicated; Z90.49 Acquired absence of other specified parts of digestive tract; Z90.710 Acquired absence of both cervix and uterus; Z85.41 Personal history of malignant neoplasm of cervix uteri; Z92.21 Personal history of antineoplastic chemotherapy; Z92.3 Personal history of irradiation
CPT/HCPCS: 36415; 36569; 74177; 74270; 80048; 80053; 81001; 82378; 82565; 82948; 83605; 83690; 83735; 84100; 84132; 84466; 84478; 85025; 85027; 85610; 85730; 88305; 88342; 96365; 96375; 96376; 97161; 97165; 97535; 99285; A9270; C1751; G0378; J0330; J0360; J0690; J1100; J1170; J2250; J2270; J2370; J2405; J2543; J2704; J3010; J3480; J7030; J7040; J7042; J7120; Q9967

== ENCOUNTER 2023-06-27 15:38 | Emergency (ER) | payer MEDICARE, SELFPAY ==
[2023-06-27 15:44] VITALS: BP 135/83; PULSE 96; RESP 18; TEMP 36.8
--- NOTE | 2023-06-27 16:44 | ED.GENADULT ---
HPI - General Adult General Chief complaint: Unspecified Stated complaint: stoma irritation - surgery in February Time Seen by Provider: 06/27/23 16:12 History of Present Illness HPI narrative: Patient is a 72-year-old female who presents ER with irritation around her stoma site left lower quadrant. She had a colostomy placed at [facility] back in February 2023. Over the last week and a half she has developed irritation and breakdown the skin. She has stool that is weeping around the area. She still continues to have normal stool come out. No fevers or chills or sweats. She has pain due to the irritation. She has not followed up with her surgeon or her PCP. Patient is being treated for colon cancer. Related Data Allergies Allergy/AdvReac Type Severity Reaction Status Date / Time No Known Allergies Allergy Verified 06/27/23 15:39 Review of Systems Review of Systems: All systems reviewed & are unremarkable except as noted in HPI and below Constitutional: Constitutional: Reports no additional constitutional complaints ENT: Reports system reviewed and no additional complaints, except as documented Cardiovascular: Cardiovascular: Reports no additional cardiovascular complaints Respiratory: Respiratory: Reports no additional respiratory complaints Gastrointestinal: Gastrointestinal: Reports no additional gastrointestinal complaints Integumentary/Breasts: Skin/Breast: Reports erythema, Reports rash and Reports skin ulcer PMFSH Past Medical History Medical History Cervical cancer Essential (primary) hypertension Pure hyperglyceridemia Tobacco use Surgical History Surgical History History of cholecystectomy History of hysterectomy S/P laparoscopic colectomy laparoscopic diverting descending loop colostomy 02/23/23 Family History Family History Mother Patient's mother is Family history of blood dyscrasia Family history of emphysema Hypertension Sibling Family history of liver disease Family history of human immunodeficiency virus infection Other Cerebrovascular accident Social History Social History Smoking packs per day: 0.5 Smoking cigarettes per day: 10.0 Years smoked: 35 Smoking pack-years: 17.50 Smoking status: Current every day smoker Tobacco type: cigarettes Second hand tobacco smoke exposure: Yes Smoking end date: 10/24/19 Alcohol intake: never Substance use: never Substance use type: does not use Lack of Transportation: No Lack of Food: Never True Current Housing: I Have Housing Concerned About Future Housing: No Difficulty Paying Gas/Electric Bills: No Difficulty Paying for Meds: No Currently Unemployed: No Education: Bachelor's Degree Difficulty w/ Childcare or Family Care: No Spiritual care concerns: No Exam Narrative: GENERAL: Well-appearing, well-nourished, and in no acute distress. HEAD: Normocephalic, atraumatic. ABDOMEN: Soft, nontender, nondistended. 1 inch stoma site left lower quadrant. There is skin breakdown surrounding the stoma site without overt cellulitis or abscess. EXTREMITIES: Normal range of motion. No edema. SKIN: Warm, dry, see above. NEURO: No focal deficits. Alert and oriented x3. PSYCH: Normal mood and affect. Course Course Emergency Course: Patient educated on proper colostomy care and her was also instructed on how to apply the colostomy bag. Also discussed using barrier cream and following up with PCP. Vital Signs Vital signs: Vital Signs Temperature 98.3 F 06/27/23 15:44 Pulse Rate 96 06/27/23 15:44 Respiratory Rate 18 06/27/23 15:44 Blood Pressure 135/83 06/27/23 15:44 Temperature 98.3 F 06/27/23 15:44 Pulse Rate 96 06/27/23 15:44 Respiratory Rate 18 06/27/23 15:44 Blood Pre
--- NOTE | 2023-06-27 17:06 | PC.NURSE ---
previous colostomy wafer and bag removed. broke down skin around stoma cleansed and barrier cream applied. educated brother on proper technique of cleansing, measuring for wafer and bag placement.
== END 2023-06-27 17:32 | disposition home or self-care (01) ==
PROVIDERS: Emergency Provider Emergency Medicine; PCP Physician Assistant
DX: K94.03 Colostomy malfunction (principal); L24.B1 Irritant contact dermatitis related to digestive stoma or fistula; C18.9 Malignant neoplasm of colon, unspecified; I10 Essential (primary) hypertension; Z85.41 Personal history of malignant neoplasm of cervix uteri; Z87.891 Personal history of nicotine dependence; Z90.49 Acquired absence of other specified parts of digestive tract; Z90.710 Acquired absence of both cervix and uterus; Y83.3 Surgical operation with formation of external stoma as the cause of abnormal reaction of the patient, or of later complication, without mention of misadventure at the time of the procedure
CPT/HCPCS: 99283

== ENCOUNTER 2023-07-07 07:08 | Outpatient (RCR) | payer MEDICARE, SELFPAY | END 2023-09-17 23:59 | disposition home or self-care (01) | LOC: ANHWOC 07:08 | PROVIDERS: PCP Physician Assistant | DX: K94.09 Other complications of colostomy (principal); C20 Malignant neoplasm of rectum | CPT/HCPCS: 99213; G0463 ==

== ENCOUNTER 2023-07-19 14:43 | Outpatient (CLI) | payer MEDICARE, SELFPAY ==
[2023-07-19 15:22] LABS: Hematocrit 35.4 % (37.0-47.0); Mean Corpuscular HGB Conc 33.9 g/dl (32-36); Mean Corpuscular Hemoglobin 29.1 pg (26-34); Mean Corpuscular Volume 85.9 fl (80-100); Platelet Count Result 86 k/mm3 (150-375); Red Blood Count 4.12 M/mm3 (4.2-5.4); Red Cell Distribution Width 18.4 % (11.5-14.5); White Blood Count 10.1 K/mm3 (4.5-10.0)
[2023-07-19 15:47] LABS: Band Neutrophils Percent 5 % (0-6); Lymphocytes Absolute Manual 3.63 K/mm3 (1.1-4.5); Monocytes Percent Manual 6 % (3-9); Neutrophils Absolute Manual 5.85 K/mm3 (1.7-7.2); Neutrophils Percent Manual 53 % (46-73); Total Cells Counted 100
[2023-07-19 15:48] LABS: Platelet Estimate Decreased (Adequate); Schistocytes None Seen (NORMAL)
[2023-07-19 15:49] LABS: Target Cells 2+ (NORMAL)
== END 2023-07-19 14:44 | disposition home or self-care (01) ==
PROVIDERS: PCP Physician Assistant; Visit Provider Internal Medicine Hematology & Oncology
DX: C20 Malignant neoplasm of rectum (principal)
CPT/HCPCS: 36415; 85025; 85055

== ENCOUNTER 2023-11-16 15:54 | Emergency (ER) | payer MEDICARE, SELFPAY ==
[2023-11-16] VITALS (15 sets, daily range): BP systolic 124–180; BP diastolic 64–68; PULSE 73–102; RESP 12–20; TEMP 36.3; O2SAT 98–100
--- NOTE | ~2023-11-16 | CT_ITS ---
Clinical Indication: Leukocytosis, transaminitis CT Scan of the Chest, Abdomen, and Pelvis without Contrast: Technique: Contiguous sections were acquired throughout the chest, abdomen, and pelvis without IV con trast administration. Dose reduction technique was used on this scan by utilizing automated exposure control and iterative reconstruction technique. The dose-length product (DLP) was 333.72 mGy-cm. COMPARISON: 02/22/2023 Findings: There is no evidence of any significant mediastinal, hilar or axillary lymphadenopathy. The mediastin al soft tissues appear normal. There is no evidence of pleural or pericardial effusion. The lungs are clear, aside from calcified right lower lobe granuloma. The liver, spleen, pancreas, right adrenal gland, and left kidney are within normal limits. 1.8 cm le ft adrenal nodule is similar to prior exam. Gallbladder absent. Stable right renal angiomyolipoma. Th ere are atherosclerotic calcifications of the aorta. No lymphadenopathy. Right lower quadrant ostomy present. No bowel obstruction evident. There is an additional wound in th e left lower quadrant anteriorly in the subcutaneous soft tissues extending into the abdominal wall m usculature. Rowe catheter and air present in the urinary bladder. No definite adnexal mass seen. Pelvic ascites versus fluid collection noted probably posterior to the rectum, measuring up to approximately 5.6 x 2 .9 cm in transverse dimensions.. There is subcutaneous soft tissue gas in the right proximal thigh an d right inguinal region, lesser so in the left inguinal region. Impression: Status post bowel surgery with loop ileostomy now present. Suspected fluid collection versus ascites in the posterior pelvis, posterior to the rectum, measuring approximately 5.6 x 2.9 cm. Abscess is a consideration. Additional wound in the left lower quadrant anterior subcutaneous soft tissues. Soft tissue gas predominantly in the anterior right thigh and right middle region, presumably related to recent surgery. Reviewed, dictated and finalized at location [facility]. [employer] Impression: Status post bowel surgery with loop ileostomy now present. Suspected fluid collection versus ascites in the posterior pelvis, posterior to the rectum, measuring approximately 5.6 x 2.9 cm. Abscess is a consideration. Additional wound in the left lower quadrant anterior subcutaneous soft tissues. Soft tissue gas predominantly in the anterior right thigh and right middle [place] on, presumably related to recent surgery.
--- NOTE | ~2023-11-16 | XR_ITS ---
EXAMINATION: XR chest 1V portable DATE: 11/16/2023 19:47 INDICATION: Fatigue. Urinary retention. TECHNIQUE: A single frontal view of the chest was obtained. COMPARISON: Chest 2 views 09/12/2014, CT abdomen and pelvis 02/22/2023 FINDINGS: There is no pneumonia, pleural effusion, or pneumothorax. The heart size is normal. There i s a right internal jugular port with tip in superior vena cava. IMPRESSION: 1. No acute cardiopulmonary disease. Reviewed, dictated and finalized at location [facility]. [employer]
--- NOTE | 2023-11-16 18:28 | ED.FEMALEGU ---
HPI - Female Genitourinary General Chief complaint: Urogenital-Female Stated complaint: URINARY RETENTION S/P JACK REMOVAL Time Seen by Provider: 11/16/23 18:29 Focused HPI: Shahriar is a 72-year-old female patient presenting to the emergency room for urinary retention. She reports she had a Jack removed after a postop surgery yesterday and has been having urinary retention since then. States she has not voided for 24 hours. She denies any bladder discomfort at this time. Bladder scanner was performed and showed approximately 200 mL of urine in her bladder. General: Well-developed, well nourished, in no apparent distress. Head: Normocephalic, atraumatic. Cardio: Regular rate and rhythm, s1 and s2 normal, no murmur appreciated. Resp: Clear to auscultation bilaterally, no rhonchi, rales, wheezing or rubs. Abdomen: Soft, pliable, bowel sounds present, colostomy in the right lower quadrant, mild tender to palpation over the urinary bladder, no organomegly, no CVAT tenderness. Patient screened in triage and initial orders placed. Additional care and disposition to be based upon diagnostic testing and treatment. Related Data Home Medications Medication Instructions Recorded Confirmed cholecalciferol (vitamin D3) 50 50 mcg PO DAILY 10/31/23 10/31/23 mcg (2,000 unit) capsule potassium chloride 20 mEq 20 meq PO BID 10/31/23 10/31/23 tablet,extended release Allergies Allergy/AdvReac Type Severity Reaction Status Date / Time No Known Allergies Allergy Verified 10/31/23 08:22 [facility] Past Medical History Medical History Cervical cancer Essential (primary) hypertension Pure hyperglyceridemia Tobacco use Surgical History Surgical History History of cholecystectomy History of hysterectomy S/P laparoscopic colectomy laparoscopic diverting descending loop colostomy 02/23/23 Family History Family History Mother Patient's mother is Family history of blood dyscrasia Family history of emphysema Hypertension Sibling Family history of liver disease Family history of human immunodeficiency virus infection Other Cerebrovascular accident Social History Social History Smoking packs per day: 0.5 Smoking cigarettes per day: 10.0 Years smoked: 35 Smoking pack-years: 17.50 Smoking status: Current every day smoker Tobacco type: cigarettes Second hand tobacco smoke exposure: Yes Smoking end date: 10/24/19 Alcohol intake: never Substance use: never Substance use type: does not use Lack of Transportation: No Lack of Food: Never True Current Housing: I Have Housing Concerned About Future Housing: No Difficulty Paying Gas/Electric Bills: No Difficulty Paying for Meds: No Currently Unemployed: No Education: Bachelor's Degree Difficulty w/ Childcare or Family Care: No Spiritual care concerns: No Course Vital Signs Vital signs: Vital Signs Pulse Rate 102 H 11/16/23 16:41 Respiratory Rate 18 11/16/23 16:41 Blood Pressure 124/66 11/16/23 16:41 Pulse Oximetry 100 11/16/23 16:41 Oxygen Delivery Room Air 11/16/23 16:41 Temperature 97.4 F L 11/16/23 21:51 Pulse Rate 80 11/17/23 03:31 Respiratory Rate 16 11/17/23 03:31 Blood Pressure 140/76 11/17/23 03:31 Pulse Oximetry 100 11/17/23 03:31 Oxygen Delivery Room Air 11/16/23 16:41 MDM - Female Genitourinary Lab Data 11/17/23 03:02 11/17/23 03:02 Labs: Lab Results 11/16/23 11/16/23 11/16/23 Range/Units 19:40 20:26 22:11 WBC 17.0 H (4.5-10.0) K/mm3 RBC 4.43 (4.2-5.4) M/mm3 Hgb 13.3 (12.0-15.0) g/dL Hct 36.9 L (37.0-47.0) % MCV 83.3 (80-100) fl MCH 30.0 (26-34) pg MCHC 36.0 (32-36) g/dl RDW 13.8 (11.5-14.5) % Plt Count
--- NOTE | 2023-11-16 19:29 | ECG_ITS ---
Measurements Intervals [place] Rate: 90 P: 71 NC: 152 QRS: 71 QRSD: 76 T: 79 QT: 374 QTc: 458 Interpretive Statements SINUS RHYTHM NORMAL ECG COMPARED TO ECG 10/19/2019 18:47:56 NO SIGNIFICANT CHANGES Electronically Signed On 11-17-2023 6:25:18 [employer] by Santiago Paniagua D.O.
[2023-11-16 20:24] LABS: Bacteria Urine None Seen /hpf; Budding Yeast Urine Present /hpf; Mucus Urine Present /lpf; Need Manual Microscopic Reviewed; RBC Urine 21-50 /hpf (0-2); Squamous Epithelial Cell Urine None seen /hpf (Few); WBC Urine 21-50 /hpf
[2023-11-16 20:35] LABS: Appearance Urine Clear (Clear); Color Urine Yellow (Yellow); Glucose Urine UA Negative (Negative); Protein Urine Trace mg/dL (Negative); Specific Grav Ur 1.025 (1.001-1.035)
[2023-11-16 20:35] LABS: Basophils Percent Auto 0.2 % (0.2-1.2); Hematocrit 36.9 % (37.0-47.0); Hemoglobin 13.3 g/dL (12.0-15.0); Immature Granulocyte Absolute 0.15 K/mm3 (0.00-0.031); Immature Granulocyte Percent A 0.9 % (0-0.5); Lymphocytes Absolute Auto 0.85 K/mm3 (0.9-3.2); Mean Corpuscular Volume 83.3 fl (80-100); Mean Platelet Volume 9.5 fl (7.4-10.4); Monocytes Percent Auto 5.7 % (2.6-8.5); Neutrophils Percent Auto 88.2 % (45.5-73.1); Platelet Count Result 513 k/mm3 (150-375); Red Blood Count 4.43 M/mm3 (4.2-5.4); Red Cell Distribution Width 13.8 % (11.5-14.5)
[2023-11-16 20:36] LABS: Add Urine Microscopic? YES; Bilirubin Urine 1+ (Negative); Blood Urine 2+ (Negative); Ketones Urine Negative (Negative); Leukocyte Esterase Ur 1+ LEU/UL (Negative); Nitrate Urine Negative (Negative); Urobilinogen Urine 0.2 mg/dL (<2.0)
[2023-11-16 20:58] LABS: Anisocytosis 1+ (NORMAL); Hypochromasia 1+ (NORMAL); Platelet Estimate Increased (Adequate); Schistocytes None Seen (NORMAL); Target Cells 1+ (NORMAL)
[2023-11-16 21:05] LABS: Alanine Aminotransferase 171 U/L (6-35); Albumin Level 4.8 g/dL (3.5-5.1); Alkaline Phosphatase 183 U/L (38-126); Anion Gap 24 mmol/L (8-16); Aspartate Amino Transferase 179 U/L (14-36); Bilirubin,Total 1.1 mg/dL (0.2-1.3); Calcium 8.4 mg/dL (8.4-10.2); Carbon Dioxide 14 mmol/L (22-30); Chloride 82 mmol/L (98-107); Glucose 122 mg/dL (65-110)
--- NOTE | 2023-11-16 22:04 | ED.FEMALEGU ---
HPI - Female Genitourinary General Chief complaint: Urogenital-Female <Amy Gates PA-C - Last Filed: 11/17/23 04:16> Stated complaint: URINARY RETENTION S/P JACK REMOVAL <Amy Gates PA-C - Last Filed: 11/17/23 04:16> Time Seen by Provider: 11/16/23 18:29 <Amy Gates PA-C - Last Filed: 11/17/23 04:16> History of Present Illness HPI Narrative: 72-year-old female with history of hyperlipidemia, cervical cancer s/p OSIRIS and BSO with pelvic radiation, stage 2 B rectal adenocarcinoma presents to the emergency department for urinary retention. Patient presents with her daughter who assists with history. S patient had a laparoscopic diverting descending loop colostomy on 02/28/[address] Gonzales to resolve bowel obstruction. She then underwent robotic low anterior resection with reversal of loop colostomy with Dr. Pena and had a nail ostomy placed in the right lower quadrant. This is performed and [facility] on 11/06/2023. Her oncology team is at [facility]. Patient' daughter states during her most recent procedure, there was a bladder injury and a Jack catheter was applied. States she followed up with her urologist yesterday and had a Jack catheter were removed during her appointment at 1:00 p.m.. The patient has not urinated since. Daughter also states that the patient has been having decreased p.o. intake since her most recent surgery because she does not have an appetite. Patient's states the patient weighed 123 lb during her preoperative appointment and now weighs 101 lb. Also reporting that her colostomy bag started leaking today. States she has had 3 episodes of vomiting between yesterday and today. Denies abdominal pain, chest pain shortness of breath, cough or congestion, fever, dysuria or hematuria. <Amy Gates PA-C - Last Filed: 11/17/23 04:16> Related Data Home medications: Home Medications Medication Instructions Recorded Confirmed cholecalciferol (vitamin D3) 50 50 mcg PO DAILY 10/31/23 10/31/23 mcg (2,000 unit) capsule potassium chloride 20 mEq 20 meq PO BID 10/31/23 10/31/23 tablet,extended release <Amy Gates PA-C - Last Filed: 11/17/23 04:16> Allergies/Adverse reactions: Allergies Allergy/AdvReac Type Severity Reaction Status Date / Time No Known Allergies Allergy Verified 10/31/23 08:22 <Amy Gates PA-C - Last Filed: 11/17/23 04:16> Review of Systems Review of Systems: CONSTITUTIONAL: Denies fever, chills, or sweats. EYES: Denies visual changes, redness, or discharge. ENT: Denies rhinorrhea, congestion, sore throat, or otalgia. CARDIOVASCULAR: Denies chest pain, palpitations, or edema. RESPIRATORY: Denies cough or dyspnea. GASTROINTESTINAL: See HPI GENITOURINARY: See HPI SKIN: Denies rash or itching. MUSCULOSKELETAL: Denies back pain, joint pain, or myalgia. NEUROLOGIC: Denies headache, numbness, or weakness. PSYCHIATRIC: Denies anxiety or depression. <Amy Gates PA-C - Last Filed: 11/17/23 04:16> [facility] Past Medical History Medical History: Medical History Cervical cancer Essential (primary) hypertension Pure hyperglyceridemia Tobacco use <Amy Gates PA-C - Last Filed: 11/17/23 04:16> Surgical History Surgical History: Surgical History History of cholecystectomy History of hysterectomy S/P laparoscopic colectomy laparoscopic diverting descending loop colostomy 02/23/23 <Amy Gates PA-C - Last Filed: 11/17/23 04:16> Family History Family History: Family History Mother Patient's mother is Family history of blood dyscrasia Family history of emphysema Hypertension Sibling Family history of liver disease Family history of human immunodeficiency virus infection Other Cerebrovascular accident <Amy Gates PA-C
[2023-11-16] MEDS: LACTATED RINGERS 1,000 ML 999 ML IV CONT (22:13)
[2023-11-16 22:29] LABS: CRP 1.5 mg/dL (<1.0)
[2023-11-16 22:36] LABS: Erythrocyte Sedimentation Rate 81 mm/hr (0-20)
--- NOTE | 2023-11-16 22:37 | PCRCNOTE ---
RT was told by provider to wait until test results were obtained before proceeding with abg and neb treatment
[2023-11-16 22:52] LABS: Influenza A QL RT-PCR Negative (Negative); Influenza B QL RT-PCR Negative (Negative); RSV RNA, RT-PCR Negative (Negative); SARS-CoV-2 RNA PCR Positive (Negative)
[2023-11-16 23:29] LABS: Potassium 6.4 mmol/L (3.4-5.0); Sodium 120 mmol/L (137-145)
[2023-11-17] VITALS (31 sets, daily range): BP systolic 121–174; BP diastolic 57–76; PULSE 74–90; RESP 12–23; TEMP 36.4; O2SAT 97–100
[2023-11-17 00:26] LABS: Alanine Aminotransferase 155 U/L (6-35); Albumin Level 4.2 g/dL (3.5-5.1); Alkaline Phosphatase 159 U/L (38-126); Anion Gap 20 mmol/L (8-16); Aspartate Amino Transferase 149 U/L (14-36); Bilirubin,Total 0.9 mg/dL (0.2-1.3); Blood Urea Nitrogen 120 mg/dL (7-17); Calcium 7.9 mg/dL (8.4-10.2); Carbon Dioxide 16 mmol/L (22-30); Chloride 86 mmol/L (98-107); Glucose 100 mg/dL (65-110); Potassium 5.7 mmol/L (3.4-5.0); Sodium 122 mmol/L (137-145)
[2023-11-17 00:55] LABS: Estimated Glomerular Filt Rate 7
[2023-11-17] MEDS: DEXTROSE 50% 25 GM/50 ML SYRINGE IV PUSH (01:59)
[2023-11-17] MEDS: SODIUM ZIRCONIUM CYCLOSILICATE 10 GM POWD.PACK PO (01:59)
[2023-11-17] MEDS: INSULIN HUMAN REGULAR (*BKC) 100 UNITS/ML 10 UNITS IV PUSH (02:00)
[2023-11-17] MEDS: LACTATED RINGERS 1,000 ML 100 ML IV CONT (03:04)
[2023-11-17 03:07] LABS: Fractional Inspired Oxygen 21 %; HCO3 VBG 17.7 mEq/l (24.0-30.0); PO2 VBG 38.6 mmHg (35.0-45.0); pH VBG 7.387 (7.300-7.400)
[2023-11-17 03:08] LABS: Basophils Percent Auto 0.1 % (0.2-1.2); Hematocrit 32.2 % (37.0-47.0); Hemoglobin 11.5 g/dL (12.0-15.0); Immature Granulocyte Percent A 0.8 % (0-0.5); Lymphocytes Absolute Auto 1.31 K/mm3 (0.9-3.2); Lymphocytes Percent Auto 10.3 % (18.3-44.2); Mean Corpuscular HGB Conc 35.7 g/dl (32-36); Mean Corpuscular Hemoglobin 30.3 pg (26-34); Mean Corpuscular Volume 84.7 fl (80-100); Mean Platelet Volume 9.3 fl (7.4-10.4); Monocytes Absolute Auto 0.9 K/mm3 (0.1-0.6); Monocytes Percent Auto 6.7 % (2.6-8.5); Neutrophils Absolute Auto 10.5 K/mm3 (1.3-6.7); Neutrophils Percent Auto 82.1 % (45.5-73.1); Platelet Count Result 446 k/mm3 (150-375); Red Cell Distribution Width 13.7 % (11.5-14.5); White Blood Count 12.8 K/mm3 (4.5-10.0)
[2023-11-17 03:15] LABS: Device ROOM AIR; PCO2 VBG 30.1 mmHg (42.0-48.0)
[2023-11-17 03:34] LABS: Anion Gap 22 mmol/L (8-16); Blood Urea Nitrogen 119 mg/dL (7-17); Calcium 7.8 mg/dL (8.4-10.2); Carbon Dioxide 17 mmol/L (22-30); Chloride 86 mmol/L (98-107); Glucose 115 mg/dL (65-110); Potassium 4.8 mmol/L (3.4-5.0); Sodium 125 mmol/L (137-145)
[2023-11-17 03:53] LABS: Estimated Glomerular Filt Rate 6
--- NOTE | 2023-11-17 04:34 | PC.NURSE ---
ED stretcher switched to hospital bed. New bed plugged in and patient teaching how to use controls on bed to elevate and lower head and feet. New linens and blankets provided. Patient's call light within reach.
--- NOTE | 2023-11-17 06:40 | PC.NURSE ---
Patient awake at this time requesting orange juice and stating she would like to eat something. Per Dr. Covington, patient can have some orange juice.
--- NOTE | 2023-11-17 07:55 | PC.NURSE ---
bed status update - no beds available remains on wait list
--- NOTE | 2023-11-17 08:31 | PC.NURSE ---
Lactated Ringer's restarted at 75mL/hr started per VORB from EDP
[2023-11-17 08:41] LABS: Basophils Percent Auto 0.2 % (0.2-1.2); Eosinophils Percent Auto 0.1 % (0-4.4); Hematocrit 30.8 % (37.0-47.0); Hemoglobin 11.4 g/dL (12.0-15.0); Immature Granulocyte Absolute 0.11 K/mm3 (0.00-0.031); Immature Granulocyte Percent A 0.9 % (0-0.5); Lymphocytes Absolute Auto 1.35 K/mm3 (0.9-3.2); Mean Corpuscular Hemoglobin 30.8 pg (26-34); Mean Corpuscular Volume 83.2 fl (80-100); Mean Platelet Volume 9.4 fl (7.4-10.4); Monocytes Percent Auto 7.8 % (2.6-8.5); Neutrophils Absolute Auto 9.8 K/mm3 (1.3-6.7); Platelet Count Result 442 k/mm3 (150-375); Red Cell Distribution Width 13.9 % (11.5-14.5); White Blood Count 12.3 K/mm3 (4.5-10.0)
[2023-11-17 09:00] LABS: Anion Gap 18 mmol/L (8-16); Blood Urea Nitrogen 117 mg/dL (7-17); Calcium 7.7 mg/dL (8.4-10.2); Carbon Dioxide 19 mmol/L (22-30); Chloride 87 mmol/L (98-107); Glucose 113 mg/dL (65-110); Potassium 4.4 mmol/L (3.4-5.0); Sodium 124 mmol/L (137-145)
[2023-11-17 09:51] LABS: Estimated Glomerular Filt Rate 8
--- NOTE | 2023-11-17 13:39 | PC.NURSE ---
Clear liquid tray ordered for pt
--- NOTE | 2023-11-17 15:11 | PC.NURSE ---
Ostomy bag changed. Stoma cleaned, stoma powder and skin protectant used prior to application of new appliance
--- NOTE | 2023-11-17 16:32 | PC.NURSE ---
Clear liquid tray ordered for pt
--- NOTE | 2023-11-17 17:38 | PC.NURSE ---
No Beds available - Pt Remains on wait list
--- NOTE | 2023-11-17 19:23 | PC.NURSE ---
Report given to Lucian GALLO, all questions answered
--- NOTE | 2023-11-17 19:25 | PC.NURSE ---
Assumed care of pt from SABINO Powell at this time. Awaiting bed placement at [facility].
[2023-11-17 21:11] LABS: Anion Gap 15 mmol/L (8-16); Blood Urea Nitrogen 109 mg/dL (7-17); Calcium 7.7 mg/dL (8.4-10.2); Carbon Dioxide 20 mmol/L (22-30); Chloride 89 mmol/L (98-107); Glucose 132 mg/dL (65-110); Potassium 3.9 mmol/L (3.4-5.0); Sodium 124 mmol/L (137-145)
[2023-11-17 21:43] LABS: Estimated Glomerular Filt Rate 10
[2023-11-18] VITALS (16 sets, daily range): BP systolic 114–149; BP diastolic 55–90; PULSE 70–90; RESP 13–19; TEMP 36.6–36.8; O2SAT 96–100
--- NOTE | 2023-11-18 00:14 | PC.NURSE ---
Ostomy bag changed at this time by this RN and SABINO Hidalgo. Pt tolerated changing bag well. Pt resting comfortably in bed at this time. [place] and drink provided.
[2023-11-18 06:59] LABS: Glucose Point of Care 115 mg/dl (65-105)
--- NOTE | 2023-11-18 06:59 | PC.NURSE ---
BG - 115mg/dL
--- NOTE | 2023-11-18 07:23 | PC.NURSE ---
BSSR given to SABINO Hinton at this time.
--- NOTE | 2023-11-18 07:43 | PC.NURSE ---
Regular tray ordered
--- NOTE | 2023-11-18 11:10 | PC.NURSE ---
Food tray ordered
[2023-11-19] VITALS (18 sets, daily range): BP systolic 119–140; BP diastolic 62–81; PULSE 77–95; RESP 10–21; O2SAT 96–100
--- NOTE | 2023-11-19 03:50 | PC.NURSE ---
ostomy bag changed on patient. This rn also changed pt linen and gave pt a bed bath from the waist down with soap and water. this rn also changed pt wound dressing on the right lower abdomen. per edp dr. hightower this rn changed dressing with dry gauze and a large tegaderm over the top.
[2023-11-19 04:08] LABS: Glucose Point of Care 144 mg/dl (65-105)
--- NOTE | 2023-11-19 09:00 | PC.NURSE ---
breakfast tray ordered at 0900
--- NOTE | 2023-11-19 09:27 | PC.NURSE ---
pressure ulcer noted to right side coccyx. dressing in place. repositioned patient to left side at this time. colostomy bag with green soft stool noted. no leaking at this time. dressing to left side abdomen CDI.
--- NOTE | 2023-11-19 10:14 | PC.NURSE ---
[facility] transfer center called for update on pt, update provided. No bed available at this time.
[2023-11-19 10:51] LABS: Glucose Point of Care 132 mg/dl (65-105)
[2023-11-19] MEDS: HEPARIN SODIUM LOCK FLUSH 500 UNITS/5 ML VIAL (12:38)
[2023-11-19 13:21] LABS: Anion Gap 14 mmol/L (8-16); Blood Urea Nitrogen 80 mg/dL (7-17); Calcium 8.9 mg/dL (8.4-10.2); Carbon Dioxide 24 mmol/L (22-30); Chloride 90 mmol/L (98-107); Estimated Glomerular Filt Rate 21; Glucose 115 mg/dL (65-110); Potassium 3.6 mmol/L (3.4-5.0); Sodium 128 mmol/L (137-145)
== END 2023-11-19 15:09 | disposition short-term general hospital (02) ==
PROVIDERS: Emergency Medicine; Nurse Practitioner Family; Physician Assistant; Emergency Provider Emergency Medicine; PCP Physician Assistant
DX: R33.9 Retention of urine, unspecified (principal); N17.9 Acute kidney failure, unspecified; U07.1 COVID-19; E87.1 Hypo-osmolality and hyponatremia; E87.5 Hyperkalemia; R74.01 Elevation of levels of liver transaminase levels; R62.7 Adult failure to thrive; R82.81 Pyuria; I10 Essential (primary) hypertension; F17.210 Nicotine dependence, cigarettes, uncomplicated; Z85.41 Personal history of malignant neoplasm of cervix uteri; Z98.890 Other specified postprocedural states
CPT/HCPCS: 36415; 71045; 71250; 74176; 80048; 80053; 81001; 82803; 82948; 83735; 85025; 85652; 86140; 87077; 87086; 87088; 87637; 93005; 96361; 96365; 96366; 96367; 96375; 99285; A9270; J0696; J1642; J1815; J7120

== ENCOUNTER 2024-09-05 22:14 | Emergency (ER) | payer MEDICARE, SELFPAY ==
--- NOTE | ~2024-09-05 | CT_ITS ---
EXAMINATION: CT brain wo con DATE: 09/06/2024 01:47 INDICATION: Head injury. TECHNIQUE: Computed tomography (CT) of the head was performed without intravenous contrast. The mA wa s adjusted according to patient size. Iterative reconstruction technique was employed. The dose-lengt h product was 681.00 mGy-cm. COMPARISON: None FINDINGS: There are scattered areas of low attenuation in the cerebral white matter. There is no intr acranial hemorrhage, acute infarction, or abnormal intracranial mass lesion. The ventricles are katy l in size. There is mild mucosal thickening in the paranasal sinuses. The orbits are normal. The mast oid air cells are normal. IMPRESSION: 1. Mild nonspecific cerebral white matter disease, which likely represents chronic small vessel ische kaylee disease. Reviewed, dictated and finalized at location A. DERMATOLOGIST IMPRESSION: 1. Mild nonspecific cerebral white matter disease, which likely represents nurse supervisor miroslava small vessel ischemic disease.
--- NOTE | ~2024-09-05 | XR_ITS ---
EXAM: XR hip RT 2V w AP pelvis DATE: 09/05/2024 23:42 HISTORY: fall from wheelchair, R hip pain . COMPARISON: None available. FINDINGS: Anastomotic sutures over the midline pelvis. Bilateral iliac chain surgical clips. Extensi ve vascular calcification. Degenerative changes in the spine and bilateral hips. Osteopenia. IMPRESSION: No acute osseous finding in the pelvis or right hip. Reviewed, dictated and finalized at location K. ENT ALTERATION EXAMINER
--- NOTE | ~2024-09-05 | CT_ITS ---
EXAMINATION: CT abdomen pelvis w con DATE: 09/06/2024 01:52 INDICATION: Abdominal pain. TECHNIQUE: Computed tomography (CT) of the abdomen and pelvis was performed with 100 mL Omnipaque 350 intravenous contrast. Automated exposure control and iterative reconstruction technique were employe d. The dose-length product was 209.30 mGy-cm. COMPARISON: CT abdomen and pelvis 11/17/2023, 02/22/23 FINDINGS: The visualized portions of the lung bases demonstrate mild atelectasis. A calcified right l haris nodule is consistent with old granulomatous disease. No pleural effusion. The heart size is katy l. There are coronary artery calcifications. No pericardial effusion. The liver and spleen are normal . The gallbladder is absent. There is a gastrostomy tube in expected position. Right adrenal gland is normal. There is a 1.9 cm mass in left adrenal gland without change from 02/22/2023, likely an adenom a. There are cysts in the kidneys measuring up to 1.7 cm on the right. There is a parenchymal calcifi cation in right kidney. There is mild atrophy of left kidney. There is a 2 mm stone in left kidney. T here is an ostomy on the right. There is a 4.6 x 1.3 x 0.8 cm abscess in anterior abdominal wall abut ting the ostomy that likely communicates with the ostomy and the skin. There is presacral fat strandi ng, likely scarring. There is no ascites. There is total occlusion of left external iliac artery. The re is reconstitution of flow in left common femoral artery. There is total occlusion of right externa l iliac artery with reconstitution of flow in common femoral artery. There is a 15 x 15 mm hematoma s uperficial to left common femoral artery, likely subacute or chronic. There are no pathologically enl arged lymph nodes. There is mild osteoarthritis of the hips. IMPRESSION: 1. 4.6 x 1.3 x 0.8 cm in abdominal wall that likely communicates with the ostomy and the skin (entero cutaneous fistula). 2. Arterial occlusive disease. Reviewed, dictated and finalized at location A. ING LAYER UP IMPRESSION: 1. 4.6 x 1.3 x 0.8 cm in abdominal wall that likely communicates with the ostom y and the skin (enterocutaneous fistula). 2. Arterial occlusive disease.
--- NOTE | ~2024-09-05 | CT_ITS ---
EXAMINATION: CT cervical spine wo con DATE: 09/06/2024 01:47 INDICATION: Head injury. TECHNIQUE: Computed tomography (CT) of the cervical spine was performed without intravenous contrast. Automated exposure control and iterative reconstruction technique were employed. The dose-length pro duct was 129.72 mGy-cm. COMPARISON: None FINDINGS: Partially visualizes a right internal jugular central catheter. There is 3 degrees levocurv ature of cervical spine. Vertebral body heights are normal. There is mildly decreased disc height at C5-C6 and C6-C7. The following disc levels are specifically discussed: C2-C3: There is no uncovertebral joint osteoarthritis. There is mild bilateral facet joint osteoarthr itis. There is no neural foraminal stenosis. There is no central canal stenosis. C3-C4: There is mild bilateral uncovertebral joint osteoarthritis. There is mild right and moderate l eft facet joint osteoarthritis. There is mild bilateral neural foraminal stenosis. There is mild cent ral canal stenosis. C4-C5: There is mild bilateral uncovertebral joint osteoarthritis. There is mild right and moderate l eft facet joint osteoarthritis. There is mild left neural foraminal stenosis. There is mild central c anal stenosis. C5-C6: There is severe right and moderate left uncovertebral joint osteoarthritis. There is mild bila teral facet joint osteoarthritis. There is mild bilateral neural foraminal stenosis. There is mild ce ntral canal stenosis. C6-C7: There is moderate right and severe left uncovertebral joint osteoarthritis. There is mild bila teral facet joint osteoarthritis. There is mild bilateral neural foraminal stenosis. There is mild ce ntral canal stenosis. C7-T1: There is no uncovertebral joint osteoarthritis. There is mild right and severe left facet join t osteoarthritis. There is mild left neural foraminal stenosis. There is no central canal stenosis. IMPRESSION: 1. No fracture. 2. Mild cervical spondylosis. Reviewed, dictated and finalized at location A. UCT MARKETER
[2024-09-05 22:14] VITALS: BP 110/74; PULSE 101; RESP 22; TEMP 36.9; O2SAT 95
[2024-09-06] MEDS: ONDANSETRON INJ 4 MG/2 ML VIAL IV PUSH (01:05)
--- NOTE | 2024-09-06 01:07 | ED_ITS ---
HPI - Fall General Chief Complaint: Fall <MEGAN Almeida Last Filed: 09/06/24 03:24> Stated Complaint: HIP PAIN S/P FALL FROM W/C <MEGAN Almeida Last Filed: 09/06/24 03:24> Time Seen by Provider: 09/05/24 23:15 <MEGAN Almeida Last Filed: 09/06/24 03:24> Source: patient and family <MEGAN Almeida Last Filed: 09/06/24 03:24> Mode of arrival: EMS <MEGAN Almeida Last Filed: 09/06/24 03:24> Limitations: no limitations <MEGAN Almeida Last Filed: 09/06/24 03:24> History of Present Illness HPI Narrative: Patient is a 73-year-old female who presents the ED via EMS with report of a fall. Patient is resident of [facility]. Patient reports she was attempting to transfer from her bed to her wheelchair when she fell. She landed on her right side. Complained of right hip pain. Sent here for further evaluation. Did report head injury, no LOC. denies numbness. Patient does report she has been having some abdominal pain and is the reason she was trying to transfer to her wheelchair. Reports nausea, denies vomiting. Has history of G-tube and colostomy. She does note that her colostomy frequently leaks around the back. <MEGAN Almeida Last Filed: 09/06/24 03:24> Related Data Home Medications: Home Medications ?Medication ?Instructions ?Recorded ?Confirmed ?Last Taken ?Type cholecalciferol (vitamin D3) 50 50 mcg PO DAILY 10/31/23 10/31/23 Unknown History mcg (2,000 unit) capsule potassium chloride 20 mEq 20 meq PO BID 10/31/23 10/31/23 Unknown History tablet,extended release <MEGAN Almeida Last Filed: 09/06/24 03:24> Allergies/Adverse Reactions: Allergies Allergy/AdvReac Type Severity Reaction Status Date / Time No Known Allergies Allergy Verified 10/31/23 08:22 <Anayeli Herman PA-C - Last Filed: 09/06/24 03:24> Review of Systems 2 Review of Systems: All systems reviewed & are unremarkable except as noted in HPI. <Anayeli Herman PA-C - Last Filed: 09/06/24 03:24> All systems reviewed & are unremarkable except as noted in HPI and below < Anayeli Herman PA-C - Last Filed: 09/06/24 03:24> [facility] Past Medical History Medical History: Medical History Cervical cancer Pure hyperglyceridemia Essential (primary) hypertension Tobacco use <Anayeli Herman PA-C - Last Filed: 09/06/24 03:24> Surgical History Surgical History: Surgical History S/P laparoscopic colectomy laparoscopic diverting descending loop colostomy 02/23/23 History of hysterectomy History of cholecystectomy <Anayeli Herman PA-C - Last Filed: 09/06/24 03:24> Family History Family History: Family History Mother Patient's mother is Family history of blood dyscrasia Family history of emphysema Hypertension Sibling Family history of liver disease Family history of human immunodeficiency virus infection Other Cerebrovascular accident <Anayeli Herman PA-C - Last Filed: 09/06/24 03:24> Social History Social History: Social History Smoking packs per day: 0.5 Smoking cigarettes per day: 10.0 Years smoked: 35 Smoking pack-years: 17.50 Smoking status: Current every day smoker Tobacco type: cigarettes Second hand tobacco smoke exposure: Yes Smoking end date: 10/24/19 Alcohol intake: never Substance use: never Substance use type: does not use Lack of Transportation: No Lack of Food: Never True Current Housing: I Have Housing Concerned About Future Housing: No Difficulty Paying Gas/Electric Bills: No Difficulty Paying for Meds: No Currently Unemployed: No Education: Bachelor's Degree Difficulty w/ Childcare or Family Care: No Spiritual care concerns: No <Anayeli Herman PA-C - Last Filed: 09/06/24 03:24> Exam 2 Narrative: GENERAL: Chronically ill-appearing, thin, non-toxic, in no acute distress. HEAD: Normocephalic, atraumatic. RESPIRATORY: Airway patent, respirations nonlabored. Clear to auscultation bilaterally, no rales, rhonchi, wheezing. CARDIOVASCULAR: Regular rate and rhythm without murmurs, rubs, or gallops. ABDOMINAL: Soft, no significant focal tenderness. Colostomy in right lower quadrant with leaking green/brown fluid around ostomy seal. G-tube in left upper quadrant. Nondistended. Normoactive BS. MUSCULOSKELETAL: Moves all extremities. No gross deformities. No significant tenderness over hips bilaterally. SKIN: Warm, dry, normal color. NEURO: A&O X3. Somewhat poor historian, but does not appear acutely confused. Speech clear. Cranial nerves II-XII grossly intact. Steady gait. No ataxic movements. PSYCHIATRIC: Appropriate mood and affect. Normal interaction. <Anayeli Herman PA-C - Last Filed: 09/06/24 03:24> Course BLUEPRINT CUTTER/PA Physician Supervision For this patient encounter, I reviewed the BLUEPRINT CUTTER or PA documentation, treatment plan, and medical decision making; and I had [id number] time with this patient. <Gonzalo Vincent MD - Last Filed: 09/06/24 05:18> Vital Signs Vital signs: Vital Signs Temperature 36.9 C 09/05/24 22:14 Pulse Rate 101 H 09/05/24 22:14 Respiratory Rate 22 H 09/05/24 22:14 Blood Pressure 110/74 09/05/24 22:14 Pulse Oximetry 95 09/05/24 22:14 Oxygen Delivery Room Air 09/05/24 22:14 Temperature 36.9 C 09/05/24 22:14 Pulse Rate 84 09/06/24 03:26 Respiratory Rate 15 09/06/24 03:26 Blood Pressure 112/68 09/06/24 03:26 Pulse Oximetry 100 09/06/24 03:26 Oxygen Delivery Room Air 09/05/24 22:14 <Anayeli Herman PA-C - Last Filed: 09/06/24 03:24> Vital Signs Temperature 36.9 C 09/05/24 22:14 Pulse Rate 101 H 09/05/24 22:14 Respiratory Rate 22 H 09/05/24 22:14 Blood Pressure 110/74 09/05/24 22:14 Pulse Oximetry 95 09/05/24 22:14 Oxygen Delivery Room Air 09/05/24 22:14 Temperature 36.9 C 09/05/24 22:14 Pulse Rate 84 09/06/24 03:26 Respiratory Rate 15 09/06/24 03:26 Blood Pressure 112/68 09/06/24 03:26 Pulse Oximetry 100 09/06/24 03:26 Oxygen Delivery Room Air 09/05/24 22:14 <Gonzalo Vincent MD - Last Filed: 09/06/24 05:18> MDM - Fall MDM Narrative Medical decision making narrative: Patient presented to ED fall from wheelchair, complaining of right hip pain. Also reporting abdominal pain. History of G-tube and colostomy. Vitals are stable upon arrival. Patient is in no acute distress. Patient's colostomy was replaced in resealed that was leaking around the bag. X-ray of right hip/pelvis negative for acute fracture. CT brain obtained and negative. CT cervical spine negative. UA with evidence of infection, sent for culture. Will treat. Given dose of Rocephin in the ED. CBC with white blood cell count of 11.8. Hemoglobin is consistent previous records. CMP with potassium of 5.2, patient has had similar reading in the past. Possibly hemolyzed. Fluids ongoing. Kidney function is actually stable decreased from previous records. Liver enzymes are slightly elevated which are again decreased from previous records. CT scan of abdomen of abdomen/pelvis obtained and pending. Care signed out to Dr. Vincent at shift change pending STAT RAD imaging results. <Anayeli Herman PA-C - Last Filed: 09/06/24 03:24> Patient presented to ED fall from wheelchair, complaining of right hip pain. Also reporting abdominal pain. History of G-tube and colostomy. Vitals are stable upon arrival. Patient is in no acute distress. Patient's colostomy was replaced in resealed that was leaking around the bag. X-ray of right hip/pelvis negative for acute fracture. CT brain obtained and negative. CT cervical spine negative. UA with evidence of infection, sent for culture. Will treat. Given dose of Rocephin in the ED. CBC with white blood cell count of 11.8. Hemoglobin is consistent previous records. CMP with potassium of 5.2, patient has had similar reading in the past. Possibly hemolyzed. Fluids ongoing. Kidney function is actually stable decreased from previous records. Liver enzymes are slightly elevated which are again decreased from previous records. CT scan of abdomen of abdomen/pelvis obtained and pending. Care signed out to Dr. Vincent at shift change pending STAT RAD imaging results. Stat read showed no acute intra-abdominal pathology there was 1.9 x 3.1 x 6.4 cm tubular structure that could be a sinus track verses fistula in discussion with the family the patient has a known fistula and is followed at [facility] and reports that she has an appointment scheduled for early September patient will be discharged back to her facility for follow-up <Gonzalo Vincent MD - Last Filed: 09/06/24 05:18> Medical Records Attestation: I reviewed the patient's medical records. <Anayeli Herman PA-C - Last Filed: 09/06/24 03:24> Lab Data Attestation: I reviewed the patient's lab results. <Anayeli Herman PA-C - Last Filed: 09/06/24 03:24> Result diagrams: 09/06/24 00:47 09/06/24 00:47 <Anayeli Herman PA-C - Last Filed: 09/06/24 03:24> Labs: Lab Results 09/06/24 Range/Units 00:47 WBC 11.8 H (4.5-10.0) K/mm3 RBC 3.74 L (4.2-5.4) M/mm3 Hgb 10.6 L (12.0-15.0) g/dL Hct 31.0 L (37.0-47.0) % MCV 82.9 (80-100) fl MCH 28.3 (26-34) pg MCHC 34.2 (32-36) g/dl RDW 16.0 H (11.5-14.5) % Plt Count 482 H (150-375) k/mm3 MPV 8.9 (7.4-10.4) fl Immature Gran % (Auto) 0.5 (0-0.5) % Neut % (Auto) 60.5 (45.5-73.1) % Lymph % (Auto) 28.3 (18.3-44.2) % Mccreary % (Auto) 9.3 H (2.6-8.5) % Eos % (Auto) 1.1 (0-4.4) % Baso % (Auto) 0.3 (0.2-1.2) % Lymph # (Auto) 3.34 H (0.9-3.2) K/mm3 Mccreary # (Auto) 1.1 H (0.1-0.6) K/mm3 Eos # (Auto) 0.1 (0-0.3) K/mm3 Baso # (Auto) 0.0 (0.0-0.1) K/mm3 Abs Immat Gran (auto) 0.06 H (0.00-0.031) K/mm3 Absolute Neuts (auto) 7.1 H (1.3-6.7) K/mm3 Absolute Nucleated RBC 0.000 (0.0-0.012) K/mm3 Nucleated RBC % 0.0 (0.0-0.2) % Sodium 132 L (137-145) mmol/L Potassium 5.2 H (3.4-5.0) mmol/L Chloride 102 (98-107) mmol/L Carbon Dioxide 24 (22-30) mmol/L Anion Gap 6 (4-12) mmol/L BUN 62 H D (7-17) mg/dL Creatinine 1.70 H (0.7-1.0) mg/dL Estim Creat Clear Calc 20 ml/min Estimated GFR 36 L (59 - ) Glucose 94 (65-110) mg/dL Calcium 10.3 H (8.4-10.2) mg/dL Total Bilirubin 0.6 (0.2-1.3) mg/dL AST 64 H (14-36) U/L ALT 80 H (6-35) U/L Alkaline Phosphatase 205 H (38-126) U/L Total Protein 9.0 H (6.3-8.2) g/dL Albumin 4.1 (3.5-5.1) g/dL Urine Color Yellow (Yellow) Urine Appearance Turbid H (Clear) Urine pH 8.0 (5.0-9.0) Ur Specific Theresa 1.014 (1.001-1.035) Urine Protein 2+ H (Negative) mg/dL Urine Glucose (UA) Negative (Negative) mg/dL Urine Ketones Negative (Negative) mg/dL Ur Blood (Man) 2+ H (Negative) Urine Nitrate Negative (Negative) Urine Bilirubin Negative (Negative) Urine Urobilinogen 0.2 (<2.0) mg/dL Add Ur Microanalysis Reviewed Leukocyte Esterase Rfl 3+ H (Negative) CAPRI/UL Urine RBC 51-100 H (0-2) /hpf Urine WBC >100 H (0-3) /hpf Ur Squamous Epith Cells None seen (Few) /hpf Urine Bacteria 4+ /hpf Urine Casts 11-20 Hyaline Casts Present (None) /lpf Urine Yeast (Budding) Present H (None) /hpf <Anayeli Herman PA-C - Last Filed: 09/06/24 03:24> Lab Results 09/06/24 Range/Units 00:47 WBC 11.8 H (4.5-10.0) K/mm3 RBC 3.74 L (4.2-5.4) M/mm3 Hgb 10.6 L (12.0-15.0) g/dL Hct 31.0 L (37.0-47.0) % MCV 82.9 (80-100) fl MCH 28.3 (26-34) pg MCHC 34.2 (32-36) g/dl RDW 16.0 H (11.5-14.5) % Plt Count 482 H (150-375) k/mm3 MPV 8.9 (7.4-10.4) fl Immature Gran % (Auto) 0.5 (0-0.5) % Neut % (Auto) 60.5 (45.5-73.1) % Lymph % (Auto) 28.3 (18.3-44.2) % Mccreary % (Auto) 9.3 H (2.6-8.5) % Eos % (Auto) 1.1 (0-4.4) % Baso % (Auto) 0.3 (0.2-1.2) % Lymph # (Auto) 3.34 H (0.9-3.2) K/mm3 Mccreary # (Auto) 1.1 H (0.1-0.6) K/mm3 Eos # (Auto) 0.1 (0-0.3) K/mm3 Baso # (Auto) 0.0 (0.0-0.1) K/mm3 Abs Immat Gran (auto) 0.06 H (0.00-0.031) K/mm3 Absolute Neuts (auto) 7.1 H (1.3-6.7) K/mm3 Absolute Nucleated RBC 0.000 (0.0-0.012) K/mm3 Nucleated RBC % 0.0 (0.0-0.2) % Sodium 132 L (137-145) mmol/L Potassium 5.2 H (3.4-5.0) mmol/L Chloride 102 (98-107) mmol/L Carbon Dioxide 24 (22-30) mmol/L Anion Gap 6 (4-12) mmol/L BUN 62 H D (7-17) mg/dL Creatinine 1.70 H (0.7-1.0) mg/dL Estim Creat Clear Calc 20 ml/min Estimated GFR 36 L (59 - ) Glucose 94 (65-110) mg/dL Calcium 10.3 H (8.4-10.2) mg/dL Total Bilirubin 0.6 (0.2-1.3) mg/dL AST 64 H (14-36) U/L ALT 80 H (6-35) U/L Alkaline Phosphatase 205 H (38-126) U/L Total Protein 9.0 H (6.3-8.2) g/dL Albumin 4.1 (3.5-5.1) g/dL Urine Color Yellow (Yellow) Urine Appearance Turbid H (Clear) Urine pH 8.0 (5.0-9.0) Ur Specific Theresa 1.014 (1.001-1.035) Urine Protein 2+ H (Negative) mg/dL Urine Glucose (UA) Negative (Negative) mg/dL Urine Ketones Negative (Negative) mg/dL Ur Blood (Man) 2+ H (Negative) Urine Nitrate Negative (Negative) Urine Bilirubin Negative (Negative) Urine Urobilinogen 0.2 (<2.0) mg/dL Add Ur Microanalysis Reviewed Leukocyte Esterase Rfl 3+ H (Negative) CAPRI/UL Urine RBC 51-100 H (0-2) /hpf Urine WBC >100 H (0-3) /hpf Ur Squamous Epith Cells None seen (Few) /hpf Urine Bacteria 4+ /hpf Urine Casts 11-20 Hyaline Casts Present (None) /lpf Urine Yeast (Budding) Present H (None) /hpf <Gonzalo Vincent MD - Last Filed: 09/06/24 05:18> Imaging Data Attestation: I personally reviewed and interpreted this imaging study as follows: < Anayeli Herman PA-C - Last Filed: 09/06/24 03:24> Radiologist's impression: STAT RAD CT cervical spine: Impression: No acute fracture subluxation. No prevertebral soft tissue swelling. Upper lungs are unremarkable. STAT RAD CT brain: No hemorrhage, hydrocephalus, mass effect, or herniation. Bones are unremarkable. <Anayeli Herman PA-C - Last Filed: 09/06/24 03:24> Discharge Plan Discharge Clinical Impression: Accidental fall from wheelchair, Contusion of right hip, Diffuse abdominal pain Urinary tract infection Qualifiers: Urinary tract infection type: acute cystitis Hematuria presence: with hematuria Qualified Code(s): N30.01 - Acute cystitis with hematuria <Anayeli Herman PA-C - Last Filed: 09/06/24 03:24> Patient Disposition: NH [facility]pc/Asst Living <Anayeli Herman PA-C - Last Filed: 09/06/24 03:24> Condition: Stable <Anayeli Herman PA-C - Last Filed: 09/06/24 03:24> Instructions: Antibiotic Form <MEGAN Almeida Last Filed: 09/06/24 03:24> Additional Instructions: Please follow-up with your surgeon at [facility]. <MEGAN Almeida Last Filed: 09/06/24 03:24> Patient Language: Hebrew <MEGAN Almeida Last Filed: 09/06/24 03:24> Prescriptions: New cephalexin 500 mg capsule 500 mg PO Q6H 7 Days Qty: 28 0RF No Action potassium chloride 20 mEq tablet extended release 20 meq PO BID cholecalciferol (vitamin D3) 50 mcg (2,000 unit) capsule 50 mcg PO DAILY magnesium oxide 400 mg magnesium tablet 400 mg PO DAILY Qty: 90 1RF <Anayeli Herman PA-C - Last Filed: 09/06/24 03:24> Follow-up/Referrals: Sabrina,Anthony Alexander PA-C [Primary Care Provider] - <Anayeli Herman PA-C - Last Filed: 09/06/24 03:24> Time of Disposition: 05:17 <Anayeli Herman PA-C - Last Filed: 09/06/24 03:24> 05:17 <Gonzalo Vincent MD - Last Filed: 09/06/24 05:18> Sign Out Sign Out Data: Patient Sign Out occurred on 09/06/24 at 04:06. Patient's care was discussed, and care was transferred from Anayeli Herman PA-C to Gonzalo Vincent MD. <Anayeli Herman PA-C - Last Filed: 09/06/24 03:24>
[2024-09-06 01:08] LABS: Add Urine Microscopic? YES; Appearance Urine Turbid (Clear); Bacteria Urine 4+ /hpf; Bilirubin Urine Negative (Negative); Blood Urine 2+ (Negative); Budding Yeast Urine Present /hpf; Color Urine Yellow (Yellow); Glucose Urine UA Negative (Negative); Hyaline Casts Urine Present /lpf; Ketones Urine Negative (Negative); Leukocyte Esterase Ur 3+ LEU/UL (Negative); Need Manual Microscopic Reviewed; Nitrate Urine Negative (Negative); Protein Urine 2+ mg/dL (Negative); RBC Urine 51-100 /hpf (0-2); Specific Grav Ur 1.014 (1.001-1.035); Squamous Epithelial Cell Urine None Seen /hpf (Few); Urobilinogen Urine 0.2 mg/dL (<2.0); WBC Urine >100 /hpf (0-3)
[2024-09-06 01:22] LABS: Basophils Percent Auto 0.3 % (0.2-1.2); Eosinophils Absolute Auto 0.1 K/mm3 (0-0.3); Eosinophils Percent Auto 1.1 % (0-4.4); Hemoglobin 10.6 g/dL (12.0-15.0); Immature Granulocyte Absolute 0.06 K/mm3 (0.00-0.031); Immature Granulocyte Percent A 0.5 % (0-0.5); Lymphocytes Absolute Auto 3.34 K/mm3 (0.9-3.2); Lymphocytes Percent Auto 28.3 % (18.3-44.2); Mean Corpuscular HGB Conc 34.2 g/dl (32-36); Mean Corpuscular Hemoglobin 28.3 pg (26-34); Mean Corpuscular Volume 82.9 fl (80-100); Mean Platelet Volume 8.9 fl (7.4-10.4); Monocytes Absolute Auto 1.1 K/mm3 (0.1-0.6); Monocytes Percent Auto 9.3 % (2.6-8.5); Neutrophils Absolute Auto 7.1 K/mm3 (1.3-6.7); Neutrophils Percent Auto 60.5 % (45.5-73.1); Platelet Count Result 482 k/mm3 (150-375); Red Blood Count 3.74 M/mm3 (4.2-5.4); White Blood Count 11.8 K/mm3 (4.5-10.0)
[2024-09-06 01:25] LABS: Alanine Aminotransferase 80 U/L (6-35); Albumin Level 4.1 g/dL (3.5-5.1); Alkaline Phosphatase 205 U/L (38-126); Anion Gap 6 mmol/L (4-12); Aspartate Amino Transferase 64 U/L (14-36); Bilirubin,Total 0.6 mg/dL (0.2-1.3); Blood Urea Nitrogen 62 mg/dL (7-17); Calcium 10.3 mg/dL (8.4-10.2); Carbon Dioxide 24 mmol/L (22-30); Chloride 102 mmol/L (98-107); Estimated CRCL calculation 20 ml/min; Estimated Glomerular Filt Rate 36; Glucose 94 mg/dL (65-110); Potassium 5.2 mmol/L (3.4-5.0); Sodium 132 mmol/L (137-145)
[2024-09-06] MEDS: SODIUM CHLORIDE 0.9% IV 1,000 ML 999 ML IV CONT (02:00)
[2024-09-06] MEDS: FLUCONAZOLE 150 MG TABLET PO (02:01)
[2024-09-06 03:26] VITALS: BP 112/68; PULSE 84; RESP 15; O2SAT 100
[2024-09-06 05:56] VITALS: BP 104/64; PULSE 81; RESP 15; O2SAT 98
[2024-09-06 08:00] VITALS: BP 110/60; PULSE 80; RESP 16; TEMP 36.6; O2SAT 97
[2024-09-06 10:18] VITALS: BP 108/66; PULSE 88; RESP 16; TEMP 36.4; O2SAT 97
== END 2024-09-06 10:18 ==
PROVIDERS: Physician Assistant; Emergency Provider Emergency Medicine; PCP Physician Assistant
DX: N30.01 Acute cystitis with hematuria (principal); F17.210 Nicotine dependence, cigarettes, uncomplicated; I10 Essential (primary) hypertension; Z85.41 Personal history of malignant neoplasm of cervix uteri; W05.0XXA Fall from non-moving wheelchair, initial encounter
CPT/HCPCS: 36415; 70450; 72125; 73502; 74177; 80053; 81001; 85025; 87086; 96365; 96375; 99284; A9270; J0696; J2405; J7030; Q9967

== ENCOUNTER 2024-10-29 15:04 | Inpatient (IN) | payer MEDICARE, SELFPAY ==
[2024-10-29] VITALS (14 sets, daily range): BP systolic 89–141; BP diastolic 57–78; PULSE 74–92; RESP 12–28; TEMP 36.3; O2SAT 98–100
--- NOTE | ~2024-10-29 | US_ITS ---
Renal-Bladder ultrasound Clinical History: Acute kidney injury Technique: Real-time sonographic imaging of the kidneys and urinary bladder was performed. Findings: The right kidney measures 9.3 cm in length and the left kidney measures 9 point cm. There i s mild right hydroureteronephrosis. No left hydronephrosis. No spinal stones identified. Renal cortic al echogenicity is within normal limits. There is a 2.1 cm hyperechoic mass at the inferior right nathan al pole, suggestive of angiomyolipoma. The urinary bladder is moderately distended at the time of this exam. Small amount of layering debris present. No abnormal wall thickening is seen. Impression: Mild right hydroureteronephrosis. 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 Small amount of layering debris in the urinary bladder. Reviewed, dictated and finalized at [facility]. CAR LOADER Impression: Mild right hydroureteronephrosis. 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 Small amount of layering debris in the urinary bladder.
--- NOTE | ~2024-10-29 | XR_ITS ---
XR abdomen/kub 1V 10/31/2024 08:00 Indication: Possible small bowel obstruction Procedure: KUB Comparison: Comparison to multiple prior studies sequentially, with oldest reviewed study dated 02/22. Findings: Nonobstructive bowel gas pattern. Gastric tube is present in the left upper abdomen. There are surgical clips in the lower abdomen and pelvis. There is residual contrast in the colon. No abnor mal calcifications. No acute osseous abnormality. Mild lumbar spondylosis. Elevated right diaphragm. Impression: 1: Nonobstructive bowel gas pattern. Reviewed, dictated and finalized at location B. TOP ANALYST Impression: 1: Nonobstructive bowel gas pattern.
--- NOTE | ~2024-10-29 | CT_ITS ---
EXAMINATION: CT abdomen pelvis wo con DATE: 10/29/2024 17:18 INDICATION: RLQ pain TECHNIQUE: Computed tomography (CT) of the abdomen and pelvis was performed without intravenous contr ast. Automated exposure control and iterative reconstruction technique were employed. The dose-length product was 182.52 mGy-cm. COMPARISON: 09/06/2024, 11/17/2023. FINDINGS: Exam limited by arm down positioning, lack of intravenous contrast, and metallic artifact from multip le pelvic and aortoiliac surgical clips. There is hyperdense contrast or ingested material within the colon. Lower thorax: Unremarkable Liver: Normal. Biliary/Gallbladder: Gallbladder is absent. No bile duct dilation. Pancreas: No mass or duct dilation. Spleen: Normal. Adrenals:Stable indeterminate density left adrenal lesion, likely adenoma. Kidneys: Nonobstructing bilateral renal calcifications. Hemorrhagic or proteinaceous right lower pole cyst. Simple left upper and lower pole cysts. Right lower pole AML. GI tract: PEG tube, in good position. Right lower quadrant ostomy, with persistent 4.6 cm fluid and g as collection abutting the ostomy and an adjacent enlarged lymph node. Uncomplicated appearing rectos igmoid anastomosis. No small or large bowel dilation. Appendix not confidently visualized. Mesentery/Peritoneum: No ascites, mass, or free air. Retroperitoneum: No mass. Atherosclerotic calcifications of intra-abdominal arterial vessels. Aortoil iac surgical clips. Pelvis: Multiple pelvic surgical clips. Presacral edema. Uterus and bilateral ovaries not confidently identified. Persistent 1.5 cm fluid collection adjacent to the left common femoral artery. Partially distended urinary bladder with mild wall thickening. Soft Tissues: Bilateral inguinal lymphadenopathy.. Bones: No acute osseous finding. IMPRESSION: Limited examination, as detailed above. 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 Urinary bladder wall thickening, may be secondary to cystitis or incomplete distention. Persistent small fluid collection adjacent to the left common femoral artery, likely chronic hematoma . Bilateral inguinal lymphadenopathy. Reviewed, dictated and finalized at location K. QUE COLLECTOR IMPRESSION: Limited examination, as detailed above. Persistent abscess or enterocutaneous fistula at the right lower quadrant ostom y, with adjacent lymphadenopathy, not significantly changed. Urinary bladder wall thickening, may be secondary to cystitis or incomplete dis tention. Persistent small fluid collection adjacent to the left common femoral artery, l ikely chronic hematoma. Bilateral inguinal lymphadenopathy.
--- NOTE | ~2024-10-29 | XR_ITS ---
EXAMINATION: XR abdomen gastric tube insert DATE: 11/01/2024 15:44 INDICATION: Gastrostomy tube placement. TECHNIQUE: A supine view of the abdomen was obtained. COMPARISON: Abdomen radiograph 10/31/24 FINDINGS: There is contrast in the gastrostomy tube and in the stomach. The stomach is distended. The re are surgical clips in the abdomen. There are no dilated loops of bowel. IMPRESSION: 1. Gastrostomy tube in expected position. Reviewed, dictated and finalized at location A. TIPPING MACHINE TENDER
--- NOTE | ~2024-10-29 | CT_ITS ---
EXAMINATION: CT chest abdomen pelvis wo con DATE: 11/01/2024 22:47 INDICATION: Right abdominal fistula. TECHNIQUE: Computed tomography (CT) of the chest, abdomen, and pelvis was performed without intraveno us contrast. Automated exposure control and iterative reconstruction technique were employed. The dos e-length product was 235.51 mGy-cm. COMPARISON: CT abdomen and pelvis 10/29/2024, 09/06/24, 09/10/18 FINDINGS: CHEST CT: There is mild bronchiectasis bilaterally. There is mucous plugging in left lower lobe. There is mild atelectasis in the lower lobes. A calcified right lung nodule is consistent with old granulomatous di sease. No pleural effusion. There is a right internal jugular port with tip at severe cavoatrial junc tion. The heart size is normal. There are coronary artery calcifications. No pericardial effusion. Th ere is moderate thoracic spondylosis. ABDOMEN/PELVIS CT: The liver is normal. The gallbladder is absent. There is a gastrostomy tube in expected position. The spleen, pancreas, and right adrenal gland are normal. There is a 1.8 cm mass in left adrenal gland m easuring soft tissue attenuation, stable from 09/10/2018, likely an adenoma. There is a 1.8 cm mass o f fat in right kidney, consistent with an angiomyolipoma. There are hemorrhagic cysts in the kidneys measuring up to 8 mm on the right. There is a 3 mm stone in left kidney. There is a Rowe catheter in expected position. There is a diverting ileostomy on the right. Again seen is an enterocutaneous fis vic adjacent to the ostomy. There is mild left inguinal lymphadenopathy, likely reactive. There are stents in the superficial femoral arteries. There are no pathologically enlarged lymph nodes. There i s no free intraperitoneal fluid. There is moderate lumbar spondylosis. IMPRESSION: 1. 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 Reviewed, dictated and finalized at location A. CANE BRAKEMAN IMPRESSION: 1. Diverting ileostomy with unchanged enterocutaneous fistula adjacent to the o stomy.
--- OUTSIDE RECORDS SUMMARY | 2024-10-29 15:35 | XMS_ITS ---
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 - ICD-10-CM) ACTIVE 12/26/2023 UNSPECIFIED SEVERE PROTEIN-C ALORIE MALNUTRITION (E43 - ICD-10-CM) ACTIVE 12/25/2023 ENCOUNTER FOR ATTENTION TO ILEOSTOMY (Z43.2 - ICD-10-C M) ACTIVE 01/05/2024 PRESSURE-INDUCED DEEP TISSUE DAMAGE OF LEFT HEEL (L89.626 - ICD-10-CM) ACTIVE 12/25/2023 PRESSURE ULCER OF RIGHT HEEL , UNSTAGEABLE (L89.610 - ICD-10-CM) ACTIVE 12/25/2023 MALIGNANT NEOPLASM OF RECTUM (C20 - ICD-10-CM) ACTIVE 12/25/2023 MALIGNANT NEOPLASM OF CERVIX UTERI, 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) ACTIVE 12/25/2023 SEPSIS, UNSPECIFIED ORGANISM (A41.9 - ICD-10-CM) ACTIV E 12/25/2023 ACUTE KIDNEY FAILURE, UNSPECIFIED (N17.9 - ICD-10-CM) ACTIVE 12/25/2023 ELEVATED WHITE BLOOD CELL CO UNT, UNSPECIFIED (D72.829 - ICD-10-CM) ACTIVE 12/25/2023 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80 - 10.80 12:17 pm EDT RED BLOOD CELLS 3.05 MIL/mm3 4.20 - 5.40 01/19/2024 1 2:17 pm EDT HEMOGLOBIN 8.9 g/dL 12.0 - 16.0 01/19/2024 12:1 7 pm EDT HEMATOCRIT 28.0 % 37.0 - 47.0 01/19/2024 12:1 7 pm EDT MCV 91.8 fL 81.0 - 99.0 01/19/2024 12:1 7 pm EDT MCH 29.2 pg 27.0 - 33.0 01/19/2024 12:1 7 pm EDT MCHC 31.8 g/dL 32.0 - 36.0 01/19/2024 12:1 7 pm EDT RDW-CV 17.9 % 11.5 - 15.2 01/19/2024 12:1 7 pm EDT PLATELET COUNT 340 THO/mm3 150 - 400 01/19/2024 12 :17 pm EDT MPV 9.1 fL 9.5 - 13.1 01/19/2024 12:1 7 pm EDT * COMPREHENSIVE METABOLIC (CMP) Performed by: [facility] Component Value Range Date GLUCOSE 96 mg/dL 70 - 110 01/19/2024 12:1 7 pm EDT BUN 36 mg/dL 7 - 28 01/19/2024 12:1 7 pm EDT CREATININE 1.59 mg/dL 0.44 - 1.32 01/19/2024 12:1 7 pm EDT BILIRUBIN, TOTAL < 0.15 mg/dL 0.16 - 1.30 01/19/2024 12:17 pm EDT PROTEIN, TOTAL 5.9 g/dL 5.6 - 8.2 01/19/2024 12 :17 pm EDT ALBUMIN 3.2 g/dL 3.2 - 4.9 01/19/2024 12:1 7 pm EDT SODIUM 142 mEq/L 138 - 147 01/19/2024 12:1 7 pm EDT POTASSIUM 4.2 mEq/L 3.6 - 5.0 01/19/2024 12:1 7 pm EDT CHLORIDE 117 mEq/L 99 - 110 01/19/2024 12:1 7 pm EDT CARBON DIOXIDE 13 mmol/L 18 - 30 01/19/2024 12 :17 pm EDT SGPT(ALT) 22 U/L 0 - 42 01/19/2024 12:1 7 pm EDT SGOT(AST) 20 U/L 9 - 35 01/19/2024 12:1 7 pm EDT ALK. PHOSPHATASE 137 U/L 34 - 143 01/19/2024 12:17 pm EDT CALCIUM 8.7 mg/dL 8.7 - 10.5 01/19/2024 12:1 7 pm EDT eGFR If 39 mL/m/1.73m2 >=60 0 01/19/2024 12:17 pm EDT eGFR If Non- 32 mL/m/1.73m2 >=60 01/19/2024 12:17 pm EDT COMPREHENSIVE METABOLIC (CMP) See Attachment 01/19/2024 12:17 pm EDT * Individual Tests: URINALYSIS / MICROSCOPIC / CULTURE, URINE Performed by: [facility] Component Value Range Date Result FINAL 01/19/2024 11:0 5 am EDT * URINALYSIS Performed by: [facility] Component Value Range Date COLOR Yellow Yellow - Dark Yellow 024 11:05 am EDT TURBIDITY Cloudy Clear - Clear 01/19/2024 11: 05 am EDT SPECIFIC GRAVITY 1.017 1.005 - 1.030 01/19/2024 11:05 am EDT PH 5.0 4.0 - 8.0 01/19/2024 11:0 5 am EDT PROTEIN, SEMI-QUANT 30 mg/dL Negative - Negative 0 01/19/2024 11:05 am EDT GLUCOSE, SEMI-QUANT Negative mg/dL Negative - Negative 01/19/2024 11:05 am EDT KETONES, SEMI-QUANT Negative mg/dL Negative - Negative 01/19/2024 11:05 am EDT BILIRUBIN, SEMI-QUANT Negative Negative - Negative 01/19/2024 11:05 am EDT BLOOD, SEMI-QUANT. Negative Negative - Negative 11:05 am EDT NITRITE, SEMI-QUANT Negative Negative - Negative 0 01/19/2024 11:05 am EDT UROBILINOGEN, SEMI-QT 0.2 EU/dL 0.2 - 1.0 2023 11:05 am EDT LEUKOCYTES, SEMI-QT Moderate Negative - Trace 01/09 11:05 am EDT * MICROSCOPIC Performed by: [facility] Component Value Range Date WHITE BLOOD CELLS 10-25/HPF /HPF None - 2-5/HPF 2023 11:05 am EDT RED BLOOD CELLS/HPF 1 /HPF None - 5 01/19/20 24 11:05 am EDT EPITHELIAL CELLS/LPF Few /LPF None - Few 024 11:05 am EDT BACTERIA None Seen None Seen - None Seen 2023 11:05 am EDT YEAST Present None seen - None seen 2023 11:05 am EDT MICROSCOPIC See Attachment 01/19/2024 11 :05 am EDT * COMPREHENSIVE METABOLIC (CMP) Performed by: [facility] Component Value Range Date GLUCOSE 80 mg/dL 70 - 110 01/15/2024 02:0 0 pm EDT BUN 49 mg/dL 7 - 28 01/15/2024 02:0 0 pm EDT CREATININE 2.01 mg/dL 0.44 - 1.32 01/15/2024 02:0 0 pm EDT BILIRUBIN, TOTAL 0.24 mg/dL 0.16 - 1.30 01/15/2024 02:00 pm EDT PROTEIN, TOTAL 7.2 g/dL 5.6 - 8.2 01/15/2024 02 :00 pm EDT ALBUMIN 4.0 g/dL 3.2 - 4.9 01/15/2024 02:0 0 pm EDT SODIUM 135 mEq/L 138 - 147 01/15/2024 02:0 0 pm EDT POTASSIUM 5.1 mEq/L 3.6 - 5.0 01/15/2024 02:0 0 pm EDT CHLORIDE 106 mEq/L 99 - 110 01/15/2024 02:0 0 pm EDT CARBON DIOXIDE 14 mmol/L 18 - 30 01/15/2024 02 :00 pm EDT SGPT(ALT) 38 U/L 0 - 42 01/15/2024 02:0 0 pm EDT SGOT(AST) 37 U/L 9 - 35 01/15/2024 02:0 0 pm EDT ALK. PHOSPHATASE 193 U/L 34 - 143 01/15/2024 02:00 pm EDT CALCIUM 9.8 mg/dL 8.7 - 10.5 01/15/2024 02:0 0 pm EDT eGFR If 30 mL/m/1.73m2 >=60 0 01/15/2024 02:00 pm EDT eGFR If Non- 24 mL/m/1.73m2 >=60 01/15/2024 02:00 pm EDT COMPREHENSIVE METABOLIC (CMP) See Attachment 01/15/2024 02:00 pm EDT * COMPLETE BLOOD COUNT Performed by: [facility] Component Value Range Date WHITE BLOOD CELLS 15.28 THO/mm3 4.80 - 10.80 02:00 pm EDT RED BLOOD CELLS 3.62 MIL/mm3 4.20 - 5.40 01/15/2024 0 2:00 pm EDT HEMOGLOBIN 10.4 g/dL 12.0 - 16.0 01/15/2024 02:0 0 pm EDT HEMATOCRIT 32.2 % 37.0 - 47.0 01/15/2024 02:0 0 pm EDT MCV 89.0 fL 81.0 - 99.0 01/15/2024 02:0 0 pm EDT MCH 28.7 pg 27.0 - 33.0 01/15/2024 02:0 0 pm EDT MCHC 32.3 g/dL 32.0 - 36.0 01/15/2024 02:0 0 pm EDT RDW-CV 17.7 % 11.5 - 15.2 01/15/2024 02:0 0 pm EDT PLATELET COUNT 465 THO/mm3 150 - 400 01/15/2024 02 :00 pm EDT MPV 9.1 fL 9.5 - 13.1 01/15/2024 02:0 0 pm EDT * COMPREHENSIVE METABOLIC (CMP) Performed by: [facility] Component Value Range Date GLUCOSE 95 mg/dL 70 - 110 01/09/2024 12:0 5 pm EDT BUN 35 mg/dL 7 - 28 01/09/2024 12:0 5 pm EDT CREATININE 1.62 mg/dL 0.44 - 1.32 01/09/2024 12:0 5 pm EDT BILIRUBIN, TOTAL 0.21 mg/dL 0.16 - 1.30 01/09/2024 12:05 pm EDT PROTEIN, TOTAL 6.6 g/dL 5.6 - 8.2 01/09/2024 12 :05 pm EDT ALBUMIN 3.6 g/dL 3.2 - 4.9 01/09/2024 12:0 5 pm EDT SODIUM 137 mEq/L 138 - 147 01/09/2024 12:0 5 pm EDT POTASSIUM 5.1 mEq/L 3.6 - 5.0 01/09/2024 12:0 5 pm EDT CHLORIDE 111 mEq/L 99 - 110 01/09/2024 12:0 5 pm EDT CARBON DIOXIDE 15 mmol/L 18 - 30 01/09/2024 12 :05 pm EDT SGPT(ALT) 48 U/L 0 - 42 01/09/2024 12:0 5 pm EDT SGOT(AST) 42 U/L 9 - 35 01/09/2024 12:0 5 pm EDT ALK. PHOSPHATASE 192 U/L 34 - 143 01/09/2024 12:05 pm EDT CALCIUM 9.5 mg/dL 8.7 - 10.5 01/09/2024 12:0 5 pm EDT eGFR If 38 mL/m/1.73m2 >=60 0 01/09/2024 12:05 pm EDT eGFR If Non- 31 mL/m/1.73m2 >=60 01/09/2024 12:05 pm EDT COMPREHENSIVE METABOLIC (CMP) See Attachment 01/09/2024 12:05 pm EDT * CBC W/O DIFFERENTIAL Performed by: [facility] Component Value Range Date WHITE BLOOD CELLS 12.46 THO/mm3 4.80 - 10.80 12:05 pm EDT RED BLOOD CELLS 3.17 MIL/mm3 4.20 - 5.40 01/09/2024 1 2:05 pm EDT HEMOGLOBIN 9.0 g/dL 12.0 - 16.0 01/09/2024 12:0 5 pm EDT HEMATOCRIT 28.5 % 37.0 - 47.0 01/09/2024 12:0 5 pm EDT MCV 89.9 fL 81.0 - 99.0 01/09/2024 12:0 5 pm EDT MCH 28.4 pg 27.0 - 33.0 01/09/2024 12:0 5 pm EDT MCHC 31.6 g/dL 32.0 - 36.0 01/09/2024 12:0 5 pm EDT RDW-CV 17.4 % 11.5 - 15.2 01/09/2024 12:0 5 pm EDT PLATELET COUNT 440 THO/mm3 150 - 400 01/09/2024 12 :05 pm EDT MPV 8.8 fL 9.5 - 13.1 01/09/2024 12:0 5 pm EDT * CBC W/O DIFFERENTIAL Performed by: [facility] Component Value Range Date WHITE BLOOD CELLS 11.50 THO/mm3 4.80 - 10.80 12:01 pm EDT RED BLOOD CELLS 3.08 MIL/mm3 4.20 - 5.40 01/08/2024 1 2:01 pm EDT HEMOGLOBIN 9.0 g/dL 12.0 - 16.0 01/08/2024 12:0 1 pm EDT HEMATOCRIT 27.8 % 37.0 - 47.0 01/08/2024 12:0 1 pm EDT MCV 90.3 fL 81.0 - 99.0 01/08/2024 12:0 1 pm EDT MCH 29.2 pg 27.0 - 33.0 01/08/2024 12:0 1 pm EDT MCHC 32.4 g/dL 32.0 - 36.0 01/08/2024 12:0 1 pm EDT RDW-CV 17.6 % 11.5 - 15.2 01/08/2024 12:0 1 pm EDT PLATELET COUNT 419 THO/mm3 150 - 400 01/08/2024 12 :01 pm EDT MPV 8.9 fL 9.5 - 13.1 01/08/2024 12:0 1 pm EDT * COMPREHENSIVE METABOLIC (CMP) Performed by: [facility] Component Value Range Date GLUCOSE 82 mg/dL 70 - 110 01/08/2024 12:0 1 pm EDT BUN 29 mg/dL 7 - 28 01/08/2024 12:0 1 pm EDT CREATININE 1.49 mg/dL 0.44 - 1.32 01/08/2024 12:0 1 pm EDT BILIRUBIN, TOTAL 0.19 mg/dL 0.16 - 1.30 01/08/2024 12:01 pm EDT PROTEIN, TOTAL 6.4 g/dL 5.6 - 8.2 01/08/2024 12 :01 pm EDT ALBUMIN 3.6 g/dL 3.2 - 4.9 01/08/2024 12:0 1 pm EDT SODIUM 137 mEq/L 138 - 147 01/08/2024 12:0 1 pm EDT POTASSIUM 4.7 mEq/L 3.6 - 5.0 01/08/2024 12:0 1 pm EDT CHLORIDE 108 mEq/L 99 - 110 01/08/2024 12:0 1 pm EDT CARBON DIOXIDE 19 mmol/L 18 - 30 01/08/2024 12 :01 pm EDT SGPT(ALT) 52 U/L 0 - 42 01/08/2024 12:0 1 pm EDT SGOT(AST) 41 U/L 9 - 35 01/08/2024 12:0 1 pm EDT ALK. PHOSPHATASE 191 U/L 34 - 143 01/08/2024 12:01 pm EDT CALCIUM 9.5 mg/dL 8.7 - 10.5 01/08/2024 12:0 1 pm EDT eGFR If 42 mL/m/1.73m2 >=60 0 01/08/2024 12:01 pm EDT eGFR If Non- 34 mL/m/1.73m2 >=60 01/08/2024 12:01 pm EDT COMPREHENSIVE METABOLIC (CMP) See Attachment 01/08/2024 12:01 pm EDT * CBC W/DIFF AND PLATELETS Performed by: [facility] Component Value Range Date WHITE BLOOD CELLS 13.79 THO/mm3 4.80 - 10.80 12:10 pm EDT RED BLOOD CELLS 3.17 MIL/mm3 4.20 - 5.40 01/01/2024 1 2:10 pm EDT HEMOGLOBIN 9.3 g/dL 12.0 - 16.0 01/01/2024 12:1 0 pm EDT HEMATOCRIT 27.9 % 37.0 - 47.0 01/01/2024 12:1 0 pm EDT MCV 88.0 fL 81.0 - 99.0 01/01/2024 12:1 0 pm EDT MCH 29.3 pg 27.0 - 33.0 01/01/2024 12:1 0 pm EDT MCHC 33.3 g/dL 32.0 - 36.0 01/01/2024 12:1 0 pm EDT RDW-CV 17.0 % 11.5 - 15.2 01/01/2024 12:1 0 pm EDT PLATELET COUNT 468 THO/mm3 150 - 400 01/01/2024 12 :10 pm EDT MPV 9.1 fL 9.5 - 13.1 01/01/2024 12:1 0 pm EDT NEUTROPHILS, ABS 7.81 THO/mm3 1.40 - 6.80 01/01/2024 12:10 pm EDT LYMPHOCYTES, ABS 5.15 THO/mm3 0.80 - 3.00 01/01/2024 12:10 pm EDT MONOCYTES, ABS 0.64 THO/mm3 0.20 - 1.00 01/01/2024 12 :10 pm EDT EOSINOPHILS, ABS 0.09 THO/mm3 0.00 - 0.50 01/01/2024 12:10 pm EDT BASOPHILS, ABS 0.04 THO/mm3 0.00 - 0.10 01/01/2024 12 :10 pm EDT IMMATURE GRANS, ABS 0.06 THO/mm3 0.00 - 0.10 01/01/20 12:10 pm EDT NEUTROPHILS % 56.7 % 01/01/2024 12: 10 pm EDT LYMPHOCYTES % 37.3 % 01/01/2024 12: 10 pm EDT MONOCYTES % 4.6 % 01/01/2024 12:1 0 pm EDT EOSINOPHILS % 0.7 % 01/01/2024 12: 10 pm EDT BASOPHILS % 0.3 % 01/01/2024 12:1 0 pm EDT IMMATURE GRANS % 0.4 % 01/01/2024 12:10 pm EDT * COMPREHENSIVE METABOLIC (CMP) Performed by: [facility] Component Value Range Date GLUCOSE 109 mg/dL 70 - 110 01/01/2024 12:1 0 pm EDT BUN 33 mg/dL 7 - 28 01/01/2024 12:1 0 pm EDT CREATININE 2.41 mg/dL 0.44 - 1.32 01/01/2024 12:1 0 pm EDT BILIRUBIN, TOTAL 0.16 mg/dL 0.16 - 1.30 01/01/2024 12:10 pm EDT PROTEIN, TOTAL 7.0 g/dL 5.6 - 8.2 01/01/2024 12 :10 pm EDT ALBUMIN 3.8 g/dL 3.2 - 4.9 01/01/2024 12:1 0 pm EDT SODIUM 136 mEq/L 138 - 147 01/01/2024 12:1 0 pm EDT POTASSIUM 6.2 mEq/L 3.6 - 5.0 01/01/2024 12:1 0 pm EDT CHLORIDE 107 mEq/L 99 - 110 01/01/2024 12:1 0 pm EDT CARBON DIOXIDE 18 mmol/L 18 - 30 01/01/2024 12 :10 pm EDT SGPT(ALT) 52 U/L 0 - 42 01/01/2024 12:1 0 pm EDT SGOT(AST) 42 U/L 9 - 35 01/01/2024 12:1 0 pm EDT ALK. PHOSPHATASE 205 U/L 34 - 143 01/01/2024 12:10 pm EDT CALCIUM 9.8 mg/dL 8.7 - 10.5 01/01/2024 12:1 0 pm EDT eGFR If 24 mL/m/1.73m2 >=60 0 01/01/2024 12:10 pm EDT eGFR If Non- 20 mL/m/1.73m2 >=60 01/01/2024 12:10 pm EDT COMPREHENSIVE METABOLIC (CMP) See Attachment 01/01/2024 12:10 pm EDT * CBC W/O DIFFERENTIAL Performed by: [facility] Component Value Range Date WHITE BLOOD CELLS 10.24 THO/mm3 4.80 - 10.80 01:29 pm EDT RED BLOOD CELLS 2.65 MIL/mm3 4.20 - 5.40 12/26/2023 0 1:29 pm EDT HEMOGLOBIN 7.8 gm/dL 12.0 - 16.0 12/26/2023 01:2 9 pm EDT HEMATOCRIT 23.8 % 37.0 - 47.0 12/26/2023 01:2 9 pm EDT MCV 89.8 um3 81.0 - 99.0 12/26/2023 01:2 9 pm EDT MCH 29.4 uug 27.0 - 33.0 12/26/2023 01:2 9 pm EDT MCHC 32.8 gm/dL 32.0 - 36.0 12/26/2023 01:2 9 pm EDT RDW-CV 17.2 % 11.5 - 15.2 12/26/2023 01:2 9 pm EDT PLATELET COUNT 348 THO/mm3 150 - 400 12/26/2023 01 :29 pm EDT MPV 9.4 um3 9.5 - 13.1 12/26/2023 01:2 9 pm EDT * BASIC METABOLIC Performed by: [facility] Component Value Range Date CREATININE 0.99 mg/dL 0.44 - 1.32 12/26/2023 01:2 9 pm EDT BUN 12 mg/dL 7 - 28 12/26/2023 01:2 9 pm EDT GLUCOSE 88 mg/dL 70 - 110 12/26/2023 01:2 9 pm EDT CALCIUM 8.7 mg/dL 8.7 - 10.5 12/26/2023 01:2 9 pm EDT SODIUM 141 mEq/L 138 - 147 12/26/2023 01:2 9 pm EDT POTASSIUM 4.1 mEq/L 3.6 - 5.0 12/26/2023 01:2 9 pm EDT CHLORIDE 113 mEq/L 99 - 110 12/26/2023 01:2 9 pm EDT CARBON DIOXIDE 19 mM/L 18 - 30 12/26/2023 01 :29 pm EDT eGFR If > 60 mL/m/1.73m2 >=60 12/26/2023 01:29 pm EDT eGFR If Non- 55 mL/m/1.73m2 >=60 12/26/2023 01:29 pm EDT BASIC METABOLIC See Attachment 12/26/2023 01:29 pm EDT * CHEST XRAY Performed by: [id number] [id number] Component Value Range Date CHEST XRAY PROCEDURE CHEST X-RA Y AP viewSee NoteFINDINGS CHEST : Heart is within normal limits with atheromatous changes in the dorsal aorta. There is right jugular venous catheter in position with accentuation of the pulmonary vasculature in both lung bases. The lung pino are otherwise essentially clear.IMPRESSION CHEST : Heart is within normal limits with no active infiltrates.....Electronically Signed by DEVORAH BRENNAN MD at 19-Jan-2024 08:22:23 PM... 01/19/2024 09:22 pm EDT * CHEST XRAY AP ONLY X-RAY Performed by: [place] [id number] Component Value Range Date CHEST XRAY AP ONLY X-RAY PROCEDURE CHEST X-RAY AP viewSee NoteFINDINGS CHEST : Heart is within normal limits with atheromatous changes in the dorsal aorta. There is right jugular venous catheter and right PICC line in position with slight accentuation of the pulmonary vasculature in both lung bases. The lung pino are otherwise essentially clear.IMPRESSION CHEST : Heart is within normal limits with no active infiltrates.....Electronically Signed by DEVORAH BRENNAN MD at 17-Jan-2024 03:00:24 PM... 01/17/2024 04:00 pm EDT * ABDOMEN KUB X-RAY Performed by: [place] [id number] Component Value Range Date ABDOMEN KUB X-RAY PROCEDURE ABDOMEN/KU B X-RAY AP viewSee NoteFINDINGS ABDOMEN/KUB : Examination reveals the bowel gas and to be unremarkable with no definite evidence of bowel obstruction. Some amount of retained fecal debris and air are noted in the rectum and in portions of the colon with slight gastric dilatation with air. Post surgical metallic clips are noted in the lower mid abdomen. Clinical correlation is requested.IMPRESSION ABDOMEN/KUB : No bowel obstruction....Electronically Signed by DEVORAH BRENNAN MD at 15-Jan-2024 08:15:23 PM... 01/15/2024 09:15 pm EDT Encounters Encounter Performer Performer Role Encounter Diagnoses Location Date Discharge - Discharged / Transferred to [facility]. - Acute care [facility] 12/25/2023 05:51 pm EDT - 01/01/2024 03:00 pm EDT Discharge - Discharged / Transferred to another [facility] - [facility] 01/05/2024 03:32 pm EDT - 01/21/2024 12:29 am EDT Immunizations Vaccine Date SARS-COV-2 (COVID-19) 02/28/2021 01:00 a m EDT SARS-COV-2 (COVID-19) 02/05/2021 01:00 a m EDT Influenza (high dose) Social History
--- OUTSIDE RECORDS SUMMARY | 2024-10-29 15:35 | XMS_ITS | Clinical Summary ---
Author Organization [facility] Address [address] [place] [id number] Care Team Providers Care Cnc Field Service Engineer Name Role Phone Anthony Bennett PA-C Primary Care Provider [phone] Social History Tobacco Use Types Packs/Day Years Used Date Smoking Tobacco: Never Assessed Comments Unknown Sex and Gender Information Value Date Recorded Sex Assigned at Not on file Legal Sex Female 4:57 PM CDT Gender Identity Not on file Sexual Orientation Not on file Plan of Treatment Health Maintenance Due Date Last Done Comments Colorectal Cancer Screening Colonoscopy (10 Years) 1952 PHQ-2 (Physician [place]) 1964 Hepatitis C 1970 DTaP, Tdap and Td Vaccines ( 1 - Tdap) 11/18/1971 Mammogram Screening 1992 Zoster Vaccines (1 of 2) 2002 Annual Medicare Wellness Visit 2017 Dexa Scan (General) 2017 Pneumococcal Vaccine: 65+ Ye ars (1 of 1 - PCV) 2017 COVID-19 Vaccine ( - 2023-2 5 season) 2024 Influenza Adult (#1) 2024 PHQ-2 (Physician [facility]) 09/11/2024 RSV Immunization or 60+ Years (1 - 1-dose 75+ series) 11/18/2027 Meningococcal B Vaccine Aged Out No l onger eligible based on patient's age to complete this topic Meningococcal Vaccine Aged Out No jan nikolay eligible based on patient's age to complete this topic RSV Immunizations Under 20 Months Aged Out No longer eligible based on patient's age to complete this topic Insurance MEDICARE Care Teams Cnc Field Service Engineer Relationship Specialty Start Date End Date Anthony Bennett PA-C [id number] [facility] [address] [place] [address] PCP - General PHYSICIAN ABSTRACT CLERK 07/20/23
--- OUTSIDE RECORDS SUMMARY | 2024-10-29 15:35 | XMS_ITS | Encounter Summary ---
Author Organization [facility] Address [address] [place] [address] Care Team Providers Care Photo Offset Printer Name Role Phone Dee Dee Olvera RN Unavailable Unavailabl Mechelle Yuen MD Unavailable [phone] Anthony Bennett PA-C Primary Care Provide r Encounter Details Date Type Department Care Team (Late st Contact Info) Description 05/24/2024 Telephone [facility] [address] [place] [address] Kvng Harris MD [address] [place] [address] Social History Tobacco Use Types Packs/Day Years Used Date Smoking Tobacco: Every Day Cigarettes Smokeless Tobacco: Never Alcohol Use Standard Drinks/Week Comments No 0 (1 standard drink = 0.6 oz pur e alcohol) rare OASIS D0700: Social Isolation Answer Da te Recorded Frequency of experiencing loneliness or isolatio n Never 08/29/2023 OASIS A1250: Transportation Answer Date Recorded Lack of Transportation (Medical) No 08/29/2023 Lack of Transportation (Non-Medical) No 08/29/2023 Patient Unable or Declines to Respond No 08/29/2023 OASIS B1300: Health Literacy Answer Patel e Recorded Frequency of needing help to read materials from doctor or pharmacy Rarely 08/29/2023 AUDIT-C Answer Date Recorded Q1: How often do you have a drink containing alc ohol? Monthly or less 05/21/2024 Q2: How many drinks containi ng alcohol do you have on a typical day when you are drinking? 1 or 2 05/21/2024 Q3: How often do you have si x or more drinks on one occasion? Never 05/21/2024 Overall Financial Resource Strain (CARDIA) Answe r Date Recorded How hard is it for you to pa y for the very basics like food, housing, medical care, and heating? Not hard at all 05/21/2024 PHQ-2 Answer Date Recorded PHQ2 TOTAL SCORE 0 04/12/2023 [facility] - Occupational Stress Questionnaire Answer Date Recorded Do you feel stress - tense, restless, nervous, or anxious, or unable to sleep at night because your mind is troubled all the time - these days? Not at all 05/21/2024 Hunger Vital Sign Answer Date Recorded Within the past 12 months, y ou worried that your food would run out before you got the money to buy more. Never true 05/21/20 24 Within the past 12 months, t he food you bought just didn't last and you didn't have money to get more. Never true 05/21/2024 PRAPARE - Transportation Answer Date Re corded In the past 12 months, has l ack of transportation kept you from medical appointments or from getting medications? No 05/12 In the past 12 months, has l ack of transportation kept you from meetings, work, or from getting things needed for daily living? No 05/21/2024 Housing Stability Vital Sign Answer Patel e Recorded In the last 12 months, was t here a time when you were not able to pay the mortgage or rent on time? No 05/21/2024 In the last 12 months, how many places have you lived? 1 05/21/2024 In the last 12 months, was t here a time when you did not have a steady place to sleep or slept in a senior care (including now)? No 05/21/2024 Sex and Gender Information Value Date Recorded Sex Assigned at Not on file Gender Identity Not on file Sexual Orientation Not on file documented as of this encounter Functional Status Functional Status Response Date of Assess ment Is person deaf or have serious hearing difficult y? No 05/20/2024 Is person blind or have serious difficulty seein g? No 05/20/2024 Does person have serious dif ficulty walking/climbing stairs? Yes 05/20/2024 Does person have difficulty dressing/bathing? Ye s 05/20/2024 Does person have difficulty doing errands alone? Yes 05/20/2024 Cognitive Status Response Date of Assessm ent Does person have difficulty concentrating/remembering/making decisions? Yes 05/20/2024 documented as of this encounter Miscellaneous Notes * Telephone Encounter - Kvng Harris MD - 05/24/2024 1:19 PM CDT Colorectal Surgery Telephone Note: Victor Manuel Ndiaye 73 year old female Discussed over the phone with Julio estrella. Updated her on patient's current status and the plan for a CT scan today with IV contrast given rising leukocytosis. She had a question about theindication for discontinuing the heparin drip. This typewriter tester mentioned that the rationale was becausepatient has chronic ischemia. Discussed a palliative care consult for assistance in medical decision-making giving patient's complex clinical course at this time. Ms. Mariscal was amenable to this idea [place] that at this time patient's mentation has been noted to wax and wane. She had no further questions. Phone call was ended amicably Kvng Harris Jr., MD [facility] 05/24/2024 1:19 PM documented in this encounter Plan of Treatment Upcoming Encounters Date Type Department Care Team (Late st Contact Info) Description 10/31/2024 10:30 AM LEARNING CENTER COORDINATOR Appointment Wound Care at [facility] [address] [place] [address] [place] [address] [place] [id number] 12/17/2024 10:00 AM CDT Office Visit [facility] - Hematology/Oncology [address] [place] [id number] Mechelle Arteaga MD [address] [place] [address] 01/09/2025 10:00 AM CDT Appointment [facility] [address] [place] [address] Robert Daniel MD [address] [facility] [address] [place] [address] 01/09/2025 11:45 AM CDT Office Visit [facility] - Vascular Surgery [address] [facility] [place] [id number] Robert Daniel MD [address] [facility] [address] [place] [address] documented as of this encounter Visit Diagnoses Not on filedocumented in this encounter Care Teams Photo Offset Printer Relationship Specialty Start Date End Date Anthony Bennett PA-C [address] [place] [address] PCP - General Physician Neck Band Maker 11/07/23 Dee Dee Olvera, RN 11/07/17 Mechelle Arteaga MD [address] [place] [address] Hematology and Oncology 11/05/23 documented as of this encounter
--- OUTSIDE RECORDS SUMMARY | 2024-10-29 15:36 | XMS_ITS | Patient Health Summary ---
Author Organization [facility] Address [address] [place] [address] Care Team Providers Care Air Traffic Control Supervisor Name Role Phone Dee Dee Olvera RN Unavailable UnavailMechelle Fierro MD Unavailable [phone] Anthony Bennett PA-C Primary Care Provide r Note from [facility],non-owned Affiliates and Associated Physician Practices is amultiple site organization consisting of ambulatory clinics and hospital sitesin [place], [place], [place] and [place]. This disclosure is being madepursuant to the Care Everywhere program and may not contain all information available regarding this patient. Last updated 18.[facility] Allergies No known active allergies Medications * Be aware that medications may not be up to date on this document. Alwaysverify current medications with the patient. * acetaminophen (Tylenol) 500 MG tablet(Started 11/23/2023) Take 1 (one) tablet by mouth every 6 hours as needed Maximum allowable Acetaminophen amount = 4 Grams (4000 mg) / 24 hours. * multiple vitamins with minerals tablet(Started 11/24/2023) Take 1 (one) tablet by mouth once daily * thiamine (Vitamin B-1) 100 MG tablet(Started 11/24/2023) Take 1 (one) tablet by mouth once daily * Nutritional Supplements (Ensure Plus High Protein) LIQD(Started 03/23/2024) Take 1 container by mouth 3 times daily * sertraline (Zoloft) 50 MG tablet(Started 03/26/2024) Take 1 (one) tablet by mouth once daily * ferrous sulfate 325 (65 FE) MG tablet(Started 03/26/2024) Take 1 (one) tablet by mouth daily with breakfast * loperamide (Imodium) 2 MG capsule(Started 03/26/2024) Take 1 (one) capsule by mouth 3 times daily as needed for Diarrhea (High or purely liquid ileostomyoutput) * gabapentin (Neurontin) 300 MG capsule(Started 06/10/2024) Take 1 (one) capsule by mouth 3 times daily Reasons: Peripheral Nerve Disease * sodium bicarbonate 650 MG tablet(Started 06/18/2024) Take 2 (two) tablets by mouth 2 times daily * loperamide (Imodium) 2 MG capsule(Started 06/18/2024) Take 1 (one) capsule by mouth 3 times daily * mirtazapine (Remeron) 15 MG tablet(Started 06/18/2024) Take 1 (one) tablet by mouth at bedtime Reasons: Major Depressive Disorder * Loperamide (Imodium) 2 MG tablet(Started 10/03/2024) Take 1 (one) tablet by mouth 4 times daily as needed for Diarrhea * Nutritional Supplements (Jevity 1.5 Dusty/Fiber) LIQD(Started 10/03/2024) Take 70 mL by mouth 2 times daily * diazePAM (Valium) 2 MG tablet(Started 10/22/2024) Take 1 (one) tablet by mouth once daily To help with the contrast enema. Take 1 tablet at least 30 minutes before your enema is scheduled. If you still feel anxious, take an additional 1 or 2 tablets. Ensure you have someone to drive you home. 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 Postprocedural intraabdominal abscess 05/20/2024 Bacteremia 05/20/2024 Leukocytosis 05/20/2024 Abdominal pain, generalized 05/18/2024 Normocytic anemia 05/18/2024 Colostomy complication, unspecified 05/18/2024 B12 deficiency 05/01/2024 Iron deficiency anemia hector faust to inadequate dietary iron intake 04/30/2024 Severe malnutrition 03/23/2024 Ileostomy present 03/23/2024 Physical deconditioning 03/23/2024 ELIZABETH (acute kidney injury) 11/23/2023 Failure to thrive in adult 2023 High risk for chemotherapy-induced infectious co mplication 07/05/2023 Rectal adenocarcinoma 04/28/2023 Cancer Staging:Clinical stage from 02/24/2023:Stage IIB(cT4a, cN0, cM0) - Signed by Mechelle Arteaga MD on 09/04/2023 Vaginal high risk human bebeto 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 04/08/2022 Atypical squamous cells esau ot exclude high grade squamous intraepithelial lesion on cytologic smear of vagina (ASC-H) 04/08/2022 Smoker 04/08/2022 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 (FLUAD QUADRIVALENT; 65Y+) (AIIV4)(Given 06/08/2024) * Pneumococcal Pcv13 Conj(Given 03/19/2018) Social History Tobacco Use Types Packs/Day Years Used Date Smoking Tobacco: Every Day Cigarettes Smokeless Tobacco: Never Tobacco Cessation:Ready to Q uit: Not Asked; Counseling Given: Not Answered Alcohol Use Standard Drinks/Week Comments No 0 [...] at all 05/21/2024 PHQ-2 Answer Date Recorded Patient Health Questionnaire-2 Score 0 08/27/2024 [facility] of Occupat ional Health - Occupational Stress [...] place to sleep or slept in a chcf (including now)? No 05/21/2024 Sex and Gender Information Value Date Recorded Sex Assigned at Not on file Gender Identity Not on file Sexual Orientation Not on file Last Filed Vital Signs Vital Sign Reading Time Taken Comments Blood Pressure 120/74 10/11/2024 1:00 PM [facility]REL Pulse 73 10/11/2024 1:00 PM [employer] [employer] Temperature 36.1 C (97 F) 10/11/2024 12:30 PM [employer]REL Respiratory Rate 16 10/11/2024 1:00 PM [employer] [employer]REL Oxygen Saturation 100% 10/11/2024 1:00 PM [employer] [employer] Inhaled Oxygen Concentration - - Weight 46.3 kg (102 lb) 10/11/2024 10:57 AM PAINTER [facility]REL Height 152.4 cm (5') 10/11/2024 10:57 AM [employer] [employer] Body Mass Index 19.92 10/11/2024 10:57 AM PAINTER [facility]REL Medical Devices Implanted Type Area Occupational Therapist'S Assistant Device Identifier Shelf Expiration Date Model / Serial / Lot Port Implinfn Powerport Slim Clrvu Argd Implanted:Qty: 1 on 05/04/2023 at [facility] Right: Chest Bard Peripheral Vascular 12/09/2024 [id number] / / [id number] Procedures * FL LOWER GI WATER SOLUBLE(Performed 10/23/2024) Performed for Ileostomy care (HCC) * ENDOSCOPY, PROCTOSIGMOID(Performed 10/11/2024) * KS SIGMOIDOSCOPY,DIAGNOSTIC(Performed 10/11/2024) Performed for Rectal cancer (HCC) * CT ABDOMEN PELVIS WO CONTRAST(Performed 10/03/2024) Performed for Rectal cancer (HCC) * CREATININE - POCT INTERFACED(Performed 10/03/2024) * TSH(Performed 09/17/2024) Performed for Anemia, unspecified type, At high risk for malnutrition * IRON + TRANSFERRIN PANEL(Performed 09/17/2024) Performed for Anemia, unspecified type, At high risk for malnutrition * FERRITIN(Performed 09/17/2024) Performed for Anemia, unspecified type * VITAMIN B12(Performed 09/17/2024) Performed for Anemia, unspecified type, Anemia due to vitamin B12 deficiency, unspecified B12 deficiency type * COMPREHENSIVE METABOLIC PANEL(Performed 09/17/2024) Performed for Anemia, unspecified type * CBC W AUTO DIFFERENTIAL(Performed 09/17/2024) Performed for Anemia, unspecified type * RETINOL BINDING PROTEIN(Performed 09/17/2024) Performed for Rectal cancer (HCC), Severe malnutrition (HCC) * TRIGLYCERIDES BLOOD(Performed 09/17/2024) Performed for Rectal cancer (HCC), Severe malnutrition (HCC) * PREALBUMIN(Performed 09/17/2024) Performed for Rectal cancer (HCC), Severe malnutrition (HCC) * PHOSPHORUS BLOOD(Performed 06/17/2024) * MAGNESIUM BLOOD(Performed 06/17/2024) * CBC W/O DIFFERENTIAL(Performed 06/17/2024) * BASIC METABOLIC PANEL (CALCIUM TOTAL)(Performed 06/17/2024) * CBC W/O DIFFERENTIAL(Performed 06/16/2024) * PHOSPHORUS BLOOD(Performed 06/16/2024) * MAGNESIUM BLOOD(Performed 06/16/2024) * BASIC METABOLIC PANEL (CALCIUM TOTAL)(Performed 06/16/2024) * PHOSPHORUS BLOOD(Performed 06/16/2024) * MAGNESIUM BLOOD(Performed 06/16/2024) * CBC W/O DIFFERENTIAL(Performed 06/16/2024) * BASIC METABOLIC PANEL (CALCIUM TOTAL)(Performed 06/16/2024) * PHOSPHORUS BLOOD(Performed 06/15/2024) * CBC W/O DIFFERENTIAL(Performed 06/15/2024) * BASIC METABOLIC PANEL (CALCIUM TOTAL)(Performed 06/15/2024) * MAGNESIUM BLOOD(Performed 06/15/2024) * PHOSPHORUS BLOOD(Performed 06/13/2024) * CBC W/O DIFFERENTIAL(Performed 06/13/2024) * BASIC METABOLIC PANEL (CALCIUM TOTAL)(Performed 06/13/2024) * MAGNESIUM BLOOD(Performed 06/13/2024) * GLUCOSE - POINT OF CARE(Performed 06/12/2024) * CBC W/O DIFFERENTIAL(Performed 06/12/2024) * BASIC METABOLIC PANEL (CALCIUM TOTAL)(Performed 06/12/2024) * MAGNESIUM BLOOD(Performed 06/12/2024) * CBC W/O DIFFERENTIAL(Performed 06/11/2024) * BASIC METABOLIC PANEL (CALCIUM TOTAL)(Performed 06/11/2024) * MAGNESIUM BLOOD(Performed 06/11/2024) * CT ABDOMEN PELVIS W CONTRAST(Performed 06/04/2024) Performed for Postprocedural intraabdominal abscess * RENAL FUNCTION PANEL(Performed 06/04/2024) * MAGNESIUM BLOOD(Performed 06/04/2024) * CBC W/O DIFFERENTIAL(Performed 06/04/2024) * RENAL FUNCTION PANEL(Performed 06/03/2024) * MAGNESIUM BLOOD(Performed 06/03/2024) * CBC W/O DIFFERENTIAL(Performed 06/03/2024) * RENAL FUNCTION PANEL(Performed 06/03/2024) * MAGNESIUM BLOOD(Performed 06/03/2024) * CBC W/O DIFFERENTIAL(Performed 06/03/2024) * RENAL FUNCTION PANEL(Performed 06/01/2024) * MAGNESIUM BLOOD(Performed 06/01/2024) * CBC W/O DIFFERENTIAL(Performed 06/01/2024) * RENAL FUNCTION PANEL(Performed 05/30/2024) * MAGNESIUM BLOOD(Performed 05/30/2024) * CBC W/O DIFFERENTIAL(Performed 05/30/2024) * RENAL FUNCTION PANEL(Performed 05/29/2024) * MAGNESIUM BLOOD(Performed 05/29/2024) * CBC W/O DIFFERENTIAL(Performed 05/29/2024) * CBC W/O DIFFERENTIAL(Performed 05/28/2024) * RENAL FUNCTION PANEL(Performed 05/28/2024) * MAGNESIUM BLOOD(Performed 05/28/2024) * CBC W/O DIFFERENTIAL(Performed 05/27/2024) * RENAL FUNCTION PANEL(Performed 05/27/2024) * MAGNESIUM BLOOD(Performed 05/27/2024) * RENAL FUNCTION PANEL(Performed 05/26/2024) * MAGNESIUM BLOOD(Performed 05/26/2024) * CBC W/O DIFFERENTIAL(Performed 05/26/2024) * XR KNEE RIGHT 2VW OR LESS(Performed 05/26/2024) Performed for Fall, initial encounter * XR KNEE LEFT 2VW OR LESS(Performed 05/26/2024) Performed for Fall, initial encounter * RENAL FUNCTION PANEL(Performed 05/25/2024) * VANCOMYCIN LEVEL TROUGH(Performed 05/25/2024) * MAGNESIUM BLOOD(Performed 05/25/2024) * CBC W/O DIFFERENTIAL(Performed 05/25/2024) * RENAL FUNCTION PANEL(Performed 05/24/2024) * MAGNESIUM BLOOD(Performed 05/24/2024) * CBC W/O DIFFERENTIAL(Performed 05/24/2024) * CT ABDOMEN PELVIS W CONTRAST(Performed 05/24/2024) Performed for Enterocutaneous fistula * C-REACTIVE PROTEIN(Performed 05/24/2024) * ERYTHROCYTE SEDIMENTATION RATE(Performed 05/24/2024) * PHOSPHORUS BLOOD(Performed 05/23/2024) * MAGNESIUM BLOOD(Performed 05/23/2024) * COMPREHENSIVE METABOLIC PANEL(Performed 05/23/2024) * CBC W/O DIFFERENTIAL(Performed 05/23/2024) * VANCOMYCIN LEVEL RANDOM(Performed 05/23/2024) * HEPATIC FUNCTION PANEL(Performed 05/23/2024) * BASIC METABOLIC PANEL (CALCIUM TOTAL)(Performed 05/23/2024) * PHOSPHORUS BLOOD(Performed 05/23/2024) * MAGNESIUM BLOOD(Performed 05/23/2024) * CBC W AUTO DIFFERENTIAL(Performed 05/23/2024) * TRANSFUSE RED BLOOD CELL LEUKOREDUCED UNIT(S)(Performed 05/22/2024) * PREPARE RBC LEUKOREDUCED UNIT(Performed 05/22/2024) * TYPE + SCREEN PANEL(Performed 05/22/2024) * DIFFERENTIAL MANUAL(Performed 05/22/2024) * MAGNESIUM BLOOD(Performed 05/22/2024) * CBC W AUTO DIFFERENTIAL(Performed 05/22/2024) * RENAL FUNCTION PANEL(Performed 05/22/2024) * DIFFERENTIAL MANUAL(Performed 05/22/2024) * PTT SLH(Performed 05/22/2024) * CBC W AUTO DIFFERENTIAL(Performed 05/22/2024) * VANCOMYCIN LEVEL RANDOM(Performed 05/22/2024) * DIFFERENTIAL MANUAL(Performed 05/22/2024) * PT-INR SLH(Performed 05/22/2024) * MAGNESIUM BLOOD(Performed 05/22/2024) * PHOSPHORUS BLOOD(Performed 05/22/2024) * CBC W AUTO DIFFERENTIAL(Performed 05/22/2024) * BASIC METABOLIC PANEL (CALCIUM TOTAL)(Performed 05/22/2024) * PTT SLH(Performed 05/22/2024) * PTT SLH(Performed 05/21/2024) * CULTURE BLOOD(Performed 05/21/2024) * CULTURE BLOOD(Performed 05/21/2024) * VANCOMYCIN LEVEL RANDOM(Performed 05/21/2024) * PTT SLH(Performed 05/21/2024) * MAGNESIUM BLOOD(Performed 05/21/2024) * PHOSPHORUS BLOOD(Performed 05/21/2024) * CBC W AUTO DIFFERENTIAL(Performed 05/21/2024) * BASIC METABOLIC PANEL (CALCIUM TOTAL)(Performed 05/21/2024) * PTT SLH(Performed 05/21/2024) * CREATININE URINE RANDOM(Performed 05/21/2024) * LYTES (NA K CL) URINE RANDOM PANEL(Performed 05/21/2024) * PT EVAL AND TREAT(Performed 05/20/2024) * OT EVAL AND TREAT(Performed 05/20/2024) * FL LUIS ALBERTO W ANGIO TEAM(Performed 05/20/2024) Performed for Colostomy complication, unspecified (HCC) * BLOOD GAS+COOX+LYTES+METAB ARTERIAL POCT(Performed 05/20/2024) * BLOOD GAS ART+LYTES+METAB+COOX POC NOTIF(Performed 05/20/2024) Performed for Colostomy complication, unspecified (HCC) * ARTERIAL LINE NOTE(Performed 05/20/2024) * ENDOTRACHEAL TUBE NOTE(Performed 05/20/2024) * KS REMV ART CLOT ILIAC-POP,LEG INCIS(Performed 05/20/2024) Performed for Acute lower limb ischemia * VAS ARTERIAL ANKLE ARM INDEX(Performed 05/20/2024) Performed for Abdominal pain, generalized * CT ANGIO ABDOMEN AORTA W RUNOFF(Performed 05/20/2024) Performed for Foot pain, right * MAGNESIUM BLOOD(Performed 05/20/2024) * PHOSPHORUS BLOOD(Performed 05/20/2024) * CBC W AUTO DIFFERENTIAL(Performed 05/20/2024) * BASIC METABOLIC PANEL (CALCIUM TOTAL)(Performed 05/20/2024) * IRON + TRANSFERRIN PANEL(Performed 05/19/2024) * HEPATIC FUNCTION PANEL(Performed 05/19/2024) * TRIGLYCERIDES BLOOD(Performed 05/19/2024) * PREALBUMIN(Performed 05/19/2024) * MAGNESIUM BLOOD(Performed 05/19/2024) * PHOSPHORUS BLOOD(Performed 05/19/2024) * CBC W AUTO DIFFERENTIAL(Performed 05/19/2024) * BASIC METABOLIC PANEL (CALCIUM TOTAL)(Performed 05/19/2024) * CT ABDOMEN PELVIS WO CONTRAST(Performed 05/18/2024) Performed for Colostomy complication, unspecified (HCC) * PT EVAL AND TREAT(Performed 05/18/2024) * OT EVAL AND TREAT(Performed 05/18/2024) * COMPREHENSIVE METABOLIC PANEL(Performed 05/18/2024) * CULTURE BLOOD(Performed 05/18/2024) * CT ABDOMEN PELVIS W CONTRAST(Performed 05/18/2024) Performed for Abdominal pain, generalized * PT-INR SLH(Performed 05/17/2024) * CBC W AUTO DIFFERENTIAL(Performed 05/17/2024) * CULTURE BLOOD(Performed 05/17/2024) * TYPE + SCREEN PANEL(Performed 05/17/2024) * TSH REFLEX FREE T4(Performed 05/16/2024) Performed for Iron deficiency anemia secondary to inadequate dietary iron intake * TRANSFERRIN(Performed 05/02/2024) Performed for Severe malnutrition (HCC) * PREALBUMIN(Performed 05/02/2024) Performed for Severe malnutrition (HCC) * ALBUMIN BLOOD(Performed 05/02/2024) Performed for Severe malnutrition (HCC) * TSH(Performed 04/30/2024) Performed for Anemia, unspecified type * COMPREHENSIVE METABOLIC PANEL(Performed 04/30/2024) Performed for Rectal cancer (HCC) * CBC W AUTO DIFFERENTIAL(Performed 04/30/2024) Performed for Rectal cancer (HCC) * FOLATE(Performed 04/30/2024) Performed for At high risk for malnutrition, Anemia, unspecified type * VITAMIN B12(Performed 04/30/2024) Performed for At high risk for malnutrition, Anemia, unspecified type, Anemia due to vitamin B12 deficiency, unspecified B12 deficiency type * MAGNESIUM BLOOD(Performed 03/27/2024) * RENAL FUNCTION PANEL(Performed 03/27/2024) * CBC W/O DIFFERENTIAL(Performed 03/27/2024) * MAGNESIUM BLOOD(Performed 03/26/2024) * RENAL FUNCTION PANEL(Performed 03/26/2024) * CBC W/O DIFFERENTIAL(Performed 03/26/2024) * ENDOTRACHEAL TUBE NOTE(Performed 03/25/2024) * KS PLACE GASTROSTOMY TUBE PERC(Performed 03/25/2024) Performed for Failure to thrive in adult * MAGNESIUM BLOOD(Performed 03/25/2024) * RENAL FUNCTION PANEL(Performed 03/25/2024) * CBC W/O DIFFERENTIAL(Performed 03/25/2024) * TRANSFUSE RED BLOOD CELL LEUKOREDUCED UNIT(S)(Performed 03/24/2024) * PREPARE RBC LEUKOREDUCED UNIT(Performed 03/24/2024) * MAGNESIUM BLOOD(Performed 03/24/2024) * RENAL FUNCTION PANEL(Performed 03/24/2024) * CBC W/O DIFFERENTIAL(Performed 03/24/2024) * CEA BLOOD(Performed 03/24/2024) * IRON + TRANSFERRIN PANEL(Performed 03/24/2024) * CT ABDOMEN PELVIS WO CONTRAST(Performed 03/23/2024) Performed for Failure to thrive in adult * EKG 12-LEAD(Performed 03/23/2024) Performed for Failure to thrive in adult * TYPE + SCREEN PANEL(Performed 03/23/2024) * PHOSPHORUS BLOOD(Performed 03/23/2024) * MAGNESIUM BLOOD(Performed 03/23/2024) * PREALBUMIN(Performed 03/23/2024) * COMPREHENSIVE METABOLIC PANEL(Performed 03/23/2024) * CBC W/O DIFFERENTIAL(Performed 03/23/2024) * PHOSPHORUS BLOOD(Performed 11/26/2023) * MAGNESIUM BLOOD(Performed 11/26/2023) * COMPREHENSIVE METABOLIC PANEL(Performed 11/26/2023) * CBC W AUTO DIFFERENTIAL(Performed 11/26/2023) * CBC W/O DIFFERENTIAL(Performed 11/25/2023) * PHOSPHORUS BLOOD(Performed 11/24/2023) * MAGNESIUM BLOOD(Performed 11/24/2023) * COMPREHENSIVE METABOLIC PANEL(Performed 11/24/2023) * CBC W AUTO DIFFERENTIAL(Performed 11/24/2023) * PHOSPHORUS BLOOD(Performed 11/23/2023) * MAGNESIUM BLOOD(Performed 11/23/2023) * COMPREHENSIVE METABOLIC PANEL(Performed 11/23/2023) * CBC W AUTO DIFFERENTIAL(Performed 11/23/2023) * PHOSPHORUS BLOOD(Performed 11/22/2023) * MAGNESIUM BLOOD(Performed 11/22/2023) * COMPREHENSIVE METABOLIC PANEL(Performed 11/22/2023) * CBC W AUTO DIFFERENTIAL(Performed 11/22/2023) * PHOSPHORUS BLOOD(Performed 11/21/2023) * MAGNESIUM BLOOD(Performed 11/21/2023) * COMPREHENSIVE METABOLIC PANEL(Performed 11/21/2023) * CBC W AUTO DIFFERENTIAL(Performed 11/21/2023) * US RETROPERITONEAL COMPLETE(Performed 11/20/2023) Performed for Acute renal failure, unspecified acute renal failure type (HCC) * OSMOLALITY BLOOD(Performed 11/20/2023) * LACTIC ACID BLOOD(Performed 11/20/2023) * PHOSPHORUS BLOOD(Performed 11/20/2023) * MAGNESIUM BLOOD(Performed 11/20/2023) * COMPREHENSIVE METABOLIC PANEL(Performed 11/20/2023) * CBC W AUTO DIFFERENTIAL(Performed 11/20/2023) * OSMOLALITY URINE(Performed 11/20/2023) * XR CHEST 1VW PORTABLE(Performed 11/19/2023) Performed for Failure to thrive in adult * SARS-COV-2 (COVID-19) FLU A/B RSV PCR RAPID(Performed 11/19/2023) * LACTIC ACID BLOOD(Performed 11/19/2023) * CK BLOOD(Performed 11/19/2023) * PHOSPHORUS BLOOD(Performed 11/19/2023) * MAGNESIUM BLOOD(Performed 11/19/2023) * CBC W AUTO DIFFERENTIAL(Performed 11/19/2023) * COMPREHENSIVE METABOLIC PANEL(Performed 11/19/2023) * URINE MICROSCOPIC ONLY REFLEX TO CULTURE(Performed 11/19/2023) * CREATININE URINE RANDOM(Performed 11/19/2023) * UREA NITROGEN URINE RANDOM(Performed 11/19/2023) * SODIUM URINE RANDOM(Performed 11/19/2023) * URINALYSIS REFLEX MICROSCOPIC REFLEX CULTURE(Performed 11/19/2023) * CULTURE URINE(Performed 11/19/2023) * FL CYSTOGRAM(Performed 11/15/2023) Performed for Rectal cancer (HCC) * PHOSPHORUS BLOOD(Performed 11/11/2023) * MAGNESIUM BLOOD(Performed 11/11/2023) * BASIC METABOLIC PANEL (CALCIUM TOTAL)(Performed 11/11/2023) * CBC W AUTO DIFFERENTIAL(Performed 11/11/2023) * PHOSPHORUS BLOOD(Performed 11/10/2023) * MAGNESIUM BLOOD(Performed 11/10/2023) * BASIC METABOLIC PANEL (CALCIUM TOTAL)(Performed 11/10/2023) * CBC W AUTO DIFFERENTIAL(Performed 11/10/2023) * XR ABDOMEN KUB(Performed 11/09/2023) Performed for Rectal cancer (HCC) * PHOSPHORUS BLOOD(Performed 11/09/2023) * MAGNESIUM BLOOD(Performed 11/09/2023) * BASIC METABOLIC PANEL (CALCIUM TOTAL)(Performed 11/09/2023) * CBC W AUTO DIFFERENTIAL(Performed 11/09/2023) * XR ABDOMEN KUB PORTABLE(Performed 11/08/2023) Performed for Rectal cancer (HCC) * PHOSPHORUS BLOOD(Performed 11/08/2023) * MAGNESIUM BLOOD(Performed 11/08/2023) * BASIC METABOLIC PANEL (CALCIUM TOTAL)(Performed 11/08/2023) * CBC W AUTO DIFFERENTIAL(Performed 11/08/2023) * PHOSPHORUS BLOOD(Performed 11/07/2023) * MAGNESIUM BLOOD(Performed 11/07/2023) * BASIC METABOLIC PANEL (CALCIUM TOTAL)(Performed 11/07/2023) * CBC W AUTO DIFFERENTIAL(Performed 11/07/2023) * OT EVAL AND TREAT(Performed 11/06/2023) * PATHOLOGY TISSUE(Performed 11/06/2023) Performed for Rectal cancer (HCC) * PERIPHERAL IV NOTE(Performed 11/06/2023) * ENDOTRACHEAL TUBE NOTE(Performed 11/06/2023) * KS CYSTOSCOPY,INSERT URETERAL STENT(Performed 11/06/2023) Performed for Rectal cancer (HCC) * KS TRAFFIC SIGNAL TECHNICIAN RQR USE ROBOTIC SURG SYS(Performed 11/06/2023) Performed for Rectal cancer (HCC) * NEURAXIAL BLOCK(Performed 11/06/2023) * TYPE + SCREEN PANEL(Performed 11/06/2023) Performed for Pre-op evaluation * TYPE + SCREEN PANEL(Performed 11/01/2023) Performed for Pre-op evaluation * CBC W AUTO DIFFERENTIAL(Performed 11/01/2023) Performed for Rectal cancer (HCC) * BASIC METABOLIC PANEL (CALCIUM TOTAL)(Performed 11/01/2023) Performed for Rectal cancer (HCC) * PREALBUMIN(Performed 11/01/2023) Performed for Rectal cancer (HCC) * ALBUMIN BLOOD(Performed 11/01/2023) Performed for Rectal cancer (HCC) * IRON + TRANSFERRIN PANEL(Performed 11/01/2023) Performed for Rectal cancer (HCC) * EKG 12-LEAD(Performed 11/01/2023) Performed for Pre-op testing * CEA BLOOD(Performed 10/17/2023) Performed for Rectal cancer (HCC), Encounter for antineoplastic chemotherapy * PHOSPHORUS BLOOD(Performed 10/17/2023) Performed for Rectal cancer (HCC), Encounter for antineoplastic chemotherapy * MAGNESIUM BLOOD(Performed 10/17/2023) Performed for Rectal cancer (HCC), Encounter for antineoplastic chemotherapy * COMPREHENSIVE METABOLIC PANEL(Performed 10/17/2023) Performed for Rectal cancer (HCC), Encounter for antineoplastic chemotherapy * CBC W AUTO DIFFERENTIAL(Performed 10/17/2023) Performed for Rectal cancer (HCC), Encounter for antineoplastic chemotherapy * PATHOLOGY TISSUE(Performed 10/03/2023) Performed for Rectal cancer (HCC) * KS COLONOSCOPY, DIAGNOSTIC(Performed 10/03/2023) Performed for Rectal cancer (HCC) * ENDOSCOPY, COLON, DIAGNOSTIC(Performed 10/03/2023) * PREALBUMIN(Performed 10/03/2023) Performed for Inadequate nutrition * ALBUMIN BLOOD(Performed 10/03/2023) Performed for Inadequate nutrition * IRON + TRANSFERRIN PANEL(Performed 10/03/2023) Performed for Inadequate nutrition * FERRITIN(Performed 10/03/2023) Performed for Inadequate nutrition * PHOSPHORUS BLOOD(Performed 09/12/2023) Performed for Rectal cancer (HCC) * MAGNESIUM BLOOD(Performed 09/12/2023) Performed for Rectal cancer (HCC) * COMPREHENSIVE METABOLIC PANEL(Performed 09/12/2023) Performed for Rectal cancer (HCC) * CBC W AUTO DIFFERENTIAL(Performed 09/12/2023) Performed for Rectal cancer (HCC) * CEA BLOOD(Performed 08/30/2023) Performed for Rectal cancer (HCC) * PHOSPHORUS BLOOD(Performed 08/30/2023) Performed for Rectal cancer (HCC) * MAGNESIUM BLOOD(Performed 08/30/2023) Performed for Rectal cancer (HCC) * COMPREHENSIVE METABOLIC PANEL(Performed 08/30/2023) Performed for Rectal cancer (HCC) * CBC W AUTO DIFFERENTIAL(Performed 08/30/2023) Performed for Rectal cancer (HCC) * MRI PELVIS WWO CONTRAST(Performed 08/26/2023) Performed for Rectal cancer (HCC) * PHOSPHORUS BLOOD(Performed 08/09/2023) Performed for Rectal cancer (HCC) * MAGNESIUM BLOOD(Performed 08/09/2023) Performed for Rectal cancer (HCC) * COMPREHENSIVE METABOLIC PANEL(Performed 08/09/2023) Performed for Rectal cancer (HCC) * CBC W AUTO DIFFERENTIAL(Performed 08/09/2023) Performed for Rectal cancer (HCC) * CREATININE - POCT INTERFACED(Performed 07/30/2023) * PHOSPHORUS BLOOD(Performed 07/26/2023) Performed for Rectal cancer (HCC) * MAGNESIUM BLOOD(Performed 07/26/2023) Performed for Rectal cancer (HCC) * COMPREHENSIVE METABOLIC PANEL(Performed 07/26/2023) Performed for Rectal cancer (HCC) * CBC W AUTO DIFFERENTIAL(Performed 07/26/2023) Performed for Rectal cancer (HCC) * LAB RESULTS ORDER(Performed 07/19/2023) * LAB RESULTS ORDER(Performed 07/19/2023) * PHOSPHORUS BLOOD(Performed 07/12/2023) Performed for Rectal cancer (HCC) * MAGNESIUM BLOOD(Performed 07/12/2023) Performed for Rectal cancer (HCC) * COMPREHENSIVE METABOLIC PANEL(Performed 07/12/2023) Performed for Rectal cancer (HCC) * CBC W AUTO DIFFERENTIAL(Performed 07/12/2023) Performed for Rectal cancer (HCC) * DIFFERENTIAL MANUAL(Performed 07/05/2023) * CBC W AUTO DIFFERENTIAL(Performed 07/05/2023) * DIFFERENTIAL MANUAL(Performed 07/05/2023) Performed for Rectal cancer (HCC) * PHOSPHORUS BLOOD(Performed 07/05/2023) Performed for Rectal cancer (HCC) * MAGNESIUM BLOOD(Performed 07/05/2023) Performed for Rectal cancer (HCC) * COMPREHENSIVE METABOLIC PANEL(Performed 07/05/2023) Performed for Rectal cancer (HCC) * CBC W AUTO DIFFERENTIAL(Performed 07/05/2023) Performed for Rectal cancer (HCC) * PHOSPHORUS BLOOD(Performed 06/21/2023) Performed for Rectal cancer (HCC) * MAGNESIUM BLOOD(Performed 06/21/2023) Performed for Rectal cancer (HCC) * COMPREHENSIVE METABOLIC PANEL(Performed 06/21/2023) Performed for Rectal cancer (HCC) * CBC W AUTO DIFFERENTIAL(Performed 06/21/2023) Performed for Rectal cancer (HCC) * PHOSPHORUS BLOOD(Performed 06/07/2023) Performed for Rectal cancer (HCC) * MAGNESIUM BLOOD(Performed 06/07/2023) Performed for Rectal cancer (HCC) * COMPREHENSIVE METABOLIC PANEL(Performed 06/07/2023) Performed for Rectal cancer (HCC) * CBC W AUTO DIFFERENTIAL(Performed 06/07/2023) Performed for Rectal cancer (HCC) * PHOSPHORUS BLOOD(Performed 05/24/2023) Performed for Rectal cancer (HCC) * MAGNESIUM BLOOD(Performed 05/24/2023) Performed for Rectal cancer (HCC) * CBC W AUTO DIFFERENTIAL(Performed 05/24/2023) Performed for Rectal cancer (HCC) * COMPREHENSIVE METABOLIC PANEL(Performed 05/24/2023) Performed for Rectal cancer (HCC) * PHOSPHORUS BLOOD(Performed 05/10/2023) Performed for Rectal cancer (HCC) * MAGNESIUM BLOOD(Performed 05/10/2023) Performed for Rectal cancer (HCC) * COMPREHENSIVE METABOLIC PANEL(Performed 05/10/2023) Performed for Rectal cancer (HCC) * CBC W AUTO DIFFERENTIAL(Performed 05/10/2023) Performed for Rectal cancer (HCC) * CT ABDOMEN W CONTRAST(Performed 05/09/2023) Performed for Rectal cancer (HCC) * IR MARY CATH INSERT(Performed 05/04/2023) Performed for Rectal cancer (HCC) * PT-INR [facility](Performed 05/04/2023) Performed for Rectal cancer (HCC), Pre-op testing * TEMPUS BLOOD DRAW(Performed 04/28/2023) Performed for Rectal cancer (HCC) * COMPREHENSIVE METABOLIC PANEL(Performed 04/28/2023) Performed for Rectal cancer (HCC) * CBC W AUTO DIFFERENTIAL(Performed 04/28/2023) Performed for Rectal cancer (HCC) * TEMPUS XT(Performed 04/28/2023) Performed for Rectal cancer (HCC) * MRI PELVIS WWO CONTRAST(Performed 04/14/2023) Performed for Rectal cancer (HCC), Squamous cell carcinoma of cervix (HCC) * CT CHEST W CONTRAST(Performed 04/14/2023) Performed for Rectal cancer (HCC), Squamous cell carcinoma of cervix (HCC) * CREATININE - POCT INTERFACED(Performed 04/14/2023) * PAP IMAGE-GUIDED W HPV(Performed 04/06/2023) 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) * HPV GENOTYPES 16,18/45(Performed 04/06/2023) 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) * HPV DETECTION HIGH RISK DARRYL(Performed 04/06/2023) 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) * PAP IMAGE-GUIDED(Performed 11/08/2022) 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), History of cervical cancer * PAP IMAGE-GUIDED W HPV(Performed 10/07/2022) 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), Atypical squamous cells cannot exclude high grade squamous intraepithelial lesion on cytologic smear of vagina (ASC-H), 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) * HPV DETECTION HIGH RISK DARRYL(Performed 10/07/2022) 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), Atypical squamous cells cannot exclude high grade squamous intraepithelial lesion on cytologic smear of vagina (ASC-H), 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) * PAP IMAGE-GUIDED W HPV(Performed 04/08/2022) 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), 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), Atypical squamous cells cannot exclude high grade squamous intraepithelial lesion on cytologic smear of vagina (ASC-H), Vaginal high risk human papi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 * HPV GENOTYPES 16,18/45(Performed 04/08/2022) 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), 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), Atypical squamous cells cannot exclude high grade squamous intraepithelial lesion on cytologic smear of vagina (ASC-H), Vaginal high risk human papi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 * HPV DETECTION HIGH RISK DARRYL(Performed 04/08/2022) 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), 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), Atypical squamous cells cannot exclude high grade squamous intraepithelial lesion on cytologic smear of vagina (ASC-H), Vaginal high risk human papi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 * PAP IMAGE-GUIDED W HPV(Performed 10/04/2021) Performed for Encounter for gynecological examination, History of cervical cancer, Carcinoma in situ of vagina, HPV exposure, S/P radiation therapy * HPV GENOTYPES 16,18/45(Performed 10/04/2021) Performed for Encounter for gynecological examination, History of cervical cancer, Carcinoma in situ of vagina, HPV exposure, S/P radiation therapy * HPV DETECTION HIGH RISK DARRYL(Performed 10/04/2021) Performed for Encounter for gynecological examination, History of cervical cancer, Carcinoma in situ of vagina, HPV exposure, S/P radiation therapy * PAP IMAGE-GUIDED W HPV(Performed 03/29/2021) Performed for History of cervical cancer, Carcinoma in situ of vagina, HPV exposure * HPV GENOTYPES 16,18/45(Performed 03/29/2021) Performed for History of cervical cancer, Carcinoma in situ of vagina, HPV exposure * HPV DETECTION HIGH RISK DARRYL(Performed 03/29/2021) Performed for History of cervical cancer, Carcinoma in situ of vagina, HPV exposure * PAP IMAGE-GUIDED W HPV(Performed 09/14/2020) Performed for History of cervical cancer * HPV DETECTION HIGH RISK DARRYL(Performed 09/14/2020) Performed for History of cervical cancer * PAP IMAGE-GUIDED W HPV(Performed 03/02/2020) Performed for History of cervical cancer, Carcinoma in situ of vagina, HPV exposure * HPV DETECTION HIGH RISK DARRYL(Performed 03/02/2020) Performed for History of cervical cancer, Carcinoma in situ of vagina, HPV exposure * PAP IMAGE-GUIDED W HPV(Performed 09/23/2019) Performed for History of cervical cancer, HPV exposure, Carcinoma in situ of vagina, ASCUS with positive high risk HPV cervical * HPV DETECTION HIGH RISK DARRYL(Performed 09/23/2019) Performed for History of cervical cancer, HPV exposure, Carcinoma in situ of vagina, ASCUS with positive high risk HPV cervical * PAP IMAGE-GUIDED W HPV(Performed 04/29/2019) Performed for HGSIL on cytologic smear of vagina, Carcinoma in situ, vagina * HPV DETECTION HIGH RISK DARRYL(Performed 04/29/2019) Performed for HGSIL on cytologic smear of vagina, Carcinoma in situ, vagina * PAP IMAGE-GUIDED W HPV(Performed 12/24/2018) Performed for Carcinoma in situ, vagina, HGSIL on cytologic smear of vagina, HPV exposure * HPV DETECTION HIGH RISK DARRYL(Performed 12/24/2018) Performed for Carcinoma in situ, vagina, HGSIL on cytologic smear of vagina, HPV exposure * PAP IMAGE-GUIDED W HPV(Performed 10/08/2018) Performed for History of cervical cancer, Carcinoma in situ, vagina, High 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 * HPV DETECTION HIGH RISK DARRYL(Performed 10/08/2018) Performed for History of cervical cancer, Carcinoma in situ, vagina, High 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 * PAP IMAGE-GUIDED W HPV(Performed 06/25/2018) Performed for HGSIL on cytologic smear of vagina, HPV (human papilloma virus) infection * HPV DETECTION HIGH RISK DARRYL(Performed 06/25/2018) Performed for HGSIL on cytologic smear of vagina, HPV (human papilloma virus) infection * PAP IMAGE-GUIDED W HPV(Performed 03/26/2018) 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, History of cervical cancer * HPV DETECTION HIGH RISK DARRYL(Performed 03/26/2018) 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, History of cervical cancer * LARYNGEAL MASK AIRWAY(Performed 11/07/2017) * DESTRUCTION LESION WITH LASER (ANY AREA)(Performed 11/07/2017) Performed for Diagnosis unknown * URINE MICROSCOPIC ONLY(Performed 11/07/2017) Performed for Pre-op testing * HGB HCT PANEL(Performed 11/07/2017) Performed for Pre-op testing * URINALYSIS REFLEX TO MICROSCOPIC NO CULTURE(Performed 11/07/2017) Performed for Pre-op testing * BASIC METABOLIC PANEL (CALCIUM TOTAL)(Performed 11/07/2017) Performed for Pre-op testing * PATHOLOGY TISSUE(Performed 09/18/2017) * PAP IMAGE-GUIDED W HPV(Performed 09/18/2017) * PATHOLOGY TISSUE(Performed 09/18/2017) * PATHOLOGY/GENETICS HISTORICAL-ONBASE(Performed 09/18/2017) * PATHOLOGY/GENETICS HISTORICAL-ONBASE(Performed 09/18/2017) * PAP IMAGE-GUIDED W HPV(Performed 06/05/2017) * PATHOLOGY/GENETICS HISTORICAL-ONBASE(Performed 06/05/2017) * PATHOLOGY/GENETICS HISTORICAL-ONBASE(Performed 06/05/2017) * PAP IMAGE-GUIDED W HPV(Performed 12/05/2016) * PATHOLOGY/GENETICS HISTORICAL-ONBASE(Performed 12/05/2016) * PAP IMAGE-GUIDED W HPV(Performed 08/08/2016) * PATHOLOGY/GENETICS HISTORICAL-ONBASE(Performed 08/08/2016) * PATHOLOGY/GENETICS HISTORICAL-ONBASE(Performed 08/08/2016) * PAP IMAGE-GUIDED W HPV(Performed 02/01/2016) * PATHOLOGY/GENETICS HISTORICAL-ONBASE(Performed 02/01/2016) * PAP THINPREP(Performed 10/05/2015) * PAP IMAGE-GUIDED W HPV(Performed 04/01/2015) * PATHOLOGY/GENETICS HISTORICAL-ONBASE(Performed 04/01/2015) * PAP IMAGE-GUIDED W HPV(Performed 10/01/2014) * PATHOLOGY/GENETICS HISTORICAL-ONBASE(Performed 10/01/2014) * PATHOLOGY/GENETICS HISTORICAL-ONBASE(Performed 10/01/2014) * PATHOLOGY/GENETICS HISTORICAL-ONBASE(Performed 05/05/2014) * PATHOLOGY/GENETICS HISTORICAL-ONBASE(Performed 05/05/2014) * PATHOLOGY/GENETICS HISTORICAL-ONBASE(Performed 05/05/2014) * PAP IG RFLX HPV ASCU(Performed 11/04/2013) * PAP IG RFLX HPV ASCU(Performed 02/11/2013) * PAP IG RFLX HPV ASCU(Performed 10/08/2012) * PATHOLOGY/GENETICS HISTORICAL-ONBASE(Performed 05/21/2012) * PAP IG RFLX HPV ASCU(Performed 11/21/2011) * PAP THINPREP(Performed 06/01/2011) * PAP THINPREP(Performed 11/29/2010) * PAP THINPREP(Performed 05/31/2010) * PAP THINPREP(Performed 12/28/2009) * PATHOLOGY/GENETICS HISTORICAL-ONBASE(Performed 07/08/2009) * PAP SMEAR 1 SLIDE(Performed 07/02/2009) Results * FL Lower Gi Water Soluble (10/23/2024 12:11 PM PAINTER BARREL) Anatomical Region Laterality Modality Abdomen Digital Radiogra phy 10/23/2024 11:5 0 AM PAINTER [facility]REL Impressions 10/23/2024 5:00 PM PAINTER BARREL IMPRESSION: Limited exam due to patient discomfort and infusion being obtained through a pediatric tube and leakage. Within the limitations, contrast could be filled up to the cecum without evidence of strictures. > Dictated by Merritt Adams MD, (residential support worker). I, Salima León MD have personally reviewed and interpreted this examination/study. > Interpreting Provider: Salima León MD on 10/23/2024 5:00 PM Narrative 10/23/2024 5:00 PM PAINTER BARREL PROCEDURE: FL LOWER GI WATER SOLUBLE DATE/TIME OF EXAM: 10/23/2024 10:00 AM CLINICAL INFORMATION: None relevant/not provided if blank. Indication: Z43.2: Ileostomy care (HCC) Additional History: COMPARISON: CT abdomen pelvis 10/03/2024. CONTRAST: 600 mL of Isovue-370 administered per rectum via infusion to the level of the cecum. The examination was terminated due to significant patient discomfort and leakage from the rectal area. FLUOROSCOPY: 2 minutes (94.4 mGy) FINDINGS: A thread winder automatic radiograph of the abdomen demonstrates a nonobstructive bowel gas pattern with no findings of free air within the limits of a supine radiograph. Exam limited due to patient discomfort, contrast leaking, and small caliber of rectal tube. The patient could not be positioned appropriately due to associated pain. The rectum appears normal. The course of the visualized rectum and colon up to the cecum appears normal. The bowel could not be distended. Within the limitations, there are no areas of narrowing or abrupt changes in bowel caliber. Procedure Note Diamond León MD - 10/23/2024 PROCEDURE: FL LOWER GI WATER SOLUBLE DATE/TIME OF EXAM: 10/23/2024 10:00 AM CLINICAL INFORMATION: None relevant/not provided if blank. Indication: Z43.2: Ileostomy care (HCC) Additional History: COMPARISON: CT abdomen pelvis 10/03/2024. CONTRAST: 600 mL of Isovue-370 administered per rectum via infusion tothe level of the cecum. The examination was terminated due to significant patient discomfort and leakage from the rectal area. FLUOROSCOPY: 2 minutes (94.4 mGy) FINDINGS: A thread winder automatic radiograph of the abdomen demonstrates a nonobstructive bowelgas pattern with no findings of free air within the limits of a supine radiograph. Exam limited due to patient discomfort, contrast leaking,and small caliber of rectal tube. The patient could not be positioned appropriately due to associated pain. The rectum appears normal. The course of the visualized rectum and colonup to the cecum appears normal. The bowel could not be distended. Withinthe limitations, there are no areas of narrowing or abrupt changes in bowel caliber. IMPRESSION: Limited exam due to patient discomfort and infusion being obtainedthrough a pediatric tube and leakage. Within the limitations, contrast could be filled up to the cecum without evidence of strictures. > Dictated by Merritt Adams MD, (residential support worker). Salima Patel MD have personally reviewed and interpreted this examination/study. > Interpreting Provider: Salima León MD on 10/23/2024 5:00 PM Maritza Pena MD FLUOROSCOPY ORDERA BLES * Endoscopy, Proctosigmoid (10/11/2024 12:04 PM PAINTER BARREL) Report Endoscopy POC Endoscopy Department Report _ Patient Name: Victor Manuel Ndiaye Procedure Date: 10/11/2024 12:04 PM Date of : 1950 Classification: Outpatient Gender: Female Ethnicity: Not or Race: Black or _ Providers: Maritza Pena Referring MD: Anthony Bennett (Referring MD) Procedure: Flexible Sigmoidoscopy Indications: High risk colon cancer surveillance: Personal history of rectal cancer Medications: Propofol per Anesthesia Description of Procedure: After obtaining informed consent, the endoscope was passed under direct vision. Throughout the procedure, the patient's blood pressure, pulse, and oxygen saturations were monitored continuously. The PCF-[id number] was introduced through the anus and advanced to 40 cm from the anal verge. The flexible sigmoidoscopy was accomplished without difficulty. The patient tolerated the procedure well. The quality of the bowel preparation was good. Findings: Patent colorectal anastomosis, no defects appreciated, no stricture, Estimated blood loss: none. Patent viable colorectal anastomosis, no signs of recurrence or stricture, anastomosis intact, Estimated blood loss: none. Estimated Blood Loss: Estimated blood loss: none. Complications: No immediate complications. Impression: - No specimens collected. Recommendation: - High fiber diet indefinitely. Attending Participation: I personally performed the entire procedure. Procedure Code(s): --- Professional --- 58007, Sigmoidoscopy, flexible; diagnostic, including collection of specimen(s) by brushing or washing, when performed (separate procedure) Diagnosis Code(s): --- Professional --- Z85.048, Personal history of other malignant neoplasm of rectum, rectosigmoid junction, and anus CPT copyright 2021 [employer]. All rights reserved. The codes documented in this report are preliminary and upon surgical coder review may be revised to meet current compliance requirements. _ Maritza Pena, 10/11/2024 12:26:03 PM Note Initiated On: 10/11/2024 12:04 PM Number of Addenda: 0 [facility] [address] [place] [address] [facility] 10/11/2024 12:0 4 PM PAINTER BARREL Maritza Pena MD GI PROCEDURE ORDER OSCAR [facility] * CT Abdomen Pelvis Wo Contrast (10/03/2024 12:20 PM PAINTER BARREL) Only the most recent of3 resultswithin the time period is included. Anatomical Region Laterality Modality Abdomen, Pelvis Computed Tomogra phy 10/03/2024 2:06 PM PAINTER BARREL Impressions 10/03/2024 11:11 PM PAINTER BARREL Impression: 1.Postoperative changes with right lower quadrant ileostomy. 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 Overall, the appearance is unchanged. 2.Mildly atrophic left kidney. 3.Approximately 1.2 x 1.5 cm left adrenal nodule, unchanged, indeterminate. > Dictated by Dominic Carvajal MD, (residential support worker). ISalima MD have personally reviewed and interpreted this examination/study. > Interpreting Provider: Salima León MD on 10/03/2024 11:11 PM Narrative 10/03/2024 11:11 PM PAINTER BARREL PROCEDURE: CT ABDOMEN PELVIS WO CONTRAST, DATE/TIME OF EXAM: 10/03/2024 12:20 PM, LOCATION [facility] INDICATION: C20: Rectal cancer (HCC), history of cervical cancer with radiation treatment COMPARISON: CT abdomen and pelvis with contrast dated 06/04/2024. TECHNIQUE: CT of the abdomen and pelvis was performed without intravenous contrast according to standard protocol. Oral contrast was administered. Rectal contrast was unable to be administered due to inability to pass a rectal tube beyond the anal sphincter without significant resistance and patient discomfort. Findings: Lower Chest: Normal. Liver: Normal. Gallbladder and Bile Ducts: The gallbladder is absent. Spleen: Normal. Pancreas: Normal. Adrenals: An approximately 1.2 x 1.5 cm left adrenal nodule is present, indeterminate on this examination. Kidneys: The left kidney is mildly atrophic. A few punctate nonobstructing stones versus parenchymal calcifications are seen in bilateral kidneys. There is a 9 mm hyperdense lesion in the lower pole of the right kidney. 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 Gastrointestinal/peritoneum/retroperitoneum: The right lower quadrant ileostomy is noted. There is a gastrostomy tube. Contrast was given through the gastrostomy tube which fills the stomach and small bowel loops however no contrast is noted in the distal small bowel loops extending into the ostomy. Again noted is a small focal collection which contains gas in the right anterior abdominal wall adjacent to the ostomy (image 84, series 3) most likely represents the previously seen tract extending from the inferior aspect of the afferent limb of the ostomy into the collection representing a fistulous tract. However as no contrast is seen on this examination within the bowel loops extending to the ostomy, no contrast is noted in this tract or in the abdominal wall fluid collection. Overall, the appearance is similar to the prior exam from 06/04/2024. Some of the pelvic small bowel loops are mildly distended measuring up to 3.3 cm (image 108, series 3) that appears to extend towards ostomy, increased in size compared prior examination without definite evidence of obstruction. The colon is decompressed. Suture line is present in the rectum. There is no free air. Mild fat stranding is noted in the left lower abdomen anterior to the bowel loops. Pelvic: The bladder is normal. The uterus is absent. Multiple surgical clips in the bilateral pelvic sidewalls and iliacs chains, compatible with retroperitoneal dissection. Presacral fat stranding is seen likely representing postoperative changes. Vasculature: Atherosclerotic calcification of the aorta and its branch vessels. Surgical clips are noted along the abdominal aorta and iliac arteries. Bones: Bone windows demonstrate no suspicious lytic or blastic lesions. The visible osseous structures are intact. Degenerative changes are seen in the spine and SI joints. Soft tissues: Postoperative changes of midline laparotomy. Redemonstrated prominent inguinal lymph nodes measuring up to 1.4 cm, previously up to 1.8 cm. Procedure Note Diamond León MD - 10/03/2024 PROCEDURE: CT ABDOMEN PELVIS WO CONTRAST, DATE/TIME OF EXAM: 10/03/2024 12:20 PM, LOCATION [facility] INDICATION: C20: Rectal cancer (HCC), history of cervical cancer with radiation treatment COMPARISON: CT abdomen and pelvis with contrast dated 06/04/2024. TECHNIQUE: CT of the abdomen and pelvis was performed withoutintravenous contrast according to standard protocol. Oral contrast was administered. Rectal contrast was unable to be administered due to inability to pass a rectal tube beyond the anal sphincter without significant resistance and patient discomfort. Findings: Lower Chest: Normal. Liver: Normal. Gallbladder and Bile Ducts: The gallbladder is absent. Spleen: Normal. Pancreas: Normal. Adrenals: An approximately 1.2 x 1.5 cm left adrenal nodule is present,indeterminate on this examination. Kidneys: The left kidney is mildly atrophic. A few punctate nonobstructing stones versus parenchymal calcifications are seen in bilateral kidneys. There aleida 9 mm hyperdense lesion in the lower pole of the right kidney. 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 Gastrointestinal/peritoneum/retroperitoneum: The right lower quadrant ileostomy is noted. There is a gastrostomytube. Contrast was given through the gastrostomy tube which fills the stomachand small bowel loops however no contrast is noted in the distal small bowel loops extending into the ostomy. Again noted is a small focal collection which contains gas in the right anterior abdominal wall adjacent to the ostomy (image 84, series 3) most likely represents the previously seen tract extending from the inferior aspect of the afferent limb of theostomy into the collection representing a fistulous tract. However as nocontrast is seen on this examination within the bowel loops extending to theostomy, no contrast is noted in this tract or in the abdominal wall fluid collection. Overall, the appearance is similar to the prior exam from 06/04/2024. Some of the pelvic small bowel loops are mildly distended measuring upto 3.3 cm (image 108, series 3) that appears to extend towards ostomy, increased in size compared prior examination without definite evidenceof obstruction. The colon is decompressed. Suture line is present in the rectum. There is no free air. Mild fat stranding is noted in the left lowerabdomen anterior to the bowel loops. Pelvic: The bladder is normal. The uterus is absent. Multiple surgical clips inthe bilateral pelvic sidewalls and iliacs chains, compatible with retroperitoneal dissection. Presacral fat stranding is seen likely representing postoperative changes. Vasculature: Atherosclerotic calcification of the aorta and its branch vessels.Surgical clips are noted along the abdominal aorta and iliac arteries. Bones: Bone windows demonstrate no suspicious lytic or blastic lesions. The visible osseous structures are intact. Degenerative changes are seen inthe spine and SI joints. Soft tissues: Postoperative changes of midline laparotomy. Redemonstrated prominent inguinal lymph nodes measuring up to 1.4 cm, previously up to 1.8 cm. Impression: 1.Postoperative changes with right lower quadrant ileostomy. No contrastis noted in the distal small bowel loops extending into the ileostomy which limits examination for evaluation of enterocutaneous fistula however, a small collection which contains gas is seen in the right anteriorabdominal wall adjacent to the ostomy likely representing the previously seen fistulous tract extending from the inferior aspect of the afferent limbof the ostomy. Overall, the appearance is unchanged. 2.Mildly atrophic left kidney. 3.Approximately 1.2 x 1.5 cm left adrenal nodule, unchanged,indeterminate. > Dictated by Dominic Carvajal MD, (residential support worker). I, Salima León MD have personally reviewed and interpreted this examination/study. > Interpreting Provider: Salima León MD on 10/03/2024 11:11 PM Maritza Pena MD CT ORDERABLES * (ABNORMAL) CREATININE - POCT INTERFACED (10/03/2024 10:25 AM PAINTER BARREL) Only the most recent of3 resultswithin the time period is included. Creatinine POCT 2.06(H) 0.30 - 1.30 mg/dL 10/03/2024 10:26 AM [facility] eGFR 25(L) >=90 mL/min/1.7 3 m2 10/03/2024 10:26 AM [facility] Blood BLOOD SPECIMEN / Unknown 10/03/2024 10:25 AM [facility] 10/03/2024 10:26 AM [facility] Maritza Pena MD LAB - POINT OF CAR E ORDERABLES [facility] [address] [place] [address], [facility] [phone] * (ABNORMAL) RETINOL BINDING PROTEIN (09/17/2024 12:46 PM [facility]) Retinol Binding Protein 9.1(H) 3.0 - 6.0 mg/dL 09/19/2024 3:35 AM [email or web address] ([facility]) Comment: Performed By: [email or web address] [address] [place] [address] County Demonstrator: José Sharma MD, PhD CLIA Number: [id number] Blood BLOOD SPECIMEN / Unknown Venipuncture / Unknown 09/17/2024 12:46 PM [facility] 09/17/2024 12:57 PM [facility] Maritza Pena MD LAB - CHEMISTRY OR DERABLES Performing Organization Address [facility] Co de Phone Number [facility]) [address] [place] [address] * (ABNORMAL) CBC WITH DIFFERENTIAL (09/17/2024 12:46 PM [facility]) Only the most recent of36 resultswithin the time period is included. WBC 12.3(H) 4.0 - 10.7 x10E9/L 09/17/2024 1:04 PM [facility] RBC Count 3.70(L) 3.90 - 5.20 x10E12/L 09/17/2024 1:04 PM [facility] Hemoglobin 10.0(L) 11.9 - 15.8 g/dL 09/17/2024 1:04 PM [facility] Hematocrit 29.1(L) 34.8 - 46.1 % 09/17/2024 1:04 PM [facility] MCV 78.6(L) 80.0 - 98.0 fL 09/17/2024 1:04 PM [facility] MCH 27.0 26.7 - 33.6 pg 09/17/2024 1:04 PM [facility] MCHC 34.4 31.7 - 36.3 g/dL 09/17/2024 1:04 PM [facility] RDW-CV 16.5(H) 11.3 - 14.8 % 09/17/2024 1:04 PM [facility] Platelet Count 400 150 - 420 x10E9/L 09/17/2024 1:04 PM [facility] MPV 9.5 7.8 - 11.4 fL 09/17/2024 1:04 PM [facility] Preliminary Absolute Neutrophil 8.76(H) 1.60 - 7.50 x10E9/L 09/17/2024 1:04 PM [facility] Neutrophil % 71.4 41.0 - 74.0 % 09/17/2024 1:04 PM [facility] Lymphocyte % 20.4 17.0 - 47.0 % 09/17/2024 1:04 PM [facility] Monocyte % 7.3 3.0 - 11.0 % 09/17/2024 1:04 PM [facility] Eosinophil % 0.2 0.0 - 7.0 % 09/17/2024 1:04 PM [facility] Basophil % 0.2 0.0 - 1.6 % 09/17/2024 1:04 PM [facility] Immature Granulocytes % 0.5 0.0 - 1.0 % 09/17/2024 1:04 PM [facility] Neutrophil Absolute 8.76(H) 1.60 - 7.50 x10E9/L 09/17/2024 1:04 PM [facility] Lymphocyte Absolute 2.50 1.00 - 4.40 x10E9/L 09/17/2024 1:04 PM [facility] Monocyte Absolute 0.90 0.15 - 1.00 x10E9/L 09/17/2024 1:04 PM [facility] Eosinophil Absolute 0.03 0.00 - 0.60 x10E9/L 09/17/2024 1:04 PM [facility] Basophil Absolute 0.03 0.00 - 0.13 x10E9/L 09/17/2024 1:04 PM [facility] Blood BLOOD SPECIMEN / Unknown Venipuncture / Unknown 09/17/2024 12:46 PM [facility] 09/17/2024 12:59 PM [facility] Alexandra HART LAB - HEMATOLOGY OR DERABLES [address] [address], [place] [phone] * TRIGLYCERIDES BLOOD (09/17/2024 12:46 PM [facility]) Only the most recent of2 resultswithin the time period is included. Triglycerides 84 <150 mg/dL 09/17/2024 1:28 PM [facility] Comment: ATP III Classification of Triglycerides: <150 mg/dL: Normal 150 - 199 mg/dL: Borderline High 200 - 400 mg/dL: High >500 mg/dL: Very High Blood BLOOD SPECIMEN / Unknown Venipuncture / Unknown 09/17/2024 12:46 PM [facility] 09/17/2024 12:59 PM [facility] Maritza Pena MD LAB - CHEMISTRY OR DERABLES [address] [address], [place] [phone] * (ABNORMAL) COMPREHENSIVE METABOLIC PANEL (09/17/2024 12:46 PM [facility]) Only the most recent of24 resultswithin the time period is included. BUN 82(H) 7 - 26 mg/dL 09/17/2024 1:28 PM [facility] Creatinine 1.48(H) 0.56 - 0.96 mg/dL 09/17/2024 1:28 PM [facility] Sodium 132(L) 136 - 145 mmol/L 09/17/2024 1:28 PM [facility] Potassium 3.7 3.5 - 4.5 mmol/L 09/17/2024 1:28 PM [facility] Chloride 93(L) 98 - 107 mmol/L 09/17/2024 1:28 PM [facility] CO2 25 22 - 29 mmol/L 09/17/2024 1:28 PM [facility] Glucose 113(H) 70 - 99 mg/dL 09/17/2024 1:28 PM [facility] Calcium 9.9 8.4 - 10.2 mg/dL 09/17/2024 1:28 PM [facility] Protein Total 7.9 6.0 - 8.3 g/dL 09/17/2024 1:28 PM [facility] Albumin 3.2(L) 3.4 - 5.0 g/dL 09/17/2024 1:28 PM [facility] Bilirubin Total 0.5 0.2 - 1.2 mg/dL 09/17/2024 1:28 PM [facility] Alkaline Phosphatase 120 40 - 150 U/L 09/17/2024 1:28 PM [facility] ALT 26 5 - 55 U/L 09/17/2024 1:28 PM [facility] AST 19 5 - 34 U/L 09/17/2024 1:28 PM [facility] Anion Gap 14 6 - 16 09/17/2024 1:28 PM [facility] BUN/Creatinine Ratio >50(H) 7 - 23 09/17/2024 1:28 PM [facility] Osmolality Calculated 300(H) 275 - 295 mOsm/kg 09/17/2024 1:28 PM [facility] Albumin/Globulin Ratio 0.7(L) 1.1 - 2.3 09/17/2024 1:28 PM [facility] eGFR by CKD-EPI 38(L) >=90 mL/min/1.7 3 m2 09/17/2024 1:28 PM [facility] Blood BLOOD SPECIMEN / Unknown Venipuncture / Unknown 09/17/2024 12:46 PM [facility] 09/17/2024 12:59 PM [facility] Alexandra Rooney APRN-DIRECTOR [employer]OY[employer] LAB - CHEMISTRY ORD ERABLES Performing Organization Address City/[facility]/ZIP Co de Phone Number [facility] [address] [place] [address], [place] [phone] * PREALBUMIN (09/17/2024 12:46 PM [facility]) Only the most recent of6 resultswithin the time period is included. Prealbumin 24 16 - 45 mg/dL 09/17/2024 1:29 PM [facility] Blood BLOOD SPECIMEN / Unknown Venipuncture / Unknown 09/17/2024 12:46 PM [facility] 09/17/2024 12:58 PM [facility] Maritza Pena MD LAB - CHEMISTRY OR DERABLES Performing Organization Address City/[facility]/ZIP Co de Phone Number [address] [address], [place] [phone] * VITAMIN B12 (09/17/2024 12:46 PM [facility]) Only the most recent of2 resultswithin the time period is included. Vitamin B12 423 213 - 816 pg/mL 09/17/2024 1:53 PM [facility] Blood BLOOD SPECIMEN / Unknown Venipuncture / Unknown 09/17/2024 12:46 PM [facility] 09/17/2024 12:59 PM [facility] Alexandra Rooney YO-DIRECTOR [employer]OYEE [employer] LAB - CHEMISTRY ORD ERABLES Performing Organization Address City/[facility]/ZIP Co de Phone Number [address] [address], [place] [phone] * TSH (09/17/2024 12:46 PM [facility]) Only the most recent of2 resultswithin the time period is included. TSH 0.512 0.350 - 4.940 uIU/mL 09/17/2024 1:53 PM [facility] Blood BLOOD SPECIMEN / Unknown Venipuncture / Unknown 09/17/2024 12:46 PM [facility] 09/17/2024 12:59 PM [facility] Alexandra [facility] LAB - CHEMISTRY ORD ERABLES Performing Organization Address City/[facility]/ZIP Co de Phone Number [facility] [address] [place] [phone], [facility] [phone] * (ABNORMAL) IRON + TRANSFERRIN PANEL (09/17/2024 12:46 PM [facility]) Only the most recent of5 resultswithin the time period is included. Iron 29(L) 40 - 150 ug/dL 09/17/2024 1:31 PM [facility] Transferrin 196 174 - 382 mg/dL 09/17/2024 1:31 PM [facility] Transferrin Saturation % 12(L) 16 - 50 % 09/17/2024 1:31 PM [facility] TIBC Calculated 245 240 - 450 ug/dL 09/17/2024 1:31 PM [facility] Blood BLOOD SPECIMEN / Unknown Venipuncture / Unknown 09/17/2024 12:46 PM [facility] 09/17/2024 12:58 PM [facility] Alexandra Rooney [facility] LAB - CHEMISTRY ORD ERABLES Performing Organization Address City/[facility]/ZIP Co de Phone Number [address] [address], [facility] [phone] * (ABNORMAL) FERRITIN (09/17/2024 12:46 PM [facility]) Only the most recent of2 resultswithin the time period is included. Ferritin 1,507(H) 13 - 204 ng/mL 09/17/2024 1:47 PM [facility] Comment:Result obtained by celeste lucero. Blood BLOOD SPECIMEN / Unknown Venipuncture / Unknown 09/17/2024 12:46 PM [facility] 09/17/2024 12:58 PM [facility] Alexandra Rooney APRN-DIRECTOR [employer] LAB - CHEMISTRY ORD ERABLES [facility] [address] [place] [address], [facility] [phone] * (ABNORMAL) CBC W/O DIFFERENTIAL (06/17/2024 8:20 PM CDT) Only the most recent of25 resultswithin the time period is included. WBC 9.6 4.0 - 10.7 x10E9/L 06/17/2024 9:20 PM CDT [facility] RBC Count 2.84(L) 3.90 - 5.20 x10E12/L 06/17/2024 9:20 PM T [facility] Hemoglobin 8.6(L) 11.9 - 15.8 g/dL 06/17/2024 9:20 PM [facility] Hematocrit 27.5(L) 34.8 - 46.1 % 06/17/2024 9:20 PM T [facility] MCV 96.8 80.0 - 98.0 fL 06/17/2024 9:20 PM CDT [facility] MCH 30.3 26.7 - 33.6 pg 06/17/2024 9:20 PM T [facility] MCHC 31.3(L) 31.7 - 36.3 g/dL 06/17/2024 9:20 PM T [facility] RDW-CV 18.1(H) 11.3 - 14.8 % 06/17/2024 9:20 PM T [facility] Platelet Count 340 150 - 420 x10E9/L 06/17/2024 9:20 PM T [facility] MPV 11.0 7.8 - 11.4 fL 06/17/2024 9:20 PM [facility] Blood BLOOD SPECIMEN / Unknown Lab Venipuncture / Unknown 06/17/2024 8:20 PM CDT 06/17/2024 9:09 PM CDT Shola [place]ini MD LAB - HEMATOLOGY ORD ERABLES [facility] [address] [place] [address], [facility] [phone] * (ABNORMAL) BASIC METABOLIC PANEL (CALCIUM TOTAL) (06/17/2024 8:20 PM CDT) Only the most recent of19 resultswithin the time period is included. BUN 22 7 - 26 mg/dL 06/17/2024 9:46 PM [facility] Creatinine 1.01(H) 0.56 - 0.96 mg/dL 06/17/2024 9:46 PM [facility] Sodium 139 136 - 145 mmol/L 06/17/2024 9:46 PM [facility] Potassium 4.4 3.5 - 4.5 mmol/L 06/17/2024 9:46 PM [facility] Chloride 112(H) 98 - 107 mmol/L 06/17/2024 9:46 PM [facility] CO2 16(L) 22 - 29 mmol/L 06/17/2024 9:46 PM [facility] Glucose 107 70 - 115 mg/dL 06/17/2024 9:46 PM [facility] Calcium 9.8 8.4 - 10.2 mg/dL 06/17/2024 9:46 PM [facility] Anion Gap 11 6 - 16 06/17/2024 9:46 PM [facility] BUN/Creatinine Ratio 22 7 - 23 06/17/2024 9:46 PM [facility] Osmolality Calculated 292 275 - 295 mOsm/kg 06/17/2024 9:46 PM [facility] eGFR by CKD-EPI 60(L) >=90 mL/min/1.7 3 m2 06/17/2024 9:46 PM [facility] Blood BLOOD SPECIMEN / Unknown Lab Venipuncture / Unknown 06/17/2024 8:20 PM CDT 06/17/2024 9:09 PM CDT Shola [place] MD LAB - CHEMISTRY [place] [place] [address] [place] [address], [facility] [phone] * PHOSPHORUS BLOOD (06/17/2024 8:20 PM CDT) Only the most recent of35 resultswithin the time period is included. Phosphorus 3.5 2.9 - 5.1 mg/dL 06/17/2024 9:46 PM CDT [facility] Blood BLOOD SPECIMEN / Unknown Lab Venipuncture / Unknown 06/17/2024 8:20 PM CDT 06/17/2024 9:09 PM CDT Shola [place] MD LAB - CHEMISTRY [place] [address] [address], [facility] [phone] * (ABNORMAL) MAGNESIUM BLOOD (06/17/2024 8:20 PM CDT) Only the most recent of53 resultswithin the time period is included. Magnesium 1.4(L) 1.6 - 2.6 mg/dL 06/17/2024 9:46 PM CDT [facility] Blood BLOOD SPECIMEN / Unknown Lab Venipuncture / Unknown 06/17/2024 8:20 PM CDT 06/17/2024 9:09 PM CDT Shola [place] MD LAB - CHEMISTRY [place] [address] [address], [place] [phone] * GLUCOSE - POINT OF CARE (06/12/2024 8:49 PM CDT) Glucose WB/POC 100 70 - 115 mg/dL 06/13/2024 5:46 AM CDT [facility] Specimen Type Cap Fingerstick 2023 5:46 AM CDT [facility] Blood BLOOD SPECIMEN / Unknown 06/12/2024 8:49 PM CDT 06/13/2024 5:46 AM CDT Shola [place] MD LAB - POINT OF CARE ORDERABLES [facility] [address] [place] [phone], [facility] [phone] * CT Abdomen Pelvis W Contrast (06/04/2024 10:53 AM CDT) Only the most recent of3 resultswithin the time period is included. Anatomical Region Laterality Modality Abdomen, Pelvis Computed Tomogra phy 06/04/2024 11:3 1 AM CDT Impressions 06/04/2024 1:21 PM CDT Impression: 1.Postoperative changes of a right colectomy and loop ileostomy in the right lower quadrant. 2.Redemonstrated skin thickening and subcutaneous fluid and gas in the anterior abdominal wall adjacent to the ostomy site, appearance is similar to prior exam. 3.Prominent hypoattenuating inguinal lymph nodes bilaterally measuring up to 1.8 cm in short axis likely representing necrotic lymph nodes and concerning for julianna metastasis. Contrast administration was complicated by infiltration of approximately 20 mL of contrast saline mixture in the right antecubital fossa. Evaluation by the on-call residential support worker demonstrated swelling and mild tenderness at the infiltration site with normal and symmetric strength in both hands, 2+ symmetric radial pulses, and <2 seconds capillary refill. The patient was instructed to keep the arm elevated and to apply warm compresses as needed. > Dictated by Oni Frias DO (residential support worker). IOllie MD have personally reviewed and interpreted this examination/study. > Interpreting Provider: Ollie Arnold MD on 06/04/2024 1:21 PM Narrative 06/04/2024 1:21 PM CDT PROCEDURE: CT ABDOMEN PELVIS W CONTRAST, DATE/TIME OF EXAM: 06/04/2024 10:53 AM, LOCATION [facility] INDICATION: T81.43XA: Postprocedural intraabdominal abscess (HCC) ADDITIONAL CLINICAL INFORMATION: Ordering Provider Reason For Exam: intraabdominal absccess COMPARISON: CT abdomen pelvis with contrast 05/24/2024 TECHNIQUE: CT of the abdomen and pelvis was performed following the uneventful administration of 100 mL of Isovue 370 intravenous contrast according to standard protocol. Findings: Lower Chest: Bilateral dependent atelectasis. Otherwise normal. Liver: Normal. Gallbladder and Bile Ducts: The gallbladder is absent. Spleen: Normal. Pancreas: Normal. Adrenals: Normal. Kidneys: Bilateral renal cysts. A 3 mm oval calcification in the lower pole of the right kidney likely represents parenchymal calcification. Gastrointestinal: Postoperative changes of a right colectomy and loop ileostomy in the right lower quadrant. The residual colon appears collapsed. There is a gastrostomy tube that terminates in the stomach. No dilated loops of small bowel. Mesentery/Peritoneum/Retroperitoneum: Mesenteric fat stranding is noted in the right lower quadrant. Bladder: Normal. Reproductive Organs: The uterus is absent. Vasculature: Atherosclerotic calcification of the aorta and its branch vessels. 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 Multiple surgical clips are noted along the abdominal aorta and iliac arteries. Bones: Bone windows demonstrate no suspicious lytic or blastic lesions. The visible osseous structures are intact. Soft tissues: Postoperative changes of a laparotomy with fat stranding and subcutaneous gas noted in the midline anterior abdominal wall. Prominent hypoattenuating inguinal lymph nodes bilaterally measuring up to 1.8 cm in short axis which may represent necrotic lymph nodes. Redemonstrated is skin thickening and subcutaneous fluid and gas in the anterior abdominal wall adjacent to the ostomy site, appearance is similar to prior exam. Procedure Note Ollie Arnold MD - 06/04/2024 PROCEDURE: CT ABDOMEN PELVIS W CONTRAST, DATE/TIME OF EXAM: 06/04/2024 10:53 AM, LOCATION [facility] INDICATION: T81.43XA: Postprocedural intraabdominal abscess (HCC) ADDITIONAL CLINICAL INFORMATION: Ordering Provider Reason For Exam: intraabdominal absccess COMPARISON: CT abdomen pelvis with contrast 05/24/2024 TECHNIQUE: CT of the abdomen and pelvis was performed following the uneventful administration of 100 mL of Isovue 370 intravenous contrast according to standard protocol. Findings: Lower Chest: Bilateral dependent atelectasis. Otherwise normal. Liver: Normal. Gallbladder and Bile Ducts: The gallbladder is absent. Spleen: Normal. Pancreas: Normal. Adrenals: Normal. Kidneys: Bilateral renal cysts. A 3 mm oval calcification in the lower pole ofthe right kidney likely represents parenchymal calcification. Gastrointestinal: Postoperative changes of a right colectomy and loop ileostomy in theright lower quadrant. The residual colon appears collapsed. There is a gastrostomy tube that terminates in the stomach. No dilated loops ofsmall bowel. Mesentery/Peritoneum/Retroperitoneum: Mesenteric fat stranding is noted in the right lower quadrant. Bladder: Normal. Reproductive Organs: The uterus is absent. Vasculature: Atherosclerotic calcification of the aorta and its branch vessels. 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 Multiple surgical clips are noted along the abdominal aorta and iliac arteries. Bones: Bone windows demonstrate no suspicious lytic or blastic lesions. The visible osseous structures are intact. Soft tissues: Postoperative changes of a laparotomy with fat stranding andsubcutaneous gas noted in the midline anterior abdominal wall. Prominenthypoattenuating inguinal lymph nodes bilaterally measuring up to 1.8 cm in short axiswhich may represent necrotic lymph nodes. Redemonstrated is skin thickeningand subcutaneous fluid and gas in the anterior abdominal wall adjacent tothe ostomy site, appearance is similar to prior exam. Impression: 1.Postoperative changes of a right colectomy and loop ileostomy in the right lower quadrant. 2.Redemonstrated skin thickening and subcutaneous fluid and gas in the anterior abdominal wall adjacent to the ostomy site, appearance issimilar to prior exam. 3.Prominent hypoattenuating inguinal lymph nodes bilaterally measuringup to 1.8 cm in short axis likely representing necrotic lymph nodes and concerning for julianna metastasis. Contrast administration was complicated by infiltration of [id number] mL of contrast saline mixture in the right antecubital fossa. Evaluationby the on-call residential support worker demonstrated swelling and mild tendernessat the infiltration site with normal and symmetric strength in both hands,2+ symmetric radial pulses, and <2 seconds capillary refill. The patientwas instructed to keep the arm elevated and to apply warm compresses asneeded. > Dictated by Oni Frias DO (residential support worker). I, Ollie Arnold MD have personally reviewed and interpreted this examination/study. > Interpreting Provider: Ollie Arnold MD on 41:21 PM Vinnie Laci Payton MD CT ORDERABLE S * (ABNORMAL) RENAL FUNCTION PANEL (06/04/2024 5:58 AM CDT) Only the most recent of16 resultswithin the time period is included. BUN 25 7 - 26 mg/dL 06/04/2024 7:31 AM [facility] Creatinine 1.17(H) 0.56 - 0.96 mg/dL 06/04/2024 7:31 AM [facility] Sodium 136 136 - 145 mmol/L 06/04/2024 7:31 AM [facility] Potassium 4.5 3.5 - 4.5 mmol/L 06/04/2024 7:31 AM [facility] Chloride 110(H) 98 - 107 mmol/L 06/04/2024 7:31 AM [facility] CO2 21(L) 22 - 29 mmol/L 06/04/2024 7:31 AM [facility] Glucose 118(H) 70 - 115 mg/dL 06/04/2024 7:31 AM [facility] Albumin 2.2(L) 3.4 - 5.0 g/dL 06/04/2024 7:31 AM [facility] Calcium 9.6 8.4 - 10.2 mg/dL 06/04/2024 7:31 AM [facility] Phosphorus 2.5(L) 2.9 - 5.1 mg/dL 06/04/2024 7:31 AM [facility] Anion Gap 5(L) 6 - 16 06/04/2024 7:31 AM [facility] BUN/Creatinine Ratio 21 7 - 23 06/04/2024 7:31 AM [facility] Osmolality Calculated 287 275 - 295 mOsm/kg 06/04/2024 7:31 AM [facility] eGFR by CKD-EPI 50(L) >=90 mL/min/1.7 3 m2 06/04/2024 7:31 AM [facility] Blood BLOOD SPECIMEN / Unknown Lab Venipuncture / Unknown 06/04/2024 5:58 AM CDT 06/04/2024 7:05 AM CDT Lynda Rasmussen MD LAB - CHEMISTRY [facility]ELA [facility] Organization Address City/State/ZIP Co de Phone Number [facility] [address] [place] [address], [facility] [phone] * XR Knee Right 2Vw or Less (05/26/2024 9:57 AM CDT) Anatomical Region Laterality Modality Lower Extremity Radiographic Kristen ging 05/26/2024 11:0 8 AM CDT Impressions 05/26/2024 11:47 AM CDT IMPRESSION: No acute fracture or dislocation. Soft tissue swelling noted anterior to the knee. Report drafted by Lester Burkett MD (residential support worker) Ollie Patel MD have personally reviewed and interpreted this examination/study. > Interpreting Provider: Ollie Arnold MD on 05/26/2024 11:47 AM Narrative 05/26/2024 11:47 AM CDT EXAMINATION: XR KNEE RIGHT 2VW OR LESS HISTORY: W19.XXXA: Fall, initial encounter COMPARISON: None. FINDINGS: The osseous structures are intact and well aligned without acute fracture or dislocation. The knee joint space is preserved. No joint effusion is seen. Bone density and texture are normal. Soft tissue swelling is noted anterior to the knee along the patella tendon. No bone fractures or avulsions seen. Procedure Note Ollie Arnold MD - 05/26/2024 EXAMINATION: XR KNEE RIGHT 2VW OR LESS HISTORY: W19.XXXA: Fall, initial encounter COMPARISON: None. FINDINGS: The osseous structures are intact and well aligned without acutefracture or dislocation. The knee joint space is preserved. No joint effusion is seen. Bone density and texture are normal. Soft tissue swelling is noted anterior to the knee along the patella tendon. No bone fractures or avulsions seen. IMPRESSION: No acute fracture or dislocation. Soft tissue swelling noted anterior to the knee. Report drafted by Lester Burkett MD (residential support worker) Ollie Patel MD have personally reviewed and interpreted this examination/study. > Interpreting Provider: Ollie Arnold MD on 1:47 AM Lynda Rasmussen MD DIAGNOSTIC IMAGING O RDERABLES * XR Knee Left 2Vw or Less (05/26/2024 9:57 AM CDT) Anatomical Region Laterality Modality Lower Extremity Radiographic Kristen ging 05/26/2024 11:0 7 AM CDT Impressions 05/26/2024 11:48 AM CDT IMPRESSION: No acute fracture or dislocation. Report drafted by Lester Burkett MD (residential support worker) Ollie Patel MD have personally reviewed and interpreted this examination/study. > Interpreting Provider: Ollie Arnold MD on 05/26/2024 11:48 AM Narrative 05/26/2024 11:48 AM CDT EXAMINATION: XR KNEE LEFT 2VW OR LESS HISTORY: W19.XXXA: Fall, initial encounter COMPARISON: None. FINDINGS: The osseous structures are intact and well aligned without acute fracture or dislocation. The knee joint space is preserved. No joint effusion is seen. Bone density and texture are normal. No soft tissue swelling is present. Procedure Note Ollie Arnold MD - 05/26/2024 EXAMINATION: XR KNEE LEFT 2VW OR LESS HISTORY: W19.XXXA: Fall, initial encounter COMPARISON: None. FINDINGS: The osseous structures are intact and well aligned without acutefracture or dislocation. The knee joint space is preserved. No joint effusion is seen. Bone density and texture are normal. No soft tissue swelling is present. IMPRESSION: No acute fracture or dislocation. Report drafted by Lester Burkett MD (residential support worker) Ollie Patel MD have personally reviewed and interpreted this examination/study. > Interpreting Provider: Ollie Arnold MD on 1:48 AM Lynda Rasmussen MD DIAGNOSTIC IMAGING O RDERABLES * VANCOMYCIN LEVEL TROUGH (05/25/2024 8:00 PM CDT) Vancomycin Trough 12.6 10.0 - 20.0 ug/mL 05/25/2024 9:28 PM CDT [facility] Blood BLOOD SPECIMEN / Unknown Lab Venipuncture / Unknown 05/25/2024 8:00 PM CDT 05/25/2024 8:59 PM CDT Narrative [facility] - 05/25/2024 9:28 PM CDT See institution protocol. Lynda Rasmussen MD LAB - CHEMISTRY NEELA [place] Performing Organization Address City/[facility]/ZIP Co de Phone Number [address] [address], [facility] [phone] * (ABNORMAL) C-REACTIVE PROTEIN (05/24/2024 9:57 AM CDT) Pathologist [facility] [place] C-Reactive Protein 11.6(H) <=0.5 mg/dL 05/24/2024 11:04 AM CDT [facility] Blood BLOOD SPECIMEN / Unknown Lab Venipuncture / Unknown 05/24/2024 9:57 AM CDT 05/24/2024 10:31 AM CDT Lynda Rasmussen MD LAB - CHEMISTRY NEELA [place] Performing Organization Address [facility]/ZIP Co de Phone Number [address] [address], [facility] [phone] * (ABNORMAL) ERYTHROCYTE SEDIMENTATION RATE (05/24/2024 9:57 AM CDT) Erythrocyte Sedimentation Rate Westergren 37(H) 0 - 30 MM/HR 05/24/2024 10:39 AM CDT [facility] Blood BLOOD SPECIMEN / Unknown Lab Venipuncture / Unknown 05/24/2024 9:57 AM CDT 05/24/2024 10:31 AM CDT Lynda Rasmussen MD LAB - HEMATOLOGY ORD ERACOOKIE [facility] [address] [place] [address], [place] [phone] * VANCOMYCIN LEVEL RANDOM (05/23/2024 5:29 PM CDT) Only the most recent of3 resultswithin the time period is included. [facility] Vancomycin Random 9.5 Therapeutic Ranges not established for random specimens ug/mL 05/23/2024 6:05 PM CDT [facility] Blood BLOOD SPECIMEN / Unknown Venipuncture / Unknown 05/23/2024 5:29 PM CDT 05/23/2024 5:40 PM CDT Narrative [facility] - 05/23/2024 6:05 PM CDT See institution protocol. Jeyson Foley MD LAB - CHEMISTRY ORDE OCTAVIO [facility] Organization Address City/State/ZIP Co de Phone Number [facility] [address] [place] [phone], [facility] [phone] * (ABNORMAL) HEPATIC FUNCTION PANEL (05/23/2024 6:30 AM CDT) Only the most recent of2 resultswithin the time period is included. [facility] Protein Total 5.5(L) 6.0 - 8.3 g/dL 024 7:07 AM [facility] Comment:Hemolysis detected i n this specimen. Hemolysis is known to cause elevations in this analyte. Caution should be exercised in the interpretation of this result. Recommend repeat testing if clinically indicated. Albumin 1.8(L) 3.4 - 5.0 g/dL 05/23/2024 7:07 AM [facility] Bilirubin Total 0.4 0.2 - 1.2 mg/dL 05/12 7:07 AM [facility] Bilirubin Conjugated 0.2 0.1 - 0.5 mg/dL 05/23/2024 7:07 AM [facility] Bilirubin Unconjugated 0.2 Unconjugated Bilirubin is a calculated value: Reference ranges have not been established. mg/dL 05/23/2024 7:07 AM [facility] Alkaline Phosphatase 58 40 - 150 U/L 05/23/2024 7:07 AM CDT [facility] ALT 9 5 - 55 U/L 05/23/2024 7:07 AM CDT [facility] AST 25 5 - 34 U/L 05/23/2024 7:07 AM CDT [facility] Comment:Hemolysis detected i n this specimen. Hemolysis is known to cause elevations in this analyte. Caution should be exercised in the interpretation of this result. Recommend repeat testing if clinically indicated. Albumin/Globulin Ratio 0.5(L) 1.1 - 2.3 05/23/2024 7:07 AM CDT [facility] Blood BLOOD SPECIMEN / Unknown Venipuncture / Unknown 05/23/2024 6:30 AM CDT 05/23/2024 6:34 AM CDT Lynda Rasmussen MD LAB - CHEMISTRY ORDE OCTAVIO Performing Organization Address [facility]/ZIP Co de Phone Number [address] [address], [facility] [phone] * TRANSFUSE RED BLOOD CELL LEUKOREDUCED UNIT(S) (05/22/2024 10:18 PM CDT) Lynda Rasmussen MD NURSING - BLOOD PROD TRANSFUSION * PREPARE (CROSSMATCH) RBC UNIT(S), 1 Units (05/22/2024 7:22 PM CDT) Only the most recent of2 resultswithin the time period is included. Unit Description AS1 LR PRBC [facility] BLOOD [facility]ANK LAB Unit ABO A [facility] Unit Rh POS [facility] Product Number R02 [facility] B LOOD BANK LAB Unit Donor # [id number] [facility] Unit Status transfused [facility] BLO OD BANK LAB Product Code [id number] [facility] BLO OD [facility]ANK LAB Blood Type Barcode 6200 [facility] LAB Expiration Date [id number] S BLOOD BANK LAB Blood Bank BLOOD SPECIMEN / Unknown 05/22/2024 5:34 PM CDT Lynda Rasmussen MD LAB - BLOOD BANK ORD ERABLES Performing Organization Address City/[facility]/ZIP Co de Phone Number [facility]OD [facility] LAB [address] [place] [address], [facility] [phone] * TYPE + SCREEN PANEL (05/22/2024 5:29 PM CDT) Only the most recent of5 resultswithin the time period is included. Antibody Screen NEG 6:25 PM CDT [facility] BLOOD [facility] LAB ABO Rh A POS 05/22/2024 6:25 PM CDT [facility] BLOOD [facility] LAB Blood Bank BLOOD SPECIMEN / Unknown Lab Venipuncture / Unknown 05/22/2024 5:29 PM CDT 05/22/2024 5:34 PM CDT Lynda Rasmussen MD LAB - BLOOD BANK ORD ERABLES [facility]OD [facility] [address] [place] [address], [facility] [phone] * (ABNORMAL) DIFFERENTIAL MANUAL (05/22/2024 5:29 PM CDT) Only the most recent of5 resultswithin the time period is included. Pathologist [facility] [place] Neutrophil % 64 41 - 74 % 05/22/2024 6:26 PM CDT [facility] Lymphocyte % 33 17 - 47 % 05/22/2024 6:26 PM T [facility] Monocyte % 3 3 - 11 % 05/22/2024 6:26 PM T [facility] Neutrophil Absolute 10.88(H) 1.60 - 7.50 x10E9/L 05/22/2024 6:26 PM T [facility] Lymphocyte Absolute 5.61(H) 1.00 - 4.40 x10E9/L 05/22/2024 6:26 PM T [facility] Monocyte Absolute 0.51 0.15 - 1.00 x10E9/L 05/22/2024 6:26 PM CDT [facility] RBC Morphology NORMAL 05/22/2024 6:26 PM CDT [facility] Blood BLOOD SPECIMEN / Unknown Lab Venipuncture / Unknown 05/22/2024 5:29 PM CDT 05/22/2024 5:39 PM CDT Lynda Rasmussen MD LAB - HEMATOLOGY ORD ERABLES Performing Organization Address [facility]/ZIP Co de Phone Number [address] [address], [facility] [phone] * (ABNORMAL) PTT [facility] (05/22/2024 10:59 AM CDT) Only the most recent of5 resultswithin the time period is included. APTT 65.9(H) 23.0 - 38.4 Seconds 05/22/2024 11:43 AM CDT [facility] Comment:Suggested therapeuti c range for full dose I.V. unfractionated heparin therapy for venous thromboembolism is 71 to 109 seconds. Blood BLOOD SPECIMEN / Unknown Venipuncture / Unknown 05/22/2024 10:59 AM CDT 05/22/2024 11:12 AM CDT Jeyson Foley MD LAB - COAGULATION OR DERABLES Performing Organization Address [facility] Co de Phone Number [address] [address], [facility] [phone] * PT-INR [facility] (05/22/2024 12:18 AM CDT) Only the most recent of3 resultswithin the time period is included. PT 12.7 12.1 - 14.8 Seconds 05/22/2024 1:39 AM CDT [facility] LABORATORY [facility] INR 1.0 See Comment 05/22/2024 1:39 AM CDT [facility] Comment:The suggested therap eutic range for standard coumadin (warfarin) therapy is an INR of 2.0-3.0. For high-risk patients (Mechanical Mitral Valve Prosthesis, etc.), the suggested prophylactic therapeutic range is an INR of 2.5-3.5. Blood BLOOD SPECIMEN / Unknown Lab Venipuncture / Unknown 05/22/2024 12:18 AM CDT 05/22/2024 12:23 AM CDT Maritza Pena MD LAB - COAGULATION ORDERABLES Performing Organization Address City/[facility]/ZIP Co de Phone Number [facility] [address] [place] [address], [place] [phone] * CULTURE BLOOD (05/21/2024 4:33 PM CDT) Only the most recent of4 resultswithin the time period is included. Culture No growth day 5 BEN 05/26/2024 7:[address] [facility] MICROBIOLOGY Blood PERIPHERAL BLOOD / Unknown Venipuncture / Unknown 05/21/2024 4:33 PM CDT 05/21/2024 4:35 PM CDT Jeyson Foley MD LAB - MICROBIOLOGY O RDERABLES Performing Organization Address City/[facility]/ZIP Co de Phone Number [facility] MICROBIOLOGY [address] [place] [address], [facility] [phone] * LYTES (NA K CL) URINE RANDOM PANEL (05/21/2024 12:39 AM CDT) Sodium Urine 69 Not Established mmol/L 05/21/2024 1:16 AM CDT [facility] Potassium Urine 25.6 Not Established mmol/L 05/21/2024 1:16 AM CDT [facility] Chloride Random Urine 65 Not Established mmol/L 05/21/2024 1:16 AM CDT [facility] Urine URINE SPECIMEN OBTAINED BY CLEAN CATCH PROCEDURE / Unknown Collection / Unknown 05/21/2024 12:39 AM CDT 05/21/2024 12:50 AM CDT Maritza Pena MD LAB - URINE CHEMIS TRY ORDERABLES Performing Organization Address City/[facility]/ZIP Co de Phone Number [facility] [address] [place] [address], [place] [phone] * CREATININE URINE RANDOM (05/21/2024 12:39 AM CDT) Only the most recent of2 resultswithin the time period is included. Creatinine Urine 38.01 Not Established mg/dL 05/21/2024 1:16 AM CDT [facility] Urine URINE SPECIMEN OBTAINED BY CLEAN CATCH PROCEDURE / Unknown Collection / Unknown 05/21/2024 12:39 AM CDT 05/21/2024 12:50 AM CDT Maritza Pena MD LAB - URINE CHEMIS TRY ORDERABLES [facility] [address] [place] [address], [facility] [phone] * FL Luis Alberto W Angio Team (05/20/2024 5:51 PM CDT) Narrative [facility] RADIOLOGY - 05/20/2024 5:52 PM CDT Fluoroscopy was used for this exam in the OR. Please see the Operative report. Robert Daniel MD FLUOROSCOPY ORDERABL ES Performing Organization Address City/[facility]/ZIP Co de Phone Number [facility] RADIOLOGY * (ABNORMAL) BLOOD GAS+COOX+LYTES+METAB ARTERIAL POCT (05/20/2024 4:36 PM CDT) pH Arterial 7.33(L) 7.35 - 7.45 pH 05/20/2024 4:36 PM T [facility] pO2 Arterial 251(H) 80 - 100 mmHg 05/20/2024 4:36 PM [facility] pCO2 Arterial 36 35 - 45 mmHg 4:36 PM [facility] HCO3 Arterial 19.0(L) 20.0 - 30.0 mmol/L 05/20/2024 4:36 PM T [facility] BE Arterial -6.3(L) -2.0 - 2.0 mmol/L 05/20/2024 4:36 PM [facility] Oxyhemoglobin Arterial 98.8 % 05/20/2024 4:36 PM [facility] Dexoyhemoglobin (HHB) % <1.0 % 05/20/2024 4:36 PM [facility] Methemoglobin <0.8 0.0 - 2.0 % 05/20/2024 4:36 PM [facility] Carboxyhemoglobin 1.2 0.0 - 2.0 % 2023 4:36 PM [facility] Comment:Carboxyhemoglobin No rmal Concentration: Non-smokers: 0-2%; Smokers: 0- 9%; Toxic: >20% O2 Content Arterial 14.2 Interpret within clinical context ml/dL 05/20/2024 4:36 PM [facility] Hemoglobin by COOX 9.8(L) 12.0 - 15.6 g/dL 05/20/2024 4:36 PM [facility] O2 Saturation Arterial 100 90 - 100 % 05/20/2024 4:36 PM [facility] Sodium Whole Blood 134(L) 135 - 145 mmol/L 05/20/2024 4:36 PM [facility] Potassium Whole Blood 3.9 3.5 - 5.5 mmol/L 05/20/2024 4:36 PM [facility] Chloride WB 111(H) 78 - 107 mmol/L 05/20/2024 4:36 PM [facility] Calcium Ionized 1.28 mmol/L 4:36 PM [facility] Ionized Calcium pH Adjusted 1.24 1.19 - 1.34 mmol/L 05/20/2024 4:36 PM [facility] Anion Gap (AG) Arterial 4(L) 6 - 16 mmol/L 05/20/2024 4:36 PM [facility] Glucose WB 95 70 - 115 mg/dL 05/20/2024 4:36 PM [facility] Lactic Acid Whole Blood 1.2 <=2.0 mmol/L 05/20/2024 4:36 PM [facility] Blood, arterial ARTERIAL BLOOD SPECIMEN / Unknown 05/20/2024 4:36 PM CDT 05/20/2024 4:36 PM [facility] Maritza Pena MD LAB - POINT OF CAR E ORDERABLES [facility] [address] [place] [address], [facility] [phone] * BLOOD GAS ART+LYTES+METAB+COOX POC NOTIF (05/20/2024 4:30 PM CDT) Comment Notification Label Only - See Separate Report 05/20/2024 6:08 PM CDT [facility] LABORATORY [facility] Other MISCELLANEOUS SAMPLES / Unknown Collection / Unknown 05/20/2024 4:30 PM CDT 05/20/2024 4:34 PM CDT Uzma Garcialaxmijoshua CHANDLER LAB - BLOOD GASES ORDERABLES [facility] [address] [place] [address], [facility] [phone] * ARTERIAL LINE PERFORMABLE (05/20/2024 4:20 PM CDT) Narrative Shabnam Boothe Anes Asst - 05/20/2024 4:20 PM CDT Shabnam Boothe Anes Asst 05/20/2024 4:21 PM Arterial Line Placement Procedure Note Patient Location: OR. Insertion Time: 05/20/2024 3:51 PM Procedure: Arterial Line ([id number]) Procedure Section Indications: continuous blood pressure monitoring and blood sampling needed. Consent: informed consent was obtained for the procedure. Skin Prep: Chloraprep. Orientation: Left. Site: radial. Site Identification: ultrasound guided with sterile sleeve and gel and palpation. Gauge: 20. Seldinger Technique Used? Yes Number of Attempts: 1. Line Secured with: tape and Tegaderm. Procedure Tolerance: performed while patient under general anesthesia and no immediate complications. Events: none. Patient Sedated? Yes Sedation Types: general anesthesia Staff Section Anesthesia Provider: Floridalma Salazar MD, Performed the procedure Uzma Valle Radhastew [facility] GENERAL ANESTHESIA ORDERABLES * ETT LINE PERFORMABLE (05/20/2024 4:19 PM CDT) Narrative Shabnam Boothe Anes Asst - 05/20/2024 4:19 PM CDT Shabnam Boothe Anes Asst 05/20/2024 4:20 PM Endotracheal Tube Placement: Patient Location: OR. Intubation Event Date/Time: 05/20/2024 3:40 PM Procedure: intubation ([id number]) Procedure Section: Sedation: under general anesthesia. Indications for Airway Management: anesthesia Induction: rapid sequence Patient Position: supine Mask Ventilation: not attempted. Blade Type: Felipe Blade Size: 3 Laryngoscopy View: grade 1 (full cords) Intubation Adjuncts: stylet and cricoid pressure Tube: endotracheal tube Placement: oral Tube type: cuff - inflated Tube Size (MM): 6.5 Depth of Insertion (CM): 22 Measured From: lips Cuff Inflated With: air Number of Attempts: 1. Placement Verified By: direct visualization, bilateral breath sounds, chest auscultation and CO2 monitor Tube secured with: adhesive tape. Dentition unchanged? Yes Difficult Airway? No. Procedure Start Time: 05/20/2024 3:40 PM. Staff Section Anesthesia Provider: Shabnam Boothe Anes Assmadhu, Performed the procedure Provider #1: Floridalma Salazar MD. Additional Comments: Atraumatic intubation with lips, teeth, and tongue in pre-op condition. Eyes taped prior to intubation. . Uzma Butts DO GENERAL ANESTHESIA ORDERABLES * VAS Arterial Ankle Arm Index (05/20/2024 1:37 PM CDT) Anatomical Region Laterality Modality Ankle / Foot, Upper Extremity Ul trasound 05/20/2024 12:1 4 PM CDT Narrative 05/20/2024 1:50 PM CDT Procedure Note Robert Daniel MD - 05/21/[address] MD VASCULAR LAB ORDERAB LES * CT Angio Abdomen Aorta W Runoff (05/20/2024 10:18 AM CDT) Anatomical Region Laterality Modality Abdomen, Lower Extremity Compute d Tomography 05/20/2024 10:4 1 AM CDT Impressions 05/20/2024 12:13 PM CDT Impression: 1.Unchanged nonopacification of the bilateral external iliac artery and common femoral arteries. However, bilateral superficial femoral and profunda femoris arteries are patent. 2.Nonopacification of the right proximal dorsalis pedis artery level of the ankle. Patent three-vessel runoff to left foot. 3.Previously seen seen abscess along the inferior aspect ostomy site is not seen, however there is some new and small foci of air and fat stranding in this region that could represent evolving infection sequela of enterocutaneous fistula and infection. There is no free intraperitoneal air. These findings were discussed with patient's care provider, Dr. Gomez, by on 05/20/2024 11:08 AM with read back verification. > Dictated by Srinivasan Kim MD, (residential support worker). I, Ollie Arnold MD have personally reviewed and interpreted this examination/study. > Interpreting Provider: Ollie Arnold MD on 05/20/2024 12:13 PM Narrative 05/20/2024 12:13 PM CDT PROCEDURE: CT ANGIO ABDOMEN AORTA W RUNOFF, DATE/TIME OF EXAM: 05/20/2024 10:18 AM, LOCATION [facility] INDICATION: M79.671: Foot pain, right ADDITIONAL CLINICAL INFORMATION: Ordering Provider Reason For Exam: limb ischemia COMPARISON: CT abdomen pelvis with contrast and CT abdomen pelvis without contrast 05/18/2024 TECHNIQUE: CT angiography of the abdomen, pelvis, and lower extremities was performed following the uneventful administration of 100 mL of Isovue 370 intravenous contrast according to standard protocol. Three dimensional postprocessing was performed by the technologist and sent to the workstation for review. Findings: Abdominal aorta: No significant focal stenosis or aneurysm. Celiac axis and major branches: There is narrowing at the origin of the celiac trunk with poststenotic dilation. However, vessels patent. Superior mesenteric artery: Patent without significant focal stenosis. Inferior mesenteric artery: Patent without significant focal stenosis. Right renal artery: Patent. Duplicated right renal artery. Left renal artery: Patent without significant focal stenosis. Right common iliac artery: Assessment of the proximal common iliac artery was limited due to artifacts. Atherosclerotic with mild diffuse luminal narrowing seen distally. Right internal iliac artery: Atherosclerotic with mild multifocal stenoses. Right external iliac artery: Chronic nonopacification of the right external iliac artery. Right common femoral artery: Occluded proximal segment and distal common femoral artery opacified at the bifurcation. Right profunda femoris artery: Patent without significant focal stenosis. Right superficial femoral artery: Patent without significant focal stenosis. Right popliteal artery: Patent without significant focal stenosis. Right anterior tibial artery: Patent without significant focal stenosis. Proximal dorsalis pedis artery is not opacified. Distal arteries are opacified at the first web space. Right tibioperoneal trunk: Patent without significant focal stenosis. Right posterior tibial artery: Patent without significant focal stenosis. This vessel crosses the ankle and supplies the plantar artery. Right peroneal artery: Patent without significant focal stenosis. Left common iliac artery: Assessment of the proximal common iliac artery was limited due to artifacts. Atherosclerotic with mild diffuse luminal narrowing seen distally. Left internal iliac artery: Patent without significant focal stenosis. Left external iliac artery: Nonopacified, unchanged from 05/18/2024 Left common femoral artery: Nonopacified and occluded. Left profunda femoris artery: Patent without significant focal stenosis. Left superficial femoral artery: Patent without significant focal stenosis. Left popliteal artery: Patent without significant focal stenosis. Left anterior tibial artery: Patent without significant focal stenosis. This vessel crosses the ankle and supplies the dorsalis pedis artery. Left tibioperoneal trunk: Patent without significant focal stenosis. Left posterior tibial artery: Patent without significant focal stenosis. This vessel crosses the ankle and supplies the plantar artery. Left peroneal artery: Patent without significant focal stenosis. Lower Chest: Bilateral right greater than left dependent atelectasis Liver: Normal. Gallbladder and Bile Ducts: Patient is status post cholecystectomy. Unchanged intrahepatic and common bile duct dilation, likely secondary to cholecystectomy. Spleen: Normal. Pancreas: Normal. Adrenals: Right adrenal gland is normal. Unchanged left adrenal nodules. Kidneys: Cortical scarring and mild atrophy of the left kidney with multiple cysts and bilateral kidneys. No evidence of hydronephrosis. Gastrointestinal: Percutaneous gastrostomy with the balloon in the stomach. 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 Previously seen abscess inferior to the ostomy site is not clearly seen or significantly decreased in size. However, small foci of air seen in the soft tissues of the site of ostomy, could indicate areas of infection. Subcutaneous sinus tracts are noted adjacent to the osteomy. Mesentery/Peritoneum/Retroperitoneum: No free intraperitoneal air. Bladder: Normal. Reproductive Organs: Uterus is absent Bones: Osteopenia noted in the small bones of the foot bilaterally. No definite evidence of bony erosions or osteomyelitis. Bone windows demonstrate no suspicious lytic or blastic lesions. The visible osseous structures are intact. Soft tissues: Previously seen fluid collection inferior to the ileostomy site has improved. There is no fat stranding and small foci of air in the region, could represent sequela of infection. Foci of air seen in the left abdominal wall soft tissues, unchanged. Procedure Note Ollie Arnold MD - 05/20/2024 PROCEDURE: CT ANGIO ABDOMEN AORTA W RUNOFF, DATE/TIME OF EXAM:05/20/2024 10:18 AM, LOCATION [facility] INDICATION: M79.671: Foot pain, right ADDITIONAL CLINICAL INFORMATION: Ordering Provider Reason For Exam: limb ischemia COMPARISON: CT abdomen pelvis with contrast and CT abdomen pelvis without contrast 05/18/2024 TECHNIQUE: CT angiography of the abdomen, pelvis, and lower extremitieswas performed following the uneventful administration of 100 mL of [id number] intravenous contrast according to standard protocol. Three dimensional postprocessing was performed by the technologist and sent to the workstation for review. Findings: Abdominal aorta: No significant focal stenosis or aneurysm. Celiac axis and major branches: There is narrowing at the origin of the celiac trunk with poststenotic dilation. However, vessels patent. Superior mesenteric artery: Patent without significant focal stenosis. Inferior mesenteric artery: Patent without significant focal stenosis. Right renal artery: Patent. Duplicated right renal artery. Left renal artery: Patent without significant focal stenosis. Right common iliac artery: Assessment of the proximal common iliacartery was limited due to artifacts. Atherosclerotic with mild diffuse luminal narrowing seen distally. Right internal iliac artery: Atherosclerotic with mild multifocalstenoses. Right external iliac artery: Chronic nonopacification of the rightexternal iliac artery. Right common femoral artery: Occluded proximal segment and distal common femoral artery opacified at the bifurcation. Right profunda femoris artery: Patent without significant focalstenosis. Right superficial femoral artery: Patent without significant focal stenosis. Right popliteal artery: Patent without significant focal stenosis. Right anterior tibial artery: Patent without significant focal stenosis. Proximal dorsalis pedis artery is not opacified. Distal arteries are opacified at the first web space. Right tibioperoneal trunk: Patent without significant focal stenosis. Right posterior tibial artery: Patent without significant focalstenosis. This vessel crosses the ankle and supplies the plantar artery. Right peroneal artery: Patent without significant focal stenosis. Left common iliac artery: Assessment of the proximal common iliac artery was limited due to artifacts. Atherosclerotic with mild diffuse luminal narrowing seen distally. Left internal iliac artery: Patent without significant focal stenosis. Left external iliac artery: Nonopacified, unchanged from 05/18/2024 Left common femoral artery: Nonopacified and occluded. Left profunda femoris artery: Patent without significant focal stenosis. Left superficial femoral artery: Patent without significant focalstenosis. Left popliteal artery: Patent without significant focal stenosis. Left anterior tibial artery: Patent without significant focal stenosis. This vessel crosses the ankle and supplies the dorsalis pedis artery. Left tibioperoneal trunk: Patent without significant focal stenosis. Left posterior tibial artery: Patent without significant focal stenosis. This vessel crosses the ankle and supplies the plantar artery. Left peroneal artery: Patent without significant focal stenosis. Lower Chest: Bilateral right greater than left dependent atelectasis Liver: Normal. Gallbladder and Bile Ducts: Patient is status post cholecystectomy. Unchanged intrahepatic andcommon bile duct dilation, likely secondary to cholecystectomy. Spleen: Normal. Pancreas: Normal. Adrenals: Right adrenal gland is normal. Unchanged left adrenal nodules. Kidneys: Cortical scarring and mild atrophy of the left kidney with multiplecysts and bilateral kidneys. No evidence of hydronephrosis. Gastrointestinal: Percutaneous gastrostomy with the balloon in the stomach. 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 Previously seen abscessinferior to the ostomy site is not clearly seen or significantly decreased insize. However, small foci of air seen in the soft tissues of the site ofostomy, could indicate areas of infection. Subcutaneous sinus tracts are noted adjacent to the osteomy. Mesentery/Peritoneum/Retroperitoneum: No free intraperitoneal air. Bladder: Normal. Reproductive Organs: Uterus is absent Bones: Osteopenia noted in the small bones of the foot bilaterally. No definite evidence of bony erosions or osteomyelitis. Bone windows demonstrate no suspicious lytic or blastic lesions. The visible osseous structures are intact. Soft tissues: Previously seen fluid collection inferior to the ileostomy site has improved. There is no fat stranding and small foci of air in the region, could represent sequela of infection. Foci of air seen in the left abdominal wall soft tissues, unchanged. Impression: 1.Unchanged nonopacification of the bilateral external iliac artery and common femoral arteries. However, bilateral superficial femoral and profunda femoris arteries are patent. 2.Nonopacification of the right proximal dorsalis pedis artery level ofthe ankle. Patent three-vessel runoff to left foot. 3.Previously seen seen abscess along the inferior aspect ostomy site isnot seen, however there is some new and small foci of air and fat strandingin this region that could represent evolving infection sequela of enterocutaneous fistula and infection. There is no free intraperitoneal air. These findings were discussed with patient's care provider, Dr. Gomez,by on 05/20/2024 11:08 AM with read back verification. > Dictated by Srinivasan Kim MD, (residential support worker). I, Ollie Arnold MD have personally reviewed and interpreted this examination/study. > Interpreting Provider: Ollie Arnold MD on 2:[address] CT ORDERABLES * TSH REFLEX FREE T4 (05/16/2024 11:44 AM CDT) TSH 0.495 0.350 - 4.940 uIU/mL 05/16/2024 12:45 PM CDT [facility] Blood BLOOD SPECIMEN / Unknown Venipuncture / Unknown 05/16/2024 11:44 AM CDT 05/16/2024 11:56 AM CDT Mechelle Arteaga MD LAB - CHEMISTRY [place] [facility] Organization Address City/State/ZIP Co de Phone Number [facility] [address] [place] [phone], [facility] [phone] * TRANSFERRIN (05/02/2024 3:13 PM CDT) Transferrin 260 174 - 382 mg/dL 05/02/2024 4:44 PM CDT [facility] Blood BLOOD SPECIMEN / Unknown Lab Venipuncture / Unknown 05/02/2024 3:13 PM CDT 05/02/2024 3:57 PM CDT Maritza Pena MD LAB - CHEMISTRY OR DERABLES Performing Organization Address [facility]/ZIP Co de Phone Number [address] [address], [facility] [phone] * ALBUMIN BLOOD (05/02/2024 3:13 PM CDT) Only the most recent of3 resultswithin the time period is included. Albumin 3.5 3.4 - 5.0 g/dL 05/02/2024 4:35 PM CDT [facility] Blood BLOOD SPECIMEN / Unknown Lab Venipuncture / Unknown 05/02/2024 3:13 PM CDT 05/02/2024 4:29 PM CDT Maritza Pena MD LAB - CHEMISTRY OR DERABLES Performing Organization Address [facility] Co de Phone Number [address] [address], [facility] [phone] * FOLATE (04/30/2024 12:19 PM CDT) Folate 12.9 7.0 - 31.4 ng/mL 04/30/2024 1:49 PM CDT [facility] Blood BLOOD SPECIMEN / Unknown Venipuncture / Unknown 04/30/2024 12:19 PM CDT 04/30/2024 12:43 PM CDT Mechelle Arteaga MD LAB - CHEMISTRY [place] Performing Organization Address City/[facility]/ZIP Co de Phone Number [address] [address], [facility] [phone] * ETT LINE PERFORMABLE (03/25/2024 6:42 PM CDT) Narrative Yuliana Moreno DO - 03/25/2024 6:42 PM CDT Yuliana Moreno DO 03/25/2024 6:43 PM Endotracheal Tube Placement: Patient Location: OR. Intubation Event Date/Time: 03/25/2024 6:33 PM Procedure: intubation (26405) Procedure Section: Sedation: under general anesthesia. Indications for Airway Management: anesthesia Induction: standard IV Patient Position: sniffing and supine Mask Ventilation: easy. Blade Type: Felipe Blade Size: 3 Laryngoscopy View: grade 1 (full cords) Tube: endotracheal tube Placement: oral Tube type: cuff - inflated Tube Size (MM): 7 Depth of Insertion (CM): 22 Measured From: teeth Cuff volume (mL): 5 Cuff Inflated With: air Number of Attempts: 1. Placement Verified By: direct visualization, bilateral breath sounds, chest auscultation and CO2 monitor Tube secured with: adhesive tape. Dentition unchanged? Yes Difficult Airway? No. Procedure Start Time: 03/25/2024 6:33 PM. Staff Section Anesthesia Provider: Yuliana Moreno DO, Performed the procedure Provider #1: Arnel Valenzuela MD. Arnel Valenzuela MD GENERAL ANESTHESIA O RDERABLES * TRANSFUSE RED BLOOD CELL LEUKOREDUCED UNIT(S) (03/24/2024 3:37 PM CDT) Maritza Pena MD NURSING - BLOOD KS OD TRANSFUSION * CEA BLOOD (03/24/2024 7:58 AM CDT) Only the most recent of3 resultswithin the time period is included. [facility] CEA <3.0 <=5.0 ng/mL 03/24/2024 8:57 AM CDT [facility] Comment:CEA values will vary depending on testing procedure used. Results are not comparable across different methods. CEA values obtained by [facility] using an Day Alinity immunoassay. Blood BLOOD SPECIMEN / Unknown Venipuncture / Unknown 03/24/2024 7:58 AM CDT 03/24/2024 8:10 AM CDT Maritza Pena MD LAB - CHEMISTRY OR DERABLES [address] [address], [facility] [phone] * EKG 12-LEAD (03/23/2024 2:19 PM CDT) Only the most recent of2 resultswithin the time period is included. Ventricular Rate 110 BPM [facility] Atrial Rate 110 BPM [facility] P-R Interval 134 ms [facility] QRS Duration ms 64 ms [facility] Q-T Interval ms 324 ms [facility] QTC Calculation (Bezet) 438 ms [facility] Calculated P Maurice 68 degrees [facility] Calculated R Maurice 77 degrees [facility] Calculated T Maurice 91 degrees [facility] Interpretation EKG SINUS TACHYCARDIA OTHERWISE NORMAL ECG WHEN COMPARED WITH ECG OF 01-NOV-2023 14:10, VENT. RATE HAS INCREASED BY 44 BPM NONSPECIFIC T WAVE ABNORMALITY NOW EVIDENT IN LATERAL LEADS Confirmed by JASEN MARIA, VIVIANA ([id number]) on 03/25/2024 9:15:31 PM [facility] MUSE 03/23/2024 2:19 PM CDT 03/25/2024 9:15 PM CDT Maritza Pena MD ECG ORDERABLES [facility] MUSE * US RETROPERITONEAL COMPLETE (11/20/2023 10:11 AM CDT) Anatomical Region Laterality Modality Abdomen Ultrasound 11/20/2023 1:54 PM CDT Impressions 11/20/2023 3:11 PM CDT IMPRESSION: 1.No evidence of hydronephrosis. 2.Right kidney inferior pole angiomyolipoma. 3.Mild/moderate atrophy of the left kidney. Normal size of the right kidney. > Dictated by Jose Frias DO (residential support worker). I, Radha George MD have personally reviewed and interpreted this examination/study. > Interpreting Provider: Radha George MD on 11/20/2023 3:11 PM Narrative 11/20/2023 3:11 PM CDT PROCEDURE: US RETROPERITONEAL COMPLETE, DATE/TIME OF EXAM: 11/20/2023 11:10 AM, LOCATION [facility] INDICATION: N17.9: Acute renal failure, unspecified acute renal failure type (CMS-HCC) ADDITIONAL CLINICAL INFORMATION: Ordering Provider Reason For Exam: r/o hydronephrosis Technologist Note: Additional: COMPARISON: CT chest abdomen and pelvis without contrast from outside hospital dated [address] abdomen with contrast dated 05/09/2023 FINDINGS: Right kidney: 10.6 x 4.9 x 4.5 cm. Volume = 121 mL Left kidney: 8.1 x 4.1 x 3.5 cm. Volume = 61 mL Hyperechoic lesion in the inferior pole of the right kidney measuring 2.4 x 2.3 x 2.3 cm without associated internal blood flow. The echogenicity of this lesion is similar to fat. Outside CT done 2023 shows a corresponding fatty lesion at this site. Limited delineation of the left kidney. Simple cyst in the left kidney measuring up to 1.3 cm. There is no evidence of renal calculi or hydronephrosis. Blood flow is seen within the renal arteries and veins. The bladder is decompressed with Rowe catheter in place.. Procedure Note Radha George MD - 11/20/2023 PROCEDURE: US RETROPERITONEAL COMPLETE, DATE/TIME OF EXAM: 11/20/2023 11:10 AM, LOCATION [facility] INDICATION: N17.9: Acute renal failure, unspecified acute renal failure type([facility]-HCC) ADDITIONAL CLINICAL INFORMATION: Ordering Provider Reason For Exam: r/o hydronephrosis Technologist Note: Additional: COMPARISON: CT chest abdomen and pelvis without contrast from outside hospital dated [address] abdomen with contrast dated 05/09/2023 FINDINGS: Right kidney: 10.6 x 4.9 x 4.5 cm. Volume = 121 mL Left kidney: 8.1 x 4.1 x 3.5 cm. Volume = 61 mL Hyperechoic lesion in the inferior pole of the right kidney measuring 2.4x 2.3 x 2.3 cm without associated internal blood flow. The echogenicity of this lesion is similar to fat. Outside CT done 2023 shows a corresponding fatty lesion at this site. Limited delineation of the left kidney. Simple cyst in the left kidney measuring up to 1.3 cm. There isno evidence of renal calculi or hydronephrosis. Blood flow is seen withinthe renal arteries and veins. The bladder is decompressed with Foleycatheter in place.. IMPRESSION: 1.No evidence of hydronephrosis. 2.Right kidney inferior pole angiomyolipoma. 3.Mild/moderate atrophy of the left kidney. Normal size of the right kidney. > Dictated by Jose Frias DO (residential support worker). I, Radha George MD have personally reviewed and interpreted this examination/study. > Interpreting Provider: Radha George MD on 11/20/2023 3:11 PM Chuck Parikh MD US ORDERABLES * OSMOLALITY BLOOD (11/20/2023 8:15 AM CDT) Osmolality 287 275 - 295 mOsm/kg 11/20/2023 11:55 AM CDT [facility] Blood BLOOD SPECIMEN / Unknown Lab Venipuncture / Unknown 11/20/2023 8:15 AM CDT 11/20/2023 8:23 AM CDT Chuck Parikh MD LAB - CHEMISTRY [place] Performing Organization Address City/[facility]/ZIP Co de Phone Number [address] [address], [place] [phone] * LACTIC ACID BLOOD (11/20/2023 8:15 AM CDT) Only the most recent of2 resultswithin the time period is included. Lactic Acid-Stat 1.1 <=2.0 mmol/L 11/20/2023 8:38 AM CDT [facility] Blood BLOOD SPECIMEN / Unknown Lab Venipuncture / Unknown 11/20/2023 8:15 AM CDT 11/20/2023 8:20 AM CDT Chuck Parikh MD LAB - CHEMISTRY [place]ris [place] [address] [address], [place] [phone] * OSMOLALITY URINE (11/20/2023 12:05 AM CDT) Osmolality Urine 380 50 - 1,200 mOsm/kg 11/20/2023 12:45 AM CDT [facility] Urine URINE SPECIMEN OBTAINED BY CLEAN CATCH PROCEDURE / Unknown Collection / Unknown 11/20/2023 12:05 AM CDT 11/20/2023 12:16 AM CDT Chuck Parikh MD LAB - URINE CHEMISTR Y ORDERABLES [facility] [address] [place] [address], [facility] [phone] * XR CHEST 1VW PORTABLE (11/19/2023 6:20 PM CDT) Anatomical Region Laterality Modality Chest Radiographic Kristen ging 11/20/2023 8:29 AM CDT Impressions 11/20/2023 6:38 PM CDT IMPRESSION: No acute pulmonary process. Report dictated by Abdiaziz Chery DO (Scalper Operator). IAmauri MD have personally reviewed and interpreted this examination/study. > Interpreting Provider: Amauri Kathleen MD on 11/20/2023 6:38 PM Narrative 11/20/2023 6:38 PM CDT PROCEDURE: XR CHEST 1VW PORTABLE, DATE/TIME OF EXAM: 11/19/2023 6:20 PM, LOCATION [facility] INDICATION: R62.7: Failure to thrive in adult ADDITIONAL CLINICAL INFORMATION: Ordering Provider Reason For Exam: r/o pna COMPARISON: Portable chest x-ray dated 11/16/2023. TECHNIQUE: Frontal radiograph of the chest. FINDINGS: *Port-A-Cath overlies the right chest wall with tip terminating in the superior cavoatrial junction. Calcified granuloma of the right mid/lower lung field. There is no focal consolidation, pleural effusion, or pneumothorax. The cardiomediastinal silhouette is normal. The visible bony thorax is intact. Procedure Note Amauri Kathleen MD - 11/20/2023 PROCEDURE: XR CHEST 1VW PORTABLE, DATE/TIME OF EXAM: 11/19/2023 6:20PM, LOCATION [facility] INDICATION: R62.7: Failure to thrive in adult ADDITIONAL CLINICAL INFORMATION: Ordering Provider Reason For Exam: r/o pna COMPARISON: Portable chest x-ray dated 11/16/2023. TECHNIQUE: Frontal radiograph of the chest. FINDINGS: *Port-A-Cath overlies the right chest wall with tip terminating in the superior cavoatrial junction. Calcified granuloma of the right mid/lower lung field. There is no focal consolidation, pleural effusion, or pneumothorax. The cardiomediastinal silhouette is normal. The visible bony thorax is intact. IMPRESSION: No acute pulmonary process. Report dictated by Abdiaziz Chery DO (Scalper Operator). I, Amauri Kathleen MD have personally reviewed and interpreted this examination/study. > Interpreting Provider: Amauri Kathleen MD on 11/20/2023 6:38 PM Chuck Parikh MD DIAGNOSTIC IMAGING O RDERABLES * SARS-COV-2 (COVID-19) FLU A/B RSV PCR RAPID (11/19/2023 5:07 PM CDT) COVID-19 PCR Not detected Not detected 11/19/19 6:18 PM CDT [facility] Influenza A PCR Not detected Not detected 11/19/2023 6:18 PM CDT [facility] Influenza B PCR Not detected Not detected 11/19/2023 6:18 PM CDT [facility] RSV PCR Not detected Not detected 11/19/2023 6:18 PM CDT [facility] Microbiology SPECIMEN FROM NASOPHARYNGEAL STRUCTURE / Unknown Collection / Unknown 11/19/2023 5:07 PM CDT 11/19/2023 5:36 PM CDT Narrative [facility] - 11/19/2023 6:18 PM CDT This nucleic acid amplification assay has been authorized by the Food and Drug administration (FDA) under an Emergency Use Authorization (EUA). This test is only authorized for the duration of time the declaration that circumstances exist justifying the authorization of emergency use of in vitro diagnostic tests for detection of SARS-CoV-2 virus and/or diagnosis of COVID-19 infection under section 564(b)(1) of the Act, 21 U.S.C 360bbb-3 (b)(1), unless the authorization is terminated or revoked sooner. Fact Sheets for this EUA assay are available upon request. Julia Montez MD LAB - MICROBIOLOGY O RDDORIS [facility] [address] [place] [address], [facility] [phone] * CK BLOOD (11/19/2023 4:56 PM CDT) CK Total 35 30 - 200 U/L 11/19/2023 5:36 PM CDT [facility] Blood BLOOD SPECIMEN / Unknown Venipuncture / Unknown 11/19/2023 4:56 PM CDT 11/19/2023 5:06 PM CDT Chuck Parikh MD LAB - CHEMISTRY [place] Performing Organization Address City/[facility]/ZIP Co de Phone Number [facility] [address] [place] [phone], [facility] [phone] * (ABNORMAL) URINE MICROSCOPIC ONLY REFLEX TO CULTURE (11/19/2023 4:50 PM CDT) Reflex Status Culture to follow 11/19/2023 6:12 PM CDT [facility] RBC UA 11-20(A) None Seen, 0-2, 3-5 /HPF 11/19/2023 6:12 PM CDT [facility] WBC UA 51-100(A) None Seen, 0-5 /HPF 11/19/2023 6:12 PM CDT [facility] Bacteria UA Trace(A) None /HPF 11/19/2023 6:12 PM CDT [facility] Yeast Budding UA Occasional( A) None /HPF 11/19/2023 6:12 PM CDT [facility] Yeast Hyphenation UA Occasional( A) None /HPF 11/19/2023 6:12 PM CDT [facility] Squamous Epithelial Cells UA None Seen None Seen, 0-2, 3-5 /HPF 11/19/2023 6:12 PM CDT [facility] Urine URINE SPECIMEN OBTAINED BY CLEAN CATCH PROCEDURE / Unknown Collection / Unknown 11/19/2023 4:50 PM CDT 11/19/2023 4:58 PM CDT Narrative [facility] - 11/19/2023 6:12 PM CDT Chuck Parikh MD LAB - URINALYSIS ORD ERABLES [facility] [address] [place] [phone], [facility] [phone] * (ABNORMAL) URINALYSIS REFLEX MICROSCOPIC REFLEX CULTURE (11/19/2023 4:50 PM CDT) Color UA Yellow Straw, Yellow 11/19/2023 5:32 PM CDT [facility] Clarity UA t Cloudy(A) Clear 11/19/2023 5:32 PM CDT [facility] Specific [place] UA 1.011 1.005 - 1.030 11/19/2023 5:32 PM CDT [facility] pH UA 5.0 5.0 - 8.0 pH 11/19/2023 5:32 PM CDT [facility] Protein UA Negative Negative 11/19/2023 5:32 PM CDT [facility] Glucose UA Negative Negative 11/19/2023 5:32 PM CDT [facility] Ketone UA Negative Negative 11/19/2023 5:32 PM CDT [facility] Bilirubin UA Negative Negative 11/19/2023 5:32 PM CDT [facility] Blood UA 2+(A) Negative 11/19/2023 5:32 PM CDT [facility] Nitrite UA Negative Negative 11/19/2023 5:32 PM CDT [facility] Leukocyte Esterase 3+(A) Negative 11/19/2023 5:32 PM T [facility] Urobilinogen UA Negative Negative mg/dL 11/19/2023 5:32 PM T [facility] Urine URINE SPECIMEN OBTAINED BY CLEAN CATCH PROCEDURE / Unknown Collection / Unknown 11/19/2023 4:50 PM CDT 11/19/2023 4:58 PM CDT Narrative [facility] - 11/19/2023 5:32 PM CDT Chuck Parikh MD LAB - URINALYSIS ORD ERABLES [facility] [address] [place] [phone], [facility] [phone] * CULTURE URINE (11/19/2023 4:50 PM CDT) Culture Urine 50,000-100,000 CFU/mL urogenital weston BEN 11/21/2023 7:[address] [facility] MICROBIOLOGY Urine URINE SPECIMEN OBTAINED BY CLEAN CATCH PROCEDURE / Unknown Collection / Unknown 11/19/2023 4:50 PM CDT 11/19/2023 6:12 PM CDT Chuck Parikh MD LAB - MICROBIOLOGY O RDERABLES [facility] MICROBIOLOGY [address] [place] [address], [facility] [phone] * SODIUM URINE RANDOM (11/19/2023 4:50 PM CDT) Sodium Urine <20 Not Established mmol/L 11/19/2023 5:24 PM CDT [facility] Urine URINE SPECIMEN OBTAINED BY CLEAN CATCH PROCEDURE / Unknown Collection / Unknown 11/19/2023 4:50 PM CDT 11/19/2023 4:58 PM CDT Chuck Parikh MD LAB - URINE CHEMISTR Y ORDERABLES Performing Organization Address [facility]/ZIP Co de Phone Number [address] [address], [place] [phone] * UREA NITROGEN URINE RANDOM (11/19/2023 4:50 PM CDT) Urea Nitrogen Random Urine 672 Not Established mg/dL 11/19/2023 5:24 PM CDT [facility] Urine URINE SPECIMEN OBTAINED BY CLEAN CATCH PROCEDURE / Unknown Collection / Unknown 11/19/2023 4:50 PM CDT 11/19/2023 4:58 PM CDT Chuck Parikh MD LAB - URINE CHEMISTR Y ORDERABLES Performing Organization Address City/[facility]/ZIP Co de Phone Number [address] [address], [place] [phone] * FL CYSTOGRAM (11/15/2023 12:31 PM PAINTER BARREL) Anatomical Region Laterality Modality Abdomen, Pelvis Radio Fluoroscop y 11/15/2023 12:4 5 PM PAINTER BARREL Narrative 11/15/2023 1:00 PM PAINTER BARREL PROCEDURE: FL CYSTOGRAM, DATE/TIME OF EXAM: 11/15/2023 12:33 PM, LOCATION [facility] INDICATION: C20: Malignant neoplasm of rectum (CMS-HCC). CYSTOGRAM HISTORY: History of rectal cancer. FINDINGS: General Worker examination demonstrates surgical clips consistent with pelvic and retroperitoneal lymphadenectomy. Subsequent cystogram was performed with dilute iodinated contrast material. There is mild muscular hypertrophy. The bladder is otherwise normal. There is no evidence of a bladder leak. No reflux into the ureters is seen. Single post void image demonstrates minimal residual contrast in the bladder without bladder extravasation. DIAGNOSIS: Normal cystogram. Edited by Nydia Gutiérrez on 11/15/2023 12:48 PM > Interpreting Provider: Frankie Wilks MD on 11/15/2023 1:00 PM Procedure Note Frankie Wilks MD - 11/15/2023 PROCEDURE: FL CYSTOGRAM, DATE/TIME OF EXAM: 11/15/2023 12:33 PM, LOCATION [facility] INDICATION: C20: Malignant neoplasm of rectum (CMS-HCC). CYSTOGRAM HISTORY: History of rectal cancer. FINDINGS: General Worker examination demonstrates surgical clips consistent with pelvic and retroperitoneal lymphadenectomy. Subsequent cystogram was performed with dilute iodinated contrastmaterial. There is mild muscular hypertrophy. The bladder is otherwise normal.There is no evidence of a bladder leak. No reflux into the ureters is seen. Single post void image demonstrates minimal residual contrast in the bladder without bladder extravasation. DIAGNOSIS: Normal cystogram. Edited by Nydia Gutiérrez on 11/15/2023 12:48 PM > Interpreting Provider: Franike Wilks MD on 11/15/2023 1:00 PM Isaura Gao GOVERNMENT AUDITOR-DIRECTOR EMPLOYEE COMMUNICATIONS FLUOROSCOPY ORDER OSCAR * XR ABDOMEN KUB (11/09/2023 2:50 AM PAINTER BARREL) Anatomical Region Laterality Modality Abdomen Radiographic Kristen ging 11/09/2023 7:42 AM PAINTER BARREL Narrative 11/09/2023 2:13 PM PAINTER BARREL PROCEDURE: XR ABDOMEN KUB, DATE/TIME OF EXAM: 11/09/2023 2:50 AM, LOCATION [facility] INDICATION: C20: Rectal cancer ([facility]) ADDITIONAL CLINICAL INFORMATION: Ordering Provider Reason For Exam: ng tube placement COMPARISON: X-ray KUB 11/08/2023. TECHNIQUE: Supine frontal radiograph of the abdomen. FINDINGS/IMPRESSION: *Enteric tube follows the course of the esophagus below the diaphragm, with tip terminating in the region of the gastric body. Bibasilar pulmonary opacities/atelectasis. Right IJ port catheter in place. Small clips projects over the lower abdomen. > Dictated by Ish Mathew MD (Scalper Operator) Levi Patel MD have personally reviewed and interpreted this examination/study. > Interpreting Provider: Levi Bentley MD on 11/09/2023 2:13 PM Procedure Note Levi Bentley MD - 11/09/2023 PROCEDURE: XR ABDOMEN KUB, DATE/TIME OF EXAM: 11/09/2023 2:50 AM,LOCATION [facility] INDICATION: C20: Rectal cancer ([facility]-HCC) ADDITIONAL CLINICAL INFORMATION: Ordering Provider Reason For Exam: ng tube placement COMPARISON: X-ray KUB 11/08/2023. TECHNIQUE: Supine frontal radiograph of the abdomen. FINDINGS/IMPRESSION: *Enteric tube follows the course of the esophagus below the diaphragm,with tip terminating in the region of the gastric body. Bibasilar pulmonary opacities/atelectasis. Right IJ port catheter in place. Small clips projects over the lower abdomen. > Dictated by Ish Mathew MD (Scalper Operator) Levi Patel MD have personally reviewed and interpreted this examination/study. > Interpreting Provider: Levi Bentley MD on 11/09/2023 2:13 PM Maritza Pena MD DIAGNOSTIC IMAGING ORDERABLES * XR ABDOMEN KUB PORTABLE (11/08/2023 7:00 AM PAINTER BARREL) Anatomical Region Laterality Modality Abdomen Radiographic Kristen ging 11/08/2023 7:55 AM PAINTER BARREL Impressions 11/08/2023 8:57 AM PAINTER BARREL IMPRESSION: 1.Non-obstructive bowel gas pattern. 2.Suggestion of free air outlining the descending colon likely attributable to immediate postoperative setting. > Dictated by Shaheed Adair DO (Scalper Operator) I, Ollie Arnold MD have personally reviewed and interpreted this examination/study. > Interpreting Provider: Ollie Arnold MD on 11/08/2023 8:57 AM Narrative 11/08/2023 8:57 AM PAINTER BARREL PROCEDURE: XR ABDOMEN KUB PORTABLE, DATE/TIME OF EXAM: 11/08/2023 7:14 AM, LOCATION [facility] INDICATION: C20: Rectal cancer (CMS-HCC) ADDITIONAL CLINICAL INFORMATION: Ordering Provider Reason For Exam: post-op emesis COMPARISON: CT of the abdomen with contrast dated 05/09/2023. FINDINGS: Multiple surgical clips overlie the abdomen and pelvis. An ileostomy is visualized in the right lower quadrant. There is mild gaseous distention of several loops of small bowel measuring up to 4 cm, otherwise the small and large bowel are nondilated. Free intraperitoneal air is not adequately assessed on supine radiographs. However, there is suggestion of free air outlining the descending colon which may be expected in the immediate postoperative setting. No pathological calcifications are seen. There is demineralization and sclerotic changes of the pelvic bones likely secondary to prior radiation therapy. There are degenerative changes of the lumbar spine. The lung bases are clear. Right chest wall Port-A-Cath tip terminates in the right atrium. Procedure Note Ollie Arnold MD - 11/08/2023 PROCEDURE: XR ABDOMEN KUB PORTABLE, DATE/TIME OF EXAM: 11/08/2023 7:14AM, LOCATION [facility] INDICATION: C20: Rectal cancer (CMS-HCC) ADDITIONAL CLINICAL INFORMATION: Ordering Provider Reason For Exam: post-op emesis COMPARISON: CT of the abdomen with contrast dated 05/09/2023. FINDINGS: Multiple surgical clips overlie the abdomen and pelvis. An ileostomy is visualized in the right lower quadrant. There is mild gaseous distentionof several loops of small bowel measuring up to 4 cm, otherwise the smalland large bowel are nondilated. Free intraperitoneal air is not adequately assessed on supine radiographs. However, there is suggestion of free air outlining the descending colon which may be expected in the immediate postoperative setting. No pathological calcifications are seen. There is demineralization and sclerotic changes of the pelvic bones likelysecondary to prior radiation therapy. There are degenerative changes of the lumbar spine. The lung bases are clear. Right chest wall Port-A-Cath tip terminates in the right atrium. IMPRESSION: 1.Non-obstructive bowel gas pattern. 2.Suggestion of free air outlining the descending colon likelyattributable to immediate postoperative setting. > Dictated by Shaheed Adair DO (Scalper Operator) I, Ollie Arnold MD have personally reviewed and interpreted this examination/study. > Interpreting Provider: Ollie Arnold MD on 48:57 AM Maritza Pena MD DIAGNOSTIC IMAGING ORDERABLES * PATHOLOGY TISSUE (11/06/2023 9:48 AM [facility]INTER [facility]) Only the most recent of4 resultswithin the time period is included. 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) - Carcinoma invades pericolorectal soft tissue, and is present at radial/circumferentia l margin - Distal resection margin with no evidence of malignancy - Adherent distal appendix with no evidence of malignancy Lymph nodes, perirectal, low anterior resection (C): - No evidence of malignancy in twelve lymph nodes (0/12) Appendix, appendectomy (A): - Fibrous adhesions - No evidence of malignancy Soft tissue, anterior peritoneal reflection, biopsy (B/FSB): - Fibrous adhesions with focal crushed inflammation - No evidence of malignancy Large intestine, true distal margin, excision (D): - No evidence of malignancy Large intestine, proximal margin, excision (E): - No evidence of malignancy 4 1:23 PM [facility] Microscopic Description and Comment The grossly observed stricture in the distal portion of the specimen (rectum) shows multiple discontinuous foci of residual tumor-some seen as pools of mucin with malignant glands and single cells floating within, and some seen as malignant infiltrative glands and fibrotic stroma. While there is considerable residual tumor left scattered across the grossly observed stricture (2.5 cm) there also appears to be considerable treatment effect, as there is no bulky luminal tumor, but rather discontinuous foci of mucin-predominant residual foci. There is a background of extensive fibrosis and vascular alterations compatible with treatment effect or prior radiation to the region. The residual carcinoma is mostly centered in the muscularis propria, but extends into the pericolonic soft tissue and is present at the inked radial circumferential margin, focally. Elsewhere, several small foci of tumor are present in the perirectal soft tissue (tumor deposits). The distal rectal resection margin is negative for carcinoma, however. The initial lymph node dissection revealed only 4 small lymph nodes, all without metastatic carcinoma; a second exhausted search was performed including submission of adipose tissue for microscopic lymph nodes, and yielded 8 additional lymph nodes, though all less than 1 mm and without metastatic carcinoma. 1:23 PM [facility] Clinical History The patient is a 72-year-old woman with history of cervical cancer in 1984, status post OSIRIS-BSO and pelvic radiation, rectal adenocarcinoma status post chemotherapy. Most recent colonoscopy showed circumferential stricture with significant ecchymosis. pathology showed reactive changes (mucosa only). 1:23 PM [facility] Intraoperative Consultation B) anterior peritoneal reflection is a 1.7 x 1.0 x 0.7 cm robert-red soft tissue fragment, serially sectioned and submitted entirely as FS B. Intraoperative diagnosis: FS B1, anterior peritoneal reflection : -Negative for carcinoma by Mike Mcclure MD 4 1:23 PM [facility] Gross Description The requisition and specimen(s) are identified with the patient's name, Victor Manuel Ndiaye. Received in formalin, specimen A , is a 2.5 x 0.7 cm focally disrupted, tubular portion of robert tissue consistent with appendix which has a surgical staple line at each end. There is a 0.5 cm transmural defect, 0.5 cm from the nearest stapled margin, inked blue. The opposite stapled ends is inked black. The serosa has scant areas of hemorrhage and is otherwise unremarkable. A small amount of lobular, yellow-robert periappendiceal fat is 1.0 x 0.5 x 0.5 cm. The lumen is pinpoint. There is no nodule or fecalith. The entire appendix is submitted with the two inked margins submitted in cassette A1 and the remaining central portion of the specimen including defect in cassette A2. GW Received in formalin, specimen B is a 1.7 x 1.0 x 0.7 cm portion of robert-red soft tissue, serially sectioned and submitted entirely for frozen section evaluation. The frozen section control tissue is entirely submitted in cassette B1. GW Received in formalin, specimen C , 14.5 cm length x 3 cm in average diameter anterior resection specimen. The rectal envelope distorted with extensive adhesions but appears to be intact/complete, without distinct divots or absent portions of mesorectal fat. The serosa is hemorrhagic and congested. The proximal margin represents the stoma site with 2.5 x 0.3 cm dark robert rim of skin, and the distal resection margin is stapled. There is 2.5 cm length 0.4 cm in diameter segment of appendix adhesed on the right lateral side of the sigmoid colon, 4.5 cm from the distal resection margin, and is dissected off. The specimen is inked as follows: Distal resection margin-blue, and radial margin-black. Opening shows 2.5 x 1.5 x 1.2 cm circumferential stricturing lesion located 2.5 cm from the distal resection margin 10.5 cm proximal resection margin, 8 cm from the mesenteric margin, and less than 0.1 cm from the closest radial margin, less than 0.1 cm below the anterior peritoneal flexion, and 2.5 cm from the attached appendix. The remaining mucosa is pink-robert attenuated with no additional lesion. Bisecting the appendiceal tip shows patent lumen filled with green robert-yellow material. Dissecting the pericolonic fat reveals prominent lymphovascular, calcified fat tissue with few possible lymph nodes measuring 0.2-0.3 cm in greatest dimension. Represent sections are submitted as follows: [id number]-[id number] resection margin, en face C3-proximal mucocutaneous junction, perpendicular C4-mesenteric margin Z6-X9-nlswho with closest radial margin, 3 sections C8-perpendicular section from normal mucosa to lesion T7-C64-bpeoagqqi stricture M77-epmisotkps mucosa, proximal C49-cpcypsfs, bisected tip C14-5 possible lymph nodes C15-3 possible lymph nodes C16-4 possible lymph nodes F32-L01-crqolthie lymph vascular tissue N41-O82-qljvxfpadn fat tissue/ME Received in formalin, specimen D is an unremarkable hyperemic ringlet of bowel tissue, 1.5 x 1.3 x 0.7 cm. There is no polyp, mass or area of ulceration. The specimen is bisected and entirely submitted in cassette D1. GW Received in formalin, specimen E is a 2.0 x 1.5 x 1 cm unremarkable ring length of bowel tissue with embedded blue suture material. There is no polyp, mass or area of ulceration. The specimen is bisected and entirely submitted in cassette E1. GW 4 1:23 PM [facility] Pathologist Location at [facility] 4 1:23 PM [facility] Disclaimer The performance characteristics of all immunohistochemical and indirect immunofluorescence stains (if any) cited in this report were determined by the Histopathology Laboratory of [facility]. Some of these tests were developed by our own laboratory and have not been cleared or approved by the US Food and Drug Administration. The FDA does not require this test to go through premarket FDA review. These tests are used for clinical purposes. They should not be regarded as investigational or for research. This laboratory is certified under the Clinical Laboratory Improvement Amendments (CLIA) as qualified to perform high complexity clinical laboratory testing. This case has been personally reviewed and interpreted by the attending (teaching) pathologist. 4 1:23 PM [facility] Synoptic Report COLON AND RECTUM: Resection COLON AND RECTUM: RESECTION - All Specimens 8th Edition - Protocol posted: 08/23/2023 SPECIMEN Procedure: Low anterior resection Macroscopic Evaluation of Mesorectum: Complete TUMOR Tumor Site: Rectosigmoid Histologic Type: Adenocarcinoma Histologic Grade: G2, moderately differentiated Tumor Size: Greatest dimension (Centimeters): 2.5 cm Tumor Extent: Invades through muscularis propria into the pericolonic or perirectal tissue Macroscopic Tumor Perforation: Not identified Lymphatic and / or Vascular Invasion: Small vessel Perineural Invasion: Not identified Tumor Budding Score: Low (0-4) Number of Tumor Buds: 0 per 'hotspot' field Treatment Effect: Present, with residual cancer showing evident tumor regression, but more than single cells or rare small groups of cancer cells (partial response, score 2) MARGINS Margin Status for Invasive Carcinoma: Invasive carcinoma present at margin Margin(s) Involved by Invasive Carcinoma: Radial (circumferential) Margin Status for Non-Invasive Tumor: All margins negative for high-grade dysplasia / intramucosal carcinoma and low-grade dysplasia REGIONAL LYMPH NODES Regional Lymph Node Status: : All regional lymph nodes negative for tumor Number of Lymph Nodes Examined: 12 Tumor Deposits: Present Number of Tumor Deposits: 2 pTNM CLASSIFICATION (AJCC 8th Edition) Reporting of pT, pN, and (when applicable) pM categories is based on information available to the pathologist at the time the report is issued. As per the AJCC (Chapter 1, 8th Ed.) it is the managing physician s responsibility to establish the final pathologic stage based upon all pertinent information, including but potentially not limited to this pathology report. Modified Classification: y pT Category: pT3 pN Category: pN1c 4 1:23 PM [facility] Embedded Images 1:23 PM [facility] Biopsy, Excision ENTIRE APPENDIX / Unknown 11/06/2023 9:48 AM PAINTER [facility] 11/06/2023 3:10 PM [facility] Comment:Pre-op diagnosis: Rectal cancer Biopsy, Excision (Soft Tissue, Other) 11/06/2023 10:16 AM PAINTER [facility] 11/06/2023 1:27 PM [facility] Comment:Pre-op diagnosis: Rectal cancer Biopsy, Excision ENTIRE APPENDIX / Unknown 11/06/2023 11:57 AM [facility]INTER [facility] 11/06/2023 3:10 PM [facility] Comment:Pre-op diagnosis: Rectal cancer Biopsy, Excision SPECIMEN FROM COLON OBTAINED BY LEFT HEMICOLECTOMY / Unknown 11/06/2023 12:18 PM [facility] 11/06/2023 3:10 PM [facility] Comment:Pre-op diagnosis: Rectal cancer Biopsy, Excision SPECIMEN FROM COLON OBTAINED BY RIGHT HEMICOLECTOMY / Unknown 11/06/2023 12:19 PM [facility] 11/06/2023 3:10 PM [facility] Comment:Pre-op diagnosis: Rectal cancer Maritza Pena MD LAB - PATHOLOGY/CY TOLOGY ORDERABLES [facility] [address] [phone] * IV PLACEMENT PERFORMABLE (11/06/2023 9:17 AM PAINTER [facility]) Narrative Dino Padgett MD - 11/06/2023 9:17 AM [facility] Dino Padgett MD 11/06/2023 9:17 AM Peripheral IV Line Placement: Patient Location: OR Procedure: IV start ([id number]). Procedure Section: Skin Prep: Chloraprep. Orientation: right Location: hand Local Anesthetic Used? No Brand Name: Poole. Catheter Gauge: 18 Catheter Length (in): 1.25 Number of Attempts: 1. Procedure Tolerance: no immediate complications. Procedure Start Time: 11/06/2023 7:50 AM. Procedure End Time: 11/06/2023 7:52 AM. Procedure Total Time: 2 minutes. Staff Section Anesthesia Provider: Dino Padgett MD, Performed the procedure Dino Padgett MD GENERAL ANESTHESIA O RDERABLES * ETT LINE PERFORMABLE (11/06/2023 8:42 AM PAINTER BARREL) Narrative Flynn Lamar Anes Asst - 11/06/2023 8:42 AM PAINTER [facility] Flynn Lamar Anes Asst 11/06/2023 8:43 AM Endotracheal Tube Placement: Patient Location: OR. Intubation Event Date/Time: 11/06/2023 7:49 AM Procedure: intubation ([id number]). Procedure Section: Sedation: under general anesthesia. Indications for Airway Management: anesthesia Induction: standard IV Patient Position: sniffing Mask Ventilation: easy. Blade Type: Felipe Blade Size: 3 Laryngoscopy View: grade 1 (full cords) Intubation Adjuncts: cricoid pressure and stylet Tube: endotracheal tube Placement: oral Tube type: cuff - inflated Tube Size (MM): 7 Depth of Insertion (CM): 20 Measured From: teeth Cuff Inflated With: air Number of Attempts: 1. Placement Verified By: direct visualization, bilateral breath sounds, chest auscultation and CO2 monitor Tube secured with: adhesive tape. Dentition unchanged? Yes Difficult Airway? No. Procedure Start Time: 11/06/2023 7:49 AM. Staff Section Anesthesia Provider: Flynn Lamar Anes Asst, Performed the procedure Provider #1: Dino Padgett MD. Dino Padgett MD GENERAL ANESTHESIA O RDERABLES * EPIDURAL BLOCK PERF (11/06/2023 7:30 AM [facility]INTER [facility]) Narrative Vince Beard MD - 11/06/2023 7:30 AM PAINTER [facility] Vince Beard MD 11/06/2023 7:34 AM Neuraxial Block Note Pre-Procedure: Procedure Name: Neuraxial Block Patient Location: Pre-op Referred By: Lorin. Indications: at surgeon's request and postop pain management Pre-Anesthetic Checklist: Patient identified, IV Checked, Risks and benefits discussed, Surgical consent verified, Monitors and equipment, Site examined, Pre-op evaluation done, Time-out performed, Informed consent obtained, Questions answered/anesthesia questions answered and Allergies reviewed Anticoagulation/ Anti-thrombosis status confirmed? Yes Supplemental O2: nasal cannula Monitors: BP, continuous pluse ox and EKG Patient Condition: awake Patient Sedated? Yes Sedation Type: mild Sedation Agents: fentaNYL (PF) (SUBLIMAZE) injection - Intravenous 25 mcg - 11/06/2023 7:06:00 AM midazolam (VERSED) injection - Intravenous 1 mg - 11/06/2023 7:06:00 AM Procedure: Block Type: Epidural Prep: Chloraprep Sterile Field: mask, cap/hat, sterile established and sterile gloves Approach: midline Skin was localized? Yes Skin localized with: lidocaine (XYLOCAINE) 1 % injection - Infiltration 4 mL - 11/06/2023 7:06:00 AM Epidural Block: Is this procedure for postop pain? Yes Reason: anticipated postoperative pain Needle Type: Tuohy Needle gauge: 18 G Needle length: 90 mm Placement Site: Other - please comment (T8) Loss of Resistance: 6 saline Catheter threaded to (cm): 20 Catheter length at skin (cm): 12 CSF Aspirated from catheter: No Blood Aspirated: No Test Dose: lidocaine 1.5% with 1-200,000 epinephrine 5 mL at 11/06/2023 7:20 AM Test Dose Response: No Epidural Local Anesthetic Used? No Degree of difficulty: none Procedure Tolerance: tolerated well Sensory Level: other - please comment (taken to OR prior to sensory level test) Motor Blockade: No Position post procedure: head of bed elevated 30 degrees Vital Signs: Vital signs moniitored and stable throughout. See nursing vitals flowsheet for details. Start Time: 11/06/2023 7:06 AM End Time: 11/06/2023 7:25 AM Total Time: 19 Staff: Anesthesia Provider: Vince Beard MD - performed the procedure Provider #1: Nik Doyle DO - performed the procedure Additional Notes: I was present the entire time and supervised epidural placement. For post op pain. Vince Beard MD GENERAL ANESTHESIA O RDERABLES * ENDOSCOPY, COLON, DIAGNOSTIC (10/03/2023 1:01 PM [facility]) Report Endoscopy POC Endoscopy Department Report _ Patient Name: Victor Manuel Ndiaye Procedure Date: 10/03/2023 1:01 PM Date of : 1950 Classification: Outpatient Gender: Female Ethnicity: Not or Race: Black or _ Providers: Maritza Pena Referring MD: Luis Rojas MD (Referring MD) Procedure: Colonoscopy Indications: This is the patient's first colonoscopy, For therapy of colorectal cancer Medications: Propofol per Anesthesia Description of Procedure: After I obtained informed consent, the scope was passed under direct vision. Throughout the procedure, the patient's blood pressure, pulse, and oxygen saturations were monitored continuously. The PCF-[id number] was introduced through the anus and advanced to the terminal ileum, with identification of the appendiceal orifice and IC valve. The colonoscopy was performed without difficulty. The patient tolerated the procedure well. The quality of the bowel preparation was adequate to identify polyps greater than 5 mm in size. Findings: The perianal and digital rectal examinations were normal. Pertinent negatives include no palpable masses. Scope advanced thru anus, circumferential sticture with significant ecchymosis, erythema at mid/prox rectum, some adenomatous changes, area biopsied, Biopsies were taken with a cold forceps for histology. Verification of patient identification for the specimen was done by the physician and nurse. Estimated blood loss was minimal. Stoma advanced thru distal loop colostomy, no lesions, then advanced thru proximal limb, prep fair, ICV, appendiceal orifice and cecum reached and photographed. Estimated Blood Loss: Estimated blood loss was minimal. Complications: No immediate complications. Estimated blood loss: None. Impression: - Proximal mid/rectal cancer, s/p neoadjuvant CHEMO, moderate response, area biopsied, stricture appreciated, residual adenomatous changes, no lesions proximal colon Recommendation: - Discharge patient to home (ambulatory). - Resume regular diet indefinitely. - Continue present medications. - Await pathology results. - Return to my office in 2 weeks. Attending Participation: I personally performed the entire procedure. Procedure Code(s): --- Professional --- 24413, Colonoscopy, flexible; with biopsy, single or multiple Diagnosis Code(s): --- Professional --- C19, Malignant neoplasm of rectosigmoid junction CPT copyright 2021 [employer]. All rights reserved. The codes documented in this report are preliminary and upon surgical coder review may be revised to meet current compliance requirements. Maritza Pena, 10/03/2023 2:13:18 PM Note Initiated On: 10/03/2023 1:01 PM Number of Addenda: 0 [facility] [address] [place] [address] [facility] 10/03/2023 1:01 PM [facility]INTER [facility] Maritza Pena MD GI PROCEDURE ORDER OSCAR [facility] * MRI PELVIS WWO CONTRAST (08/26/2023 7:23 PM PAINTER BARREL) Only the most recent of2 resultswithin the time period is included. Anatomical Region Laterality Modality Pelvis Magnetic Resonan ce 08/28/2023 1:06 AM [facility] Impressions 08/28/2023 1:40 AM [facility] IMPRESSION: 1. Intermediate response to treatment with predominant fibrosis and residual tumor signal with areas of mucin and invasion of the peritoneal reflection. There is a stricture at the site of the treatment/fibrosis. No enlarged lymph nodes. [id number] > Interpreting Provider: Roel Vieira MD on 08/28/2023 1:40 AM Narrative 08/28/2023 1:40 AM [facility] PROCEDURE: MRI PELVIS WWO CONTRAST, DATE/TIME OF EXAM: 08/26/2023 7:24 PM, LOCATION [facility] INDICATION: rectal cancer ADDITIONAL CLINICAL INFORMATION: Ordering Provider Reason For Exam: Technologist Note: Additional: COMPARISON: 04/14/2023. Technique: Multiplanar MRI of the pelvis performed without and with intravenous contrast according to the rectal cancer staging protocol. Note that although this exam started on 07/30/2023, exam was apparently terminated at that time. Diagnostic images are performed on 08/26/2023 with prompt interpretation of the imaging once performed and provided on the PACS. Contrast: GADOBENATE DIMEGLUMINE 529 MG/ML IV SOLN:12 mL Findings: Residual tumor: Yes. There is residual tumor signal and areas of mucin with diffusion restriction that could be seen on series 10 image 19 as well as series 32 image 64 with invasion of the peritoneal reflection. T4a . Distance of residual tumor to the anal verge: 10 cm Distance of residual tumor to the top of sphincter complex/anorectal junction: 6.5 cm Presence of fibrosis: Yes Response assessment: Intermediate response (predominant fibrosis, limited tumor remnant) yMRF: No invasion of the mesorectal Fascia MRF yN-Stage: Residual mesorectal/superior rectal lymph nodes and/or tumor deposits: cN0 (no lymph nodes measuring greater than 5 mm) Residual suspicious extra mesorectal lymph nodes: No Residual extramural vascular invasion EMVI: No OTHER: There is a stricture at the rectosigmoid junction and the region of the rectal cancer and treatment fibrosis. Colostomy partially visualized. Procedure Note Roel Vieira MD - 08/28/2023 PROCEDURE: MRI PELVIS WWO CONTRAST, DATE/TIME OF EXAM: 08/26/2023 7:24 PM, LOCATION [facility] INDICATION: rectal cancer ADDITIONAL CLINICAL INFORMATION: Ordering Provider Reason For Exam: Technologist Note: Additional: COMPARISON: 04/14/2023. Technique: Multiplanar MRI of the pelvis performed without and with intravenous contrast according to the rectal cancer staging protocol. Note that although this exam started on 07/30/2023, exam was apparently terminated at that time. Diagnostic images are performed on 08/26/2023with prompt interpretation of the imaging once performed and provided on the PACS. Contrast: GADOBENATE DIMEGLUMINE 529 MG/ML IV SOLN:12 mL Findings: Residual tumor: Yes. There is residual tumor signal and areas of mucinwith diffusion restriction that could be seen on series 10 image 19 as wellas series 32 image 64 with invasion of the peritoneal reflection. T4a . Distance of residual tumor to the anal verge: 10 cm Distance of residual tumor to the top of sphincter complex/anorectal junction: 6.5 cm Presence of fibrosis: Yes Response assessment: Intermediate response (predominant fibrosis, limited tumor remnant) yMRF: No invasion of the mesorectal Fascia MRF yN-Stage: Residual mesorectal/superior rectal lymph nodes and/or tumor deposits: cN0 (no lymph nodes measuring greater than 5 mm) Residual suspicious extra mesorectal lymph nodes: No Residual extramural vascular invasion EMVI: No OTHER: There is a stricture at the rectosigmoid junction and the regionof the rectal cancer and treatment fibrosis. Colostomy partially visualized. IMPRESSION: 1. Intermediate response to treatment with predominant fibrosis and residual tumor signal with areas of mucin and invasion of the peritoneal reflection. There is a stricture at the site of the treatment/fibrosis.No enlarged lymph nodes. [id number] > Interpreting Provider: Roel Vieira MD on 08/28/2023 1:40 AM Bernardo Soriano MD MR ORDERABLES * LAB RESULTS ORDER (07/19/2023) Only the most recent of2 resultswithin the time period is included. 07/19/2023 Narrative 07/19/2023 Ordered by an unspecified provider. Scanned Document LAB - THERAPEUTIC DR UG MONITORING ORDERABLES * CT ABDOMEN W CONTRAST (05/09/2023 7:31 AM CDT) Anatomical Region Laterality Modality Abdomen Computed Tomogra phy 05/09/2023 8:33 AM CDT Impressions 05/09/2023 10:34 AM CDT IMPRESSION: 1.Unchanged left adrenal gland nodules. 2.No evidence of metastatic lesions in the liver parenchyma. No significantly enlarged retroperitoneal lymph nodes. Postoperative changes noted in the lower retroperitoneum. 3.Multiple scarring associated with atrophy of the left kidney. Report dictated by Honey Yeung MD I, Ollie Arnold MD have personally reviewed and interpreted this examination/study. > Interpreting Provider: Ollie Arnold MD on 05/09/2023 10:34 AM Narrative 05/09/2023 10:34 AM CDT PROCEDURE: CT ABDOMEN W CONTRAST, DATE/TIME OF EXAM: 05/09/2023 7:31 AM, LOCATION [facility] INDICATION: C20: Rectal cancer (CMS/HCC) ADDITIONAL CLINICAL INFORMATION: Ordering Provider Reason For Exam: Rectal cancer. Evaluate for liver metastases and adrenal nodule. COMPARISON: CT chest with contrast from 04/14/2023. An CT abdomen and pelvis with contrast from 02/22/2023. TECHNIQUE: CT of the abdomen with IOPAMIDOL 76 % IV SOLN:100 mL IV contrast. Coronal and sagittal reformatted images were submitted. The reported CTDIvol (mGy) and DLP (mGy-cm) values are generated from scan acquisition factors based on 32 cm (body) or 16 cm (head) phantoms and may underestimate or overestimate the actual patient dose based on patient size and other factors. FINDINGS: Tubes/Lines/Drains: None. Chest: Mild dependent groundglass opacities lung bases. Unchanged subcentimeter calcification in the posterior aspect of the right lower lobe (series 3 image 2). Hepatobiliary: Normal liver size and attenuation. Gallbladder is surgically absent. Unchanged common bile duct dilation at 1.1 cm in its greatest dimension (series 3 image 48), likely secondary to cholecystectomy. Pancreas: Normal without peripancreatic fluid collection. Spleen: Normal attenuation without mass. Adrenal glands: Unchanged 1.8 cm nodule originating from the lateral limb of the left adrenal gland (series 3 image 40 and series 4 image 51). Unchanged 1 cm nodule originating from the medial limb of the left adrenal gland (series 3 image 32 and series 4 image 54). : Left kidney shows scarring and mildly atrophic. Unchanged 1.5 cm round cystic lesion at the superior pole of the left kidney (series 3 image 36). Unchanged 2.1 cm round cystic lesion in the interpolar region of the left kidney (series 3 image 52). Right kidney shows unchanged 1.7 cm round cystic lesion at the inferior pole of the right kidney (series 3 image 69). Otherwise the right kidney is unremarkable. 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 No bladder or deep pelvic soft tissue abnormality is seen. GI: Partially visualized diverting colostomy in the left lower quadrant. Heterogeneous enhancement of the cecum and ascending colon is seen associated with the prominent vessels suggestive of angiodysplasia changes, differential diagnosis is mild colitis. Vascular: Atherosclerotic plaques noted in the distal abdominal aorta. Assessment of the aortic bifurcation and iliac arteries are obscured by the metallic artifacts from the surgical debby. No significantly enlarged retroperitoneal lymph nodes are seen. Other: Multiple surgical clips are seen within the pelvis. Bones: Multilevel degenerative changes of spine. Focal sclerosis noted in the L5 vertebral body. Soft tissues: Normal. Procedure Note Ollie Arnold MD - 05/09/2023 PROCEDURE: CT ABDOMEN W CONTRAST, DATE/TIME OF EXAM: 05/09/2023 7:31AM, LOCATION [facility] INDICATION: C20: Rectal cancer (CMS/HCC) ADDITIONAL CLINICAL INFORMATION: Ordering Provider Reason For Exam: Rectal cancer. Evaluate for liver metastases and adrenal nodule. COMPARISON: CT chest with contrast from 04/14/2023. An CT abdomen and pelvis with contrast from 02/22/2023. TECHNIQUE: CT of the abdomen with IOPAMIDOL 76 % IV SOLN:100 mL IV contrast. Coronal and sagittal reformatted images were submitted. The reported CTDIvol (mGy) and DLP (mGy-cm) values are generated fromscan acquisition factors based on 32 cm (body) or 16 cm (head) phantoms andmay underestimate or overestimate the actual patient dose based on patientsize and other factors. FINDINGS: Tubes/Lines/Drains: None. Chest: Mild dependent groundglass opacities lung bases. Unchanged subcentimeter calcification in the posterior aspect of the right lowerlobe (series 3 image 2). Hepatobiliary: Normal liver size and attenuation. Gallbladder issurgically absent. Unchanged common bile duct dilation at 1.1 cm in its greatest dimension (series 3 image 48), likely secondary to cholecystectomy. Pancreas: Normal without peripancreatic fluid collection. Spleen: Normal attenuation without mass. Adrenal glands: Unchanged 1.8 cm nodule originating from the laterallimb of the left adrenal gland (series 3 image 40 and series 4 image 51). Unchanged 1 cm nodule originating from the medial limb of the leftadrenal gland (series 3 image 32 and series 4 image 54). : Left kidney shows scarring and mildly atrophic. Unchanged 1.5 cmround cystic lesion at the superior pole of the left kidney (series 3 image36). Unchanged 2.1 cm round cystic lesion in the interpolar region of theleft kidney (series 3 image 52). Right kidney shows unchanged 1.7 cm round cystic lesion at the inferior pole of the right kidney (series 3 image 69). Otherwise the right kidneyis unremarkable. 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 No bladder or deep pelvic soft tissue abnormality is seen. GI: Partially visualized diverting colostomy in the left lower quadrant. Heterogeneous enhancement of the cecum and ascending colon is seen associated with the prominent vessels suggestive of angiodysplasiachanges, differential diagnosis is mild colitis. Vascular: Atherosclerotic plaques noted in the distal abdominal aorta. Assessment of the aortic bifurcation and iliac arteries are obscured bythe metallic artifacts from the surgical debby. No significantly enlarged retroperitoneal lymph nodes are seen. Other: Multiple surgical clips are seen within the pelvis. Bones: Multilevel degenerative changes of spine. Focal sclerosis notedin the L5 vertebral body. Soft tissues: Normal. IMPRESSION: 1.Unchanged left adrenal gland nodules. 2.No evidence of metastatic lesions in the liver parenchyma. No significantly enlarged retroperitoneal lymph nodes. Postoperativechanges noted in the lower retroperitoneum. 3.Multiple scarring associated with atrophy of the left kidney. Report dictated by Honey Yeung MD IOllie MD have personally reviewed and interpreted this examination/study. > Interpreting Provider: Ollie Arnold MD on 0:34 AM Bernardo Soriano MD CT ORDERABLES * IR MARY CATH INSERT (05/04/2023 12:28 PM CDT) Anatomical Region Laterality Modality Chest X-Ray Angiograph y 05/04/2023 1:59 PM CDT Impressions 05/07/2023 7:35 PM CDT Impression: Successful placement of a single lumen 8 Macanese x 20 cm chest slim line power port via the right internal jugular vein under ultrasound and fluoroscopic guidance, as described above. Note: Keep the dressing clean and dry for 5 days. Recommend port access after 5 days to minimize infection and allow better healing. IFreddie PA, was present and performed/supervised the entire procedure > Dictated by Denny Moyer (Scalper Operator) 05/04/2023 1:59 PM I, Domo Aburto MD have personally reviewed and interpreted this examination/study. > Interpreting Provider: Domo Aburto MD on 05/07/2023 7:35 PM Narrative 05/07/2023 7:35 PM CDT PROCEDURE: IR MARY CATH INSERT DATE/TIME OF EXAM: 05/04/2023 12:28 PM CLINICAL INFORMATION: History: This is a 72-year-old -[place]ammar[place] female with recent diagnosis of rectal cancer who presents for chest port placement for the administration of chemotherapy Operators: RIKKI Coello Anesthesia: 1.Local anesthesia - 20 mL of 1% lidocaine 2.Intravenous Anxiolysis- Versed 1 mg and Fentanyl 50 mcg Procedure: 1.Ultrasound-guided access of the right internal jugular vein. 2.Creation of subcutaneous pocket and subcutaneous tunnel on the right chest. 3.Fluoroscopy-guided placement of single lumen 8 Macanese x 20 cm chest slim line power port via the right internal jugular vein. Fluoroscopic time: 0.1 minutes Procedure details: The procedure, risks, and possible complications were explained to the patient in detail and informed consent was obtained. The patient was placed supine on the angiography table. The right neck and upper chest were prepped and draped in the usual sterile manner. A thread winder automatic film of chest was obtained, which was unremarkable. Limited ultrasound of the right lower neck demonstrated a patent and compressible internal jugular vein. A wolff scale image was documented. After instillation of lidocaine , a small incision was made in the right lower neck. Under real time ultrasound guidance, using a micropuncture needle, the right internal jugular vein was accessed. The needle entry was documented. Following a series of exchanges, a 0.035 wire was advanced through the right atrium into the inferior vena cava. Following administration of lidocaine , a skin incision was made over the right upper chest and a subcutaneous pocket was created using blunt and sharp dissection techniques. The port was connected to the catheter and placed in the pocket. Using a tunneling device, the catheter was tunneled from the pocket to the venotomy site in the right neck, after administering lidocaine with epinephrine along the tunnel. The catheter was cut to the appropriate length. A peel-away sheath and dilator combination was advanced over the guidewire into the right atrium under fluoroscopic guidance. The guidewire and dilator were removed, and the catheter was advanced through the peel-away sheath into the right atrium. The peel-away was then removed. The port was accessed, aspirated, and flushed easily. An appropriate amount of heparin (500 units/mL) was placed in the port as per protocol. The pocket was closed using 3.0 and 4.0 vicryl sutures. The neck incision was closed with dermabond. A sterile dressing was applied. Final imaging revealed the port in the right chest with tip of the catheter in the right atrium in good position with no kink along the course of the catheter. The patient tolerated the procedure well and was transferred to the holding area in stable condition. There were no immediate complications associated with the procedure. Procedure Note Domo Aburto MD - 05/07/2023 PROCEDURE: IR MARY CATH INSERT DATE/TIME OF EXAM: 05/04/2023 12:28 PM CLINICAL INFORMATION: History: This is a 72-year-old -[place]ammar[place] female with recent diagnosis of rectal cancer who presents for chestport placement for the administration of chemotherapy Operators: RIKKI Coello Anesthesia: 1.Local anesthesia - 20 mL of 1% lidocaine 2.Intravenous Anxiolysis- Versed 1 mg and Fentanyl 50 mcg Procedure: 1.Ultrasound-guided access of the right internal jugular vein. 2.Creation of subcutaneous pocket and subcutaneous tunnel on the right chest. 3.Fluoroscopy-guided placement of single lumen 8 Macanese x 20 cm chestslim line power port via the right internal jugular vein. Fluoroscopic time: 0.1 minutes Procedure details: The procedure, risks, and possible complications were explained to the patient in detail and informed consent was obtained. The patient wasplaced supine on the angiography table. The right neck and upper chest were prepped and draped in the usual sterile manner. A thread winder automatic film of chestwas obtained, which was unremarkable. Limited ultrasound of the right lower neck demonstrated a patent and compressible internal jugular vein. A wolff scale image was documented. After instillation of lidocaine , a small incision was made in the right lower neck. Under real time ultrasound guidance, using a micropuncture needle, the right internal jugular vein was accessed. The needle entrywas documented. Following a series of exchanges, a 0.035 wire was advanced through the right atrium into the inferior vena cava. Following administration of lidocaine , a skin incision was made overthe right upper chest and a subcutaneous pocket was created using blunt and sharp dissection techniques. The port was connected to the catheter and placed in the pocket. Using a tunneling device, the catheter wastunneled from the pocket to the venotomy site in the right neck, afteradministering lidocaine with epinephrine along the tunnel. The catheter was cut to the appropriate length. A peel-away sheath and dilator combination was advanced over theguidewire into the right atrium under fluoroscopic guidance. The guidewire and dilator were removed, and the catheter was advanced through thepeel-away sheath into the right atrium. The peel-away was then removed. The port was accessed, aspirated, and flushed easily. An appropriateamount of heparin (500 units/mL) was placed in the port as per protocol. The pocket was closed using 3.0 and 4.0 vicryl sutures. The neck incisionwas closed with dermabond. A sterile dressing was applied. Final imaging revealed the port in the right chest with tip of the catheter in theright atrium in good position with no kink along the course of the catheter. The patient tolerated the procedure well and was transferred to theholding area in stable condition. There were no immediate complicationsassociated with the procedure. Impression: Successful placement of a single lumen 8 Macanese x 20 cmchest slim line power port via the right internal jugular vein underultrasound and fluoroscopic guidance, as described above. Note: Keep the dressing clean and dry for 5 days. Recommend port access after 5 days to minimize infection and allow better healing. Freddie Patel PA, was present and performed/supervised the entire procedure > Dictated by Denny Moyer (Scalper Operator) 05/04/2023 1:59 PM IDomo MD have personally reviewed and interpreted this examination/study. > Interpreting Provider: Domo Aburto MD on 05/07/2023 7:35 PM Bernardo Soriano MD IR ORDERABLES * [facility] BLOOD DRAW (04/28/2023 12:56 PM CDT) Blood Sent to [facility] 04/28/2023 2:00 PM CDT [facility] ([facility]) Comment:Collection and sendo ut completed. Blood BLOOD SPECIMEN / Unknown 04/28/2023 12:56 PM CDT 04/28/2023 12:56 PM CDT Bernardo Soriano MD LAB - HEMATOLOGY ORD ERABLES [facility] ([facility]) [address], [address] [place] [address] * [facility] XT (04/28/2023 12:07 PM CDT) Pathology/Cytolo gy MISCELLANEOUS SAMPLES / Unknown 04/28/2023 12:07 PM CDT 04/28/2023 12:07 PM CDT Bernardo Soriano MD LAB - PATHOLOGY/CYTO LOGY ORDERABLES [facility] ([facility]) [address], [address] [place] [address] * CT CHEST W CONTRAST (04/14/2023 9:32 AM CDT) Anatomical Region Laterality Modality Chest Computed Tomogra phy 04/14/2023 10:1 1 AM CDT Impressions 04/14/2023 12:25 PM CDT Impression: 1.No evidence of metastasis in the chest. 2.Indeterminate left adrenal nodules measuring up to 1.9 cm. Consider comparison with any available outside hospital images versus further evaluation with CT/MRI abdomen adrenal mass protocol. > Dictated by Jasen Soriano MD (residential support worker). I, Javier Whiting have personally reviewed and interpreted this examination/study. > Interpreting Provider: Javier Whiting on 04/14/2023 12:25 PM Narrative 04/14/2023 12:25 PM CDT EXAMINATION: CT CHEST W CONTRAST DATE/TIME OF EXAM: 04/14/2023 9:33 AM, LOCATION [facility] HISTORY: C20: Rectal cancer (CMS/HCC) C53.9: Squamous cell carcinoma of cervix (CMS/HCC) rectal cancer staging COMPARISON: Outside hospital CT abdomen pelvis with contrast dated 02/22/2023 TECHNIQUE: CT of the chest was performed following the uneventful administration of 100 mL of Isovue 370 intravenous contrast according to standard protocol. Findings: Lines and tubes: None. Lower Neck and Axillae: The thyroid gland is slightly heterogeneous, with hypodense nodule on the left measuring up to 1.2 cm (series 3 image 10). No abnormal supraclavicular or axillary lymphadenopathy is seen. Airway, Lungs and pleura: The central airway is patent. Subsegmental bilateral dependent atelectasis. Small subcentimeter calcification in the right lower lobe posteriorly (series 4 image 56). No suspicious pulmonary nodule is identified. No pleural effusion or focal pleural thickening is identified. There is no evidence of pneumothorax. Heart and Pericardium: The heart size is normal. No pericardial effusion is present. Mediastinum and Maira: No enlarged lymph nodes are present. No mediastinal mass is identified. Thoracic Vasculature: There is a left-sided two-vessel aortic arch. The aorta and main pulmonary artery are normal in course and caliber. Minimal coronary artery calcification. Bones and Chest Wall: Bone windows demonstrate no suspicious lytic or blastic lesions. The visible osseous structures are intact. Mild degenerative changes are seen in the spine. Upper Abdomen: The gallbladder is absent. The common bile duct is mildly dilated for the patient's age measuring 1.0 cm transaxially (series 3 image 91), likely related to the postcholecystectomy status. 1.9 x 1.2 cm left lateral limb adrenal nodule (series 3 image 93) and 1.0 x 0.8 cm left medial limb adrenal nodule (series 3 image 86). The right adrenal gland is normal. The left kidney is atrophic with several cysts. 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 Findings: Lines and tubes: None. Lower Neck and Axillae: The thyroid gland is slightly heterogeneous, with hypodense nodule onthe left measuring up to 1.2 cm (series 3 image 10). No abnormal supraclavicular or axillary lymphadenopathy is seen. Airway, Lungs and pleura: The central airway is patent. Subsegmental bilateral dependent atelectasis. Small subcentimeter calcification in the right lower lobe posteriorly (series 4 image 56). No suspicious pulmonary nodule is identified. No pleural effusion or focal pleural thickening isidentified. There is no evidence of pneumothorax. Heart and Pericardium: The heart size is normal. No pericardial effusion is present. Mediastinum and Maira: No enlarged lymph nodes are present. No mediastinal mass is identified. Thoracic Vasculature: There is a left-sided two-vessel aortic arch. The aorta and mainpulmonary artery are normal in course and caliber. Minimal coronary artery calcification. Bones and Chest Wall: Bone windows demonstrate no suspicious lytic or blastic lesions. The visible osseous structures are intact. Mild degenerative changes areseen in the spine. Upper Abdomen: The gallbladder is absent. The common bile duct is mildly dilated forthe patient's age measuring 1.0 cm transaxially (series 3 image 91), likely related to the postcholecystectomy status. 1.9 x 1.2 cm left laterallimb adrenal nodule (series 3 image 93) and 1.0 x 0.8 cm left medial limb adrenal nodule (series 3 image 86). The right adrenal gland is normal.The left kidney is atrophic with several cysts. Impression: 1.No evidence of metastasis in the chest. 2.Indeterminate left adrenal nodules measuring up to 1.9 cm. Consider comparison with any available outside hospital images versus further evaluation with CT/MRI abdomen adrenal mass protocol. > Dictated by Jasen Soriano MD (residential support worker). I, Javier Whiting have personally reviewed and interpreted this examination/study. > Interpreting Provider: Javier Whiting on 04/14/2023 12:25 PM Maritza Pena MD CT ORDERABLES * (ABNORMAL) HPV DETECTION HIGH RISK DARRYL (04/06/2023 9:38 AM CDT) Only the most recent of13 resultswithin the time period is included. High Risk Human Papilloma Result Detected( A) Not detected 04/10/2023 2:19 PM CDT [facility] High Risk Human Papilloma Interp 04/10/2023 2:19 PM CDT [facility] Comment:High Risk Human Bebeto lloma Virus - Detected Pathology/Cytolo gy ENTIRE VAGINA / Unknown 04/06/2023 9:38 AM CDT 04/07/2023 11:28 AM CDT Narrative [facility] - 04/10/2023 2:19 PM CDT Nucleic acid isolated from the specimen was analyzed with a nucleic acid amplification test (FDA approved Gen-Probe HPV Assay) to detect high risk human papilloma virus (Types: 16, 18, 31, 33, 35, 39, 45, 51, 52, 56, 58, 59, 66, and 68). The reference range is Not Detected . Comment: These test results should not be used as the sole basis for clinical assessment and treatment of patients. These results should always be correlated with other available data (cytology, histology, and clinical information). Uzma Dominguez MD LAB - MICROBIOLOGY ORDERABLES [facility] [address] [phone] * PAP IMAGE-GUIDED W HPV (04/06/2023 9:38 AM CDT) Only the most recent of20 resultswithin the time period is included. Case Report Gynecologic Cytology Report Case: [id number] Authorizing Provider: Uzma Dominguez MD Collected: 04/06/2023 09:38 AM Ordering Location: [facility] - Received: 04/07/2023 11:28 AM [facility] Screen: Bryan Amor Pathologist: John Back MD Specimen: THINPREP - IMAGE GUIDED, Vagina 04/14/2023 4:29 PM CDT [facility] LMP remote 04/14/2023 4:29 PM CDT [facility] Menstrual Status Hysterectomy 2022 4:29 PM CDT [facility] Clinical History The patient, a 72-year-old woman, is visiting today for surveillance of Cervical cancer and follow-up of an ASC-H/HPV+ Pap smear. 04/14/2023 4:29 PM CDT [facility] Specimen Adequacy Satisfactory for evaluation. 04/14/2023 4:29 PM CDT [facility] Categorization Epithelial cell abnormality. 04/14/2023 4:29 PM CDT [facility] Interpretation DOCK GUARD Low grade squamous intraepithelial lesion (LSIL). 04/14/2023 4:29 PM CDT [facility] Note(s) The specimen shows abundant lubricant material with few cellular clusters. 04/14/2023 4:29 PM CDT [facility] Pap Footnote The Pap Smear is a screening test. False positive and false negative results occur. Negative results do not preclude abnormalities, thus clinical correlation is required. This specimen was evaluated by the ThinPrep Imaging System along with an additional manual rescreening by a card setter and/or pathologist. 04/14/2023 4:29 PM CDT [facility] Embedded Images 4:29 PM CDT [facility] Pathology/Cytolo gy ENTIRE VAGINA / Unknown 04/06/2023 9:38 AM CDT 04/07/2023 11:28 AM CDT Uzma Dominguez MD LAB - PATHOLOGY/CY TOLOGY ORDERABLES Performing Organization Address [facility] Co de Phone Number [facility] [address] [phone] * HPV GENOTYPES 16,18/45 (04/06/2023 9:38 AM CDT) Only the most recent of4 resultswithin the time period is included. Human papillomavirus Genotype 16 by TMA Not detected Not detected 04/13/2023 11:52 AM CDT [facility] Human papillomavirus Genotype 18/45 by TMA Not detected Not detected 04/13/2023 11:52 AM CDT [facility] Pathology/Cytolo gy ENTIRE VAGINA / Unknown 04/06/2023 9:38 AM CDT 04/07/2023 11:28 AM CDT Narrative [facility] - 04/13/2023 11:52 AM CDT This test detects E6/E7 viral messenger RNA of high-risk HPV types 16, 18, 31, 33, 35, 39, 45, 51, 52, 56, 58, 59, 66, and 68 associated with cervical cancer and its precursor lesions. Cross-reactivity with low risk HPV genotypes 26, 67, 70, and 82 may occur. Sensitivity may be affected by specimen collection methods, stage of infection, and the presence of interfering substances. Results should be interpreted in conjunction with other available laboratory and clinical data. Uzma Dominguez MD LAB - MICROBIOLOGY ORDERABLES Performing Organization Address City/[facility]/ZIP Co de Phone Number [facility] [address] [phone] * PAP IMAGE-GUIDED (11/08/2022 4:08 PM [facility]) Case Report Gynecologic Cytology Report Case: [id number] Authorizing Provider: Uzma Dominguez MD Collected: 11/08/2022 04:08 PM Ordering Location: [facility] Obstetrics Received: 11/09/2022 11:11 AM [facility] First Screen: Bryan Amor Specimen: THINPREP - NON IMAGE GUIDED, Vagina 11/09/2022 2:24 PM [facility] LMP remote 11/09/2022 2:24 PM [facility] Menstrual Status Postmenopausal Hysterectomy 11/09/2022 2:24 PM [facility] Specimen Adequacy Unsatisfactory due to scant cellularity. 11/09/2022 2:24 PM [facility] Categorization Unable to render interpretation. 11/09/2022 2:24 PM [facility] Interpretation DOCK GUARD Unsatisfactory for interpretation. 11/09/2022 2:24 PM [facility] Note(s) Specimen processed and examined but unsatisfactory for evaluation of epithelial abnormality because of scant squamous component and lubricant. To better ensure specimen adequacy, the use of lubricant is not recommended. 11/09/2022 2:24 PM [facility] Pap Footnote The Pap Smear is a screening test. False positive and false negative results occur. Negative results do not preclude abnormalities, thus clinical correlation is required. This specimen was evaluated by the ThinPrep Imaging System along with an additional manual rescreening by a card setter and/or pathologist. 11/09/2022 2:24 PM [facility] Embedded Images 2:24 PM [facility] Pathology/Cytolo gy ENTIRE VAGINA / Unknown 11/08/2022 4:08 PM [facility] 11/09/2022 11:11 AM [facility] Uzma Dominguez MD LAB - PATHOLOGY/CY TOLOGY ORDERABLES [facility] [address] [phone] * (ABNORMAL) URINALYSIS ROUTINE AUTO Urine Random (11/07/2017 11:42 AM [facility]) Color UA Yellow Straw, Yellow 11/07/2017 12:09 PM [facility] Clarity UA Clear Clear 11/07/2017 12:09 PM [facility] Glucose UA Negative Negative 11/07/2017 12:09 PM [facility] Bilirubin UA Negative Negative 11/07/2017 12:09 PM [facility] Ketone UA Negative Negative 11/07/2017 12:09 PM [facility] Specific [place] UA 1.013 1.005 - 1.030 11/07/2017 12:09 PM [facility] Blood UA Negative Negative 11/07/2017 12:09 PM [facility] pH UA 5.0 5.0 - 8.0 pH 11/07/2017 12:09 PM [facility] Protein UA Negative Negative 11/07/2017 12:09 PM [facility] Urobilinogen UA Negative Negative mg/dL 11/07/2017 12:09 PM [facility] Nitrite UA Negative Negative 11/07/2017 12:09 PM [facility] Leukocyte UA 2+(A) Negative 11/07/2017 12:09 PM [facility] Urine Microscopy Urine microscopy to follow 11/07/2017 12:09 PM [facility] Urine URINE SPECIMEN OBTAINED BY CLEAN CATCH PROCEDURE / Unknown Collection / Unknown 11/07/2017 11:42 AM [facility] 11/07/2017 11:54 AM [facility] Narrative [facility] - 11/07/2017 12:09 PM [facility] Adelina Macdonald MD LAB - URINALYSIS ORD ERABLES [facility] [address] [place] [address] * URINALYSIS MICROSCOPIC ONLY (11/07/2017 11:42 AM [facility]) RBC UA 0-5 0-5, None Seen # /hpf 11/07/2017 12:09 PM [facility] WBC UA 0-5 0-5, None Seen # /hpf 11/07/2017 12:09 PM [facility] Bacteria UA None Seen None Seen 11/07/2017 12:09 PM [facility] Squamous Epithelial Cells 3-5 None Seen, 0-2, 3-5 /hpf 11/07/2017 12:09 PM [facility] Mucus UA 1+ /LPF 11/07/2017 12:09 PM [facility] Urine URINE SPECIMEN OBTAINED BY CLEAN CATCH PROCEDURE / Unknown Collection / Unknown 11/07/2017 11:42 AM [facility] 11/07/2017 11:54 AM [facility] Narrative [facility] - 11/07/2017 12:09 PM [facility] Adelina Macdonald MD LAB - URINALYSIS ORD ERABLES Performing Organization Address City/[facility]/ZIP Co de Phone Number [facility] [address] [place] [address] * HGB HCT PANEL (11/07/2017 11:42 AM [facility]) Hemoglobin 14.1 12.0 - 15.6 gm/dL 11/07/2017 11:58 AM [facility] Hematocrit 41.9 35.9 - 45.5 % 11/07/2017 11:58 AM [facility] Blood BLOOD SPECIMEN / Unknown Venipuncture / Unknown 11/07/2017 11:42 AM [facility] 11/07/2017 11:54 AM [facility] Adelina Macdonald MD LAB - HEMATOLOGY ORD ERABLES Performing Organization Address [facility] Co de Phone Number [facility] [address] [place] [address] * PATHOLOGY/GENETICS HISTORICAL-ONBASE (09/18/2017) Only the most recent of16 resultswithin the time period is included. 09/18/2017 Adelina Macdonald MD LAB - CHEMISTRY [place] [id number] [address] * (ABNORMAL) PAP THINPREP (10/05/2015 2:10 PM [facility]) Only the most recent of5 resultswithin the time period is included. Pap Tmi-Babyn-Xkb ded Liquid-Based Specimen:Vaginal ThinPrep Slides:1 SPECIMEN ADEQUACY: SATISFACTORY FOR EVALUATION INTERPRETATION: EPITHELIAL CELL ABNORMALITY HIGH GRADE SQUAMOUS INTRAEPITHELIAL LESION NOTE(S): If a biopsy is evaluated at another institution, please forward a copy of the pathology report to the [facility], Cytopathology, for automotive quality engineer purposes. Retrospective Review: - No previous negative slide(s) available for review Initial Evaluation performed by Cirilo VELA(ASCP). Electronically signed 10/07/2015 Interpretation performed by Jesse Browne MD. Electronically signed 10/08/2015 (A) [facility] ([facility]) Cervical swab (specimen) PART OF UTERINE CERVIX / Unknown 10/05/2015 2:10 PM [facility] 10/06/2015 12:23 PM [facility] Narrative [facility] ([facility]) - 10/08/2015 11:26 AM [facility] Previous Pap:->04/01/15 LGSIL Results of last pap?->Abnormal Clinical Information:->H/O GUTIERREZ 111 Adelina Macdonald MD LAB - PATHOLOGY/CYTO LOGY ORDERABLES Performing Organization Address City/[facility]/ZIP Co de Phone Number [facility] ([facility]) * PAP IG RFLX HPV ASCU (11/04/2013) Only the most recent of4 resultswithin the time period is included. ENTIRE VAGINA / Unknown 11/04/2013 [facility] - 11/08/2013 11:37 AM [facility] Adelina Macdonald MD LAB - PATHOLOGY/CYTO LOGY ORDERABLES Performing Organization Address City/[facility]/ZIP Co de Phone Number [facility] [address] * PAP SMEAR 1 SLIDE (07/02/2009) Other (qualifier value) 07/02/2009 [facility] - 07/06/2009 1:31 PM CDT This external order was created through the Results Console. 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
--- OUTSIDE RECORDS SUMMARY | 2024-10-29 15:36 | XMS_ITS | Referral Summary ---
Author Organization [facility] Address [address] [place] [address] Care Team Providers Care Necktie Stitcher Name Role Phone Dee Dee Olvera RN Unavailable UnavailMechelle Fierro MD Unavailable [phone] Anthony Bennett PA-C Primary Care Provide r Source Comments [facility],non-owned Affiliates and Associated Physician Practices is amultiple site organization consisting of ambulatory clinics and hospital sitesin [place], [place], [place] and [place]. This disclosure is being madepursuant to the Care Everywhere program and may not contain all information available regarding this patient. Last updated 18.[facility] Encounters Date Type Department Care Team Description 10/24/2024 Telephone [facility] - General Surgery [address] [facility] [place] [phone] Leanne Crawley, SABINO Update 10/23/2024 10:00 AM DOOR TECHNICIAN - 10/23/2024 11:59 PM DOOR TECHNICIAN Hospital Encounter [facility] [address] [place] [phone] Maritza Pena MD Discharge Disposition: Home or Self Care 10/22/2024 Orders Only [facility] - General Surgery [address] [facility], [place] [address] Mary Gonzalez MD 10/14/2024 Travel 10/11/2024 Orders Only [facility] - General Surgery [address] [place] [phone] Maritza Pena MD Ileostomy care ([facility]) 10/11/2024 Travel 10/11/2024 12:08 PM DOOR TECHNICIAN Anesthesia Event [facility] ENDOSCOPY [address] [place] [address] Yoan Mae, Estefania Pacheco, Yaras Asst 10/11/2024 Orders Only [facility] - Vascular Surgery [address] [place] [phone] Diana Rooney RN Ischemic ulcer, limited to breakdown of skin ([facility]) 10/11/2024 11:30 AM DOOR TECHNICIAN - 10/11/2024 12:00 PM DOOR TECHNICIAN Surgery [facility] [address] [place] [address] Maritza Pena MD SIGMOIDOSCOPY FLEXIBLE DIAGNOSTIC w/ [facility] 10/11/2024 10:28 AM DOOR TECHNICIAN - 10/11/2024 1:25 PM DOOR TECHNICIAN Hospital Encounter [facility] OP [address] [place] [address] Maritza Pena MD Surgery General Discharge Disposition: Home or Self Care 10/10/2024 Travel 10/10/2024 11:30 AM DOOR TECHNICIAN Office Visit [facility] - Vascular Surgery [address] [place] [phone] Robert Daniel MD PAD (peripheral artery disease) ([facility]) (Primary Dx) 10/07/2024 Travel 10/04/2024 Orders Only [facility] - General Surgery [address] [place] [phone] Maritza Pena MD Rectal cancer (HCC) 10/03/2024 Travel 10/03/2024 11:00 AM DOOR TECHNICIAN Office Visit [facility] - General Surgery [address] [place] [address] Maritza Pena MD Chronic wound (Primary Dx); Rectal adenocarcinoma (HCC) 10/03/2024 9:30 AM DOOR TECHNICIAN - 10/03/2024 11:59 PM DOOR TECHNICIAN Hospital Encounter [facility] CAT SCAN [address] [place] [address] Maritza Pena MD Discharge Disposition: Home or Self Care 09/19/2024 Orders Only [facility] - Hematology/Oncolog y [address] [place] [address] Rooney, Alexandra, BOSOM PRESSER-ETL ANALYST Anemia due to vitamin B12 deficiency, unspecified B12 deficiency type ; Anemia, unspecified type 09/17/2024 Travel 09/17/2024 Orders Only [facility] - Hematology/Oncolog y [address] [place] [address] Rooney, Alexandra, BOSOM PRESSER-ETL ANALYST Anemia, unspecified type ; Anemia due to vitamin B12 deficiency, unspecified B12 deficiency type; At high risk for malnutrition 09/17/2024 1:20 PM DOOR TECHNICIAN Office Visit [facility] - Hematology/Oncolog y [address] [place] [phone] Rooney, Alexandra, BOSOM PRESSER-ETL ANALYST Rectal cancer (HCC) (Primary Dx) 09/17/2024 12:00 PM DOOR TECHNICIAN - 09/17/2024 11:59 PM DOOR TECHNICIAN Hospital Encounter [facility] [address] [place] [address] Mechelle Arteaga MD Discharge Disposition: Home or Self Care 09/10/2024 Orders Only [facility] - General Surgery [address] [place] [address] Maritza Pena MD Rectal cancer (HCC) ; Severe malnutrition (HCC) 08/27/2024 Travel 08/22/2024 Telephone [facility] - Hematology/Oncolog y [address] [place] [address] Angelica Christina Appointment (See note) from Last 3 Months Allergies No known active allergies Medications * Be aware that medications may not be up to date on this document. Alwaysverify current medications with the patient. Medication Sig Dispensed Refills Start Date End Date Status acetaminophen (Tylenol) 500 MG tablet Take 1 (one) tablet by mouth every 6 hours as needed Maximum allowable Acetaminophen amount = 4 Grams (4000 mg) / 24 hours. 11/23/2023 Active Additional Information Patient not taking.Reason: Other, Informant: Patient, Reported on 10/11/2024 multiple vitamins with minerals tablet Take 1 (one) tablet by mouth once daily 11/24/2023 Active Additional Information Patient not taking.Reason: Other, Informant: Patient, Reported on 10/11/2024 thiamine (Vitamin B-1) 100 MG tablet Take 1 (one) tablet by mouth once daily 11/24/2023 Active Additional Information Patient not taking.Reason: Other, Informant: Patient, Reported on 10/11/2024 Nutritional Supplements (Ensure Plus High Protein) LIQD Take 1 container by mouth 3 times daily 03/23/2024 Active sertraline (Zoloft) 50 MG tablet Take 1 (one) tablet by mouth once daily 03/26/2024 Active Additional Information Patient not taking.Reason: Other, Informant: Patient, Reported on 10/11/2024 ferrous sulfate 325 (65 FE) MG tablet Take 1 (one) tablet by mouth daily with breakfast 03/26/2024 Active Additional Information Patient not taking.Reason: Other, Informant: Patient, Reported on 10/11/2024 loperamide (Imodium) 2 MG capsule Take 1 (one) capsule by mouth 3 times daily as needed for Diarrhea (High or purely liquid ileostomy output) 03/26/2024 Active Additional Information Patient not taking.Reason: Other, Informant: Patient, Reported on 10/11/2024 gabapentin (Neurontin) 300 MG capsuleIndications :Peripheral Neuropathy Take 1 (one) capsule by mouth 3 times daily Reasons: Peripheral Nerve Disease 06/10/2024 Active Additional Information Patient not taking.Reason: Other, Informant: Patient, Reported on 10/11/2024 sodium bicarbonate 650 MG tablet Take 2 (two) tablets by mouth 2 times daily 06/18/2024 Active Additional Information Patient not taking.Reason: Other, Informant: Patient, Reported on 10/11/2024 loperamide (Imodium) 2 MG capsule Take 1 (one) capsule by mouth 3 times daily 06/18/2024 Active Additional Information Patient not taking.Reason: Other, Informant: Patient, Reported on 10/11/2024 mirtazapine (Remeron) 15 MG tabletIndications: Major Depressive Disorder Take 1 (one) tablet by mouth at bedtime Reasons: Major Depressive Disorder 06/18/2024 Active Additional Information Patient not taking.Reason: Other, Informant: Patient, Reported on 10/11/2024 Loperamide (Imodium) 2 MG tablet Take 1 (one) tablet by mouth 4 times daily as needed for Diarrhea 30 tablet 10/03/2024 Active Additional Information Patient not taking.Reason: Other, Informant: Patient, Reported on 10/11/2024 Nutritional Supplements (Jevity 1.5 Dusty/Fiber) LIQD Take 70 mL by mouth 2 times daily 1000 mL 10/03/2024 Active diazePAM (Valium) 2 MG tablet Take 1 (one) tablet by mouth once daily To help with the contrast enema. Take 1 tablet at least 30 minutes before your enema is scheduled. If you still feel anxious, take an additional 1 or 2 tablets. Ensure you have someone to drive you home. 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 (FLUAD QUADRIVALENT; 65Y+) (AIIV4) 06/08/2024 Pneumococcal Pcv13 Conj 03/19/2018 Social History Tobacco Use Types Packs/Day Years [...] Recorded Patient Health Questionnaire-2 Score 0 08/27/2024 [facility] - Occupational Stress [...] place to sleep or slept in a fdc (including now)? No 05/21/2024 Sex and Gender Information Value Date Recorded Sex Assigned at Not on file Gender Identity Not on file Sexual Orientation Not on file Last Filed Vital Signs Vital Sign Reading Time Taken Comments Blood Pressure 120/74 10/11/2024 1:00 PM DOOR TECHNICIAN Pulse 73 10/11/2024 1:00 PM DOOR TECHNICIAN Temperature 36.1 C (97 F) 10/11/2024 12:30 PM DOOR TECHNICIAN Respiratory Rate 16 10/11/2024 1:00 PM DOOR TECHNICIAN Oxygen Saturation 100% 10/11/2024 1:00 PM DOOR TECHNICIAN Inhaled Oxygen Concentration - - Weight 46.3 kg (102 lb) 10/11/2024 10:57 AM DOOR TECHNICIAN Height 152.4 cm (5') 10/11/2024 10:57 AM DOOR TECHNICIAN Body Mass Index 19.92 10/11/2024 10:57 AM DOOR TECHNICIAN Functional Status Functional Status Response Date of Assess ment Is person deaf or have serious hearing difficult y? No 10/11/2024 Is person blind or have serious difficulty seein g? No 10/11/2024 Does person have serious dif ficulty walking/climbing stairs? Yes 10/11/2024 Does person have difficulty dressing/bathing? Ye s 10/11/2024 Does person have difficulty doing errands alone? Yes 10/11/2024 Cognitive Status Response Date of Assessm ent Does person have difficulty concentrating/remembering/making decisions? Yes 10/11/2024 Plan of Treatment Upcoming Encounters Date Type Department Care Team (Late st Contact Info) Description 10/31/2024 10:30 AM DOOR TECHNICIAN Appointment [place] [facility] [place] 2[place] [address] [place] [address] Bel Downs PA [address] [place] [address] 12/17/2024 10:00 AM CDT Office Visit [facility] - Hematology/Oncology [address] [place] [phone] Mechelle Arteaga MD [address] [address] 01/09/2025 10:00 AM CDT Appointment [facility] V[facility]ULAR [address] [place] [phone] Robert Daniel MD [address] [facility] [address] [place] [address] 01/09/2025 11:45 AM CDT Office Visit [facility] - Vascular Surgery [address] [facility] [place] [phone] Robert Daniel MD [address] [facility] [address] [place] [address] Medical Devices Implanted Type Area Bale Opener Device Identifier Shelf Expiration Date Model / Serial / Lot Port Implinfn Powerport Slim Clrvu Argd Implanted:Qty: 1 on 05/04/2023 at [facility] Right: Chest [employer] 12/09/2024 [id number] / / [id number] Procedures Procedure Name Priority Date/Time Associated Diagnosis Comments FL LOWER GI WATER SOLUBLE Routine 10/23/2024 12:11 PM DOOR TECHNICIAN Ileostomy care (HCC) ENDOSCOPY, PROCTOSIGMOID Routine 10/11/2024 12:04 PM DOOR TECHNICIAN MT SIGMOIDOSCOPY,DIAGNO STIC 10/11/2024 12:03 PM DOOR TECHNICIAN Rectal cancer (HCC) Special Needs From: Maritza Pena MD Sent: 10/04/2024 2:04 PM DOOR TECHNICIAN To: Melissa Grant; Nora Hurd RN; * Subject: RE: Oct 11 Andrew Becerra - Female, 73 year old, 1950 Just flex sig! Thank you ----- Message ----- From: Nora Hurd RN Sent: 10/04/2024 1:30 PM DOOR TECHNICIAN To: Melissa Grant; Maritza Pena MD; * Subject: RE: Oct 11 No problem Yep Who you got? ----- Message ----- From: Maritza Pena MD Sent: 10/04/2024 9:02 AM DOOR TECHNICIAN To: Melissa Grant; Nora Hurd RN; * Subject: Oct 11 Kat sifuentes Nora, jenae AGUILAR, I have an anorectal case on 10/11 at 7:30am... I will not be ready to scope until 8:30 most likely, if this is a problem let me know. Also, would I ruel able to add on another flex sig?? Let me know CT ABDOMEN PELVIS WO CONTRAST Routine 10/03/2024 12:20 PM DOOR TECHNICIAN Rectal cancer (HCC) CREATININE - POCT INTERFACED Routine 10/03/2024 10:25 AM DOOR TECHNICIAN TSH HANSEL 09/17/2024 12:46 PM DOOR TECHNICIAN Anemia, unspecified type At high risk for malnutrition IRON + TRANSFERRIN PANEL Routine 09/17/2024 12:46 PM DOOR TECHNICIAN Anemia, unspecified type At high risk for malnutrition FERRITIN Routine 09/17/2024 12:46 PM DOOR TECHNICIAN Anemia, unspecified type VITAMIN B12 Routine 09/17/2024 12:46 PM DOOR TECHNICIAN Anemia, unspecified type Anemia due to vitamin B12 deficiency, unspecified B12 deficiency type COMPREHENSIVE METABOLIC PANEL Routine 09/17/2024 12:46 PM DOOR TECHNICIAN Anemia, unspecified type CBC W AUTO DIFFERENTIAL Routine 09/17/2024 12:46 PM DOOR TECHNICIAN Anemia, unspecified type RETINOL BINDING PROTEIN Routine 09/17/2024 12:46 PM DOOR TECHNICIAN Rectal cancer (HCC) Severe malnutrition (HCC) TRIGLYCERIDES BLOOD Routine 09/17/2024 12:46 PM DOOR TECHNICIAN Rectal cancer (HCC) Severe malnutrition (HCC) PREALBUMIN Routine 09/17/2024 12:46 PM DOOR TECHNICIAN Rectal cancer (HCC) Severe malnutrition (HCC) ENDOSCOPY, COLON, DIAGNOSTIC Routine 10/03/2023 1:01 PM DOOR TECHNICIAN from Last 3 Months or Most Recently Relevant to Health Maintenance Results * FL Lower Gi Water Soluble (10/23/2024 12:11 PM DOOR TECHNICIAN) Anatomical Region Laterality Modality Abdomen Digital Radiogra phy 10/23/2024 11:5 0 AM DOOR TECHNICIAN Impressions 10/23/2024 5:00 PM DOOR TECHNICIAN IMPRESSION: Limited exam due to patient discomfort and infusion being obtained through a pediatric tube and leakage. Within the limitations, contrast could be filled up to the cecum without evidence of strictures. > Dictated by Merritt Adams MD, (vice president media relations). Salima Patel MD have personally reviewed and interpreted this examination/study. > Interpreting Provider: Salima León MD on 10/23/2024 5:00 PM Narrative 10/23/2024 5:00 PM DOOR TECHNICIAN PROCEDURE: FL LOWER GI WATER SOLUBLE DATE/TIME [...] FLUOROSCOPY: 2 minutes (94.4 mGy) FINDINGS: A mica parts sprayer radiograph of the abdomen demonstrates a nonobstructive [...] FLUOROSCOPY: 2 minutes (94.4 mGy) FINDINGS: A mica parts sprayer radiograph of the abdomen demonstrates a nonobstructive [...] strictures. > Dictated by Merritt Adams MD, (vice president media relations). ISalima MD have personally reviewed and interpreted this examination/study. > Interpreting Provider: Salima León MD on 10/23/2024 5:00 PM Maritza Pnea MD FLUOROSCOPY ORDERA BLES * Endoscopy, Proctosigmoid (10/11/2024 12:04 PM DOOR TECHNICIAN) Report Endoscopy POC Endoscopy Department Report _ Patient Name: Andrew Alarcon Procedure Date: 10/11/2024 12:04 PM Date of [...] entire procedure. Procedure Code(s): --- Professional --- 82811, Sigmoidoscopy, flexible; diagnostic, including collection of specimen(s) by brushing or washing, when performed (separate procedure) Diagnosis Code(s): --- Professional --- Z85.048, Personal history of other malignant neoplasm of rectum, rectosigmoid junction, and anus CPT copyright 2021 [employer]. All rights reserved. The codes documented in this report are preliminary and upon domestic housekeeper review may be revised to meet current compliance requirements. _ Maritza Pena, 10/11/2024 12:26:03 PM Note Initiated On: 10/11/2024 12:04 PM Number of Addenda: [phone] [place] [address] PROVATION 10/11/2024 12:0 4 PM DOOR TECHNICIAN Maritza Pena MD GI PROCEDURE ORDER [facility] * CT Abdomen Pelvis Wo Contrast (10/03/2024 12:20 PM DOOR TECHNICIAN) Anatomical Region Laterality Modality Abdomen, Pelvis Computed Tomogra phy 10/03/2024 2:06 PM DOOR TECHNICIAN Impressions 10/03/2024 11:11 PM DOOR TECHNICIAN Impression: 1.Postoperative changes with right lower quadrant [...] indeterminate. > Dictated by Dominic Carvajal MD, (vice president media relations). ISalima MD have personally reviewed and interpreted this examination/study. > Interpreting Provider: Salima León MD on 10/03/2024 11:11 PM Narrative 10/03/2024 11:11 PM DOOR TECHNICIAN PROCEDURE: CT ABDOMEN PELVIS WO CONTRAST, DATE/TIME OF EXAM: 10/03/2024 12:20 PM, LOCATION [facility] INDICATION: C20: Rectal cancer (HCC), history of [...] DATE/TIME OF EXAM: 10/03/2024 12:20 PM, LOCATION [facility] INDICATION: C20: Rectal cancer (HCC), history of [...] unchanged,indeterminate. > Dictated by Dominic Carvajal MD, (vice president media relations). ISalima MD have personally reviewed and interpreted this examination/study. > Interpreting Provider: Salima León MD on 10/03/2024 11:[address] ORDERABLES * (ABNORMAL) CREATININE - POCT INTERFACED (10/03/2024 10:25 AM DOOR TECHNICIAN) [facility] Creatinine POCT 2.06(H) 0.30 - 1.30 mg/dL 10/03/2024 10:26 AM DOOR TECHNICIAN [facility] eGFR 25(L) >=90 mL/min/1.7 3 m2 10/03/2024 10:26 AM DOOR TECHNICIAN [facility] Blood BLOOD SPECIMEN / Unknown 10/03/2024 10:25 AM DOOR TECHNICIAN 10/03/2024 10:26 AM DOOR TECHNICIAN Maritza Pena MD LAB - POINT OF CAR E ORDERABLES [facility] [address] [place] [phone], [facility] [phone] * (ABNORMAL) RETINOL BINDING PROTEIN (09/17/2024 12:46 PM DOOR TECHNICIAN) [facility] Retinol Binding Protein 9.1(H) 3.0 - 6.0 mg/dL 09/19/2024 3:35 AM DOOR TECHNICIAN [employer] ([facility]) Comment: Performed By: [employer] [address] [place] [id number] Product Development Assistant: José Sharma MD, PhD CLIA Number: [id number] Blood BLOOD SPECIMEN / Unknown Venipuncture / Unknown 09/17/2024 12:46 PM DOOR TECHNICIAN 09/17/2024 12:57 PM DOOR TECHNICIAN Maritza Pena MD LAB - CHEMISTRY OR DERABLES [facility]) [address] [place] [address] * (ABNORMAL) CBC WITH DIFFERENTIAL (09/17/2024 12:46 PM DOOR TECHNICIAN) WBC 12.3(H) 4.0 - 10.7 x10E9/L 09/17/2024 1:04 PM [facility] RBC Count 3.70(L) 3.90 - 5.20 x10E12/L 09/17/2024 1:04 PM [facility] Hemoglobin 10.0(L) 11.9 - 15.8 g/dL 09/17/2024 1:04 PM [facility] Hematocrit 29.1(L) 34.8 - 46.1 % 09/17/2024 1:04 PM [facility] MCV 78.6(L) 80.0 - 98.0 fL 09/17/2024 1:04 PM [facility] MCH 27.0 26.7 - 33.6 pg 09/17/2024 1:04 PM [facility] MCHC 34.4 31.7 - 36.3 g/dL 09/17/2024 1:04 PM [facility] RDW-CV 16.5(H) 11.3 - 14.8 % 09/17/2024 1:04 PM [facility] Platelet Count 400 150 - 420 x10E9/L 09/17/2024 1:04 PM [facility] MPV 9.5 7.8 - 11.4 fL 09/17/2024 1:04 PM [facility] Preliminary Absolute Neutrophil 8.76(H) 1.60 - 7.50 x10E9/L 09/17/2024 1:04 PM DOOR TECHNICIAN [facility] Neutrophil % 71.4 41.0 - 74.0 % 09/17/2024 1:04 PM [facility] Lymphocyte % 20.4 17.0 - 47.0 % 09/17/2024 1:04 PM [facility] Monocyte % 7.3 3.0 - 11.0 % 09/17/2024 1:04 PM [facility] Eosinophil % 0.2 0.0 - 7.0 % 09/17/2024 1:04 PM [facility] Basophil % 0.2 0.0 - 1.6 % 09/17/2024 1:04 PM [facility] Immature Granulocytes % 0.5 0.0 - 1.0 % 09/17/2024 1:04 PM [facility] Neutrophil Absolute 8.76(H) 1.60 - 7.50 x10E9/L 09/17/2024 1:04 PM [facility] Lymphocyte Absolute 2.50 1.00 - 4.40 x10E9/L 09/17/2024 1:04 PM [facility] Monocyte Absolute 0.90 0.15 - 1.00 x10E9/L 09/17/2024 1:04 PM [facility] Eosinophil Absolute 0.03 0.00 - 0.60 x10E9/L 09/17/2024 1:04 PM [facility] Basophil Absolute 0.03 0.00 - 0.13 x10E9/L 09/17/2024 1:04 PM [facility] Blood BLOOD SPECIMEN / Unknown Venipuncture / Unknown 09/17/2024 12:46 PM DOOR TECHNICIAN 09/17/2024 12:59 PM [facility] Alexandra Rooney BOSOM PRESSER-ETL ANALYST LAB - HEMATOLOGY OR DERABLES Performing Organization Address City/State/[facility] Co de Phone Number [facility] [address] [place] [address], [facility] [phone] * TRIGLYCERIDES BLOOD (09/17/2024 12:46 PM DOOR TECHNICIAN) Triglycerides 84 <150 mg/dL 09/17/2024 1:28 PM [facility] Comment: ATP III Classification of Triglycerides: <150 mg/dL: Normal 150 - 199 mg/dL: Borderline High 200 - 400 mg/dL: High >500 mg/dL: Very High Blood BLOOD SPECIMEN / Unknown Venipuncture / Unknown 09/17/2024 12:46 PM DOOR TECHNICIAN 09/17/2024 12:59 PM DOOR TECHNICIAN Maritza Pena MD LAB - CHEMISTRY OR DERABLES Performing Organization Address [facility] Co de Phone Number [facility] [address] [place] [address] [phone] * (ABNORMAL) COMPREHENSIVE METABOLIC PANEL (09/17/2024 12:46 PM DOOR TECHNICIAN) BUN 82(H) 7 - 26 mg/dL 09/17/2024 1:28 PM [facility] Creatinine 1.48(H) 0.56 - 0.96 mg/dL 09/17/2024 1:28 PM [facility] Sodium 132(L) 136 - 145 mmol/L 09/17/2024 1:28 PM [facility] Potassium 3.7 3.5 - 4.5 mmol/L 09/17/2024 1:28 PM [facility] Chloride 93(L) 98 - 107 mmol/L 09/17/2024 1:28 PM [facility] CO2 25 22 - 29 mmol/L 09/17/2024 1:28 PM [facility] Glucose 113(H) 70 - 99 mg/dL 09/17/2024 1:28 PM [facility] Calcium 9.9 8.4 - 10.2 mg/dL 09/17/2024 1:28 PM [facility] Protein Total 7.9 6.0 - 8.3 g/dL 09/17/2024 1:28 PM [facility] Albumin 3.2(L) 3.4 - 5.0 g/dL 09/17/2024 1:28 PM [facility] Bilirubin Total 0.5 0.2 - 1.2 mg/dL 09/17/2024 1:28 PM [facility] Alkaline Phosphatase 120 40 - 150 U/L 09/17/2024 1:28 PM [facility] ALT 26 5 - 55 U/L 09/17/2024 1:28 PM [facility] AST 19 5 - 34 U/L 09/17/2024 1:28 PM [facility] Anion Gap 14 6 - 16 09/17/2024 1:28 PM [facility] BUN/Creatinine Ratio >50(H) 7 - 23 09/17/2024 1:28 PM [facility] Osmolality Calculated 300(H) 275 - 295 mOsm/kg 09/17/2024 1:28 PM [facility] Albumin/Globulin Ratio 0.7(L) 1.1 - 2.3 09/17/2024 1:28 PM [facility] eGFR by CKD-EPI 38(L) >=90 mL/min/1.7 3 m2 09/17/2024 1:28 PM [facility] Blood BLOOD SPECIMEN / Unknown Venipuncture / Unknown 09/17/2024 12:46 PM DOOR TECHNICIAN 09/17/2024 12:59 PM DOOR TECHNICIAN Alexandra HART LAB - CHEMISTRY ORD ERABLES [address] [address], [facility] [phone] * PREALBUMIN (09/17/2024 12:46 PM DOOR TECHNICIAN) Prealbumin 24 16 - 45 mg/dL 09/17/2024 1:29 PM [facility] Blood BLOOD SPECIMEN / Unknown Venipuncture / Unknown 09/17/2024 12:46 PM DOOR TECHNICIAN 09/17/2024 12:58 PM DOOR TECHNICIAN Maritza Pena MD LAB - CHEMISTRY OR DERABLES [address] [address], [facility] [phone] * VITAMIN B12 (09/17/2024 12:46 PM DOOR TECHNICIAN) Vitamin B12 423 213 - 816 pg/mL 09/17/2024 1:53 PM DOOR TECHNICIAN [facility] Blood BLOOD SPECIMEN / Unknown Venipuncture / Unknown 09/17/2024 12:46 PM DOOR TECHNICIAN 09/17/2024 12:59 PM DOOR TECHNICIAN [facility] - CHEMISTRY ORD ERABLES [address] [address], [place] [phone] * TSH (09/17/2024 12:46 PM DOOR TECHNICIAN) TSH 0.512 0.350 - 4.940 uIU/mL 09/17/2024 1:53 PM [facility] Blood BLOOD SPECIMEN / Unknown Venipuncture / Unknown 09/17/2024 12:46 PM DOOR TECHNICIAN 09/17/2024 12:59 PM DOOR TECHNICIAN Alexandra Rooney [facility] LAB - CHEMISTRY ORD ERABLES [address] [address], [place] [phone] * (ABNORMAL) IRON + TRANSFERRIN PANEL (09/17/2024 12:46 PM DOOR TECHNICIAN) Iron 29(L) 40 - 150 ug/dL 09/17/2024 1:31 PM [facility] Transferrin 196 174 - 382 mg/dL 09/17/2024 1:31 PM [facility] Transferrin Saturation % 12(L) 16 - 50 % 09/17/2024 1:31 PM [facility] TIBC Calculated 245 240 - 450 ug/dL 09/17/2024 1:31 PM [facility] Blood BLOOD SPECIMEN / Unknown Venipuncture / Unknown 09/17/2024 12:46 PM DOOR TECHNICIAN 09/17/2024 12:58 PM DOOR TECHNICIAN Alexandra Ro[facility] - CHEMISTRY ORD ERABLES [address] [address], [place] [phone] * (ABNORMAL) FERRITIN (09/17/2024 12:46 PM DOOR TECHNICIAN) Ferritin 1,507(H) 13 - 204 ng/mL 09/17/2024 1:47 PM DOOR TECHNICIAN [facility] Comment:Result obtained by ecleste lucero. Blood BLOOD SPECIMEN / Unknown Venipuncture / Unknown 09/17/2024 12:46 PM DOOR TECHNICIAN 09/17/2024 12:58 PM DOOR TECHNICIAN Alexandra Rooney [facility] - CHEMISTRY ORD ERABLES [facility] [address] [place] [id number], [facility] [phone] * ENDOSCOPY, COLON, DIAGNOSTIC (10/03/2023 1:01 PM DOOR TECHNICIAN) Report Endoscopy POC Endoscopy Department Report _ Patient Name: Andrew Alarcon Procedure Date: 10/03/2023 1:01 PM Date of [...] entire procedure. Procedure Code(s): --- Professional --- 40453, Colonoscopy, flexible; with biopsy, single or multiple Diagnosis Code(s): --- Professional --- C19, Malignant neoplasm of rectosigmoid junction CPT copyright 2021 [employer]. All rights reserved. The codes documented in this report are preliminary and upon domestic housekeeper review may be revised to meet current compliance requirements. Maritza Pena, 10/03/2023 2:13:18 PM Note Initiated On: 10/03/2023 1:01 PM Number of Addenda: [address] [facility] [address] [place] [address] [facility] 10/03/2023 1:01 PM DOOR TECHNICIAN Maritza Pena MD GI PROCEDURE ORDER [facility] from Last 3 Months or Most Recently Relevant to Health Maintenance Advance Directives * Full Code (Latest Code Status on File) Date Activated Date Inactivated Comments 05/18/2024 4:37 AM 06/18/2024 7:41 PM * Full Code Date Activated Date Inactivated Comments 03/22/2024 10:13 PM 03/28/2024 12:06 AM * Full Code Date Activated Date Inactivated Comments 11/19/2023 4:07 PM 11/26/2023 4:19 PM * Full Code Date Activated Date Inactivated Comments 11/19/2023 4:07 PM 11/19/2023 4:07 PM * Full Code Date Activated Date Inactivated Comments 11/06/2023 5:45 PM 11/11/2023 6:39 PM Care Teams Necktie Stitcher Relationship Specialty Start Date End Date Anthony Bennett PA-C [address] [place] [address] PCP - General Physician Deputy Juvenile Officer 11/07/23 Dee Dee Olvera, RN 11/07/17 Mechelle Arteaga MD [id number] [address] Hematology and Oncology 11/05/23
--- OUTSIDE RECORDS SUMMARY | 2024-10-29 15:36 | XMS_ITS | Referral Summary ---
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 45 tablet 12/28/2023 Active enoxaparin (LOVENOX) 40 MG/0.4ML injectable solution Inject 40 mg into the skin daily. Active ferrous sulfate 325 (65 FE) MG tablet Take 325 mg by mouth 5 days a week. M-W-F-Sa-Paredes Active melatonin 3 MGIndications:Insomnia Take 6 mg by mouth nightly as needed. Indications: Trouble Sleeping Active mirtazapine (REMERON) 15 MG tablet Take 15 mg by mouth at bedtime. Active thiamine (VITAMIN B1) 100 MG tablet Take 100 mg by mouth daily. Active acetaminophen (TYLENOL) 325 MG tablet Take 650 mg by mouth every 6 hours as needed for Pain. Active Ascorbic Acid (vitamin C) 500 MG tablet Take 500 mg by mouth daily. Active zinc sulfate (ZINCATE) 220 (50 Zn) MG capsule Take 220 mg by mouth daily. Active Acidophilus Lactobacillus Cap Take 1 capsule by mouth in the morning and 1 capsule in the evening. Active cloNIDine (CATAPRES-TTS 2) 0.2 MG/24HR Place 1 patch onto the skin 1 day a week. Box includes patch and non-medicated adhesive cover. Apply adhesive cover if patch begins to lift. 4 patch 01/29/2024 Active gabapentin (NEURONTIN) 250 MG/5ML solution Take 2 mLs by mouth in the morning and 2 mLs at noon and 2 mLs in the evening. 180 mL 01/26/2024 Active metoPROLOL succinate (TOPROL-XL) 25 MG 24 hr tablet Take 0.5 tablets by mouth in the morning and 0.5 tablets in the evening. 30 tablet 01/26/2024 Active Active Problems Problem Noted Date Diagnosed Date Intestinal obstruction (CMD) 01/30/2024 Small bowel obstruction (CMD) 01/21/2024 Debility 01/15/2024 Renal failure 01/01/2024 Unspecified septicemia(038.9) (CMD) 12/26/2023 Recurrent major depression (CMD) 12/26/2023 Muscular paralysis 12/26/2023 Malignant neoplasm of rectum (CMD) 12/26/2023 Leukocytosis (leucocytosis) 12/26/2023 Cervical cancer (CMD) 12/26/2023 Anemia due to chemotherapy 12/26/2023 Acute unilateral obstructive uropathy 12/26/2023 Acute kidney failure, unspecified (CMD) 12/26/19 Social History Tobacco Use Types Packs/Day Years Used Date Smoking Tobacco: Every Day Cigarettes Smokeless Tobacco: Former Tobacco Cessation:Ready to Q uit: Not Asked; Counseling Given: Not Answered Alcohol Use Standard Drinks/Week Comments Not Currently 0 (1 standard drink = 0.6 oz pur e alcohol) Utilities Answer Date Recorded In the past 12 months has [employer], gas, oil, or water [employer] threatened to shut off services in your home? No 01/03/2024 PHQ-2 Answer Date Recorded Initial depression screening score: 0 01/02/2024 Social Connections Answer Date Recorded How often do you see or talk to people that you care about and feel close to? (For example: talking to friends on the phone, visiting friends or family, going to congregation or club meetings) Patient declined 01/21/2024 Alcohol Use Answer Date Recorded Audit C Total Score 0 01/21/2024 Financial Resource Strain Answer Date R ecorded In the past year, have you o r any family members you live with been unable to get any of the following when it was really needed? Check all that apply. None 01/03/2024 Food Insecurity Answer Date Recorded Within the past 12 months, y ou worried that your food would run out before you got money to buy more. Never true 01/02/2024 Within the past 12 months, t he food you bought just didn't last and you didn't have money to get more. Never true 01/02/2024 Inadequate Housing Answer Date Recorded What is your living situatio n today? Patient unable to answer 01/21/2024 Do you have problems with an y of the following? None of the above 01/21/2024 Interpersonal Safety Answer Date Record ed How often does anyone, jose padilla family and friends, physically hurt you? Never 01/02/2024 How often does anyone, jose padilla family and friends, insult or talk down to you? Never 01/02/2024 How often does anyone, jose padilla family and friends, threaten you with harm? Never 01/02/2024 How often does anyone, jose padilla family and friends, scream or curse at you? Never 01/02/2024 Transportation Needs Answer Date Record ed In the past 12 months, has l ack of reliable transportation kept you from medical appointments, meetings, work or from getting things needed for daily living? No 01/03/2024 Sex and Gender Information Value Date Recorded Sex Assigned at Not on file Gender Identity Not on file Sexual Orientation Not on file Job Start Date Occupation Industry Not on file Not on file Not on file Last Filed Vital Signs Vital Sign Reading Time Taken Comments Blood Pressure 104/59 02/20/2024 2:03 PM CDT Pulse 101 02/20/2024 2:03 PM CDT Temperature 37.1 C (98.8 F) 01/27/2024 5:00 AM CDT Respiratory Rate 16 02/09/2024 2:18 PM CDT Oxygen Saturation 100% 02/20/2024 2:03 PM CDT Inhaled Oxygen Concentration - - Weight 48.6 kg (107 lb 2.3 oz) 01/21/2024 1:00 P M CDT Height 162.6 cm (5' 4 ) 01/21/2024 1:00 PM CDT Body Mass Index 18.39 01/21/2024 1:00 PM CDT Functional Status Functional Status Response Date of Assess ment RETIRED Are you deaf or do y ou have serious difficulty hearing? No 01/21/2024 RETIRED Are you blind or do you have serious difficulty seeing, even when wearing glasses? No 01/21/2024 Do you have serious difficul ty walking or climbing stairs? Yes 01/22/2024 Do you have difficulty dressing or bathing? No 01/03/2024 Because of a physical, menta l, or emotional condition, do you have difficulty doing errands alone? Yes 01/03/2024 Cognitive Status Response Date of Assessm ent Because of a physical, menta l, or emotional condition, do you have serious difficulty concentrating, remembering or making decisions? Yes 01/22/2024 Plan of Treatment Not on file Interventions Intervention Date/Time Recommendation to Nicotine A nonymous (Flynn) - Virtual Support Meetings-findhelp for Substance Use Services to address Tobacco Use(Recommended) 01/05/2024 8:28 AM CDT Advance Directives * Full Resuscitation (Latest Code Status on File) Date Activated Date Inactivated Comments 01/21/2024 8:32 AM 01/27/2024 3:56 PM * Full Resuscitation Date Activated Date Inactivated Comments 01/02/2024 9:32 AM 01/05/2024 4:15 PM * Full Resuscitation Date Activated Date Inactivated Comments 01/01/2024 9:05 PM 01/02/2024 9:32 AM Care Teams Dressmaker Garment Fitter Relationship Specialty Start Date End Date Zay Dixon MD [address] [place] [address] PCP - General Internal Medicine 01/21/24 Zay Dixon MD [address] [address] Internal Medicine 01/01/24
--- OUTSIDE RECORDS SUMMARY | 2024-10-29 15:36 | XMS_ITS | Clinical Summary ---
Author Organization [facility] Address [address] [facility] [place] [address] Care Team Providers Care Hat Marker Name Role Phone Dee Dee Olvera RN Unavailable Unavailabl Mechelle Yuen MD Unavailable [phone] Anthony Bennett PA-C Primary Care Provide r Source Comments [facility],non-owned Affiliates and Associated Physician Practices is amultiple site organization consisting of ambulatory clinics and hospital sitesin [place], [place], [place] and [place]. This disclosure is being madepursuant to the Care Everywhere program and may not contain all information available regarding this patient. Last updated 18.[facility] Allergies No known active allergies Medications * [...] 05/18/2024 B12 deficiency 05/01/2024 Iron deficiency anemia secon christianne to inadequate dietary iron intake 04/30/2024 Severe [...] Date Resolved Date Pre-op testing 11/07/2017 05/20/2024 Encounters Date Type Department Care Team Description 10/24/2024 Telephone [facility] - General Surgery [address] [place] [phone] Leanne Crawley, RN Update 10/23/2024 10:00 AM TOWEL STRETCHER - 10/23/2024 11:59 PM TOWEL STRETCHER Hospital Encounter [facility] DIAGNOSTIC RAD [address] [place] [address] Maritza Pena MD Discharge Disposition: Home or Self Care 10/22/2024 Orders Only [facility] - General Surgery [address] [place] [phone] Mary Gonzalez MD 10/14/2024 Travel 10/11/2024 12:08 PM TOWEL STRETCHER Anesthesia Event [facility] ENDOSCOPY [address] [place] [address] Yoan Mae, Estefania Pacheco, Yaras Asst 10/11/2024 11:30 AM TOWEL STRETCHER - 10/11/2024 12:00 PM TOWEL STRETCHER Surgery [facility] ENDOSCOPY [address] [place] [address] Maritza Pena MD SIGMOIDOSCOPY FLEXIBLE DIAGNOSTIC w/ selwyn 10/11/2024 10:28 AM TOWEL STRETCHER - 10/11/2024 1:25 PM TOWEL STRETCHER Hospital Encounter [facility] TUCKER OP [address] [place] [address] Maritza Pena MD Surgery General Discharge Disposition: Home or Self Care 10/11/2024 Orders Only [facility] - General Surgery [address] [place] [phone] Maritza Pena MD Ileostomy care ([facility]) 10/11/2024 Travel 10/11/2024 Orders Only [facility] - Vascular Surgery [address] [place] [phone] Diana Rooney RN Ischemic ulcer, limited to breakdown of skin ([facility]) 10/10/2024 11:30 AM TOWEL STRETCHER Office Visit [facility] - Vascular Surgery [address] [place] [phone] Robert Daniel MD PAD (peripheral artery disease) ([facility]) (Primary Dx) 10/10/2024 Travel 10/07/2024 Travel 10/04/2024 Orders Only [facility] - General Surgery [address] [place] [phone] Maritza Pena MD Rectal cancer ([facility]) 10/03/2024 11:00 AM TOWEL STRETCHER Office Visit [facility] - General Surgery [address] [place] [phone] Maritza Pena MD Chronic wound (Primary Dx); Rectal adenocarcinoma ([facility]) 10/03/2024 9:30 AM TOWEL STRETCHER - 10/03/2024 11:59 PM TOWEL STRETCHER Hospital Encounter [facility] CAT SCAN [address] [place] [address] Maritza Pena MD Discharge Disposition: Home or Self Care 10/03/2024 Travel 09/19/2024 Orders Only [facility] - Hematology/Oncolog y [address] [place] [address] Alexandra Rooney APRN-KEN Anemia due to vitamin B12 deficiency, unspecified B12 deficiency type ; Anemia, unspecified type 09/17/2024 1:20 PM TOWEL STRETCHER Office Visit [facility] - Hematology/Oncolog y [address] [place] [phone] Rooney, Alexandra, BULLET MAKER-RADIOLOGY SUPERVISOR Rectal cancer (HCC) (Primary Dx) 09/17/2024 12:00 PM TOWEL STRETCHER - 09/17/2024 11:59 PM TOWEL STRETCHER Hospital Encounter [facility] INFUSION CENTER [address] [place] [address] Mechelle Arteaga MD Discharge Disposition: Home or Self Care 09/17/2024 Travel 09/17/2024 Orders Only [facility] - Hematology/Oncolog y [address] [place] [phone] Rooney, Alexandra, BULLET MAKER-RADIOLOGY SUPERVISOR Anemia, unspecified type ; Anemia due to vitamin B12 deficiency, unspecified B12 deficiency type; At high risk for malnutrition 09/10/2024 Orders Only [facility] - General Surgery [address] [facility] [place] [address] Maritza Pena MD Rectal cancer (HCC) ; Severe malnutrition (HCC) 08/27/2024 Travel 08/22/2024 Telephone [facility] - Hematology/Oncolog y [address] [place] [phone] Angelica Christina Appointment (See note) from Last 3 Months Immunizations Name Administration Dates Next Due INFLUENZA [...] Recorded Patient Health Questionnaire-2 Score 0 08/27/2024 [facility] - Occupational Stress [...] place to sleep or slept in a jail (including now)? No 05/21/2024 Sex and Gender Information Value Date Recorded Sex Assigned at Not on file Gender Identity Not on file Sexual Orientation Not on file Last Filed Vital Signs Vital Sign Reading Time Taken Comments Blood Pressure 120/74 10/11/2024 1:00 PM TOWEL STRETCHER Pulse 73 10/11/2024 1:00 PM TOWEL STRETCHER Temperature 36.1 C (97 F) 10/11/2024 12:30 PM TOWEL STRETCHER Respiratory Rate 16 10/11/2024 1:00 PM TOWEL STRETCHER Oxygen Saturation 100% 10/11/2024 1:00 PM TOWEL STRETCHER Inhaled Oxygen Concentration - - Weight 46.3 kg (102 lb) 10/11/2024 10:57 AM TOWEL STRETCHER Height 152.4 cm (5') 10/11/2024 10:57 AM TOWEL STRETCHER Body Mass Index 19.92 10/11/2024 10:57 AM TOWEL STRETCHER Plan of Treatment Upcoming Encounters Date Type Department Care Team (Late st Contact Info) Description 10/31/2024 10:30 AM TOWEL STRETCHER Appointment Wound Care at [facility] [address] [place] [address] [place] Downs PA [address] [place] [address] 12/17/2024 10:00 AM CDT Office Visit [facility] - Hematology/Oncology [address] [place] [phone] Mechelle Arteaga MD [address] [address] 01/09/2025 10:00 AM CDT Appointment [facility] VASCULAR US [address] [place] [phone] Robert Daniel MD [address] [facility] [address] [place] [address] 01/09/2025 11:45 AM CDT Office Visit [facility] - Vascular Surgery [address] [facility] [place] [phone] Robert Daniel MD [address] [facility] [address] [place] [address] Health Maintenance Due Date Last Done Comments BONE DENSITY TESTING 1950 COLOGUARD (AGES 45-75) - COL ON CA SCREENING 1950 CT COLONOGRAPHY - COLON CA SCREENING 1950 FIT - COLON CA SCREENING 1950 FLEX SIG - COLON CA SCREENING 1950 LIPID TESTING 1950 MAMMOGRAM 1950 MEDICARE AWV 12 MONTHS 1950 HEPATITIS C SCREENING 11/13/1970 DTAP/TDAP/TD VACCINES (1 - Tdap) 11/18/1971 ZOSTER VACCINE (1 of 2) 2002 Respiratory Syncytial Virus (RSV) Vaccine Pt: or over 60 yrs (1 - Risk 60-74 years 1-dose series) 2012 PNEUMOCOCCAL VACCINE 50+ (2 of 2 - PPSV23) 05/14/2018 03/19/2018 COVID-19 VACCINE (3 - 2023-2 5 season) 2024 02/28/2021, 02/05/2021 DEPRESSION SCREENING 09/11/2024 08/27/2024, 04/12/2023 COLON MONITORING 10/03/2033 10/03/2023, 10/03/2023 COLONOSCOPY - COLON CA SCREENING 10/03/2033 10/03/2023, 10/03/2023 Colorectal Cancer Screening 10/03/2033 INFLUENZA VACCINE Completed 06/08/2024 HEPATITIS B VACCINE Aged Out No longe r eligible based on patient's age to complete this topic HIB VACCINE Aged Out No longer eligi ble based on patient's age to complete this topic HPV VACCINE Aged Out No longer eligi ble based on patient's age to complete this topic MENINGOCOCCAL (Group B) VACCINE Aged Out No longer eligible b ased on patient's age to complete this topic MENINGOCOCCAL VACCINE Aged Out No jan nikolay eligible based on patient's age to complete this topic Medical Devices Implanted Type Area Rack Cleaner Device Identifier Shelf Expiration Date Model / Serial / Lot Port Implinfn Powerport Slim Clrvu Argd Implanted:Qty: 1 on 05/04/2023 at [facility] Right: Chest Bard Peripheral Vascular 12/09/2024 [id number] / / [id number] Procedures Procedure Name Priority Date/Time Associated Diagnosis Comments FL LOWER GI WATER SOLUBLE Routine 10/23/2024 12:11 PM TOWEL STRETCHER Ileostomy care (HCC) ENDOSCOPY, PROCTOSIGMOID Routine 10/11/2024 12:04 PM TOWEL STRETCHER PA SIGMOIDOSCOPY,DIAGNO STIC 10/11/2024 12:03 PM TOWEL STRETCHER Rectal cancer (HCC) Special Needs From: Maritza Pena MD Sent: 10/04/2024 2:04 PM TOWEL STRETCHER To: Melissa Grant; Nora Hurd, RN; * Subject: RE: Oct 11 Andrew Becerra - Female, 73 year old, 1950 Just flex sig! Thank you ----- Message ----- From: Nora Hurd, SABINO Sent: 10/04/2024 1:30 PM TOWEL STRETCHER To: Melissa Grnat; Maritza Pena MD; * Subject: RE: Oct 11 No problem Yep Who you got? ----- Message ----- From: Maritza Pena MD Sent: 10/04/2024 9:02 AM TOWEL STRETCHER To: Melissa Grant; Nora Hurd, RN; * Subject: Oct 11 Nora Her just FYI, I have an anorectal case on 10/11 at 7:30am... I will not be ready to scope until 8:30 most likely, if this is a problem let me know. Also, would I ruel able to add on another flex sig?? Let me know CT ABDOMEN PELVIS WO CONTRAST Routine 10/03/2024 12:20 PM TOWEL STRETCHER Rectal cancer (HCC) CREATININE - POCT INTERFACED Routine 10/03/2024 10:25 AM TOWEL STRETCHER TSH HANSEL 09/17/2024 12:46 PM TOWEL STRETCHER Anemia, unspecified type At high risk for malnutrition IRON + TRANSFERRIN PANEL Routine 09/17/2024 12:46 PM TOWEL STRETCHER Anemia, unspecified type At high risk for malnutrition FERRITIN Routine 09/17/2024 12:46 PM TOWEL STRETCHER Anemia, unspecified type VITAMIN B12 Routine 09/17/2024 12:46 PM TOWEL STRETCHER Anemia, unspecified type Anemia due to vitamin B12 deficiency, unspecified B12 deficiency type COMPREHENSIVE METABOLIC PANEL Routine 09/17/2024 12:46 PM TOWEL STRETCHER Anemia, unspecified type CBC W AUTO DIFFERENTIAL Routine 09/17/2024 12:46 PM TOWEL STRETCHER Anemia, unspecified type RETINOL BINDING PROTEIN Routine 09/17/2024 12:46 PM TOWEL STRETCHER Rectal cancer (HCC) Severe malnutrition (HCC) TRIGLYCERIDES BLOOD Routine 09/17/2024 12:46 PM TOWEL STRETCHER Rectal cancer (HCC) Severe malnutrition (HCC) PREALBUMIN Routine 09/17/2024 12:46 PM TOWEL STRETCHER Rectal cancer (HCC) Severe malnutrition (HCC) ENDOSCOPY, COLON, DIAGNOSTIC Routine 10/03/2023 1:01 PM TOWEL STRETCHER from Last 3 Months or Most Recently Relevant to Health Maintenance Results * FL Lower Gi Water Soluble (10/23/2024 12:11 PM TOWEL STRETCHER) Anatomical Region Laterality Modality Abdomen Digital Radiogra phy 10/23/2024 11:5 0 AM TOWEL STRETCHER Impressions 10/23/2024 5:00 PM TOWEL STRETCHER IMPRESSION: Limited exam due to patient discomfort and infusion being obtained through a pediatric tube and leakage. Within the limitations, contrast could be filled up to the cecum without evidence of strictures. > Dictated by Merritt Adams MD, (marketing services vice president). ISalima MD have personally reviewed and interpreted this examination/study. > Interpreting Provider: Salima León MD on 10/23/2024 5:00 PM Narrative 10/23/2024 5:00 PM TOWEL STRETCHER PROCEDURE: FL LOWER GI WATER SOLUBLE DATE/TIME [...] FLUOROSCOPY: 2 minutes (94.4 mGy) FINDINGS: A script reader radiograph of the abdomen demonstrates a nonobstructive [...] FLUOROSCOPY: 2 minutes (94.4 mGy) FINDINGS: A script reader radiograph of the abdomen demonstrates a nonobstructive [...] strictures. > Dictated by Merritt Adams MD, (marketing services vice president). Salima Patel MD have personally reviewed and interpreted this examination/study. > Interpreting Provider: Salima León MD on 10/23/2024 5:00 PM Maritza Pena MD FLUOROSCOPY ORDEREleonora GARY * Endoscopy, Proctosigmoid (10/11/2024 12:04 PM TOWEL STRETCHER) Report Endoscopy POC Endoscopy Department Report _ [...] entire procedure. Procedure Code(s): --- Professional --- 86934, Sigmoidoscopy, flexible; diagnostic, including collection of specimen(s) by brushing or washing, when performed (separate procedure) Diagnosis Code(s): --- Professional --- Z85.048, Personal history of other malignant neoplasm of rectum, rectosigmoid junction, and anus CPT copyright 2021 [employer]. All rights reserved. The codes documented in this report are preliminary and upon software sales consultant review may be revised to meet current compliance requirements. _ Maritza Pena, 10/11/2024 12:26:03 PM Note Initiated On: 10/11/2024 12:04 PM Number of Addenda: [phone] [place] [address] PROVATION 10/11/2024 12:0 4 PM TOWEL STRETCHER Maritza Pena MD GI PROCEDURE ORDER [facility] * CT Abdomen Pelvis Wo Contrast (10/03/2024 12:20 PM TOWEL STRETCHER) Anatomical Region Laterality Modality Abdomen, Pelvis Computed Tomogra phy 10/03/2024 2:06 PM TOWEL STRETCHER Impressions 10/03/2024 11:11 PM TOWEL STRETCHER Impression: 1.Postoperative changes with right lower quadrant [...] indeterminate. > Dictated by Dominic Carvajal MD, (marketing services vice president). I, E. Vic León MD have personally reviewed and interpreted this examination/study. > Interpreting Provider: Salima León MD on 10/03/2024 11:11 PM Narrative 10/03/2024 11:11 PM TOWEL STRETCHER PROCEDURE: CT ABDOMEN PELVIS WO CONTRAST, DATE/TIME OF EXAM: 10/03/2024 12:20 PM, LOCATION [facility] INDICATION: C20: Rectal cancer (HCC), [...] DATE/TIME OF EXAM: 10/03/2024 12:20 PM, LOCATION [facility] INDICATION: C20: Rectal cancer (HCC), [...] unchanged,indeterminate. > Dictated by Dominic Carvajal MD, (marketing services vice president). ISalima MD have personally reviewed and interpreted this examination/study. > Interpreting Provider: Salima León MD on 10/03/2024 11:[address] ORDERABLES * (ABNORMAL) CREATININE - POCT INTERFACED (10/03/2024 10:25 AM TOWEL STRETCHER) [facility] Creatinine POCT 2.06(H) 0.30 - 1.30 mg/dL 10/03/2024 10:26 AM TOWEL STRETCHER [facility] eGFR 25(L) >=90 mL/min/1.7 3 m2 10/03/2024 10:26 AM TOWEL STRETCHER [facility] Blood BLOOD SPECIMEN / Unknown 10/03/2024 10:25 AM TOWEL STRETCHER 10/03/2024 10:26 AM TOWEL STRETCHER Maritza Pena MD LAB - POINT OF CAR E ORDERABLES [address] [address], [facility] [phone] * (ABNORMAL) RETINOL BINDING PROTEIN (09/17/2024 12:46 PM TOWEL STRETCHER) [facility] Retinol Binding Protein 9.1(H) 3.0 - 6.0 mg/dL 09/19/2024 3:35 AM TOWEL STRETCHER [employer] ([facility]) Comment: Performed By: [employer] [address] [place] [address] Supervisor Process Testing: José Sharma MD, PhD CLIA Number: [id number] Blood BLOOD SPECIMEN / Unknown Venipuncture / Unknown 09/17/2024 12:46 PM TOWEL STRETCHER 09/17/2024 12:57 PM TOWEL STRETCHER Maritza Pena MD LAB - CHEMISTRY OR DERABLES [employer] [facility]) [address] * (ABNORMAL) CBC WITH DIFFERENTIAL (09/17/2024 12:46 PM TOWEL STRETCHER) [facility] WBC 12.3(H) 4.0 - 10.7 x10E9/L 09/17/2024 1:04 PM TOWEL STRETCHER [facility] RBC Count 3.70(L) 3.90 - 5.20 x10E12/L 09/17/2024 1:04 PM [facility] Hemoglobin 10.0(L) 11.9 - 15.8 g/dL 09/17/2024 1:04 PM [facility] Hematocrit 29.1(L) 34.8 - 46.1 % 09/17/2024 1:04 PM [facility] MCV 78.6(L) 80.0 - 98.0 fL 09/17/2024 1:04 PM [facility] MCH 27.0 26.7 - 33.6 pg 09/17/2024 1:04 PM [facility] MCHC 34.4 31.7 - 36.3 g/dL 09/17/2024 1:04 PM [facility] RDW-CV 16.5(H) 11.3 - 14.8 % 09/17/2024 1:04 PM [facility] Platelet Count 400 150 - 420 x10E9/L 09/17/2024 1:04 PM [facility] MPV 9.5 7.8 - 11.4 fL 09/17/2024 1:04 PM [facility] Preliminary Absolute Neutrophil 8.76(H) 1.60 - 7.50 x10E9/L 09/17/2024 1:04 PM [facility] Neutrophil % 71.4 41.0 - 74.0 % 09/17/2024 1:04 PM [facility] Lymphocyte % 20.4 17.0 - 47.0 % 09/17/2024 1:04 PM [facility] Monocyte % 7.3 3.0 - 11.0 % 09/17/2024 1:04 PM [facility] Eosinophil % 0.2 0.0 - 7.0 % 09/17/2024 1:04 PM [facility] Basophil % 0.2 0.0 - 1.6 % 09/17/2024 1:04 PM [facility] Immature Granulocytes % 0.5 0.0 - 1.0 % 09/17/2024 1:04 PM [facility] Neutrophil Absolute 8.76(H) 1.60 - 7.50 x10E9/L 09/17/2024 1:04 PM [facility] Lymphocyte Absolute 2.50 1.00 - 4.40 x10E9/L 09/17/2024 1:04 PM [facility] Monocyte Absolute 0.90 0.15 - 1.00 x10E9/L 09/17/2024 1:04 PM [facility] Eosinophil Absolute 0.03 0.00 - 0.60 x10E9/L 09/17/2024 1:04 PM [facility] Basophil Absolute 0.03 0.00 - 0.13 x10E9/L 09/17/2024 1:04 PM [facility] Blood BLOOD SPECIMEN / Unknown Venipuncture / Unknown 09/17/2024 12:46 PM TOWEL STRETCHER 09/17/2024 12:59 PM TOWEL STRETCHER Alexandra HART LAB - HEMATOLOGY OR DERABLES Performing Organization Address City/[facility]/ZIP Co de Phone Number [address] [address], [facility] [phone] * TRIGLYCERIDES BLOOD (09/17/2024 12:46 PM TOWEL STRETCHER) Triglycerides 84 <150 mg/dL 09/17/2024 1:28 PM [facility] Comment: ATP III Classification of Triglycerides: <150 mg/dL: Normal 150 - 199 mg/dL: Borderline High 200 - 400 mg/dL: High >500 mg/dL: Very High Blood BLOOD SPECIMEN / Unknown Venipuncture / Unknown 09/17/2024 12:46 PM TOWEL STRETCHER 09/17/2024 12:59 PM TOWEL STRETCHER Maritza Pena MD LAB - CHEMISTRY OR DERABLES [address] [address], [place] [phone] * (ABNORMAL) COMPREHENSIVE METABOLIC PANEL (09/17/2024 12:46 PM TOWEL STRETCHER) BUN 82(H) 7 - 26 mg/dL 09/17/2024 1:28 PM [facility] Creatinine 1.48(H) 0.56 - 0.96 mg/dL 09/17/2024 1:28 PM [facility] Sodium 132(L) 136 - 145 mmol/L 09/17/2024 1:28 PM [facility] Potassium 3.7 3.5 - 4.5 mmol/L 09/17/2024 1:28 PM [facility] Chloride 93(L) 98 - 107 mmol/L 09/17/2024 1:28 PM [facility] CO2 25 22 - 29 mmol/L 09/17/2024 1:28 PM [facility] Glucose 113(H) 70 - 99 mg/dL 09/17/2024 1:28 PM [facility] Calcium 9.9 8.4 - 10.2 mg/dL 09/17/2024 1:28 PM [facility] Protein Total 7.9 6.0 - 8.3 g/dL 09/17/2024 1:28 PM [facility] Albumin 3.2(L) 3.4 - 5.0 g/dL 09/17/2024 1:28 PM [facility] Bilirubin Total 0.5 0.2 - 1.2 mg/dL 09/17/2024 1:28 PM [facility] Alkaline Phosphatase 120 40 - 150 U/L 09/17/2024 1:28 PM [facility] ALT 26 5 - 55 U/L 09/17/2024 1:28 PM [facility] AST 19 5 - 34 U/L 09/17/2024 1:28 PM [facility] Anion Gap 14 6 - 16 09/17/2024 1:28 PM [facility] BUN/Creatinine Ratio >50(H) 7 - 23 09/17/2024 1:28 PM [facility] Osmolality Calculated 300(H) 275 - 295 mOsm/kg 09/17/2024 1:28 PM [facility] Albumin/Globulin Ratio 0.7(L) 1.1 - 2.3 09/17/2024 1:28 PM [facility] eGFR by CKD-EPI 38(L) >=90 mL/min/1.7 3 m2 09/17/2024 1:28 PM [facility] Blood BLOOD SPECIMEN / Unknown Venipuncture / Unknown 09/17/2024 12:46 PM TOWEL STRETCHER 09/17/2024 12:59 PM TOWEL STRETCHER Alexandra Rooney YOJavanKEN LAB - CHEMISTRY ORD ERABLES Performing Organization Address City/[facility]/ZIP Co de Phone Number [facility] [address] [place] [phone], [facility] [phone] * PREALBUMIN (09/17/2024 12:46 PM TOWEL STRETCHER) Prealbumin 24 16 - 45 mg/dL 09/17/2024 1:29 PM TOWEL STRETCHER [facility] Blood BLOOD SPECIMEN / Unknown Venipuncture / Unknown 09/17/2024 12:46 PM TOWEL STRETCHER 09/17/2024 12:58 PM TOWEL STRETCHER Maritza Pena MD LAB - CHEMISTRY OR DERABLES Performing Organization Address City/[facility]/ZIP Co de Phone Number [address] [address], [place] [phone] * VITAMIN B12 (09/17/2024 12:46 PM TOWEL STRETCHER) Vitamin B12 423 213 - 816 pg/mL 09/17/2024 1:53 PM TOWEL STRETCHER [facility] Blood BLOOD SPECIMEN / Unknown Venipuncture / Unknown 09/17/2024 12:46 PM TOWEL STRETCHER 09/17/2024 12:59 PM TOWEL STRETCHER Alexandra Rooney YO-KEN LAB - CHEMISTRY ORD ERABLES [address] [address], [place] [phone] * TSH (09/17/2024 12:46 PM TOWEL STRETCHER) TSH 0.512 0.350 - 4.940 uIU/mL 09/17/2024 1:53 PM TOWEL STRETCHER [facility] Blood BLOOD SPECIMEN / Unknown Venipuncture / Unknown 09/17/2024 12:46 PM TOWEL STRETCHER 09/17/2024 12:59 PM TOWEL STRETCHER Alexandra Rooney [facility] LAB - CHEMISTRY ORD ERABLES [address] [address], [facility] [phone] * (ABNORMAL) IRON + TRANSFERRIN PANEL (09/17/2024 12:46 PM TOWEL STRETCHER) Iron 29(L) 40 - 150 ug/dL 09/17/2024 1:31 PM TOWEL STRETCHER [facility] Transferrin 196 174 - 382 mg/dL 09/17/2024 1:31 PM TOWEL STRETCHER [facility] Transferrin Saturation % 12(L) 16 - 50 % 09/17/2024 1:31 PM [facility] TIBC Calculated 245 240 - 450 ug/dL 09/17/2024 1:31 PM [facility] Blood BLOOD SPECIMEN / Unknown Venipuncture / Unknown 09/17/2024 12:46 PM TOWEL STRETCHER 09/17/2024 12:58 PM TOWEL STRETCHER Alexandra Rooney [facility] LAB - CHEMISTRY ORD ERABLES Performing Organization Address City/[facility]/ZIP Co de Phone Number [address] [address], [facility] [phone] * (ABNORMAL) FERRITIN (09/17/2024 12:46 PM TOWEL STRETCHER) [facility] Ferritin 1,507(H) 13 - 204 ng/mL 09/17/2024 1:47 PM TOWEL STRETCHER [facility] Comment:Result obtained by celeste lucero. Blood BLOOD SPECIMEN / Unknown Venipuncture / Unknown 09/17/2024 12:46 PM TOWEL STRETCHER 09/17/2024 12:58 PM TOWEL STRETCHER Alexandra Rooney [facility] LAB - CHEMISTRY ORD ERABLES [address] [address], [place] [phone] * ENDOSCOPY, COLON, DIAGNOSTIC (10/03/2023 1:01 PM TOWEL STRETCHER) Report Endoscopy POC Endoscopy Department Report _ [...] entire procedure. Procedure Code(s): --- Professional --- 29595, Colonoscopy, flexible; with biopsy, single or multiple Diagnosis Code(s): --- Professional --- C19, Malignant neoplasm of rectosigmoid junction CPT copyright 2021 [employer]. All rights reserved. The codes documented in this report are preliminary and upon software sales consultant review may be revised to meet current compliance requirements. Maritza Pena, 10/03/2023 2:13:18 PM Note Initiated On: 10/03/2023 1:01 PM Number of Addenda: [address] [address] [facility] PROVATION 10/03/2023 1:01 PM TOWEL STRETCHER Maritza Pena MD GI PROCEDURE ORDER OSCAR [facility] PROVATION from Last 3 Months or Most [...] 5:45 PM 11/11/2023 6:39 PM Care Teams Hat Marker Relationship Specialty Start Date End Date Anthony Bennett PA-C [address] [facility] [address] [place] [address] PCP - General Physician [employer] 11/07/23 Dee Dee Olvera, RN 11/07/17 Mechelle Arteaga MD [address] [address] Hematology and Oncology 11/05/23
--- OUTSIDE RECORDS SUMMARY | 2024-10-29 15:36 | XMS_ITS ---
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 Other Current Plans SUPPORT (CYANOCOBALAMIN)* Plan Start Date:05/16/2024 Plan Provider:Mechelle Arteaga MD Linked Problems B12 deficiency Treatment Medications Current Day (Day 1 , Cycle 4 - Planned for 10/15/2024) Next Day (Day 1, Cycle 5 - Planned for 11/12/2024) No medications scheduled. No medications schedul ed. No medications scheduled. Past Plans ONCOLOGY TREATMENT Plan Name Start Date Discontinue Date Treatment Medications Discontinue Reason Plan Provider Cycles RECTAL NEOADJ (LEUCOVORIN FLUOROURACIL OXALIPLATIN) Q14 DAYS (MFOLFOX 6) 05/10/20 23 11/20/2023 fluorouracil (Adrucil)fluorouraci l infusionleucovorin (Wellcovorin)oxalipl atin (Eloxatin) Infusion Therapy Complete Bernardo Soriano MD 8 of 8 cycles started Radiation Treatments * No radiation treatments are documented for this patient in [facility]. Treatments may have been administered in another system. Lifetime Dose Tracking * Chemical Lifetime Dose Automatic Entry Manual Entr y Dose Length Product 475 mGy-cm 475 mGy-cm 0 mGy-cm Resolved Problems Problem Noted Date Diagnosed Date Resolved Date Pre-op testing 11/07/2017 05/20/2024
--- OUTSIDE RECORDS SUMMARY | 2024-10-29 15:36 | XMS_ITS ---
Author Organization [facility] Address [address] [place] [id number] Care Team Providers Care Refrigerating Machine Operator Name Role Phone Zay Dixon MD Primary Care Provider [phone] Zay Dixon MD Unavailable [phone] Active Problems Problem Noted Date Diagnosed Date Intestinal obstruction (CMD) 01/30/2024 Small bowel obstruction (CMD) 01/21/2024 Debility 01/15/2024 Renal failure 01/01/2024 Unspecified septicemia(038.9) (CMD) 12/26/2023 Recurrent major depression (CMD) 12/26/2023 Muscular paralysis 12/26/2023 Malignant neoplasm of rectum (CMD) 12/26/2023 Leukocytosis (leucocytosis) 12/26/2023 Cervical cancer (CMD) 12/26/2023 Anemia due to chemotherapy 12/26/2023 Acute unilateral obstructive uropathy 12/26/2023 Acute kidney failure, unspecified (CMD) 12/26/19 24 Current Oncology Plans No current plan information found. Past Plans No past plan information found. Radiation Treatments * No radiation treatments are documented for this patient in [facility]. Treatments may have been administered in another system. Lifetime Dose Tracking * Chemical Lifetime Dose Automatic Entry Manual Entr y Fluoro Time 1 Minutes 1 Minutes 0 Minutes
--- OUTSIDE RECORDS SUMMARY | 2024-10-29 15:36 | XMS_ITS | Clinical Summary ---
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) Cervical cancer (CMD) Unspecified septicemia(038.9) (CMD) Acute kidney failure, unspecified (CMD) Leukocytosis (leucocytosis) Anemia due to chemotherapy Acute unilateral obstructive uropathy Recurrent major depression (CMD) Malignant neoplasm (CMD) Arthritis Chronic kidney disease Essential (primary) hypertension Urinary tract infection Urinary incontinence Anemia Depression Anxiety Social History Tobacco Use Types Packs/Day Years Used Date Smoking Tobacco: Every Day Cigarettes Smokeless Tobacco: Former Tobacco Cessation:Ready to Q uit: Not Asked; Counseling Given: Not Answered Alcohol Use Standard Drinks/Week Comments Not Currently 0 (1 standard drink = 0.6 oz pur e alcohol) Utilities Answer Date Recorded In the past 12 months has [employer], [employer], or water [employer] threatened to shut off services in your home? No 01/03/2024 PHQ-2 Answer Date Recorded Initial depression screening score: 0 01/02/2024 Social Connections Answer Date Recorded How often do you see or talk to people that you care about and feel close to? (For example: talking to friends on the phone, visiting friends or family, going to anabaptism or club meetings) Patient declined 01/21/2024 Alcohol [...] file Not on file Not on file Obstetrics History Last Filed Vital Signs Vital Sign Reading [...] Mass Index 18.39 01/21/2024 1:00 PM CDT Plan of Treatment Health Maintenance Due Date Last Done Comments DTaP/Tdap/Td Vaccine (1 - Tdap) 11/18/1971 Shingles Vaccine (1 of 2) 11/18/1971 Breast Cancer Screening 1992 CT Colonography 1997 Colonoscopy 1997 Fecal Occult Blood 1997 Sigmoidoscopy 1997 Hepatitis C Screening 11/18/2003 Respiratory Syncytial Virus (RSV) Vaccine 60+ (1 - Risk 60-74 years 1-dose series) 2012 Osteoporosis Screening 2017 Pneumococcal Vaccine 50+ (2 of 2 - PPSV23) 05/14/2018 03/19/2018 COVID-19 Vaccine (3 - Pfizer risk series) 03/28/2021 02/28/2021, 02/05/2021 Traditional Medicare- Medica re Wellness Visit 12/11/2023 Influenza Vaccine (#1) 2024 Cologuard 02/14/2026 02/14/2023 Colorectal Cancer Screen 02/14/2026 HPV Vaccine Aged Out No longer eligi ble based on patient's age to complete this topic Hepatitis A Vaccine Aged Out No longe r eligible based on patient's age to complete this topic Hepatitis B Vaccine (For Physician/APC Discussion) Aged Out No longer elig ible based on patient's age to complete this topic Meningococcal Serogroup B Vaccine Aged Out No longer eligible b ased on patient's age to complete this topic Meningococcal Vaccine Aged Out No jan nikolay eligible based on patient's age to complete this topic Interventions Intervention Date/Time Recommendation to Nicotine A nonymous (Flynn) - Virtual Support Meetings-findhelp for Substance Use Services to address Tobacco Use(Recommended) 01/05/2024 8:28 AM CDT from Last 12 Months Advance Directives * Full Resuscitation (Latest Code Status on File) Date Activated Date Inactivated Comments 01/21/2024 8:32 AM 01/27/2024 3:56 PM * Full Resuscitation Date Activated Date Inactivated Comments 01/02/2024 9:32 AM 01/05/2024 4:15 PM * Full Resuscitation Date Activated Date Inactivated Comments 01/01/2024 9:05 PM 01/02/2024 9:32 AM Care Teams Curatorial Specialist Relationship Specialty Start Date End Date Zay Dixon MD [address] [place] [id number] PCP - General Internal Medicine 01/21/24 Zay Dixon MD [address] [place] [id number] Internal Medicine 01/01/24
[2024-10-29 16:07] LABS: Basophils Percent Auto 0.2 % (0.2-1.2); Eosinophils Percent Auto 0.1 % (0-4.4); Hematocrit 35.9 % (37.0-47.0); Hemoglobin 12.3 g/dL (12.0-15.0); Immature Granulocyte Absolute 0.09 K/mm3 (0.00-0.031); Immature Granulocyte Percent A 0.8 % (0-0.5); Lymphocytes Absolute Auto 1.98 K/mm3 (0.9-3.2); Lymphocytes Percent Auto 16.9 % (18.3-44.2); Mean Corpuscular HGB Conc 34.3 g/dl (32-36); Mean Corpuscular Hemoglobin 26.8 pg (26-34); Mean Corpuscular Volume 78.2 fl (80-100); Monocytes Absolute Auto 0.6 K/mm3 (0.1-0.6); Monocytes Percent Auto 4.7 % (2.6-8.5); Neutrophils Absolute Auto 9.1 K/mm3 (1.3-6.7); Neutrophils Percent Auto 77.3 % (45.5-73.1); Platelet Count Result 526 k/mm3 (150-375); Red Blood Count 4.59 M/mm3 (4.2-5.4); Red Cell Distribution Width 17.1 % (11.5-14.5); White Blood Count 11.7 K/mm3 (4.5-10.0)
--- NOTE | 2024-10-29 16:07 | ED.GENADULT ---
HPI - General Adult General Chief complaint: Recheck/Abnormal Lab/Rx Stated complaint: FTT Time Seen by Provider: 10/29/24 15:13 History of Present Illness HPI narrative: 73-year-old female presents emergency department for evaluation decreased p.o. intake. Patient does have a feeding tube. Patient was at [facility] for approximately 3 weeks and has been at home for approximately 1 week. Patient is scheduled to have additional surgical seizures but she is continuing to lose weight. Patient does have a chronic wound to her left foot that is being cared for by home health. At time of evaluation patient denies any pain or complaint. Patient feels that she is getting adequate care at home. Patient is a poor historian and is unable to provide much of her past medical history. On re-evaluation patient stated that she believes she was at [facility] a few weeks ago and has been at home for the last 3 weeks Related Data Home Medications ?Medication ?Instructions ?Recorded ?Confirmed ?Last Taken ?Type cholecalciferol (vitamin D3) 50 50 mcg PO DAILY 10/31/23 10/31/23 Unknown History mcg (2,000 unit) capsule potassium chloride 20 mEq 20 meq PO BID 10/31/23 10/31/23 Unknown History tablet,extended release Allergies Allergy/AdvReac Type Severity Reaction Status Date / Time No Known Allergies Allergy Verified 10/31/23 08:22 Review of Systems Review of Systems: All systems reviewed & are unremarkable except as noted in HPI and below PMFSH Past Medical History Medical History Cervical cancer Pure hyperglyceridemia Essential (primary) hypertension Tobacco use Surgical History Surgical History S/P laparoscopic colectomy laparoscopic diverting descending loop colostomy 02/23/23 History of hysterectomy History of cholecystectomy Family History Family History Mother Patient's mother is Family history of blood dyscrasia Family history of emphysema Hypertension Sibling Family history of liver disease Family history of human immunodeficiency virus infection Other Cerebrovascular accident Social History Social History Smoking packs per day: 0.5 Smoking cigarettes per day: 10.0 Years smoked: 35 Smoking pack-years: 17.50 Smoking status: Current every day smoker Tobacco type: cigarettes Second hand tobacco smoke exposure: Yes Smoking end date: 10/24/19 Alcohol intake: never Substance use: never Substance use type: does not use Lack of Transportation: No Lack of Food: Never True Current Housing: I Have Housing Concerned About Future Housing: No Difficulty Paying Gas/Electric Bills: No Difficulty Paying for Meds: No Currently Unemployed: No Education: Bachelor's Degree Difficulty w/ Childcare or Family Care: No Spiritual care concerns: No Exam Narrative: APPEARANCE: Cachectic-appearing HEAD: normocephalic, atraumatic. EYES: PERRLA/EOMI, conjunctivae clear. NOSE: Normal no drainage EARS:TMS clear with good light reflex. THROAT: Pharynx clear, no exudate. NECK: Supple. No adenopathy, no masses. RESPIRATORY: Airway patent, respirations nonlabored. Clear to auscultation bilaterally, no rales, rhonchi, wheezing. CARDIOVASCULAR: Regular rate and rhythm without murmurs rubs or gallops. ABDOMINAL: G-tube and colostomy, possible purulent discharge from the colostomy dressing MUSCULOSKELETAL: Moves all extremities. Strength/ROM intact, No edema, No calf tenderness. NEURO: Alert. Cranial nerves II through XII intact. Good gait. Good coordination SKIN: Chronic wound to right foot Course Vital Signs Vital signs: Vital Signs Temperature 97.4 F L 10/29/24 15:00 Pulse Rate 89 10/29/24 15:00 Respiratory Rate 20 10/29/24 15:00 Blood Pressure 115/66 10/29/24 15:00 Pulse Oximetry 100 10/29/24 15:00 Oxygen Delivery Room Air 10/29/24 15:00 Temperature 97.4 F L 10/29/24 15:00 Pulse Rate 86 10/29/24 21:01 Respiratory Rate 28 H 10/29/24 21:01 Blood Pressure 108/65 10/29/24 21:01 Pulse Oximetry 100 10/29/24 21:01 Oxygen Delivery Room Air 10/29/24 15:00 Medical Decision Making [facility] Narrative Medical decision making narrative: 73-year-old female presents emergency department for evaluation for potential failure to thrive. Patient is currently afebrile but does have a leukocytosis 11.7 hemoglobin of 12.3. Patient does have significant electrolyte abnormalities including a sodium 121, potassium 5.9, anion gap of 25 with a glucose of 111 a BUN of greater than 120 and a creatinine of 5.2. Patient has a history of urinary retention but has no urinary retention today. Patient states that she has been cared for by her family at home, patient does have a G-tube but states she is not G-tube dependent. Patient states she does not drink very much fluid because she is not thirsty. Patient was negative for influenza RSV and for COVID. Nephrology was consulted and patient was started on IV fluids, 1 L of normal saline. Patient does have a history of laparoscopic colectomy with a diverting descending loop colostomy done on 02/23/23. Patient states she was [facility] and [facility] hospital for a few weeks and was discharged home approximately 3 weeks ago. Differential Diagnosis Differential Diagnosis: Urinary retention, dehydration, starvation, failure to thrive Vital Signs Vital Signs: Vital Signs Temperature 97.4 F L 10/29/24 15:00 Pulse Rate 89 10/29/24 15:00 Respiratory Rate 20 10/29/24 15:00 Blood Pressure 115/66 10/29/24 15:00 Pulse Oximetry 100 10/29/24 15:00 Oxygen Delivery Room Air 10/29/24 15:00 Temperature 97.4 F L 10/29/24 15:00 Pulse Rate 86 10/29/24 21:01 Respiratory Rate 28 H 10/29/24 21:01 Blood Pressure 108/65 10/29/24 21:01 Pulse Oximetry 100 10/29/24 21:01 Oxygen Delivery Room Air 10/29/24 15:00 Lab Data Lab results reviewed: Yes I reviewed the patient's lab results. 10/29/24 15:51 10/29/24 15:51 Labs: Lab Results 10/29/24 Range/Units 15:51 WBC 11.7 H (4.5-10.0) K/mm3 RBC 4.59 (4.2-5.4) M/mm3 Hgb 12.3 (12.0-15.0) g/dL Hct 35.9 L (37.0-47.0) % MCV 78.2 L (80-100) fl MCH 26.8 (26-34) pg MCHC 34.3 (32-36) g/dl RDW 17.1 H (11.5-14.5) % Plt Count 526 H (150-375) k/mm3 MPV 9.0 (7.4-10.4) fl Immature Gran % (Auto) 0.8 H (0-0.5) % Neut % (Auto) 77.3 H (45.5-73.1) % Lymph % (Auto) 16.9 L (18.3-44.2) % Louisa % (Auto) 4.7 (2.6-8.5) % Eos % (Auto) 0.1 (0-4.4) % Baso % (Auto) 0.2 (0.2-1.2) % Lymph # (Auto) 1.98 (0.9-3.2) K/mm3 Louisa # (Auto) 0.6 (0.1-0.6) K/mm3 Eos # (Auto) 0.0 (0-0.3) K/mm3 Baso # (Auto) 0.0 (0.0-0.1) K/mm3 Abs Immat Gran (auto) 0.09 H (0.00-0.031) K/mm3 Absolute Neuts (auto) 9.1 H (1.3-6.7) K/mm3 Absolute Nucleated RBC 0.000 (0.0-0.012) K/mm3 Nucleated RBC % 0.0 (0.0-0.2) % PT 14.1 (11.1-14.7) Seconds INR 1.1 APTT 29.6 (22.3-36.8) Seconds Sodium 121 L (137-145) mmol/L Potassium 5.9 H (3.4-5.0) mmol/L Chloride 83 L (98-107) mmol/L Carbon Dioxide 13 L (22-30) mmol/L Anion Gap 25 H (4-12) mmol/L BUN > 120 H D (7-17) mg/dL Creatinine 5.42 H (0.7-1.0) mg/dL Estim Creat Clear Calc 6 ml/min Estimated GFR 9 L (59 - ) Glucose 111 H (65-110) mg/dL Calcium 10.5 H (8.4-10.2) mg/dL Total Bilirubin 0.8 (0.2-1.3) mg/dL AST 37 H (14-36) U/L ALT 22 (6-35) U/L Alkaline Phosphatase 171 H (38-126) U/L Total Protein 10.0 H (6.3-8.2) g/dL Albumin 4.5 (3.5-5.1) g/dL Influenza A (RT-PCR) Negative (Negative) Influenza B (RT-PCR) Negative (Negative) RSV (RT-PCR) Negative (Negative) SARS-CoV-2 RNA (RT-PCR) Negative (Negative) Imaging Data Radiologist's impression: Impressions Abdomen/Pelvis CT 10/29/24 17:18 IMPRESSION: Limited examination, as detailed above. 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 Urinary bladder wall thickening, may be secondary to cystitis or incomplete distention. Persistent small fluid collection adjacent to the left common femoral artery, likely chronic hematoma. Bilateral inguinal lymphadenopathy. Discharge Plan Discharge Clinical Impression: Acute hyperkalemia, Acute hyponatremia, Adult failure to thrive, Acute UTI Patient Disposition: Still a Patient Condition: Serious
[2024-10-29 16:11] LABS: INR 1.1; Prothrombin Time 14.1 Seconds (11.1-14.7)
[2024-10-29 16:12] LABS: Partial Thromboplastin Time 29.6 Seconds (22.3-36.8)
[2024-10-29 16:26] LABS: Alanine Aminotransferase 22 U/L (6-35); Albumin Level 4.5 g/dL (3.5-5.1); Alkaline Phosphatase 171 U/L (38-126); Anion Gap 25 mmol/L (4-12); Aspartate Amino Transferase 37 U/L (14-36); Bilirubin,Total 0.8 mg/dL (0.2-1.3); Blood Urea Nitrogen > 120 mg/dL (7-17); Calcium 10.5 mg/dL (8.4-10.2); Carbon Dioxide 13 mmol/L (22-30); Chloride 83 mmol/L (98-107); Estimated CRCL calculation 6 ml/min; Estimated Glomerular Filt Rate 9; Glucose 111 mg/dL (65-110); Potassium 5.9 mmol/L (3.4-5.0); Sodium 121 mmol/L (137-145)
[2024-10-29 16:36] LABS: Influenza A QL RT-PCR Negative (Negative); Influenza B QL RT-PCR Negative (Negative); RSV RNA, RT-PCR Negative (Negative); SARS-CoV-2 RNA PCR Negative (Negative)
--- NOTE | 2024-10-29 16:51 | ECG_ITS ---
Test Date: 2024-10-29 17:03:18 Measurements Intervals [place] Rate: 84 P: 70 MI: 142 QRS: 75 QRSD: 80 T: 77 QT: 380 QTc: 450 Interpretive Statements SINUS RHYTHM BASELINE ARTIFACT- I, II, III, AVR, AVL, AVF, V1-V6 NORMAL ECG No previous ECG available for comparison Electronically Signed On 10-29-2024 17:45:40 TRY ON BASTER by Santiago Paniagua D.O.
[2024-10-29] MEDS: SODIUM CHLORIDE 0.9% IV 1,000 ML 999 ML IV CONT (17:45)
--- NOTE | 2024-10-29 19:10 | PM.IMHP ---
H&P: HPI History of Present Illness Date/Time: 10/29/24 17:30 Chief Complaint: Failure to thrive. Narrative: This is a 73-year-old female with rectal adenocarcinoma status post laparoscopic diverting descending loop colostomy in February 2023 for bowel obstruction status post chemotherapy and remote history of cervical cancer status post hysterectomy and chemoradiation who presented to the emergency department via EMS from home for evaluation of failure to thrive. The patient provides the following history and some of the following is supplemented via a review of her electronic medical records. It is my understanding that she was recently discharged home from rehab and has been home for about a week. She is supposed to have another bowel surgery at some point however her nutrition is poor in because she was not eating or drinking a PEG tube was placed. Apparently home health came to see her today and referred her to the ED. the patient does not have any specific complaints aside from the fact that she is cold. She denies fever, cold and flu symptoms, chest pain, shortness of breath, cough, abdominal pain, nausea, and dysuria. In the ED: She was afebrile on arrival with stable vital signs. Labs are significant for WBC count of 11.7, sodium 121, potassium 5.9, chloride 83, carbon dioxide 13, anion gap 25, BUN greater than 120, creatinine 5.42, glucose 111, calcium 10.5, AST 37, ALT, 32, alkaline phosphatase 171, total protein 10.0, albumin 4.5. Urinalysis was positive for 2+ protein, trace ketones, 3+ blood, 1+ bilirubin, 3+ leukocyte esterase, 21 to 50 RBC, greater than 100 WBC, many squamous cells, and 4+ bacteria. 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 She received ceftriaxone 1 g for suspected urinary tract infection and was started on IV fluid and she is being admitted in this setting for further treatment and evaluation. Review of Systems Review of Systems: 12 systems were reviewed and are negative except for as per HPI. [facility] Past Medical History Medical History Rectal adenocarcinoma Cervical cancer status post hysterectomy and chemoradiation Pure hyperglyceridemia Essential (primary) hypertension Tobacco use Surgical History Surgical History Status post laparoscopic colectomy (02/2023) Laparoscopic diverting descending loop colostomy History of hysterectomy History of cholecystectomy Family History Family History Mother Patient's mother is Family history of blood dyscrasia Family history of emphysema Hypertension Sibling Family history of liver disease Family history of human immunodeficiency virus infection Other Cerebrovascular accident Social History Social History (Updated 10/29/24 @ 23:42 by Jennifer Cat PA-C) Social History: Surrogate medical decision maker: Carloz Senthil, sibling. Code status: Full code. Smoking packs per day: 0.5 Smoking cigarettes per day: 10.0 Years smoked: 35 Smoking pack-years: 17.50 Smoking status: Current every day smoker Tobacco type: cigarettes Second hand tobacco smoke exposure: Yes Smoking end date: 10/24/19 Alcohol intake: never Substance use: never Substance use type: does not use Lack of Transportation: No Lack of Food: Never True Current Housing: I Have Housing Concerned About Future Housing: No Difficulty Paying Gas/Electric Bills: No Difficulty Paying for Meds: No Currently Unemployed: No Education: Bachelor's Degree Difficulty w/ Childcare or Family Care: No Spiritual care concerns: No Meds Home Medications and Allergies Home Medications ?Medication ?Instructions ?Recorded ?Confirmed ?Type magnesium oxide 400 mg PO DAILY #90 tabs 05/16/23 10/31/23 Rx cholecalciferol (vitamin D3) 50 50 mcg PO DAILY 10/31/23 10/31/23 History mcg (2,000 unit) capsule potassium chloride 20 mEq 20 meq PO BID 10/31/23 10/31/23 History tablet,extended release cephalexin 500 mg capsule 500 mg PO Q6H 7 days #28 caps 09/06/24 Rx Allergies Allergy/AdvReac Type Severity Reaction Status Date / Time No Known Allergies Allergy Verified 10/31/23 08:22 Vital Signs Vital Signs - 24 hr 10/29/24 15:00 10/29/24 15:11 10/29/24 15:16 Temperature 97.4 F L Pulse Rate 89 92 90 Respiratory Rate 20 19 25 H Blood Pressure 115/66 115/66 101/63 Pulse Oximetry 100 100 Oxygen Delivery Room Air 10/29/24 15:30 10/29/24 17:44 10/29/24 18:01 Temperature Pulse Rate 86 79 74 Respiratory Rate 20 22 H 14 Blood Pressure 114/68 126/78 141/66 H Pulse Oximetry 98 100 100 Oxygen Delivery 10/29/24 18:31 10/29/24 19:01 Temperature Pulse Rate 77 82 Respiratory Rate 18 13 Blood Pressure 125/76 133/57 L Pulse Oximetry 100 100 Oxygen Delivery Exam Narrative: General: Cachectic, frail elderly female in the semi-Bravo position in bed. Weight: 40.9 kg. BMI: 16.0. HEENT: PERRL, EOMI. Sclera anicteric. Dry mucous membranes. Poor dentition. Neck: Supple. Respiratory: Lungs are clear to auscultation bilaterally. Cardiovascular: Regular rate and rhythm with S1-S2. Gastrointestinal: Abdomen is soft and nondistended with positive bowel sounds. G-tube site is intact. Small amount of possible purulent drainage on the ostomy dressing. Skin: Warm and dry. Shallow, dry ulceration on the dorsum of the right foot. Extremities: No cyanosis, clubbing, or edema. Neurological: Alert. Cranial nerves 2-12 are grossly intact. Generalized weakness and diffuse atrophy. Psychiatric: Pleasant and cooperative with appropriate mood and flat affect. H&P: Results Labs Labs: Short CBC 10/29/24 Range/Units 15:51 WBC 11.7 H (4.5-10.0) K/mm3 Hgb 12.3 (12.0-15.0) g/dL Hct 35.9 L (37.0-47.0) % Plt Count 526 H (150-375) k/mm3 BMP 10/29/24 15:51 Sodium 121 L Potassium 5.9 H Chloride 83 L Carbon Dioxide 13 L BUN > 120 H D Creatinine 5.42 H Glucose 111 H Calcium 10.5 H Liver Function 10/29/24 Range/Units 15:51 Total Bilirubin 0.8 (0.2-1.3) mg/dL AST 37 H (14-36) U/L ALT 22 (6-35) U/L Alkaline Phosphatase 171 H (38-126) U/L Albumin 4.5 (3.5-5.1) g/dL Impressions Abdomen/Pelvis CT 10/29/24 17:18 IMPRESSION: Limited examination, as detailed above. 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 Urinary bladder wall thickening, may be secondary to cystitis or incomplete distention. Persistent small fluid collection adjacent to the left common femoral artery, likely chronic hematoma. Bilateral inguinal lymphadenopathy. Assessment and Plan Assessment and plan (1) Acute kidney injury: Code(s): N17.9 - Acute kidney failure, unspecified Status: Acute (2) Electrolyte abnormality: Code(s): E87.8 - Other disorders of electrolyte and fluid balance, not elsewhere classified Status: Acute (3) Failure to thrive: Status: Acute (4) Abnormal urinalysis: Code(s): R82.90 - Unspecified abnormal findings in urine Status: Acute (5) Rectal adenocarcinoma: Code(s): C20 - Malignant neoplasm of rectum Status: Acute Plan The patient presented to the emergency department with ?failure thrive? as detailed in HPI. Labs, imaging, EKG, and all reports were personally reviewed. She recently had a PEG tube inserted she was not eating or drinking in on exam today she looks extremely dry. She has an acute kidney injury with significant uremia and multiple electrolyte abnormalities. She has been started on normal saline with dextrose. Monitor strict I/O. Renal ultrasound ordered. Continue empiric ceftriaxone for possible urinary tract infection. Surgery consulted regarding purulent drainage from around the ostomy site. Dietitian consulted for recommendations. Vital signs have been stable. Her home medications will be reviewed and resumed as appropriate. Findings and treatment plan were discussed with the patient. Questions were solicited and answered to satisfaction. The patient's medical management will be taken over by the hospitalist team in a.m. Quality VTE Prophylaxis VTE prophylaxis: mechanical ordered and pharmacologic ordered The patient has been admitted under observation status. Hospitalist MIPS Advance Care Plan I have confirmed that the patient's Advanced Care Plan is present, code status is documented, or surrogate decision maker is listed in patient medical record.: Yes Medication Reconciliation I have utilized all available resources to obtain, update and review the patients current medications (includes all prescriptions, OTC, herbals, cannabis, and nutritional supplements).: Yes
--- NOTE | 2024-10-29 19:22 | PC.NURSE ---
spoke to pt brother, Carloz, at this time to get verbal consent for medical records to be sent over from [facility]. pt was unable to sign due to being A&OX3
[2024-10-29 19:40] LABS: Add Urine Microscopic? YES; Appearance Urine Turbid (Clear); Bacteria Urine 4+ /hpf; Bilirubin Urine 1+ (Negative); Blood Urine 3+ (Negative); Color Urine Dark Yellow (Yellow); Glucose Urine UA Negative (Negative); Ketones Urine Trace mg/dL (Negative); Leukocyte Esterase Ur 3+ LEU/UL (Negative); Nitrate Urine Negative (Negative); Non Pathogenic Casts >20; Protein Urine 2+ mg/dL (Negative); RBC Urine 21-50 /hpf (0-2); Specific Grav Ur 1.012 (1.001-1.035); Squamous Epithelial Cell Urine Many /hpf (Few); Urobilinogen Urine 0.2 mg/dL (<2.0); WBC Urine >100 /hpf (0-3); pH Urine 5.5 (5.0-9.0)
[2024-10-29] MEDS: MORPHINE SULFATE (*CRX) 4 MG/ML INJ IV PUSH (21:56)
[2024-10-29 22:23] LABS: Anion Gap 19 mmol/L (4-12); Calcium 9.1 mg/dL (8.4-10.2); Carbon Dioxide 13 mmol/L (22-30); Chloride 93 mmol/L (98-107); Estimated CRCL calculation 6 ml/min; Estimated Glomerular Filt Rate 11; Glucose 86 mg/dL (65-110); Sodium 125 mmol/L (137-145)
--- NOTE | 2024-10-29 22:37 | PC.NURSE ---
This RN applied heel protector to pt right heel/leg at this time.
[2024-10-29 22:40] LABS: Hepatitis B Surface Antigen Negative (Negative)
[2024-10-29 22:50] LABS: Blood Urea Nitrogen 134 mg/dL (7-17)
[2024-10-29 22:57] LABS: HIV 1/2 Ab P24 Ag Result Negative (Negative); Hepatitis C Virus Antibody Negative (Negative)
[2024-10-30] VITALS (12 sets, daily range): BP systolic 98–120; BP diastolic 47–64; PULSE 73–103; RESP 14–20; TEMP 36–36.6; O2SAT 96–100; BMI 15.3; BMI 16.1
--- NOTE | 2024-10-30 00:20 | ADMGEN ---
0015: This patient, Victor Manuel Ndiaye, was admitted to IMU Room 206-02. Patient/family oriented to hospital policies and general routines including ID bracelet, bed and alarms, visiting hours, pain management, procedures, bathroom and other care routines, personal items, smoking policy, room service/diet, and visiting hours. Information on how to activate the Rapid Response Team has been discussed. Patient/Family are encouraged to report perceived risks to care and to ask questions if they do not understand what they are told or what they should do.
[2024-10-30] MEDS: HYDROcodone/acetaminophen (*CRX) 5-325 MG TABLET 1 TAB PO (02:03)
[2024-10-30] MEDS: DEXTROSE 5%/0.9% SOD CHL 1,000 ML 75 ML IV CONT (03:24)
[2024-10-30] MEDS: HYDROmorphone HCL INJ (*CRX) 1 MG/ML SYR 0.5 MG IV PUSH (03:48)
[2024-10-30 05:44] LABS: Hematocrit 27.6 % (37.0-47.0); Hemoglobin 9.5 g/dL (12.0-15.0); Mean Corpuscular HGB Conc 34.4 g/dl (32-36); Mean Corpuscular Hemoglobin 27.3 pg (26-34); Mean Corpuscular Volume 79.3 fl (80-100); Platelet Count Result 452 k/mm3 (150-375); Red Blood Count 3.48 M/mm3 (4.2-5.4); Red Cell Distribution Width 16.9 % (11.5-14.5); White Blood Count 11.8 K/mm3 (4.5-10.0)
[2024-10-30 06:00] LABS: Creatine Kinase 46 U/L (30-135)
[2024-10-30 06:02] LABS: Alanine Aminotransferase 17 U/L (6-35); Albumin Level 3.7 g/dL (3.5-5.1); Alkaline Phosphatase 134 U/L (38-126); Anion Gap 19 mmol/L (4-12); Aspartate Amino Transferase 27 U/L (14-36); Bilirubin,Total 0.5 mg/dL (0.2-1.3); Calcium 9.5 mg/dL (8.4-10.2); Carbon Dioxide 13 mmol/L (22-30); Chloride 94 mmol/L (98-107); Glucose 112 mg/dL (65-110); Magnesium 1.7 mg/dL (1.6-2.3); Phosphorus 7.5 mg/dL (2.5-4.5); Potassium 3.7 mmol/L (3.4-5.0); Sodium 126 mmol/L (137-145)
[2024-10-30 06:07] LABS: Estimated CRCL calculation 6 ml/min; Estimated Glomerular Filt Rate 12
[2024-10-30 06:10] LABS: Blood Urea Nitrogen 127 mg/dL (7-17)
[2024-10-30 07:15] LABS: Creatinine Urine 124.6 mg/dL; Total Protein Urine Random 118 mg/dL; Ur Ttl Prot Creatinine Ratio 0.95 mg/mg (0-0.20)
[2024-10-30 07:19] LABS: Creatinine Urine 125.8 mg/dL; Total Protein Urine Random 121 mg/dL; Urea Random Urine 373 MG/DL
[2024-10-30 07:31] LABS: Sodium Urine Random 32 meq/L
[2024-10-30] MEDS: HEPARIN SODIUM 5,000 UNITS/ML VIAL 5000 UNITS SUB-Q ×2 (08:12→20:29)
[2024-10-30] MEDS: HYDROmorphone HCL INJ (*CRX) 1 MG/ML SYR IV PUSH ×3 (08:50→20:28)
--- NOTE | 2024-10-30 11:29 | PCDIET ---
TUBE FEEDING RECOMMENDATIONS: Continuous Jevity 1.5 @ goal rate 40 ml/h (22 hours) Start at 20 ml/h and advance by 10 ml q 4 hours as tolerated. Flush 110 ml q 4 hours.
[2024-10-30 11:33] LABS: Iron 66 ug/dL (37-170)
--- NOTE | 2024-10-30 11:35 | PM.CNGS ---
Assessment and Plan Assessment and plan (1) Abnormal CT of the abdomen: Code(s): R93.5 - Abnormal findings on diagnostic imaging of other abdominal regions, including retroperitoneum Status: Acute Assessment and Plan: This is the reason for our consultation. The patient was admitted with failure to thrive, ELIZABETH, and multiple electrolyte abnormalities. She had a CT scan of the abdomen and pelvis in the ED that showed a 4.6 fluid and gas collection abutting the right lower quadrant ostomy that could be an abscess or enterocutaneous fistula. This was also present on a CT scan from 2 months ago and appears unchanged since August. There is a small open wound about 2 cm from the stoma on my exam that is draining, but the opening of the ileostomy appliance allows it to drain into the ostomy bag. This appears very stable with no signs of any acute process, and does not require any urgent surgical management. We would recommend to treat her acute medical issues, and she will need to follow-up with the Colorectal Surgeon at [facility] who performed her most recent abdominal surgery. We will sign off at this time. Please call with any other surgical questions or concerns. (2) Ileostomy in place: Code(s): Z93.2 - Ileostomy status Status: Acute (3) Acute kidney injury: Code(s): N17.9 - Acute kidney failure, unspecified Status: Acute (4) Abnormal urinalysis: Code(s): R82.90 - Unspecified abnormal findings in urine Status: Acute (5) Electrolyte abnormality: Code(s): E87.8 - Other disorders of electrolyte and fluid balance, not elsewhere classified Status: Acute (6) Rectal adenocarcinoma: Code(s): C20 - Malignant neoplasm of rectum Status: Acute Assessment and Plan: Diagnosed in February of 2023 with an obstructing rectal cancer. She had a diverting loop descending colostomy in February of 2023 and was referred to Colorectal at [facility]. She was treated with chemotherapy and eventually had a resection sometime last year at [facility] with now a loop ileostomy. (7) Adult failure to thrive: Code(s): R62.7 - Adult failure to thrive Status: Acute Plan I have discussed the patient's case and plan of care with Dr. Mccartney. History of Present Illness Consult details Consult date: 10/30/24 Reason for consult: other (Purulent drainage from ostomy/fistula) Requesting physician: Jennifer Cat PA-C Narrative: This is a 73-year-old woman with multiple medical problems, who we have been asked to see in surgical consultation for purulence drainage from ostomy, possible enterocutaneous fistula. She is a poor historian, therefore her history is obtained by review of the electronic medical record. There is no family at the bedside. She has an extensive history of abdominal surgeries. She was found to have carcinoma in the distal sigmoid/rectum that was obstructing in February of 2023 with subsequent laparoscopic diverting descending loop colostomy by Dr. Gonzales. She was referred as an outpatient to Dr. Pena at [facility]. She was not a candidate for neoadjuvant radiation due to previous pelvic radiation from cervical cancer, but was treated with chemotherapy (04/2023-09/2023). She was eventually taken back to surgery after her chemotherapy treatment for resection and colostomy takedown with ileostomy sometime last year. Nursing is requesting the records from [facility] today, but her last surgery is not in our current records. The patient was brought into the ED yesterday via EMS for concerns of failure to thrive. It is unclear at this time, but appears that the patient likely resides at a retirement. She is unable to say where she came from. She was admitted for acute kidney injury, failure to thrive, multiple electrolyte abnormalities, and possible UTI. 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 This is the reason for our consultation. Review of Systems Review of Systems: ROS unobtainable: Yes unobtainable due to mental status PMFSH Past Medical History Medical History Rectal adenocarcinoma Cervical cancer status post hysterectomy and chemoradiation Pure hyperglyceridemia Essential (primary) hypertension Tobacco use Surgical History Surgical History Status post laparoscopic colectomy (02/2023) Laparoscopic diverting descending loop colostomy History of hysterectomy History of cholecystectomy Family History Family History Mother Patient's mother is Family history of blood dyscrasia Family history of emphysema Hypertension Sibling Family history of liver disease Family history of human immunodeficiency virus infection Other Cerebrovascular accident Social History Social History Social History: Surrogate medical decision maker: Carloz Ndiaye, sibling. Code status: Full code. Smoking packs per day: 0.5 Smoking cigarettes per day: 10.0 Years smoked: 35 Smoking pack-years: 17.50 Smoking status: Current every day smoker Tobacco type: cigarettes Second hand tobacco smoke exposure: Yes Smoking end date: 10/24/19 Alcohol intake: never Substance use: never Substance use type: does not use Do You Feel Safe in your Home?: Yes Lack of Transportation: No Lack of Food: Never True Current Housing: I Have Housing Concerned About Future Housing: No Difficulty Paying Gas/Electric Bills: No Difficulty Paying for Meds: No Currently Unemployed: No Education: Decline to Answer Difficulty w/ Childcare or Family Care: No Spiritual care concerns: No Meds Home Medications and Allergies Home Medications ?Medication ?Instructions ?Recorded ?Confirmed ?Type magnesium oxide 400 mg PO DAILY #90 tabs 05/16/23 10/30/24 Rx cholecalciferol (vitamin D3) 50 50 mcg PO DAILY 10/31/23 10/30/24 History mcg (2,000 unit) capsule potassium chloride 20 mEq 20 meq PO BID 10/31/23 10/30/24 History tablet,extended release cephalexin 500 mg capsule 500 mg PO Q6H 7 days #28 caps 09/06/24 10/30/24 Rx gabapentin 300 mg capsule 300 mg PO TID 10/30/24 10/30/24 History hydrocodone 5 mg-acetaminophen 325 1 tablet PO Q4-6H PRN pain 10/30/24 10/30/24 History mg tablet loperamide 2 mg capsule 2 mg PO QID 10/30/24 10/30/24 History mirtazapine 15 mg tablet 15 mg PO HS 10/30/24 10/30/24 History multivitamin (Daily Multi-Vitamin 1 tablet PO DAILY 10/30/24 10/30/24 History tablet) sertraline 50 mg tablet (Zoloft) 75 mg PO DAILY 10/30/24 10/30/24 History thiamine HCl (vitamin B1) 100 mg 100 mg PO DAILY 10/30/24 10/30/24 History tablet (Vitamin B-1) vitamins B1 2.5 mg-B2 2.5 1 tablet PO DAILY 10/30/24 10/30/24 History mg-niacin 5 mg-B12 100 mcg-protease tablet (B-Complex With B-12) Allergies Allergy/AdvReac Type Severity Reaction Status Date / Time No Known Allergies Allergy Verified 10/31/23 08:22 Vital Signs Vital Signs - 24 hr 10/29/24 15:00 10/29/24 15:11 10/29/24 15:16 Temperature 97.4 F L Pulse Rate 89 92 90 Respiratory Rate 20 19 25 H Blood Pressure 115/66 115/66 101/63 Pulse Oximetry 100 100 Oxygen Delivery Room Air 10/29/24 15:30 10/29/24 17:44 10/29/24 18:01 Temperature Pulse Rate 86 79 74 Respiratory Rate 20 22 H 14 Blood Pressure 114/68 126/78 141/66 H Pulse Oximetry 98 100 100 Oxygen Delivery 10/29/24 18:31 10/29/24 19:01 10/29/24 19:30 Temperature Pulse Rate 77 82 74 Respiratory Rate 18 13 13 Blood Pressure 125/76 133/57 L 120/65 Pulse Oximetry 100 100 100 Oxygen Delivery 10/29/24 20:00 10/29/24 20:31 10/29/24 21:01 Temperature Pulse Rate 79 82 86 Respiratory Rate 14 14 28 H Blood Pressure 127/73 121/69 108/65 Pulse Oximetry 100 100 100 Oxygen Delivery 10/29/24 22:15 10/29/24 22:18 10/30/24 00:15 Temperature 96.8 F L Pulse Rate 86 91 86 Respiratory Rate 12 14 15 Blood Pressure 89/58 L 99/60 L 116/62 Pulse Oximetry 100 100 100 Oxygen Delivery 10/30/24 00:49 10/30/24 02:00 10/30/24 04:00 Temperature 96.8 F L 97.4 F L Pulse Rate 86 84 81 Respiratory Rate 15 15 Blood Pressure 116/62 108/47 L Pulse Oximetry 100 Oxygen Delivery 10/30/24 04:00 10/30/24 05:49 10/30/24 07:25 Temperature 97.7 F Pulse Rate 82 76 73 Respiratory Rate 14 Blood Pressure 98/50 L Pulse Oximetry 100 Oxygen Delivery 10/30/24 08:00 10/30/24 10:58 Temperature Pulse Rate 73 Respiratory Rate 14 Blood Pressure Pulse Oximetry 100 99 Oxygen Delivery Room Air Room Air Exam Const: General: comfortable and no acute distress Nutritional Appearance: thin Orientation/consciousness: oriented to person and confusion HENMT: Head: normocephalic and atraumatic Ears: hearing grossly normal bilaterally Mouth: Yes moist mucous membranes Eyes: General: appearance normal, both eyes and all related structures Pupils: Equal, round and reactive pupils present Neck: Neck: normal visual inspection and full ROM Resp: Effort & Inspection: no respiratory distress Auscultation: clear to auscultation bilaterally Cardio: Rate: regular rate Rhythm: regular rhythm Peripheral pulses: Peripheral pulses 2+ throughout GI: Inspection: non-distended and scaphoid GI Palp: Yes Soft to palpation, No Tenderness to palpation present (GI), No Guarding due to palpation present (GI) and No Rebound tenderness present Auscultation: normal bowel sounds Other: Right lower quadrant ileostomy bag removed with stoma pink and moist but slightly retracted, there is an open wound measuring 1 x 0.3 cm at the 4 o'clock position about 2 cm from the stoma that has scant yellow-creamy drainage, no bilious-appearing drainage, no surrounding erythema, the surrounding skin appears otherwise healthy, no tenderness in this location. I then replaced her ostomy appliance by cutting the opening of the bag to include the draining wound. Skin: General skin exam: normal color Other: Unstageable right dorsal foot ulcer with a dark brown firm eschar overlying the wound, no edema or erythema, no purulent drainage. Right foot with dressing over heel ulcer that was evaluated by wound care. Neuro: General: moves all extremities and no focal motor deficits Speech: normal speech Extrem: General: normal to inspection and no edema Psych: Mental Status: mental status grossly normal Attitude: cooperative Insight: Good insight present (Psych) Judgement: Good judgement present (Psych) Results Labs 10/30/24 05:12 10/30/24 05:12 Labs: Abnormal lab results 10/29/24 10/29/24 10/29/24 Range/Units 15:51 18:59 21:49 WBC 11.7 H (4.5-10.0) K/mm3 RBC (4.2-5.4) M/mm3 Hgb (12.0-15.0) g/dL Hct 35.9 L (37.0-47.0) % MCV 78.2 L (80-100) fl RDW 17.1 H (11.5-14.5) % Plt Count 526 H (150-375) k/mm3 Immature Gran % (Auto) 0.8 H (0-0.5) % Neut % (Auto) 77.3 H (45.5-73.1) % Lymph % (Auto) 16.9 L (18.3-44.2) % Abs Immat Gran (auto) 0.09 H (0.00-0.031) K/mm3 Absolute Neuts (auto) 9.1 H (1.3-6.7) K/mm3 Sodium 121 L 125 L (137-145) mmol/L Potassium 5.9 H (3.4-5.0) mmol/L Chloride 83 L 93 L (98-107) mmol/L Carbon Dioxide 13 L 13 L (22-30) mmol/L Anion Gap 25 H 19 H (4-12) mmol/L BUN > 120 H D 134 H D (7-17) mg/dL Creatinine 5.42 H 4.79 H (0.7-1.0) mg/dL Estimated GFR 9 L 11 L (59 - ) Glucose 111 H (65-110) mg/dL Calcium 10.5 H (8.4-10.2) mg/dL Phosphorus (2.5-4.5) mg/dL AST 37 H (14-36) U/L Alkaline Phosphatase 171 H (38-126) U/L Total Protein 10.0 H (6.3-8.2) g/dL Urine Appearance Turbid H (Clear) Urine Protein 2+ H (Negative) mg/dL Urine Ketones Trace H (Negative) mg/dL Ur Blood (Man) 3+ H (Negative) Urine Bilirubin 1+ H (Negative) Leukocyte Esterase Rfl 3+ H (Negative) CAPRI/UL Urine RBC 21-50 H (0-2) /hpf Urine WBC >100 H (0-3) /hpf Ur Squamous Epith Cells Many H (Few) /hpf Protein/Creat Ratio 2 0.95 H (0-0.20) mg/mg 10/30/24 Range/Units 05:12 WBC 11.8 H (4.5-10.0) K/mm3 RBC 3.48 L (4.2-5.4) M/mm3 Hgb 9.5 L (12.0-15.0) g/dL Hct 27.6 L (37.0-47.0) % MCV 79.3 L (80-100) fl RDW 16.9 H (11.5-14.5) % Plt Count 452 H (150-375) k/mm3 Immature Gran % (Auto) (0-0.5) % Neut % (Auto) (45.5-73.1) % Lymph % (Auto) (18.3-44.2) % Abs Immat Gran (auto) (0.00-0.031) K/mm3 Absolute Neuts (auto) (1.3-6.7) K/mm3 Sodium 126 L (137-145) mmol/L Potassium (3.4-5.0) mmol/L Chloride 94 L (98-107) mmol/L Carbon Dioxide 13 L (22-30) mmol/L Anion Gap 19 H (4-12) mmol/L BUN 127 H (7-17) mg/dL Creatinine 4.54 H (0.7-1.0) mg/dL Estimated GFR 12 L (59 - ) Glucose 112 H (65-110) mg/dL Calcium (8.4-10.2) mg/dL Phosphorus 7.5 H (2.5-4.5) mg/dL AST (14-36) U/L Alkaline Phosphatase 134 H (38-126) U/L Total Protein (6.3-8.2) g/dL Urine Appearance (Clear) Urine Protein (Negative) mg/dL Urine Ketones (Negative) mg/dL Ur Blood (Man) (Negative) Urine Bilirubin (Negative) Leukocyte Esterase Rfl (Negative) CAPRI/UL Urine RBC (0-2) /hpf Urine WBC (0-3) /hpf Ur Squamous Epith Cells (Few) /hpf Protein/Creat Ratio 2 (0-0.20) mg/mg Diabetes panel 10/29/24 10/29/24 10/30/24 Range/Units 15:51 21:49 05:12 Sodium 121 L 125 L 126 L (137-145) mmol/L Potassium 5.9 H 4.0 3.7 (3.4-5.0) mmol/L Chloride 83 L 93 L 94 L (98-107) mmol/L Carbon Dioxide 13 L 13 L 13 L (22-30) mmol/L BUN > 120 H D 134 H D 127 H (7-17) mg/dL Creatinine 5.42 H 4.79 H 4.54 H (0.7-1.0) mg/dL Glucose 111 H 86 112 H (65-110) mg/dL Calcium 10.5 H 9.1 9.5 (8.4-10.2) mg/dL AST 37 H 27 (14-36) U/L ALT 22 17 (6-35) U/L Alkaline Phosphatase 171 H 134 H (38-126) U/L Total Protein 10.0 H 8.0 (6.3-8.2) g/dL Albumin 4.5 3.7 (3.5-5.1) g/dL Calcium panel 10/29/24 10/29/24 10/30/24 Range/Units 15:51 21:49 05:12 Calcium 10.5 H 9.1 9.5 (8.4-10.2) mg/dL Phosphorus 7.5 H (2.5-4.5) mg/dL Albumin 4.5 3.7 (3.5-5.1) g/dL Pituitary panel 10/29/24 10/29/24 10/30/24 Range/Units 15:51 21:49 05:12 Sodium 121 L 125 L 126 L (137-145) mmol/L Potassium 5.9 H 4.0 3.7 (3.4-5.0) mmol/L Chloride 83 L 93 L 94 L (98-107) mmol/L Carbon Dioxide 13 L 13 L 13 L (22-30) mmol/L BUN > 120 H D 134 H D 127 H (7-17) mg/dL Creatinine 5.42 H 4.79 H 4.54 H (0.7-1.0) mg/dL Glucose 111 H 86 112 H (65-110) mg/dL Calcium 10.5 H 9.1 9.5 (8.4-10.2) mg/dL Adrenal panel 10/29/24 10/29/24 10/30/24 Range/Units 15:51 21:49 05:12 Sodium 121 L 125 L 126 L (137-145) mmol/L Potassium 5.9 H 4.0 3.7 (3.4-5.0) mmol/L Chloride 83 L 93 L 94 L (98-107) mmol/L Carbon Dioxide 13 L 13 L 13 L (22-30) mmol/L BUN > 120 H D 134 H D 127 H (7-17) mg/dL Creatinine 5.42 H 4.79 H 4.54 H (0.7-1.0) mg/dL Glucose 111 H 86 112 H (65-110) mg/dL Calcium 10.5 H 9.1 9.5 (8.4-10.2) mg/dL Total Bilirubin 0.8 0.5 (0.2-1.3) mg/dL AST 37 H 27 (14-36) U/L ALT 22 17 (6-35) U/L Alkaline Phosphatase 171 H 134 H (38-126) U/L Total Protein 10.0 H 8.0 (6.3-8.2) g/dL Albumin 4.5 3.7 (3.5-5.1) g/dL All other labs normal. Imaging Additional studies: ITS Impressions Abdomen/Pelvis CT 10/29/24 17:18 IMPRESSION: Limited examination, as detailed above. 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 Urinary bladder wall thickening, may be secondary to cystitis or incomplete distention. Persistent small fluid collection adjacent to the left common femoral artery, likely chronic hematoma. Bilateral inguinal lymphadenopathy. Renal Ultrasound 10/30/24 10:08 Impression: Mild right hydroureteronephrosis. 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 Small amount of layering debris in the urinary bladder.
[2024-10-30 11:44] LABS: Percent Iron Saturation 28 % (20-50)
[2024-10-30] MEDS: SODIUM CHLORIDE 0.9% IV 1,000 ML 75 ML IV CONT (12:55)
--- NOTE | 2024-10-30 13:41 | PCSTNOTE ---
Please refer to the Bedside Swallow Evaluation in the EMR. Please note, silent aspiration cannot be ruled out at bedside.
--- NOTE | 2024-10-30 14:00 | PC.NURSE ---
All home medications sent home with pt's brother Carloz Ndiaye.
--- NOTE | 2024-10-30 14:42 | PCDIET ---
Nutrition note: Due to high risk of refeeding syndrome, recommend Thiamine 100 mg/day for 5 days and renal-safe multi vitamin once per day. Also recommend checking potassium, phosphorus and magnesium with each lab draw and replace if depleted. If depleted, decrease tube feeding to 20 ml/h.
--- NOTE | 2024-10-30 16:25 | PM.CNNEP ---
History of Present Illness Reason for Consult Consult date: 11/02/24 Reason for consult: acute renal failure (on chronic kidney disease?) Chief Complaint Chief complaint: Hyponatremia, hyperkalemia, acute kidney injury, PMFSH Past Medical History Medical History Rectal adenocarcinoma Cervical cancer status post hysterectomy and chemoradiation Pure hyperglyceridemia Essential (primary) hypertension Tobacco use Surgical History Surgical History Status post laparoscopic colectomy (02/2023) Laparoscopic diverting descending loop colostomy History of hysterectomy History of cholecystectomy Family History Family History Mother Patient's mother is Family history of blood dyscrasia Family history of emphysema Hypertension Sibling Family history of liver disease Family history of human immunodeficiency virus infection Other Cerebrovascular accident Social History Social History Social History: Surrogate medical decision maker: Carloz Ndiaye, jennifer. Code status: Full code. Smoking packs per day: 0.5 Smoking cigarettes per day: 10.0 Years smoked: 35 Smoking pack-years: 17.50 Smoking status: Current every day smoker Tobacco type: cigarettes Second hand tobacco smoke exposure: Yes Smoking end date: 10/24/19 Alcohol intake: never Substance use: never Substance use type: does not use Do You Feel Safe in your Home?: Yes Lack of Transportation: No Lack of Food: Never True Current Housing: I Have Housing Concerned About Future Housing: No Difficulty Paying Gas/Electric Bills: No Difficulty Paying for Meds: No Currently Unemployed: No Education: Decline to Answer Difficulty w/ Childcare or Family Care: No Spiritual care concerns: No Meds Home Medications and Allergies Home Medications ?Medication ?Instructions ?Recorded ?Confirmed ?Type magnesium oxide 400 mg PO DAILY #90 tabs 05/16/23 10/30/24 Rx cholecalciferol (vitamin D3) 50 50 mcg PO DAILY 10/31/23 10/30/24 History mcg (2,000 unit) capsule potassium chloride 20 mEq 20 meq PO BID 10/31/23 10/30/24 History tablet,extended release cephalexin 500 mg capsule 500 mg PO Q6H 7 days #28 caps 09/06/24 10/30/24 Rx gabapentin 300 mg capsule 300 mg PO TID 10/30/24 10/30/24 History hydrocodone 5 mg-acetaminophen 325 1 tablet PO Q4-6H PRN pain 10/30/24 10/30/24 History mg tablet loperamide 2 mg capsule 2 mg PO QID 10/30/24 10/30/24 History mirtazapine 15 mg tablet 15 mg PO HS 10/30/24 10/30/24 History multivitamin (Daily Multi-Vitamin 1 tablet PO DAILY 10/30/24 10/30/24 History tablet) sertraline 50 mg tablet (Zoloft) 75 mg PO DAILY 10/30/24 10/30/24 History thiamine HCl (vitamin B1) 100 mg 100 mg PO DAILY 10/30/24 10/30/24 History tablet (Vitamin B-1) vitamins B1 2.5 mg-B2 2.5 1 tablet PO DAILY 10/30/24 10/30/24 History mg-niacin 5 mg-B12 100 mcg-protease tablet (B-Complex With B-12) Allergies Allergy/AdvReac Type Severity Reaction Status Date / Time No Known Allergies Allergy Verified 10/31/23 08:22 Vital Signs Vital Signs Temp Pulse Resp BP Pulse Ox O2 Del Method 10/30/24 15:49 97.2 F L 103 H 20 100/64 96 10/30/24 11:32 97.3 F L 93 18 120/61 100 10/30/24 10:58 99 Room Air 10/30/24 10:00 81 10/30/24 08:00 77 10/30/24 08:00 73 14 100 Room Air 10/30/24 07:25 97.7 F 73 14 98/50 L 100 10/30/24 05:49 76 10/30/24 04:00 82 10/30/24 04:00 97.4 F L 81 15 108/47 L 100 10/30/24 02:00 84 10/30/24 00:49 96.8 F L 86 15 116/62 10/30/24 00:15 96.8 F L 86 15 116/62 100 10/29/24 22:18 91 14 99/60 L 100 10/29/24 22:15 86 12 89/58 L 100 10/29/24 21:01 86 28 H 108/65 100 10/29/24 20:31 82 14 121/69 100 10/29/24 20:00 79 14 127/73 100 10/29/24 19:30 74 13 120/65 100 10/29/24 19:01 82 13 133/57 L 100 Results Lab Results 11/02/24 04:22 11/02/24 13:07 Lab results: Most recent lab results Calcium 9.5 mg/dL (8.4-10.2) 10/30/24 05:12 Phosphorus 7.5 mg/dL (2.5-4.5) H 10/30/24 05:12 Magnesium 1.7 mg/dL (1.6-2.3) 10/30/24 05:12 Urine Creatinine 124.6 mg/dL 10/29/24 18:59 Urine Creatinine 125.8 mg/dL 10/29/24 18:59
--- NOTE | 2024-10-30 16:50 | P.PNIM_ITS ---
Progress Note: A&P Assessment and Plan (1) Acute kidney injury: Code(s): N17.9 - Acute kidney failure, unspecified Status: Acute (2) Electrolyte abnormality: Code(s): E87.8 - Other disorders of electrolyte and fluid balance, not elsewhere classified Status: Acute (3) Failure to thrive: Status: Acute (4) Abnormal urinalysis: Code(s): R82.90 - Unspecified abnormal findings in urine Status: Acute (5) Rectal adenocarcinoma: Code(s): C20 - Malignant neoplasm of rectum Status: Acute Plan ELIZABETH likely prerenal from poor oral intake continue IVF, and tube feeding Monitor Is and Os Monitor renal function FTT/protein energy malnutrition patient looks emaciated Daughter reported her weight has been going since her cancer treatment however she has been having poor oral intake this past 3 weeks Passed swallow eval by speech therapy Continue PO intake and adjust tube feeds accordingly On thiamine and Multivitamin Dietitian following Anemia Hb 9.5 and MCV 79 Iron panel pending monitor H and H Ostomy infection ruled out CT AP showed 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 providers Mild right hydroureteronephrosis with ELIZABETH US renal evaluated Urology consulted Hx of rectal ca S/p Colectomy on Ileotomy and PEG daughter noted she and been in remission for over a year now Cervical ca s/p hysterectomy monitor HTN titrate heom emds with clinical cour se HLD Contineu home meds DVT prophylaxis on Sq Heparin Subjective Date/time seen: 10/30/24 16:50 Interval history: Patient chronically ill-looking Discussed with her HPOA who noted she has been not eating well the 3 weeks she came home from rehab. stated she is on a combination and tube feeds adn PO intake Review of Systems Review of Systems: 12 systems were reviewed and are negativ e except for as per HPI. Exam Narrative: General: Cachectic, frail elderly female in the semi-Bravo position in bed. Weight: 40.9 kg. BMI: 16.0. HEENT: PERRL, EOMI. Sclera anicteric. Dry mucous membranes. Poor dentition. Neck: Supple. Respiratory: Lungs are clear to auscultation bilaterally. Cardiovascular: Regular rate and rhythm with S1-S2. Gastrointestinal: Abdomen is soft and nondistended with positive bowel sounds. G-tube site is intact. Small amount of possible purulent drainage on the ostomy dressing. Skin: Warm and dry. Shallow, dry ulceration on the dorsum of the right foot. Extremities: No cyanosis, clubbing, or edema. Neurological: Alert. Cranial nerves 2-12 are grossly intact. Generalized weakness and diffuse atrophy. Psychiatric: Pleasant and cooperative with appropriate mood and flat affect. Objective Data Vital Signs Vital Signs: Vital Signs - 24 hr 10/29/24 17:44 10/29/24 18:01 10/29/24 18:31 Temperature Pulse Rate 79 74 77 Respiratory Rate 22 H 14 18 Blood Pressure 126/78 141/66 H 125/76 Pulse Oximetry 100 100 100 Oxygen Delivery 10/29/24 19:01 10/29/24 19:30 10/29/24 20:00 Temperature Pulse Rate 82 74 79 Respiratory Rate 13 13 14 Blood Pressure 133/57 L 120/65 127/73 Pulse Oximetry 100 100 100 Oxygen Delivery 10/29/24 20:31 10/29/24 21:01 10/29/24 22:15 Temperature Pulse Rate 82 86 86 Respiratory Rate 14 28 H 12 Blood Pressure 121/69 108/65 89/58 L Pulse Oximetry 100 100 100 Oxygen Delivery 10/29/24 22:18 10/30/24 00:15 10/30/24 00:49 Temperature 96.8 F L 96.8 F L Pulse Rate 91 86 86 Respiratory Rate 14 15 15 Blood Pressure 99/60 L 116/62 116/62 Pulse Oximetry 100 100 Oxygen Delivery 10/30/24 02:00 10/30/24 04:00 10/30/24 04:00 Temperature 97.4 F L Pulse Rate 84 81 82 Respiratory Rate 15 Blood Pressure 108/47 L Pulse Oximetry 100 Oxygen Delivery 10/30/24 05:49 10/30/24 07:25 10/30/24 08:00 Temperature 97.7 F Pulse Rate 76 73 73 Respiratory Rate 14 14 Blood Pressure 98/50 L Pulse Oximetry 100 100 Oxygen Delivery Room Air 10/30/24 08:00 10/30/24 10:00 10/30/24 10:58 Temperature Pulse Rate 77 81 Respiratory Rate Blood Pressure Pulse Oximetry 99 Oxygen Delivery Room Air 10/30/24 11:32 10/30/24 15:49 Temperature 97.3 F L 97.2 F L Pulse Rate 93 103 H Respiratory Rate 18 20 Blood Pressure 120/61 100/64 Pulse Oximetry 100 96 Oxygen Delivery Intake/Output Intake/Output: Intake & Output 10/27/24 10/28/24 10/29/24 10/30/24 23:59 23:59 23:59 23:59 Intake Total 1050 787.5 Output Total 25 Balance 1025 787.5 Meds/Results Medications: Active Medications Generic Name Dose Route Start Last Admin Trade Name Freq PRN Reason Stop Dose Admin Hydrocodone Bitart/Acetaminophen 1 tab 10/30/24 01:46 10/30/24 02:03 Hydrocodone/Acetaminophen (*Crx) 5-325 Mg Tablet PO 1 tab Q4H PRN Administration Pain Rated 4-6 Heparin Sodium (Porcine) 5,000 units 10/30/24 09:00 10/30/24 08:12 Heparin Sodium 5,000 Units/Ml Vial SUB-Q 5,000 units Q12HR CHANTAL Administration Hydromorphone HCl 1 mg 10/30/24 04:21 10/30/24 15:37 Hydromorphone Hcl Inj (*Crx) 1 Mg/Ml Syr IV PUSH 1 mg Q4H PRN Administration Pain Rated 7-10 Ceftriaxone Sodium 1 gm in 50 mls @ 100 mls/hr 10/30/24 22:00 Rocephin 1 Gm/Ns 50 Ml IVPB Q24H CHANTAL Sodium Chloride 1,000 mls @ 75 mls/hr 10/30/24 12:30 10/30/24 12:55 Normal Saline Iv IV CONT 75 mls/hr .[id number] CHANTAL Administration Thiamine HCl 100 mg 10/31/24 09:00 Thiamine Hcl 100 Mg Tablet PO QAM [facility] Thiamine HCl 100 mg 10/30/24 16:48 Thiamine Hcl 200 Mg/2 Ml Vial IV PUSH 10/30/24 16:49 ONCE ONE Vitamin B Complex/Folic Acid 1 cap 10/31/24 09:00 Vitamin B Cmplx/Vit C/Folic Ac 1 Capsule [facility] Radiology Results: ITS Impressions Abdomen/Pelvis CT 10/29/24 17:18 IMPRESSION: Limited examination, as detailed above. 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 Urinary bladder wall thickening, may be secondary to cystitis or incomplete distention. Persistent small fluid collection adjacent to the left common femoral artery, likely chronic hematoma. Bilateral inguinal lymphadenopathy. Renal Ultrasound 10/30/24 10:08 Impression: Mild right hydroureteronephrosis. 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 Small amount of layering debris in the urinary bladder. Labs Labs: Laboratory Results - last 24 hr 10/29/24 10/29/24 10/29/24 18:59 18:59 18:59 WBC RBC Hgb Hct MCV MCH MCHC RDW Plt Count MPV Sodium Potassium Chloride Carbon Dioxide Anion Gap BUN Creatinine Estim Creat Clear Calc Estimated GFR Glucose Calcium Phosphorus Magnesium Iron TIBC % Saturation Ferritin Total Bilirubin AST ALT Alkaline Phosphatase Total Creatine Kinase Total Protein Albumin Urine Color Dark yellow Urine Appearance Turbid H Urine pH 5.5 Ur Specific [place] 1.012 Urine Protein 2+ H Urine Glucose (UA) Negative Urine Ketones Trace H Ur Blood (Man) 3+ H Urine Nitrate Negative Urine Bilirubin 1+ H Urine Urobilinogen 0.2 Leukocyte Esterase Rfl 3+ H Urine RBC 21-50 H Urine WBC >100 H Ur Squamous Epith Cells Many H Urine Bacteria 4+ Urine Casts >20 U Random Total Protein 118 121 Ur Random Sodium 32 Ur Random Urea 373 Urine Creatinine 124.6 125.8 Protein/Creat Ratio 2 0.95 H Hep Bs Antigen Hepatitis C Ab Screen HIV 1&2 Ab/P24 Ag 4thGn 10/29/24 10/30/24 10/30/24 21:49 05:04 05:12 WBC 11.8 H RBC 3.48 L Hgb 9.5 L Hct 27.6 L MCV 79.3 L MCH 27.3 MCHC 34.4 RDW 16.9 H Plt Count 452 H MPV 9.0 Sodium 125 L 126 L Potassium 4.0 3.7 Chloride 93 L 94 L Carbon Dioxide 13 L 13 L Anion Gap 19 H 19 H BUN 134 H D 127 H Creatinine 4.79 H 4.54 H Estim Creat Clear Calc 6 6 Estimated GFR 11 L 12 L Glucose 86 112 H Calcium 9.1 9.5 Phosphorus 7.5 H Magnesium 1.7 Iron 66 TIBC 232 L % Saturation 28 Ferritin 915.00 H Total Bilirubin 0.5 AST 27 ALT 17 Alkaline Phosphatase 134 H Total Creatine Kinase 46 Total Protein 8.0 Albumin 3.7 Urine Color Urine Appearance Urine pH Ur Specific [place] Urine Protein Urine Glucose (UA) Urine Ketones Ur Blood (Man) Urine Nitrate Urine Bilirubin Urine Urobilinogen Leukocyte Esterase Rfl Urine RBC Urine WBC Ur Squamous Epith Cells Urine Bacteria Urine Casts U Random Total Protein Ur Random Sodium Ur Random Urea Urine Creatinine Protein/Creat Ratio 2 Hep Bs Antigen Negative Hepatitis C Ab Screen Negative HIV 1&2 Ab/P24 Ag 4thGn Negative Quality VTE Prophylaxis VTE prophylaxis: mechanical ordered and pharmacologic ordered
[2024-10-30] MEDS: THIAMINE HCL 200 MG/2 ML VIAL 100 MG IV PUSH (17:05)
[2024-10-31] VITALS (7 sets, daily range): BP systolic 98–111; BP diastolic 33–65; PULSE 70–91; RESP 16–18; TEMP 36.4–36.9; O2SAT 99–100
[2024-10-31] MEDS: HYDROmorphone HCL INJ (*CRX) 1 MG/ML SYR IV PUSH ×5 (00:44→20:35)
[2024-10-31] MEDS: ONDANSETRON INJ 4 MG/2 ML VIAL IV PUSH (03:02)
[2024-10-31 03:46] LABS: Glucose Point of Care 139 mg/dl (65-105)
[2024-10-31] MEDS: HYDROcodone/acetaminophen (*CRX) 5-325 MG TABLET 1 TAB PO ×2 (03:47→13:56)
[2024-10-31] MEDS: SODIUM CHLORIDE 0.9% IV 1,000 ML 75 ML IV CONT ×2 (03:50→17:12)
[2024-10-31 05:20] LABS: Basophils Percent Auto 0.1 % (0.2-1.2); Eosinophils Percent Auto 0.1 % (0-4.4); Hematocrit 25.9 % (37.0-47.0); Hemoglobin 8.8 g/dL (12.0-15.0); Immature Granulocyte Percent A 0.8 % (0-0.5); Lymphocytes Absolute Auto 1.16 K/mm3 (0.9-3.2); Lymphocytes Percent Auto 9.2 % (18.3-44.2); Mean Corpuscular Hemoglobin 27.2 pg (26-34); Mean Corpuscular Volume 79.9 fl (80-100); Mean Platelet Volume 8.7 fl (7.4-10.4); Monocytes Absolute Auto 0.7 K/mm3 (0.1-0.6); Monocytes Percent Auto 5.5 % (2.6-8.5); Neutrophils Absolute Auto 10.6 K/mm3 (1.3-6.7); Neutrophils Percent Auto 84.3 % (45.5-73.1); Platelet Count Result 406 k/mm3 (150-375); Red Blood Count 3.24 M/mm3 (4.2-5.4); Red Cell Distribution Width 16.9 % (11.5-14.5); White Blood Count 12.6 K/mm3 (4.5-10.0)
--- NOTE | 2024-10-31 05:29 | PC.NURSE ---
0526 attempted to call VALERIE Kim, message left to call the IMU at [phone]. 0527 spoke with brother Carloz explained patient is requesting for him to be at bedside d/t feeling scared. Feelings related to leakage around G-Tube. He plans to arrive around 0800.
[2024-10-31 05:42] LABS: Alanine Aminotransferase 21 U/L (6-35); Albumin Level 3.1 g/dL (3.5-5.1); Alkaline Phosphatase 137 U/L (38-126); Anion Gap 14 mmol/L (4-12); Aspartate Amino Transferase 38 U/L (14-36); Bilirubin,Total 0.4 mg/dL (0.2-1.3); Blood Urea Nitrogen 107 mg/dL (7-17); Calcium 8.7 mg/dL (8.4-10.2); Carbon Dioxide 20 mmol/L (22-30); Chloride 98 mmol/L (98-107); Estimated CRCL calculation 11 ml/min; Estimated Glomerular Filt Rate 16; Glucose 101 mg/dL (65-110); Lactic Acid Reflex 1.3 mmol/L (0.7-2.0); Magnesium 1.6 mg/dL (1.6-2.3); Phosphorus 5.6 mg/dL (2.5-4.5); Potassium 3.4 mmol/L (3.4-5.0); Sodium 132 mmol/L (137-145)
--- NOTE | 2024-10-31 05:43 | P.PNCROSS_ITS ---
Event Note Event Note Event Note: I was notified overnight that patient had clearish fluid draining from around P EG tube site so RN placed tube feeds on hold and checked residual. There was over 300 mL residual. Patient was complaining of significant pain which wasn't being adequately controlled with IV pain medication. Tube feeds placed on hold. Patient had no nausea or vomiting so ordered one time dose of [place] PO with small sip of water. A couple hours later nursing staff called again stating that large amount of clear drainage coming from around the PEG tube. I went to bedside to find patient very anxious but alert and oriented. There was what appeared to be serous to lightly pink serosanguineous drainage flowing steadily from around the PEG insertion site. There was no palpable fluid collection in the surrounding area and review of CT scan from all angles showed PEG tube in proper placement. This time I hooked PEG to suction canister on Medium intermittent suction and another 200 mL promptly flowed into suction canister. This appears to be mostly water/stomach acid with small amount of thicker brown (likely tube feed.) Pain was relieved after this fluid was suctioned away. Review of records shows patient has previously had bowel obstruction. A total of 175 mL drainage from o stomy site for the 12 hour shift. Though patient denies nausea/vomiting I am concerned for ileus/obstruction. Vitals stable. Pain improved. Will notify Surgery team in the morning.
[2024-10-31 05:46] LABS: Iron 27 ug/dL (37-170)
[2024-10-31 05:55] LABS: Percent Iron Saturation 13 % (20-50)
--- NOTE | 2024-10-31 07:07 | P.CONUR_ITS ---
Assessment and Plan Assessment and plan (1) Abnormal CT of the abdomen: Code(s): R93.5 - Abnormal findings on diagnostic imaging of other abdominal regions, including retroperitoneum Status: Acute (2) Acute UTI: Code(s): N39.0 - Urinary tract infection, site not specified Status: Acute (3) Acute kidney injury: Code(s): N17.9 - Acute kidney failure, unspecified Status: Acute Assessment and Plan: * Scant right hydronephrosis identified on renal ultrasound is likely an over read and not clinically significant. Certainly on CT imaging just prior to that she had no significant apparent obstruction to the upper urinary tract * If hydronephrosis is real it is likely related to cystitis with bladder thickening. * Acute kidney injury seems to be improving with supportive care and is more likely due to dehydration/prerenal factors without any significant contribution from obstructive uropathy * At this point I would simply recommend treating with ever urinary tract infection she has. I would not recommend any intervention for the scant right hydronephrosis. Urology Consult Note HPI Date Seen: 10/31/24 Requesting Physician: Vee Tadeo MD Primary Care Provider: Anthony Bennett, PA-C Consult Narrative Narrative: Victor Manuel Ndiaye is a pleasant 73-year-old who has previously unknown to our practice but with extensive medical and surgical issues as outlined elsewhere. Somewhat surprisingly, she lives at home, has no significant sense of difficulty voiding. She states she is able ambulate and void spontaneously in the restroom without difficulty. During this admission initial CT scan of the abdomen and pelvis revealed essentially normal upper urinary tracts. Abdominal ultrasound, however, was reported as showing scant right hydronephrosis. In addition to that she does have thickening of her bladder wall consistent with possible cystitis. A Rowe catheter has been placed without difficulty draining clear. She has a known abscess around her right GI ostomy. She is admitted with generalized failure to thrive. Review of Systems 2 Cardiovascular: Cardiovascular: Denies chest pain, Denies lightheadedness, Denies palpitations and Denies dyspnea Respiratory: Respiratory: Denies dyspnea Gastrointestinal: Gastrointestinal: Denies diarrhea, Denies nausea and Denies vomiting Genitourinary: Genitourinary: Denies hematuria and Denies dysuria Endocrine: Endocrine: Denies palpitations PMFSH Past Medical History Medical History Rectal adenocarcinoma Cervical cancer status post hysterectomy and chemoradiation Pure hyperglyceridemia Essential (primary) hypertension Tobacco use Surgical History Surgical History Status post laparoscopic colectomy (02/2023) Laparoscopic diverting descending loop colostomy History of hysterectomy History of cholecystectomy Family History Family History Mother Patient's mother is Family history of blood dyscrasia Family history of emphysema Hypertension Sibling Family history of liver disease Family history of human immunodeficiency virus infection Other Cerebrovascular accident Social History Social History Social History: Surrogate medical decision maker: Carloz Ndiaye, jennifer. Code status: Full code. Smoking packs per day: 0.5 Smoking cigarettes per day: 10.0 Years smoked: 35 Smoking pack-years: 17.50 Smoking status: Current every day smoker Tobacco type: cigarettes Second hand tobacco smoke exposure: Yes Smoking end date: 10/24/19 Alcohol intake: never Substance use: never Substance use type: does not use Do You Feel Safe in your Home?: Yes Lack of Transportation: No Lack of Food: Never True Current Housing: I Have Housing Concerned About Future Housing: No Difficulty Paying Gas/Electric Bills: No Difficulty Paying for Meds: No Currently Unemployed: No Education: Decline to Answer Difficulty w/ Childcare or Family Care: No Spiritual care concerns: No Meds Home Medications and Allergies Home Medications ?Medication ?Instructions ?Recorded ?Confirmed ?Type magnesium oxide 400 mg PO DAILY #90 tabs 05/16/23 10/30/24 Rx cholecalciferol (vitamin D3) 50 50 mcg PO DAILY 10/31/23 10/30/24 History mcg (2,000 unit) capsule potassium chloride 20 mEq 20 meq PO BID 10/31/23 10/30/24 History tablet,extended release cephalexin 500 mg capsule 500 mg PO Q6H 7 days #28 caps 09/06/24 10/30/24 Rx gabapentin 300 mg capsule 300 mg PO TID 10/30/24 10/30/24 History hydrocodone 5 mg-acetaminophen 325 1 tablet PO Q4-6H PRN pain 10/30/24 10/30/24 History mg tablet loperamide 2 mg capsule 2 mg PO QID 10/30/24 10/30/24 History mirtazapine 15 mg tablet 15 mg PO HS 10/30/24 10/30/24 History multivitamin (Daily Multi-Vitamin 1 tablet PO DAILY 10/30/24 10/30/24 History tablet) sertraline 50 mg tablet (Zoloft) 75 mg PO DAILY 10/30/24 10/30/24 History thiamine HCl (vitamin B1) 100 mg 100 mg PO DAILY 10/30/24 10/30/24 History tablet (Vitamin B-1) vitamins B1 2.5 mg-B2 2.5 1 tablet PO DAILY 10/30/24 10/30/24 History mg-niacin 5 mg-B12 100 mcg-protease tablet (B-Complex With B-12) Allergies Allergy/AdvReac Type Severity Reaction Status Date / Time No Known Allergies Allergy Verified 10/31/23 08:22 Vital Signs Vital Signs - 24 hr 10/30/24 07:25 10/30/24 08:00 10/30/24 08:00 Temperature 97.7 F Pulse Rate 73 73 77 Respiratory Rate 14 14 Blood Pressure 98/50 L Pulse Oximetry 100 100 Oxygen Delivery Room Air 10/30/24 10:00 10/30/24 10:58 10/30/24 11:32 Temperature 97.3 F L Pulse Rate 81 93 Respiratory Rate 18 Blood Pressure 120/61 Pulse Oximetry 99 100 Oxygen Delivery Room Air 10/30/24 15:49 10/30/24 20:00 10/30/24 20:32 Temperature 97.2 F L 97.9 F Pulse Rate 103 H 87 Respiratory Rate 20 18 Blood Pressure 100/64 103/50 L Pulse Oximetry 96 100 Oxygen Delivery Room Air 10/31/24 00:30 10/31/24 04:40 Temperature Pulse Rate Respiratory Rate Blood Pressure 109/65 106/62 Pulse Oximetry Oxygen Delivery Exam 2 Const: General: no acute distress Resp: Effort & Inspection: normal respiratory effort GI: Inspection: non-distended GI Palp: No abdominal tenderness and No Guarding due to palpation present (GI) Auscultation: normal bowel sounds Results Labs 10/31/24 05:15 10/31/24 05:15 Labs: Short CBC 10/31/24 Range/Units 05:15 WBC 12.6 H (4.5-10.0) K/mm3 Hgb 8.8 L (12.0-15.0) g/dL Hct 25.9 L (37.0-47.0) % Plt Count 406 H (150-375) k/mm3 BMP 10/31/24 05:15 Sodium 132 L Potassium 3.4 Chloride 98 Carbon Dioxide 20 L BUN 107 H D Creatinine 2.90 H Glucose 101 Calcium 8.7 Liver Function 10/31/24 Range/Units 05:15 Total Bilirubin 0.4 (0.2-1.3) mg/dL AST 38 H (14-36) U/L ALT 21 (6-35) U/L Alkaline Phosphatase 137 H (38-126) U/L Albumin 3.1 L (3.5-5.1) g/dL
--- NOTE | 2024-10-31 07:08 | P.CDI_ITS ---
CDI Query Clarification Request BMI: 17.8 Nutritional Diagnostic Statement: Please refer to the comprehensive nutrition assessment for further information. If you agree with diagnosis of 1. Severe protein calorie malnutrition related to chronic colorectal cancer, as evidenced by weight loss 18%/2 months and -33%/1 year; intakes <75% needs >1 month; severe muscle wasting and fat loss. 2. Inability to meet nutrition needs PO related to chronic poor appetite, colorectal surgery as evidenced by PEG tube. Please specify severity if known: * Mild * Moderate * Severe * Other/Unknown <Leah Nunez RN - Last Filed: 10/31/24 07:10> Clarified Diagnosis Clarified Diagnosis: * Severe <Dakota Moscoso MD - Last Filed: 10/31/24 07:11>
--- NOTE | 2024-10-31 07:32 | PC.NURSE ---
0330: Rossi ERICKSON, alerted RN of large amount of brown, chunky drainage leaking around the patient's PEG tube. RN Held TF and checked residual. The patient's residual was 300 ml which was equal to the amount of TF the patient had received per the Kangaroo pump. RN assessed and aspirated PEG tube to confirm placement. RN contacted Guy Redmond NP whom instructed RN to hold TF while he reviewed the patient's chart. After further review Guy instructed RN to keep the TF off and check the patient's residual and if it was less than 100 ml to restart the TF. 0445: Patient turned from R side to L side with the help of Rossi ERICKSON and SABINO Moreno. Patient reported she was having pain around her PEG tube. SABINO Moreno inspected the area, which appeared to be unchanged. Tiffanie stated she would see if the patient was due for pain medicine. 0500: RN to bedside to assess patient's pain. The patient stated, I have never had pain like this before and was crying. Upon assessing the patient's PEG, RN noted drain sponges to be saturated. When RN removed sponges copious amounts of serous fluid was draining out around the tube. RN called for assistance requesting more gauze. RN continued to assess drainage, ultimately choosing continually add gauze while holding light pressure rather than removing and replacing it. While doing this other nursing staff called RIKA Tovar whom reported to bedside to assess the patient. Guy instructed and assisted nursing staff in connecting the patient's PEG tube to suction. The patient reported nearly complete relief in abdominal pain after about 200 ml was suctioned out. Guy initiated LIS and instructed RN to contact him should any other concerns arise. Patient's POAAngelica and brother, Carloz were called by divya Amado RN per patient request. A message was left for AngelicaLulú Carty was updated and stated he would report to the hospital around 0800. 0700: RN transferred care to day Corina GALLO.
[2024-10-31] MEDS: HEPARIN SODIUM 5,000 UNITS/ML VIAL 5000 UNITS SUB-Q ×2 (08:45→20:36)
[2024-10-31] MEDS: THIAMINE HCL 100 MG TABLET PO (08:45)
[2024-10-31] MEDS: VITAMIN B CMPLX/VIT C/FOLIC AC 1 CAPSULE 1 CAP PO (08:45)
--- NOTE | 2024-10-31 11:07 | PCDIET ---
Nutrition note: TF was placed on hold because of high (300 ml) residuals. Pt will start on Reglan today and then start TF at low rate, 20 ml/h. Pt able to eat and drink per speech. Pt is more alert today. Electrolyte/refeeding labs look okay. Drop in PO4, but it remains high. Pt is on thiamine and renal multivitamin. Will continue to monitor.
[2024-10-31 12:29] LABS: Eosinophil Urine Rare % (None Seen)
[2024-10-31 12:31] LABS: Urine Eos QC 2nd Tech Confirmed
--- NOTE | 2024-10-31 13:12 | P.PNNP_ITS ---
Subjective Date/time seen: 10/31/24 13:12 Objective Data Vital Signs Vital Signs: Vital Signs Temp Pulse Resp BP Pulse Ox O2 Del Method 10/31/24 12:59 98.3 F 91 16 98/43 L 100 10/31/24 08:00 86 16 100 Room Air 10/31/24 07:45 98.4 F 86 16 108/52 L 100 10/31/24 04:40 106/62 10/31/24 00:30 109/65 10/30/24 20:32 97.9 F 87 18 103/50 L 100 10/30/24 20:00 Room Air Intake/Output Intake/Output: Intake & Output 10/28/24 10/29/24 10/30/24 10/31/24 23:59 23:59 23:59 23:59 Intake Total 1050 907.5 1000 Output Total 25 550 500 Balance 1025 357.5 500 Meds/Results Medications: Active Medications Generic Name Dose Route Start Last Admin Trade Name Freq PRN Reason Stop Dose Admin Hydrocodone Bitart/Acetaminophen 1 tab 10/30/24 01:46 10/31/24 13:56 Hydrocodone/Acetaminophen (*Crx) 5-325 Mg Tablet PO 1 tab Q4H PRN Administration Pain Rated 4-6 Heparin Sodium (Porcine) 5,000 units 10/30/24 09:00 10/31/24 08:45 Heparin Sodium 5,000 Units/Ml Vial SUB-Q 5,000 units Q12HR CHANTAL Administration Hydromorphone HCl 1 mg 10/30/24 04:21 10/31/24 15:20 Hydromorphone Hcl Inj (*Crx) 1 Mg/Ml Syr IV PUSH 1 mg Q4H PRN Administration Pain Rated 7-10 Sodium Chloride 1,000 mls @ 75 mls/hr 10/30/24 12:30 10/31/24 03:50 Normal Saline Iv IV CONT 75 mls/hr .[id number] CHANTAL Administration Ceftriaxone Sodium 1 gm in 50 mls @ 100 mls/hr 10/31/24 22:00 Rocephin 1 Gm/Ns 50 Ml IVPB Q24H CHANTAL Metoclopramide HCl 5 mg 10/31/24 13:35 10/31/24 13:56 Metoclopramide Hcl Inj 10 Mg/2 Ml Vial IV PUSH 5 mg Q6HR CHANTAL Administration Thiamine HCl 100 mg 10/31/24 09:00 10/31/24 08:45 Thiamine Hcl 100 Mg Tablet PO 100 mg QAM CHANTAL Administration Vitamin B Complex/Folic Acid 1 cap 10/31/24 09:00 10/31/24 08:45 Vitamin B Cmplx/Vit C/Folic Ac 1 Capsule PO 1 cap QAM CHANTAL Administration Radiology Results: ITS Impressions Abdomen/Pelvis CT 10/29/24 17:18 IMPRESSION: Limited examination, as detailed above. 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 Urinary bladder wall thickening, may be secondary to cystitis or incomplete distention. Persistent small fluid collection adjacent to the left common femoral artery, likely chronic hematoma. Bilateral inguinal lymphadenopathy. Renal Ultrasound 10/30/24 10:08 Impression: Mild right hydroureteronephrosis. 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 Small amount of layering debris in the urinary bladder. Abdomen X-Ray 10/31/24 08:12 Impression: 1: Nonobstructive bowel gas pattern. Labs Labs: Laboratory Tests 10/31/24 05:15 10/31/24 05:15 10/31/24 10/31/24 10/31/24 03:01 05:15 10:33 WBC 12.6 H RBC 3.24 L Hgb 8.8 L Hct 25.9 L MCV 79.9 L MCH 27.2 MCHC 34.0 RDW 16.9 H Plt Count 406 H MPV 8.7 Immature Gran % (Auto) 0.8 H Neut % (Auto) 84.3 H Lymph % (Auto) 9.2 L [place] % (Auto) 5.5 Eos % (Auto) 0.1 Baso % (Auto) 0.1 L Lymph # (Auto) 1.16 [place] # (Auto) 0.7 H Eos # (Auto) 0.0 Baso # (Auto) 0.0 Abs Immat Gran (auto) 0.10 H Absolute Neuts (auto) 10.6 H Absolute Nucleated RBC 0.000 Nucleated RBC % 0.0 Sodium 132 L Potassium 3.4 Chloride 98 Carbon Dioxide 20 L Anion Gap 14 H BUN 107 H D Creatinine 2.90 H Estim Creat Clear Calc 11 Estimated GFR 16 L Glucose 101 POC Capillary Glucose 139 H Lactic Acid 1.3 Calcium 8.7 Phosphorus 5.6 H Magnesium 1.6 Iron 27 L TIBC 206 L % Saturation 13 L Ferritin 802.00 H Total Bilirubin 0.4 AST 38 H ALT 21 Alkaline Phosphatase 137 H Total Protein 7.0 Albumin 3.1 L Urine Eosinophils Rare Microbiology 10/29/24 18:59 Urine Catheterized Urine Culture - Preliminary Klebsiella pneumoniae 10/29/24 22:15 Blood Blood Culture - Preliminary 10/29/24 22:15 Blood Blood Culture - Preliminary
[2024-10-31] MEDS: METOCLOPRAMIDE HCL INJ 10 MG/2 ML VIAL 5 MG IV PUSH ×2 (13:56→18:51)
--- NOTE | 2024-10-31 15:15 | PM.IMPN ---
Progress Note: A&P Assessment and Plan (1) Acute kidney injury: Code(s): N17.9 - Acute kidney failure, unspecified Status: Acute (2) Electrolyte abnormality: Code(s): E87.8 - Other disorders of electrolyte and fluid balance, not elsewhere classified Status: Acute (3) Failure to thrive: Status: Acute (4) Abnormal urinalysis: Code(s): R82.90 - Unspecified abnormal findings in urine Status: Acute (5) Rectal adenocarcinoma: Code(s): C20 - Malignant neoplasm of rectum Status: Acute Plan ELIZABETH, improving likely prerenal from poor oral intake continue IVF, and tube feeding Cr 2.9 from 5.42 Monitor Is and Os Monitor renal function FTT/protein energy malnutrition patient looks emaciated Daughter reported her weight has been going since her cancer treatment however she has been having poor oral intake this past 3 weeks Passed swallow eval by speech therapy did not tolerate tube feeds last night as patient and was placed on suction KUB this morning was unremarkable Started on Reglan and restart tube feeds and monitor On thiamine and Multivitamin Dietitian following Anemia Hb 9.5 and MCV 79 Isat 14, give 200/1000 Iron panel pending FOBT pending monitor H and H Ostomy infection ruled out CT AP showed persistent abscess or enterocutaneous fistular at the right lower quadrant ostomty with adjacent lymphadenopathy Surgery evaluated and noted this is a not a new findings and no treatment needed at this time and patient will continue folow up with her [facility] providers Mild right hydroureteronephrosis with ELIZABETH US renal evaluated Urology evaluated and noted no need for intervention Cystitis CT AP showed possible cystitis urine culture pending and continue Rocephin Hx of rectal ca S/p Colectomy on Ileotomy and PEG daughter noted she and been in remission for over a year now Cervical ca s/p hysterectomy monitor HTN Titrate home meds with clinical course HLD Continue home meds DVT prophylaxis on Sq Heparin Subjective Date/time seen: 10/31/24 15:15 Interval history: Patient chronically ill-looking patient not tolerating tube feeds, thus was started on Reglan KUB unremarkable Will restart tube feeds again and monitor Review of Systems Review of Systems: 12 systems were reviewed and are negative except for as per HPI. Exam Narrative: General: Cachectic, frail elderly female in the semi-Bravo position in bed. Weight: 40.9 kg. BMI: 16.0. HEENT: PERRL, EOMI. Sclera anicteric. Dry mucous membranes. Poor dentition. Neck: Supple. Respiratory: Lungs are clear to auscultation bilaterally. Cardiovascular: Regular rate and rhythm with S1-S2. Gastrointestinal: Abdomen is soft and nondistended with positive bowel sounds. G-tube site is intact. Small amount of possible purulent drainage on the ostomy dressing. Skin: Warm and dry. Shallow, dry ulceration on the dorsum of the right foot. Extremities: No cyanosis, clubbing, or edema. Neurological: Alert. Cranial nerves 2-12 are grossly intact. Generalized weakness and diffuse atrophy. Psychiatric: Pleasant and cooperative with appropriate mood and flat affect. Objective Data Vital Signs Vital Signs: Vital Signs - 24 hr 10/30/24 15:49 10/30/24 20:00 10/30/24 20:32 Temperature 97.2 F L 97.9 F Pulse Rate 103 H 87 Respiratory Rate 20 18 Blood Pressure 100/64 103/50 L Pulse Oximetry 96 100 Oxygen Delivery Room Air 10/31/24 00:30 10/31/24 04:40 10/31/24 07:45 Temperature 98.4 F Pulse Rate 86 Respiratory Rate 16 Blood Pressure 109/65 106/62 108/52 L Pulse Oximetry 100 Oxygen Delivery 10/31/24 08:00 Temperature Pulse Rate 86 Respiratory Rate 16 Blood Pressure Pulse Oximetry 100 Oxygen Delivery Room Air Intake/Output Intake/Output: Intake & Output 10/28/24 10/29/24 10/30/24 10/31/24 23:59 23:59 23:59 23:59 Intake Total 1050 907.5 1000 Output Total 25 550 500 Balance 1025 357.5 500 Meds/Results Medications: Active Medications Generic Name Dose Route Start Last Admin Trade Name Freq PRN Reason Stop Dose Admin Hydrocodone Bitart/Acetaminophen 1 tab 10/30/24 01:46 10/31/24 13:56 Hydrocodone/Acetaminophen (*Crx) 5-325 Mg Tablet PO 1 tab Q4H PRN Administration Pain Rated 4-6 Heparin Sodium (Porcine) 5,000 units 10/30/24 09:00 10/31/24 08:45 Heparin Sodium 5,000 Units/Ml Vial SUB-Q 5,000 units Q12HR CHANTAL Administration Hydromorphone HCl 1 mg 10/30/24 04:21 10/31/24 08:44 Hydromorphone Hcl Inj (*Crx) 1 Mg/Ml Syr IV PUSH 1 mg Q4H PRN Administration Pain Rated 7-10 Sodium Chloride 1,000 mls @ 75 mls/hr 10/30/24 12:30 10/31/24 03:50 Normal Saline Iv IV CONT 75 mls/hr .[id number] CHANTAL Administration Ceftriaxone Sodium 1 gm in 50 mls @ 100 mls/hr 10/31/24 22:00 Rocephin 1 Gm/Ns 50 Ml IVPB Q24H CHANTAL Metoclopramide HCl 5 mg 10/31/24 13:35 10/31/24 13:56 Metoclopramide Hcl Inj 10 Mg/2 Ml Vial IV PUSH 5 mg Q6HR CHANTAL Administration Thiamine HCl 100 mg 10/31/24 09:00 10/31/24 08:45 Thiamine Hcl 100 Mg Tablet PO 100 mg QAM CHANTAL Administration Vitamin B Complex/Folic Acid 1 cap 10/31/24 09:00 10/31/24 08:45 Vitamin B Cmplx/Vit C/Folic Ac 1 Capsule PO 1 cap QAM CHANTAL Administration Radiology Results: ITS Impressions Abdomen/Pelvis CT 10/29/24 17:18 IMPRESSION: Limited examination, as detailed above. 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 Urinary bladder wall thickening, may be secondary to cystitis or incomplete distention. Persistent small fluid collection adjacent to the left common femoral artery, likely chronic hematoma. Bilateral inguinal lymphadenopathy. Renal Ultrasound 10/30/24 10:08 Impression: Mild right hydroureteronephrosis. 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 Small amount of layering debris in the urinary bladder. Abdomen X-Ray 10/31/24 08:12 Impression: 1: Nonobstructive bowel gas pattern. Labs Labs: Laboratory Results - last 24 hr 10/31/24 10/31/24 10/31/24 03:01 05:15 10:33 WBC 12.6 H RBC 3.24 L Hgb 8.8 L Hct 25.9 L MCV 79.9 L MCH 27.2 MCHC 34.0 RDW 16.9 H Plt Count 406 H MPV 8.7 Immature Gran % (Auto) 0.8 H Neut % (Auto) 84.3 H Lymph % (Auto) 9.2 L [place] % (Auto) 5.5 Eos % (Auto) 0.1 Baso % (Auto) 0.1 L Lymph # (Auto) 1.16 [place] # (Auto) 0.7 H Eos # (Auto) 0.0 Baso # (Auto) 0.0 Abs Immat Gran (auto) 0.10 H Absolute Neuts (auto) 10.6 H Absolute Nucleated RBC 0.000 Nucleated RBC % 0.0 Sodium 132 L Potassium 3.4 Chloride 98 Carbon Dioxide 20 L Anion Gap 14 H BUN 107 H D Creatinine 2.90 H Estim Creat Clear Calc 11 Estimated GFR 16 L Glucose 101 POC Capillary Glucose 139 H Lactic Acid 1.3 Calcium 8.7 Phosphorus 5.6 H Magnesium 1.6 Iron 27 L TIBC 206 L % Saturation 13 L Ferritin 802.00 H Total Bilirubin 0.4 AST 38 H ALT 21 Alkaline Phosphatase 137 H Total Protein 7.0 Albumin 3.1 L Urine Eosinophils Rare Quality VTE Prophylaxis VTE prophylaxis: mechanical ordered and pharmacologic ordered
[2024-10-31] MEDS: IRON SUCROSE COMPLEX 200 MG in SODIUM CHLORIDE 0.9% IV 100 ML 220 MG IVPB (17:37)
[2024-10-31 21:15] LABS: IFOB Positive Control Positive; Immunochemical Fecal Occult Bl Positive (N)
[2024-11-01] MEDS: METOCLOPRAMIDE HCL INJ 10 MG/2 ML VIAL 5 MG IV PUSH ×4 (01:05→18:02)
[2024-11-01] MEDS: HYDROmorphone HCL INJ (*CRX) 1 MG/ML SYR IV PUSH ×4 (03:30→21:17)
[2024-11-01 07:53] VITALS: BP 95/51; PULSE 88; RESP 14; TEMP 36.7; O2SAT 100
[2024-11-01] MEDS: HYDROcodone/acetaminophen (*CRX) 5-325 MG TABLET 1 TAB PO (09:09)
[2024-11-01] MEDS: HEPARIN SODIUM 5,000 UNITS/ML VIAL 5000 UNITS SUB-Q ×2 (09:26→20:36)
[2024-11-01] MEDS: THIAMINE HCL 100 MG TABLET PO (09:26)
[2024-11-01] MEDS: VITAMIN B CMPLX/VIT C/FOLIC AC 1 CAPSULE 1 CAP PO (09:26)
[2024-11-01 10:36] LABS: Basophils Percent Auto 0.3 % (0.2-1.2); Eosinophils Percent Auto 0.3 % (0-4.4); Hematocrit 24.9 % (37.0-47.0); Hemoglobin 8.2 g/dL (12.0-15.0); Immature Granulocyte Absolute 0.06 K/mm3 (0.00-0.031); Immature Granulocyte Percent A 0.5 % (0-0.5); Lymphocytes Absolute Auto 0.85 K/mm3 (0.9-3.2); Lymphocytes Percent Auto 7.4 % (18.3-44.2); Mean Corpuscular HGB Conc 32.9 g/dl (32-36); Mean Corpuscular Hemoglobin 26.8 pg (26-34); Mean Corpuscular Volume 81.4 fl (80-100); Mean Platelet Volume 9.6 fl (7.4-10.4); Monocytes Absolute Auto 0.7 K/mm3 (0.1-0.6); Monocytes Percent Auto 5.6 % (2.6-8.5); Neutrophils Absolute Auto 9.9 K/mm3 (1.3-6.7); Neutrophils Percent Auto 85.9 % (45.5-73.1); Platelet Count Result 420 k/mm3 (150-375); Red Blood Count 3.06 M/mm3 (4.2-5.4); Red Cell Distribution Width 17.9 % (11.5-14.5); White Blood Count 11.5 K/mm3 (4.5-10.0)
[2024-11-01] MEDS: SODIUM CHLORIDE 0.9% IV 1,000 ML 75 ML IV CONT (11:21)
[2024-11-01] MEDS: MEROPENEM 500 MG/NS 100 ML 500 MG/100 ML BAG 200 MG IVPB ×2 (11:29→20:37)
--- NOTE | 2024-11-01 11:35 | PM.PNNEP ---
Subjective Date/time seen: 11/01/24 11:35 Interval history: Follow-up for acute kidney injury/acute renal failure Objective Data Vital Signs Vital Signs: Vital Signs Temp Pulse Resp BP Pulse Ox O2 Del Method 11/01/24 07:53 98.0 F 88 14 95/51 L 100 10/31/24 23:53 97.9 F 75 16 111/33 L 100 10/31/24 20:00 Room Air 10/31/24 19:45 97.6 F 70 18 101/60 99 10/31/24 15:59 98.3 F 91 16 98/43 L 100 Intake/Output Intake/Output: Intake & Output 10/29/24 10/30/24 10/31/24 11/01/24 23:59 23:59 23:59 23:59 Intake Total 1050 907.5 2000 1380 Output Total 25 550 950 975 Balance 1025 357.5 1050 405 Meds/Results Medications: Active Medications Generic Name Dose Route Start Last Admin Trade Name Freq PRN Reason Stop Dose Admin Hydrocodone Bitart/Acetaminophen 1 tab 10/30/24 01:46 11/01/24 09:09 Hydrocodone/Acetaminophen (*Crx) 5-325 Mg Tablet PO 1 tab Q4H PRN Administration Pain Rated 4-6 Heparin Sodium (Porcine) 5,000 units 10/30/24 09:00 11/01/24 09:26 Heparin Sodium 5,000 Units/Ml Vial SUB-Q 5,000 units Q12HR CHANTAL Administration Hydromorphone HCl 1 mg 10/30/24 04:21 11/01/24 13:18 Hydromorphone Hcl Inj (*Crx) 1 Mg/Ml Syr IV PUSH 1 mg Q4H PRN Administration Pain Rated 7-10 Sodium Chloride 1,000 mls @ 75 mls/hr 10/30/24 12:30 11/01/24 11:21 Normal Saline Iv IV CONT 75 mls/hr .[id number] CHANTAL Administration Meropenem 500 mg in 100 mls @ 200 mls/hr 11/01/24 09:15 11/01/24 11:29 IVPB 11/07/24 21:29 200 mls/hr Q12HR CHANTAL Administration Metoclopramide HCl 5 mg 10/31/24 13:35 11/01/24 12:22 Metoclopramide Hcl Inj 10 Mg/2 Ml Vial IV PUSH 5 mg Q6HR CHANTAL Administration Thiamine HCl 100 mg 10/31/24 09:00 11/01/24 09:26 Thiamine Hcl 100 Mg Tablet PO 100 mg QAM CHANTAL Administration Vitamin B Complex/Folic Acid 1 cap 10/31/24 09:00 11/01/24 09:26 Vitamin B Cmplx/Vit C/Folic Ac 1 Capsule PO 1 cap QAM CHANTAL Administration Radiology Results: ITS Impressions Abdomen/Pelvis CT 10/29/24 17:18 IMPRESSION: Limited examination, as detailed above. 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 Urinary bladder wall thickening, may be secondary to cystitis or incomplete distention. Persistent small fluid collection adjacent to the left common femoral artery, likely chronic hematoma. Bilateral inguinal lymphadenopathy. Renal Ultrasound 10/30/24 10:08 Impression: Mild right hydroureteronephrosis. 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 Small amount of layering debris in the urinary bladder. Abdomen X-Ray 10/31/24 08:12 Impression: 1: Nonobstructive bowel gas pattern. Labs Labs: Laboratory Tests 11/01/24 10:28 11/01/24 11:34 Calcium 8.3 L Magnesium 1.2 L Total Bilirubin 0.3 AST 34 ALT 20 Alkaline Phosphatase 113 Total Protein 6.0 L Albumin 2.7 L Microbiology 10/31/24 15:18 Blood Blood Culture - Preliminary 10/29/24 18:59 Urine Catheterized Urine Culture - Final Klebsiella pneumoniae 10/31/24 09:55 Blood Blood Culture - Preliminary
[2024-11-01 12:07] LABS: Alanine Aminotransferase 20 U/L (6-35); Albumin Level 2.7 g/dL (3.5-5.1); Alkaline Phosphatase 113 U/L (38-126); Anion Gap 11 mmol/L (4-12); Aspartate Amino Transferase 34 U/L (14-36); Bilirubin,Total 0.3 mg/dL (0.2-1.3); Blood Urea Nitrogen 64 mg/dL (7-17); Calcium 8.3 mg/dL (8.4-10.2); Carbon Dioxide 23 mmol/L (22-30); Chloride 104 mmol/L (98-107); Estimated CRCL calculation 20 ml/min; Estimated Glomerular Filt Rate 36; Glucose 127 mg/dL (65-110); Magnesium 1.2 mg/dL (1.6-2.3); Potassium 3.1 mmol/L (3.4-5.0); Sodium 138 mmol/L (137-145)
[2024-11-01 12:10] VITALS: BP 128/62; PULSE 91; RESP 16; TEMP 36.9; O2SAT 96
--- NOTE | 2024-11-01 12:39 | PC.NURSE ---
Dr. Moscoso advised chief writer to follow up with dietary regarding tube feeding and nutritional requirement. Sintia from dietary advised to continue with Jevity 1.5 TF with goal of 40 to be increased by 10 mls q 4 hr as tolerated.
--- NOTE | 2024-11-01 13:07 | PCNFU ---
Nutrition Follow-Up Complete: 1. Severe protein calorie malnutrition related to chronic colorectal cancer, as evidenced by weight loss 18%/2 months and -33%/1 year; intakes <75% needs >1 month; severe muscle wasting and fat loss. 2. Inability to meet nutrition needs PO related to chronic poor appetite, colorectal surgery as evidenced by PEG tube Goal:Meet estimated nutrition needs Diet textures appropriate for safe swallowing Pt current nutrition is Regular, Ensure Enlive BID, Tube feeding: Jevity 1.5 @ goal rate of 40ml/hr . Nutrition recommendation: Advance tube feeding to goal rate at tolerated Last recorded weight is 39.1 kg. Bowel Motility: +BM 11/01 Labs Reviewed: Hgb:8.8, HCT:25.9, BUN:107, Cr:2.9, Glu:139 Meds Noted: KCL, MVI, remeron, Thiamin, Vitamin B complex Skin: multiple skin issues Additional Notes: Pt started on tube feedings, was not tolerating, added reglan and has tolerated since. Tube feeding to continue to advance to goal rate of 40ml/hr. Pt also eating a regular diet at about 25% at this time. Encourage po intake. Agree with orders. Monitoring diet orders, swallowing ability, labs, tube feeding tolerance, output, plan of care Follow up Monday/Monday.
--- NOTE | 2024-11-01 15:30 | PC.NURSE ---
Copious amount of clear, light robert, and pink tinged fluid coming from right abdomen. Dr. Russell made aware. Advised to order KUB with contrast.
[2024-11-01 15:49] VITALS: BP 116/45; PULSE 86; RESP 14; TEMP 36.5; O2SAT 100
[2024-11-01 16:08] LABS: Glucose Point of Care 97 mg/dl (65-105)
--- NOTE | 2024-11-01 16:10 | PM.IMPN ---
Progress Note: A&P Assessment and Plan (1) Acute kidney injury: Code(s): N17.9 - Acute kidney failure, unspecified Status: Acute (2) Electrolyte abnormality: Code(s): E87.8 - Other disorders of electrolyte and fluid balance, not elsewhere classified Status: Acute (3) Failure to thrive: Status: Acute (4) Abnormal urinalysis: Code(s): R82.90 - Unspecified abnormal findings in urine Status: Acute (5) Rectal adenocarcinoma: Code(s): C20 - Malignant neoplasm of rectum Status: Acute Plan ELIZABETH, resolved likely prerenal from poor oral intake continue IVF, and tube feeding Cr 1.44 from 5.42 Monitor Is and Os Monitor renal function FTT/protein energy malnutrition patient looks emaciated Daughter reported her weight has been going since her cancer treatment however she has been having poor oral intake this past 3 weeks Passed swallow eval by speech therapy did not tolerate tube feeds last night as patient and was placed on suction intake much improved on Reglan On thiamine and Multivitamin Dietitian following Anemia Hb 8.2 and MCV 79 Isat 14, give 400/1000 FOBT pending monitor H and H Ostomy infection ruled out CT AP showed persistent abscess or enterocutaneous fistular at the right lower quadrant ostomty with adjacent lymphadenopathy Surgery evaluated and noted this is a not a new findings and no treatment needed at this time and patient will continue folow up with her [facility] providers Mild right hydroureteronephrosis with ELIZABETH US renal evaluated Urology evaluated and noted no need for intervention Cystitis CT AP showed possible cystitis Urine culture positive ESBL Kleb on Meropenem Hx of rectal ca S/p Colectomy on Ileotomy and PEG daughter noted she and been in remission for over a year now Cervical ca s/p hysterectomy monitor HTN Titrate home meds with clinical course HLD Continue home meds DVT prophylaxis on Sq Heparin PT/OT for discharge planning Subjective Date/time seen: 11/01/24 16:10 Interval history: Patient much better today and having conversations tolerating diet with Reglan Awaiting intake to hit goal and we can discharge hoem with IV meropenem to complete 7 days Review of Systems Review of Systems: 12 systems were reviewed and are negative except for as per HPI. Exam Narrative: General: Cachectic, frail elderly female in the semi-Bravo position in bed. Weight: 40.9 kg. BMI: 16.0. HEENT: PERRL, EOMI. Sclera anicteric. Dry mucous membranes. Poor dentition. Neck: Supple. Respiratory: Lungs are clear to auscultation bilaterally. Cardiovascular: Regular rate and rhythm with S1-S2. Gastrointestinal: Abdomen is soft and nondistended with positive bowel sounds. G-tube site is intact. Small amount of possible purulent drainage on the ostomy dressing. Skin: Warm and dry. Shallow, dry ulceration on the dorsum of the right foot. Extremities: No cyanosis, clubbing, or edema. Neurological: Alert. Cranial nerves 2-12 are grossly intact. Generalized weakness and diffuse atrophy. Psychiatric: Pleasant and cooperative with appropriate mood and flat affect. Objective Data Vital Signs Vital Signs: Vital Signs - 24 hr 10/31/24 19:45 10/31/24 20:00 10/31/24 23:53 Temperature 97.6 F 97.9 F Pulse Rate 70 75 Respiratory Rate 18 16 Blood Pressure 101/60 111/33 L Pulse Oximetry 99 100 Oxygen Delivery Room Air 11/01/24 07:53 11/01/24 12:10 11/01/24 15:49 Temperature 98.0 F 98.4 F 97.7 F Pulse Rate 88 91 86 Respiratory Rate 14 16 14 Blood Pressure 95/51 L 128/62 116/45 L Pulse Oximetry 100 96 100 Oxygen Delivery Intake/Output Intake/Output: Intake & Output 10/29/24 10/30/24 10/31/24 11/01/24 23:59 23:59 23:59 23:59 Intake Total 1050 907.5 2000 1380 Output Total 25 550 950 975 Balance 1025 357.5 1050 405 Meds/Results Medications: Active Medications Generic Name Dose Route Start Last Admin Trade Name Freq PRN Reason Stop Dose Admin Hydrocodone Bitart/Acetaminophen 1 tab 10/30/24 01:46 11/01/24 09:09 Hydrocodone/Acetaminophen (*Crx) 5-325 Mg Tablet PO 1 tab Q4H PRN Administration Pain Rated 4-6 Heparin Sodium (Porcine) 5,000 units 10/30/24 09:00 11/01/24 09:26 Heparin Sodium 5,000 Units/Ml Vial SUB-Q 5,000 units Q12HR CHANTAL Administration Hydromorphone HCl 1 mg 10/30/24 04:21 11/01/24 13:18 Hydromorphone Hcl Inj (*Crx) 1 Mg/Ml Syr IV PUSH 1 mg Q4H PRN Administration Pain Rated 7-10 Sodium Chloride 1,000 mls @ 75 mls/hr 10/30/24 12:30 11/01/24 11:21 Normal Saline Iv IV CONT 75 mls/hr .[id number] CHANTAL Administration Meropenem 500 mg in 100 mls @ 200 mls/hr 11/01/24 09:15 11/01/24 11:29 IVPB 11/07/24 21:29 200 mls/hr Q12HR CHANTAL Administration Metoclopramide HCl 5 mg 10/31/24 13:35 11/01/24 12:22 Metoclopramide Hcl Inj 10 Mg/2 Ml Vial IV PUSH 5 mg Q6HR CHANTAL Administration Thiamine HCl 100 mg 10/31/24 09:00 11/01/24 09:26 Thiamine Hcl 100 Mg Tablet PO 100 mg QAM CHANTAL Administration Vitamin B Complex/Folic Acid 1 cap 10/31/24 09:00 11/01/24 09:26 Vitamin B Cmplx/Vit C/Folic Ac 1 Capsule PO 1 cap QAM CHANTAL Administration Radiology Results: ITS Impressions Abdomen/Pelvis CT 10/29/24 17:18 IMPRESSION: Limited examination, as detailed above. 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 Urinary bladder wall thickening, may be secondary to cystitis or incomplete distention. Persistent small fluid collection adjacent to the left common femoral artery, likely chronic hematoma. Bilateral inguinal lymphadenopathy. Renal Ultrasound 10/30/24 10:08 Impression: Mild right hydroureteronephrosis. 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 Small amount of layering debris in the urinary bladder. Abdomen X-Ray 11/01/24 15:45 IMPRESSION: 1. Gastrostomy tube in expected position. Labs Labs: Laboratory Results - last 24 hr 10/31/24 11/01/24 11/01/24 20:46 10:28 11:37 WBC 11.5 H RBC 3.06 L Hgb 8.2 L Hct 24.9 L MCV 81.4 MCH 26.8 MCHC 32.9 RDW 17.9 H Plt Count 420 H MPV 9.6 Immature Gran % (Auto) 0.5 Neut % (Auto) 85.9 H Lymph % (Auto) 7.4 L [place] % (Auto) 5.6 Eos % (Auto) 0.3 Baso % (Auto) 0.3 Lymph # (Auto) 0.85 L [place] # (Auto) 0.7 H Eos # (Auto) 0.0 Baso # (Auto) 0.0 Abs Immat Gran (auto) 0.06 H Absolute Neuts (auto) 9.9 H Absolute Nucleated RBC 0.000 Nucleated RBC % 0.0 Sodium 138 Potassium 3.1 L Chloride 104 Carbon Dioxide 23 Anion Gap 11 BUN 64 H D Creatinine 1.44 H Estim Creat Clear Calc 20 Estimated GFR 36 L Glucose 127 H POC Capillary Glucose Calcium 8.3 L Magnesium 1.2 L Total Bilirubin 0.3 AST 34 ALT 20 Alkaline Phosphatase 113 Total Protein 6.0 L Albumin 2.7 L Stl Occult Blood (IFOB) Positive H 11/01/24 16:05 WBC RBC Hgb Hct MCV MCH MCHC RDW Plt Count MPV Immature Gran % (Auto) Neut % (Auto) Lymph % (Auto) [place] % (Auto) Eos % (Auto) Baso % (Auto) Lymph # (Auto) [place] # (Auto) Eos # (Auto) Baso # (Auto) Abs Immat Gran (auto) Absolute Neuts (auto) Absolute Nucleated RBC Nucleated RBC % Sodium Potassium Chloride Carbon Dioxide Anion Gap BUN Creatinine Estim Creat Clear Calc Estimated GFR Glucose POC Capillary Glucose 97 Calcium Magnesium Total Bilirubin AST ALT Alkaline Phosphatase Total Protein Albumin Stl Occult Blood (IFOB) Quality VTE Prophylaxis VTE prophylaxis: mechanical ordered and pharmacologic ordered
[2024-11-01] MEDS: IRON SUCROSE COMPLEX 200 MG in SODIUM CHLORIDE 0.9% IV 100 ML 220 MG IVPB (16:43)
--- NOTE | 2024-11-01 16:55 | PC.NURSE ---
Dr. Moscoso made aware of leakage and KUB ordered by Dr. Russell. Pt had one episode of emesis after KUB. New orders noted for STAT CT of chest/abdomen/pelvis w/wo oral contrast. Will begin to coordinate possible transfer to [facility].
[2024-11-01] MEDS: ONDANSETRON INJ 4 MG/2 ML VIAL IV PUSH (17:37)
[2024-11-01 20:00] VITALS: BP 139/55; PULSE 100; RESP 16; TEMP 36.9; O2SAT 100
[2024-11-02] VITALS: BP 121/54; PULSE 93; RESP 16; TEMP 36.8; O2SAT 100
[2024-11-02] MEDS: SODIUM CHLORIDE 0.9% IV 1,000 ML 75 ML IV CONT ×2 (00:12→15:42)
[2024-11-02] MEDS: METOCLOPRAMIDE HCL INJ 10 MG/2 ML VIAL 5 MG IV PUSH ×2 (00:12→05:53)
[2024-11-02 00:21] LABS: Glucose Point of Care 75 mg/dl (65-105)
[2024-11-02] MEDS: HYDROmorphone HCL INJ (*CRX) 1 MG/ML SYR IV PUSH ×3 (02:38→21:55)
[2024-11-02 05:39] LABS: Basophils Percent Auto 0.3 % (0.2-1.2); Eosinophils Absolute Auto 0.1 K/mm3 (0-0.3); Eosinophils Percent Auto 0.4 % (0-4.4); Hematocrit 27.4 % (37.0-47.0); Hemoglobin 8.7 g/dL (12.0-15.0); Immature Granulocyte Absolute 0.11 K/mm3 (0.00-0.031); Immature Granulocyte Percent A 0.8 % (0-0.5); Lymphocytes Absolute Auto 1.76 K/mm3 (0.9-3.2); Lymphocytes Percent Auto 12.3 % (18.3-44.2); Mean Corpuscular HGB Conc 31.8 g/dl (32-36); Mean Corpuscular Hemoglobin 27.2 pg (26-34); Mean Corpuscular Volume 85.6 fl (80-100); Mean Platelet Volume 9.2 fl (7.4-10.4); Monocytes Absolute Auto 1.2 K/mm3 (0.1-0.6); Monocytes Percent Auto 8.1 % (2.6-8.5); Neutrophils Absolute Auto 11.2 K/mm3 (1.3-6.7); Neutrophils Percent Auto 78.1 % (45.5-73.1); Platelet Count Result 416 k/mm3 (150-375); Red Cell Distribution Width 18.3 % (11.5-14.5); White Blood Count 14.3 K/mm3 (4.5-10.0)
[2024-11-02 05:54] LABS: Alanine Aminotransferase 19 U/L (6-35); Albumin Level 2.9 g/dL (3.5-5.1); Alkaline Phosphatase 119 U/L (38-126); Anion Gap 13 mmol/L (4-12); Aspartate Amino Transferase 37 U/L (14-36); Bilirubin,Total 0.6 mg/dL (0.2-1.3); Blood Urea Nitrogen 48 mg/dL (7-17); Calcium 8.4 mg/dL (8.4-10.2); Carbon Dioxide 21 mmol/L (22-30); Chloride 108 mmol/L (98-107); Estimated CRCL calculation 23 ml/min; Estimated Glomerular Filt Rate 44; Glucose 65 mg/dL (65-110); Magnesium 1.3 mg/dL (1.6-2.3); Potassium 2.7 mmol/L (3.4-5.0); Sodium 142 mmol/L (137-145)
[2024-11-02 06:41] LABS: Glucose Point of Care 66 mg/dl (65-105)
[2024-11-02] MEDS: DEXTROSE 50% 25 GM/50 ML SYRINGE (06:46)
[2024-11-02] MEDS: MAGNESIUM SULF 4 GM/WATER100ML 4 GM/100 ML BAG IVPB (06:46)
[2024-11-02] MEDS: POTASSIUM CHLORIDE INJ 40 MEQ in SODIUM CHLORIDE 0.9% IV 500 ML 130 MEQ IVPB (06:47)
[2024-11-02 08:01] LABS: Glucose Point of Care 218 mg/dl (65-105)
[2024-11-02 08:19] VITALS: BP 102/40; PULSE 87; RESP 16; TEMP 36.6; O2SAT 100
[2024-11-02] MEDS: HEPARIN SODIUM 5,000 UNITS/ML VIAL 5000 UNITS SUB-Q ×2 (09:01→21:55)
[2024-11-02] MEDS: ONDANSETRON INJ 4 MG/2 ML VIAL IV PUSH ×2 (09:01→21:55)
[2024-11-02] MEDS: THIAMINE HCL 100 MG TABLET PO (09:01)
[2024-11-02] MEDS: VITAMIN B CMPLX/VIT C/FOLIC AC 1 CAPSULE 1 CAP PO (09:01)
--- NOTE | 2024-11-02 09:29 | PC.NURSE ---
Spoke with Angelica PADILLA, who reports pts colorectal surgeon at [facility] is Dr. Maritza Pena. Dr. Moscoso updated.
--- NOTE | 2024-11-02 10:34 | P.PNIM_ITS ---
Progress Note: A&P Assessment and Plan (1) Acute kidney injury: Code(s): N17.9 - Acute kidney failure, unspecified Status: Acute (2) Electrolyte abnormality: Code(s): E87.8 - Other disorders of electrolyte and fluid balance, not elsewhere classified Status: Acute (3) Failure to thrive: Status: Acute (4) Abnormal urinalysis: Code(s): R82.90 - Unspecified abnormal findings in urine Status: Acute (5) Rectal adenocarcinoma: Code(s): C20 - Malignant neoplasm of rectum Status: Acute Plan ELIZABETH, resolved likely prerenal from poor oral intake continue IVF, and tube feeding Cr 1.21 from 5.42 Monitor Is and Os Monitor renal function FTT/protein energy malnutrition patient looks emaciated Daughter reported her weight has been going since her cancer treatment however she has been having poor oral intake this past 3 weeks Passed swallow eval by speech therapy did not tolerate tube feeds last night as patient and was placed on suction increased reglan to 10mg IV q6 restart tube feeds adn monitor On thiamine and Multivitamin Dietitian following 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 for possible transfer per our surgeon Anemia Hb 8.7 and MCV 79 Isat 14, give 600/1000 FOBT pending monitor H and H Ostomy infection ruled out CT AP showed persistent abscess or enterocutaneous fistular at the right lower quadrant ostomty with adjacent lymphadenopathy Surgery evaluated and noted this is a not a new findings and no treatment needed at this time and patient will continue follow up with her [facility] providers Mild right hydroureteronephrosis with ELIZABETH US renal evaluated Urology evaluated and noted no need for intervention Cystitis CT AP showed possible cystitis Urine culture positive ESBL Kleb day 1 Meropenem Hx of rectal ca S/p Colectomy on Ileotomy and PEG daughter noted she and been in remission for over a year now Cervical ca s/p hysterectomy monitor HTN Titrate home meds with clinical course HLD Continue home meds DVT prophylaxis on Sq Heparin PT/OT Awaiting [facility] transfer call back Subjective Date/time seen: 11/02/24 10:34 Interval history: patient comfortable at bedside Increased reglan to 10mg IVF and restarted tube feeds and oral inake and will monitor Call [facility] for possible transfer to her colorectal surgeon per our surgeon's recommendation Review of Systems Review of Systems: 12 systems were reviewed and are negativ e except for as per HPI. Exam Narrative: General: Cachectic, frail elderly female in the semi-Bravo position in bed. Weight: 40.9 kg. BMI: 16.0. HEENT: PERRL, EOMI. Sclera anicteric. Dry mucous membranes. Poor dentition. Neck: Supple. Respiratory: Lungs are clear to auscultation bilaterally. Cardiovascular: Regular rate and rhythm with S1-S2. Gastrointestinal: Abdomen is soft and nondistended with positive bowel sounds. G-tube site is intact. Small amount of possible purulent drainage on the ostomy dressing. Skin: Warm and dry. Shallow, dry ulceration on the dorsum of the right foot. Extremities: No cyanosis, clubbing, or edema. Neurological: Alert. Cranial nerves 2-12 are grossly intact. Generalized weakness and diffuse atrophy. Psychiatric: Pleasant and cooperative with appropriate mood and flat affect. Objective Data Vital Signs Vital Signs: Vital Signs - 24 hr 11/01/24 12:10 11/01/24 15:49 11/01/24 20:00 Temperature 98.4 F 97.7 F 98.5 F Pulse Rate 91 86 100 Respiratory Rate 16 14 16 Blood Pressure 128/62 116/45 L 139/55 L Pulse Oximetry 96 100 100 Oxygen Delivery 11/01/24 20:00 11/02/24 00:00 11/02/24 08:19 Temperature 98.2 F 97.9 F Pulse Rate 93 87 Respiratory Rate 16 16 Blood Pressure 121/54 L 102/40 L Pulse Oximetry 100 100 Oxygen Delivery Room Air Intake/Output Intake/Output: Intake & Output 10/30/24 10/31/24 11/01/24 11/02/24 23:59 23:59 23:59 23:59 Intake Total 907.5 2000 1580 963.8 Output Total 874 904 9994 450 Balance 357.5 1050 155 513.8 Meds/Results Medications: Active Medications Generic Name Dose Route Start Last Admin Trade Name Freq PRN Reason Stop Dose Admin Hydrocodone Bitart/Acetaminophen 1 tab 10/30/24 01:46 11/01/24 09:09 Hydrocodone/Acetaminophen (*Crx) 5-325 Mg Tablet PO 1 tab Q4H PRN Administration Pain Rated 4-6 Dextrose 12.5 gm 11/02/24 06:39 Dextrose 50% 25 Gm/50 Ml Syringe IV PUSH PRN PRN Hypoglycemia Protocol Glucagon 1 mg 11/02/24 06:39 Glucagon For Inj 1 Mg Vial IM PRN PRN Hypoglycemia Protocol Glucose 15 gm 11/02/24 06:39 Glucose Oral Gel 15 Gm Of Glucse In 37.5 Gm Tube PO PRN PRN Hypoglycemia Protocol Heparin Sodium (Porcine) 5,000 units 10/30/24 09:00 11/02/24 09:01 Heparin Sodium 5,000 Units/Ml Vial SUB-Q 5,000 units Q12HR CHANTAL Administration Hydromorphone HCl 1 mg 10/30/24 04:21 11/02/24 02:38 Hydromorphone Hcl Inj (*Crx) 1 Mg/Ml Syr IV PUSH 1 mg Q4H PRN Administration Pain Rated 7-10 Sodium Chloride 1,000 mls @ 75 mls/hr 10/30/24 12:30 11/02/24 00:12 Normal Saline Iv IV CONT 75 mls/hr .[id number] CHANTAL Administration Meropenem 500 mg in 100 mls @ 200 mls/hr 11/01/24 09:15 11/01/24 21:07 IVPB 11/07/24 21:29 Infused Q12HR CHANTAL Infusion Potassium Chloride 40 meq/ 520 mls @ 130 mls/hr 11/02/24 06:28 11/02/24 06:47 Sodium Chloride IVPB 11/02/24 10:27 130 mls/hr ONCE ONE Administration Magnesium Sulfate 4 gm in 100 mls @ 25 mls/hr 11/02/24 06:30 11/02/24 06:46 Magnesium Sulf 4 Gm/[id number] IVPB 11/02/24 10:29 25 mls/hr ONCE ONE Administration Dextrose 1,000 mls @ 100 mls/hr 11/02/24 06:39 Dextrose 5% 1,000 Ml IVPB PRN PRN Hypoglycemia Protocol Metoclopramide HCl 10 mg 11/02/24 12:00 Metoclopramide Hcl Inj 10 Mg/2 Ml Vial IV PUSH Q6HR CHANTAL Ondansetron HCl 4 mg 11/01/24 17:18 11/02/24 09:01 Ondansetron Inj 4 Mg/2 Ml Vial IV PUSH 4 mg Q4H PRN Administration Nausea And Vomiting Thiamine HCl 100 mg 10/31/24 09:00 11/02/24 09:01 Thiamine Hcl 100 Mg Tablet PO 100 mg QAM CHANTAL Administration Vitamin B Complex/Folic Acid 1 cap 10/31/24 09:00 11/02/24 09:01 Vitamin B Cmplx/Vit C/Folic Ac 1 Capsule PO 1 cap QAM CHANTAL Administration Radiology Results: ITS Impressions Abdomen/Pelvis CT 10/29/24 17:18 IMPRESSION: Limited examination, as detailed above. 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 Urinary bladder wall thickening, may be secondary to cystitis or incomplete distention. Persistent small fluid collection adjacent to the left common femoral artery, likely chronic hematoma. Bilateral inguinal lymphadenopathy. Renal Ultrasound 10/30/24 10:08 Impression: Mild right hydroureteronephrosis. 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 Small amount of layering debris in the urinary bladder. Abdomen X-Ray 11/01/24 15:45 IMPRESSION: 1. Gastrostomy tube in expected position. Chest/Abdomen/Pelvis CT 11/01/24 22:48 IMPRESSION: 1. 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 Labs Labs: Laboratory Results - last 24 hr 11/01/24 11/01/24 11/01/24 10:28 11:37 16:05 WBC 11.5 H RBC 3.06 L Hgb 8.2 L Hct 24.9 L MCV 81.4 MCH 26.8 MCHC 32.9 RDW 17.9 H Plt Count 420 H MPV 9.6 Immature Gran % (Auto) 0.5 Neut % (Auto) 85.9 H Lymph % (Auto) 7.4 L [place] % (Auto) 5.6 Eos % (Auto) 0.3 Baso % (Auto) 0.3 Lymph # (Auto) 0.85 L [place] # (Auto) 0.7 H Eos # (Auto) 0.0 Baso # (Auto) 0.0 Abs Immat Gran (auto) 0.06 H Absolute Neuts (auto) 9.9 H Absolute Nucleated RBC 0.000 Nucleated RBC % 0.0 Sodium 138 Potassium 3.1 L Chloride 104 Carbon Dioxide 23 Anion Gap 11 BUN 64 H D Creatinine 1.44 H Estim Creat Clear Calc 20 Estimated GFR 36 L Glucose 127 H POC Capillary Glucose 97 Calcium 8.3 L Magnesium 1.2 L Total Bilirubin 0.3 AST 34 ALT 20 Alkaline Phosphatase 113 Total Protein 6.0 L Albumin 2.7 L 11/02/24 11/02/24 11/02/24 00:18 04:22 06:38 WBC 14.3 H RBC 3.20 L Hgb 8.7 L Hct 27.4 L MCV 85.6 D MCH 27.2 MCHC 31.8 L RDW 18.3 H Plt Count 416 H MPV 9.2 Immature Gran % (Auto) 0.8 H Neut % (Auto) 78.1 H Lymph % (Auto) 12.3 L [place] % (Auto) 8.1 Eos % (Auto) 0.4 Baso % (Auto) 0.3 Lymph # (Auto) 1.76 [place] # (Auto) 1.2 H Eos # (Auto) 0.1 Baso # (Auto) 0.0 Abs Immat Gran (auto) 0.11 H Absolute Neuts (auto) 11.2 H Absolute Nucleated RBC 0.000 Nucleated RBC % 0.0 Sodium 142 Potassium 2.7 L* Chloride 108 H Carbon Dioxide 21 L Anion Gap 13 H BUN 48 H D Creatinine 1.21 H Estim Creat Clear Calc 23 Estimated GFR 44 L Glucose 65 POC Capillary Glucose 75 66 Calcium 8.4 Magnesium 1.3 L Total Bilirubin 0.6 AST 37 H ALT 19 Alkaline Phosphatase 119 Total Protein 7.0 Albumin 2.9 L 11/02/24 07:08 WBC RBC Hgb Hct MCV MCH MCHC RDW Plt Count MPV Immature Gran % (Auto) Neut % (Auto) Lymph % (Auto) [place] % (Auto) Eos % (Auto) Baso % (Auto) Lymph # (Auto) [place] # (Auto) Eos # (Auto) Baso # (Auto) Abs Immat Gran (auto) Absolute Neuts (auto) Absolute Nucleated RBC Nucleated RBC % Sodium Potassium Chloride Carbon Dioxide Anion Gap BUN Creatinine Estim Creat Clear Calc Estimated GFR Glucose POC Capillary Glucose 218 H Calcium Magnesium Total Bilirubin AST ALT Alkaline Phosphatase Total Protein Albumin Quality VTE Prophylaxis VTE prophylaxis: mechanical ordered and pharmacologic ordered
[2024-11-02] MEDS: MEROPENEM 500 MG/NS 100 ML 500 MG/100 ML BAG 100 MG IVPB ×2 (11:26→21:56)
[2024-11-02] MEDS: IRON SUCROSE COMPLEX 200 MG in SODIUM CHLORIDE 0.9% IV 100 ML 220 MG IVPB (11:29)
[2024-11-02] MEDS: METOCLOPRAMIDE HCL INJ 10 MG/2 ML VIAL IV PUSH ×3 (11:31→23:30)
[2024-11-02 12:14] LABS: Glucose Point of Care 91 mg/dl (65-105)
--- NOTE | 2024-11-02 12:16 | PC.NURSE ---
This patient, Victor Manuel Ndiaye, was transferred to [facility]() on 11/02/24 at 1216. Personal belongings sent with patient. Report given to SABINO Hinton. Appropriate documentation sent with patient.
[2024-11-02] MEDS: POTASSIUM CHLORIDE 20 MEQ PACKET (FOR LIQUID) 40 MEQ FEED TUBE (12:45)
--- NOTE | 2024-11-02 13:31 | PM.PNNEP ---
Subjective Date/time seen: 11/02/24 13:31 Objective Data Vital Signs Vital Signs: Vital Signs Temp Pulse Resp BP Pulse Ox O2 Del Method 11/02/24 13:17 97.5 F L 79 16 123/54 L 100 11/02/24 08:19 97.9 F 87 16 102/40 L 100 11/02/24 08:00 Room Air 11/02/24 00:00 98.2 F 93 16 121/54 L 100 11/01/24 20:00 Room Air 11/01/24 20:00 98.5 F 100 16 139/55 L 100 Intake/Output Intake/Output: Intake & Output 10/30/24 10/31/24 11/01/24 11/02/24 23:59 23:59 23:59 23:59 Intake Total 907.5 2000 1580 1963.8 Output Total 964 291 6987 450 Balance 357.5 7363 167 6862.8 Meds/Results Medications: Active Medications Generic Name Dose Route Start Last Admin Trade Name Freq PRN Reason Stop Dose Admin Hydrocodone Bitart/Acetaminophen 1 tab 10/30/24 01:46 11/01/24 09:09 Hydrocodone/Acetaminophen (*Crx) 5-325 Mg Tablet PO 1 tab Q4H PRN Administration Pain Rated 4-6 Dextrose 12.5 gm 11/02/24 06:39 Dextrose 50% 25 Gm/50 Ml Syringe IV PUSH PRN PRN Hypoglycemia Protocol Glucagon 1 mg 11/02/24 06:39 Glucagon For Inj 1 Mg Vial IM PRN PRN Hypoglycemia Protocol Glucose 15 gm 11/02/24 06:39 Glucose Oral Gel 15 Gm Of Glucse In 37.5 Gm Tube PO PRN PRN Hypoglycemia Protocol Heparin Sodium (Porcine) 5,000 units 10/30/24 09:00 11/02/24 09:01 Heparin Sodium 5,000 Units/Ml Vial SUB-Q 5,000 units Q12HR CHANTAL Administration Hydromorphone HCl 1 mg 10/30/24 04:21 11/02/24 12:45 Hydromorphone Hcl Inj (*Crx) 1 Mg/Ml Syr IV PUSH 1 mg Q4H PRN Administration Pain Rated 7-10 Sodium Chloride 1,000 mls @ 75 mls/hr 10/30/24 12:30 11/02/24 15:42 Normal Saline Iv IV CONT 75 mls/hr .[id number] CHANTAL Administration Meropenem 500 mg in 100 mls @ 200 mls/hr 11/01/24 09:15 11/02/24 11:26 IVPB 11/07/24 21:29 100 mls/hr Q12HR CHANTAL Administration Dextrose 1,000 mls @ 100 mls/hr 11/02/24 06:39 Dextrose 5% 1,000 Ml IVPB PRN PRN Hypoglycemia Protocol Metoclopramide HCl 10 mg 11/02/24 12:00 11/02/24 18:10 Metoclopramide Hcl Inj 10 Mg/2 Ml Vial IV PUSH 10 mg Q6HR CHANTAL Administration Ondansetron HCl 4 mg 11/01/24 17:18 11/02/24 09:01 Ondansetron Inj 4 Mg/2 Ml Vial IV PUSH 4 mg Q4H PRN Administration Nausea And Vomiting Thiamine HCl 100 mg 10/31/24 09:00 11/02/24 09:01 Thiamine Hcl 100 Mg Tablet PO 100 mg QAM CHANTAL Administration Vitamin B Complex/Folic Acid 1 cap 10/31/24 09:00 11/02/24 09:01 Vitamin B Cmplx/Vit C/Folic Ac 1 Capsule PO 1 cap QAM CHANTAL Administration Radiology Results: ITS Impressions Abdomen/Pelvis CT 10/29/24 17:18 IMPRESSION: Limited examination, as detailed above. 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 Urinary bladder wall thickening, may be secondary to cystitis or incomplete distention. Persistent small fluid collection adjacent to the left common femoral artery, likely chronic hematoma. Bilateral inguinal lymphadenopathy. Renal Ultrasound 10/30/24 10:08 Impression: Mild right hydroureteronephrosis. 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 Small amount of layering debris in the urinary bladder. Abdomen X-Ray 11/01/24 15:45 IMPRESSION: 1. Gastrostomy tube in expected position. Chest/Abdomen/Pelvis CT 11/01/24 22:48 IMPRESSION: 1. 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 Labs Labs: Laboratory Tests 11/02/24 04:22 11/02/24 13:07 11/02/24 04:22 Sodium 142 Potassium 2.7 L* Chloride 108 H Carbon Dioxide 21 L Anion Gap 13 H BUN 48 H D Creatinine 1.21 H Estim Creat Clear Calc 23 Estimated GFR 44 L Glucose 65 Calcium 8.4 Magnesium 1.3 L Total Bilirubin 0.6 AST 37 H ALT 19 Alkaline Phosphatase 119 Total Protein 7.0 Albumin 2.9 L Microbiology 10/31/24 10:32 Clean Catch Midstream Urine Culture - Final 10/31/24 15:18 Blood Blood Culture - Preliminary
[2024-11-02 13:43] LABS: Anion Gap 12 mmol/L (4-12); Blood Urea Nitrogen 34 mg/dL (7-17); Calcium 8.5 mg/dL (8.4-10.2); Carbon Dioxide 21 mmol/L (22-30); Chloride 110 mmol/L (98-107); Estimated CRCL calculation 26 ml/min; Estimated Glomerular Filt Rate 51; Glucose 90 mg/dL (65-110); Potassium 2.9 mmol/L (3.4-5.0); Sodium 143 mmol/L (137-145)
[2024-11-02 14:17] VITALS: BP 123/54; PULSE 79; RESP 16; TEMP 36.4; O2SAT 100
[2024-11-02 18:20] LABS: Glucose Point of Care 129 mg/dl (65-105)
[2024-11-02 21:52] VITALS: BP 136/54; PULSE 86; RESP 16; TEMP 36.2; O2SAT 100
[2024-11-02] MEDS: HYDROcodone/acetaminophen (*CRX) 5-325 MG TABLET 1 TAB PO (23:29)
[2024-11-03 01:43] LABS: Glucose Point of Care 122 mg/dl (65-105)
[2024-11-03] MEDS: HYDROmorphone HCL INJ (*CRX) 1 MG/ML SYR IV PUSH (02:22)
[2024-11-03 06:00] VITALS: BP 120/49; PULSE 97; RESP 14; TEMP 36.8; O2SAT 100
[2024-11-03] MEDS: METOCLOPRAMIDE HCL INJ 10 MG/2 ML VIAL IV PUSH ×3 (06:08→17:06)
[2024-11-03 06:24] LABS: Glucose Point of Care 150 mg/dl (65-105)
[2024-11-03 07:15] LABS: Basophils Percent Auto 0.3 % (0.2-1.2); Eosinophils Absolute Auto 0.1 K/mm3 (0-0.3); Eosinophils Percent Auto 0.8 % (0-4.4); Hematocrit 28.1 % (37.0-47.0); Hemoglobin 9.1 g/dL (12.0-15.0); Immature Granulocyte Absolute 0.06 K/mm3 (0.00-0.031); Immature Granulocyte Percent A 0.5 % (0-0.5); Lymphocytes Absolute Auto 1.87 K/mm3 (0.9-3.2); Lymphocytes Percent Auto 15.8 % (18.3-44.2); Mean Corpuscular HGB Conc 32.4 g/dl (32-36); Mean Corpuscular Hemoglobin 26.8 pg (26-34); Mean Corpuscular Volume 82.6 fl (80-100); Monocytes Percent Auto 8.2 % (2.6-8.5); Neutrophils Absolute Auto 8.8 K/mm3 (1.3-6.7); Neutrophils Percent Auto 74.4 % (45.5-73.1); Platelet Count Result 408 k/mm3 (150-375); Red Cell Distribution Width 18.2 % (11.5-14.5); White Blood Count 11.9 K/mm3 (4.5-10.0)
[2024-11-03 07:28] LABS: Alanine Aminotransferase 18 U/L (6-35); Albumin Level 2.9 g/dL (3.5-5.1); Alkaline Phosphatase 119 U/L (38-126); Anion Gap 11 mmol/L (4-12); Aspartate Amino Transferase 21 U/L (14-36); Bilirubin,Total 0.4 mg/dL (0.2-1.3); Blood Urea Nitrogen 26 mg/dL (7-17); Calcium 8.7 mg/dL (8.4-10.2); Carbon Dioxide 21 mmol/L (22-30); Chloride 108 mmol/L (98-107); Estimated CRCL calculation 28 ml/min; Estimated Glomerular Filt Rate 50; Glucose 139 mg/dL (65-110); Magnesium 2.2 mg/dL (1.6-2.3); Phosphorus 1.6 mg/dL (2.5-4.5); Potassium 3.2 mmol/L (3.4-5.0); Sodium 140 mmol/L (137-145)
[2024-11-03] MEDS: MEROPENEM 500 MG/NS 100 ML 500 MG/100 ML BAG 100 MG IVPB ×2 (09:18→23:25)
[2024-11-03] MEDS: IRON SUCROSE COMPLEX 400 MG in SODIUM CHLORIDE 0.9% IV 250 ML 108 MG IVPB (09:23)
[2024-11-03 09:31] VITALS: RESP 14; O2SAT 100
[2024-11-03] MEDS: VITAMIN B CMPLX/VIT C/FOLIC AC 1 CAPSULE 1 CAP PO (09:31)
[2024-11-03] MEDS: THIAMINE HCL 100 MG TABLET PO (09:31)
[2024-11-03] MEDS: POTASSIUM/PHOSPHORUS/SODIUM 1.5 GM PACKET 1 PACKET PO ×2 (09:31→12:40)
[2024-11-03] MEDS: HEPARIN SODIUM 5,000 UNITS/ML VIAL 5000 UNITS SUB-Q ×2 (09:31→22:14)
--- NOTE | 2024-11-03 09:38 | PCPTNOTE ---
Pt currently on tub feed, iron, and anti-biotic drips. Per nursing states may be overly difficult for evaluation at this time. Will reattempt at a later time.
[2024-11-03 12:00] LABS: Glucose Point of Care 131 mg/dl (65-105)
[2024-11-03] MEDS: SODIUM CHLORIDE 0.9% IV 1,000 ML 75 ML IV CONT (12:05)
--- NOTE | 2024-11-03 13:33 | PM.IMPN ---
Progress Note: A&P Assessment and Plan (1) Acute kidney injury: Code(s): N17.9 - Acute kidney failure, unspecified Status: Acute (2) Electrolyte abnormality: Code(s): E87.8 - Other disorders of electrolyte and fluid balance, not elsewhere classified Status: Acute (3) Failure to thrive: Status: Acute (4) Abnormal urinalysis: Code(s): R82.90 - Unspecified abnormal findings in urine Status: Acute (5) Rectal adenocarcinoma: Code(s): C20 - Malignant neoplasm of rectum Status: Acute Plan ELIZABETH, resolved likely prerenal from poor oral intake continue IVF, and tube feeding Cr 1.08 from 5.42 Monitor Is and Os Monitor renal function FTT/protein energy malnutrition patient looks emaciated Daughter reported her weight has been going since her cancer treatment however she has been having poor oral intake this past 3 weeks Passed swallow eval by speech therapy did not tolerate tube feeds last night as patient and was placed on suction increased Reglan to 10mg IV q6 restart tube feeds and monitor On thiamine and Multivitamin Dietitian following 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 called [facility] for possible transfer per our surgeon Anemia Hb 9.1 and MCV 79 Isat 14, give 1000/1000 FOBT positive monitor H and H Ostomy infection ruled out CT AP showed persistent abscess or enterocutaneous fistular at the right lower quadrant ostomty with adjacent lymphadenopathy Surgery evaluated and noted this is a not a new findings and no treatment needed at this time and patient will continue follow up with her [facility] providers Mild right hydroureteronephrosis with ELIZABETH US renal evaluated Urology evaluated and noted no need for intervention Cystitis CT AP showed possible cystitis Urine culture positive ESBL Kleb day 2 Meropenem Hx of rectal ca S/p Colectomy on Ileotomy and PEG daughter noted she and been in remission for over a year now Cervical ca s/p hysterectomy monitor HTN Titrate home meds with clinical course HLD Continue home meds DVT prophylaxis on Sq Heparin PT/OT Awaiting transfer to [facility] Subjective Date/time seen: 11/03/24 13:33 Interval history: patient comfortable at bedside Increased Reglan to 10mg IVF and restarted tube feeds and oral intake and will monitor Call [facility] for possible transfer to her colorectal surgeon per our surgeon's recommendation Review of Systems Review of Systems: 12 systems were reviewed and are negative except for as per HPI. Exam Narrative: General: Cachectic, frail elderly female in the semi-Bravo position in bed. Weight: 40.9 kg. BMI: 16.0. HEENT: PERRL, EOMI. Sclera anicteric. Dry mucous membranes. Poor dentition. Neck: Supple. Respiratory: Lungs are clear to auscultation bilaterally. Cardiovascular: Regular rate and rhythm with S1-S2. Gastrointestinal: Abdomen is soft and nondistended with positive bowel sounds. G-tube site is intact. Small amount of possible purulent drainage on the ostomy dressing. Skin: Warm and dry. Shallow, dry ulceration on the dorsum of the right foot. Extremities: No cyanosis, clubbing, or edema. Neurological: Alert. Cranial nerves 2-12 are grossly intact. Generalized weakness and diffuse atrophy. Psychiatric: Pleasant and cooperative with appropriate mood and flat affect. Objective Data Vital Signs Vital Signs: Vital Signs - 24 hr 11/02/24 14:17 11/02/24 20:00 11/02/24 21:52 Temperature 97.5 F L 97.1 F L Pulse Rate 79 86 Respiratory Rate 16 16 Blood Pressure 123/54 L 136/54 L Pulse Oximetry 100 100 Oxygen Delivery Room Air 11/03/24 06:00 11/03/24 09:31 Temperature 98.2 F Pulse Rate 97 Respiratory Rate 14 14 Blood Pressure 120/49 L Pulse Oximetry 100 100 Oxygen Delivery Room Air Intake/Output Intake/Output: Intake & Output 10/31/24 11/01/24 11/02/24 11/03/24 23:59 23:59 23:59 23:59 Intake Total 1999 1580 2413.8 1578.6 Output Total 950 1425 1050 300 Balance 4836 801 6711.8 1278.6 Meds/Results Medications: Active Medications Generic Name Dose Route Start Last Admin Trade Name Freq PRN Reason Stop Dose Admin Hydrocodone Bitart/Acetaminophen 1 tab 10/30/24 01:46 11/02/24 23:29 Hydrocodone/Acetaminophen (*Crx) 5-325 Mg Tablet PO 1 tab Q4H PRN Administration Pain Rated 4-6 Dextrose 12.5 gm 11/02/24 06:39 Dextrose 50% 25 Gm/50 Ml Syringe IV PUSH PRN PRN Hypoglycemia Protocol Glucagon 1 mg 11/02/24 06:39 Glucagon For Inj 1 Mg Vial IM PRN PRN Hypoglycemia Protocol Glucose 15 gm 11/02/24 06:39 Glucose Oral Gel 15 Gm Of Glucse In 37.5 Gm Tube PO PRN PRN Hypoglycemia Protocol Heparin Sodium (Porcine) 5,000 units 10/30/24 09:00 11/03/24 09:31 Heparin Sodium 5,000 Units/Ml Vial SUB-Q 5,000 units Q12HR CHANTAL Administration Hydromorphone HCl 1 mg 10/30/24 04:21 11/03/24 02:22 Hydromorphone Hcl Inj (*Crx) 1 Mg/Ml Syr IV PUSH 1 mg Q4H PRN Administration Pain Rated 7-10 Sodium Chloride 1,000 mls @ 75 mls/hr 10/30/24 12:30 11/03/24 12:05 Normal Saline Iv IV CONT 75 mls/hr .[id number] CHANTAL Administration Meropenem 500 mg in 100 mls @ 200 mls/hr 11/01/24 09:15 11/03/24 10:18 IVPB 11/07/24 21:29 Infused Q12HR CHANTAL Infusion Dextrose 1,000 mls @ 100 mls/hr 11/02/24 06:39 Dextrose 5% 1,000 Ml IVPB PRN PRN Hypoglycemia Protocol Metoclopramide HCl 10 mg 11/02/24 12:00 11/03/24 12:06 Metoclopramide Hcl Inj 10 Mg/2 Ml Vial IV PUSH 10 mg Q6HR CHANTAL Administration Ondansetron HCl 4 mg 11/01/24 17:18 11/02/24 21:55 Ondansetron Inj 4 Mg/2 Ml Vial IV PUSH 4 mg Q4H PRN Administration Nausea And Vomiting Thiamine HCl 100 mg 10/31/24 09:00 11/03/24 09:31 Thiamine Hcl 100 Mg Tablet PO 100 mg QAM CHANTAL Administration Vitamin B Complex/Folic Acid 1 cap 10/31/24 09:00 11/03/24 09:31 Vitamin B Cmplx/Vit C/Folic Ac 1 Capsule PO 1 cap QAM CHANTAL Administration Radiology Results: ITS Impressions Abdomen/Pelvis CT 10/29/24 17:18 IMPRESSION: Limited examination, as detailed above. 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 Urinary bladder wall thickening, may be secondary to cystitis or incomplete distention. Persistent small fluid collection adjacent to the left common femoral artery, likely chronic hematoma. Bilateral inguinal lymphadenopathy. Renal Ultrasound 10/30/24 10:08 Impression: Mild right hydroureteronephrosis. 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 Small amount of layering debris in the urinary bladder. Abdomen X-Ray 11/01/24 15:45 IMPRESSION: 1. Gastrostomy tube in expected position. Chest/Abdomen/Pelvis CT 11/01/24 22:48 IMPRESSION: 1. 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 Labs Labs: Laboratory Results - last 24 hr 11/02/24 11/02/24 11/03/24 13:07 18:16 01:41 WBC RBC Hgb Hct MCV MCH MCHC RDW Plt Count MPV Immature Gran % (Auto) Neut % (Auto) Lymph % (Auto) [place] % (Auto) Eos % (Auto) Baso % (Auto) Lymph # (Auto) [place] # (Auto) Eos # (Auto) Baso # (Auto) Abs Immat Gran (auto) Absolute Neuts (auto) Absolute Nucleated RBC Nucleated RBC % Sodium 143 Potassium 2.9 L Chloride 110 H Carbon Dioxide 21 L Anion Gap 12 BUN 34 H D Creatinine 1.07 H Estim Creat Clear Calc 26 Estimated GFR 51 L Glucose 90 POC Capillary Glucose 129 H 122 H Calcium 8.5 Phosphorus Magnesium 3.0 H Total Bilirubin AST ALT Alkaline Phosphatase Total Protein Albumin 11/03/24 11/03/24 11/03/24 06:21 06:46 11:49 WBC 11.9 H RBC 3.40 L Hgb 9.1 L Hct 28.1 L MCV 82.6 MCH 26.8 MCHC 32.4 RDW 18.2 H Plt Count 408 H MPV 9.0 Immature Gran % (Auto) 0.5 Neut % (Auto) 74.4 H Lymph % (Auto) 15.8 L [place] % (Auto) 8.2 Eos % (Auto) 0.8 Baso % (Auto) 0.3 Lymph # (Auto) 1.87 [place] # (Auto) 1.0 H Eos # (Auto) 0.1 Baso # (Auto) 0.0 Abs Immat Gran (auto) 0.06 H Absolute Neuts (auto) 8.8 H Absolute Nucleated RBC 0.000 Nucleated RBC % 0.0 Sodium 140 Potassium 3.2 L Chloride 108 H Carbon Dioxide 21 L Anion Gap 11 BUN 26 H Creatinine 1.08 H Estim Creat Clear Calc 28 Estimated GFR 50 L Glucose 139 H POC Capillary Glucose 150 H 131 H Calcium 8.7 Phosphorus 1.6 L Magnesium 2.2 Total Bilirubin 0.4 AST 21 ALT 18 Alkaline Phosphatase 119 Total Protein 7.0 Albumin 2.9 L Quality VTE Prophylaxis VTE prophylaxis: mechanical ordered and pharmacologic ordered
[2024-11-03 13:57] VITALS: BP 131/78; PULSE 102; RESP 16; TEMP 37.2; O2SAT 100
[2024-11-03] MEDS: HYDROcodone/acetaminophen (*CRX) 5-325 MG TABLET 1 TAB PO ×2 (14:07→22:24)
[2024-11-03 18:12] LABS: Glucose Point of Care 139 mg/dl (65-105)
[2024-11-03 20:20] VITALS: BP 135/61; PULSE 96; RESP 20; TEMP 37.4; O2SAT 100
[2024-11-04 00:15] LABS: Glucose Point of Care 120 mg/dl (65-105)
[2024-11-04] MEDS: METOCLOPRAMIDE HCL INJ 10 MG/2 ML VIAL IV PUSH ×3 (01:18→12:53)
[2024-11-04 05:00] VITALS: BP 121/51; PULSE 97; RESP 20; TEMP 36.9; O2SAT 99
[2024-11-04 07:35] LABS: Glucose Point of Care 111 mg/dl (65-105)
[2024-11-04] MEDS: SODIUM CHLORIDE 0.9% IV 1,000 ML 75 ML IV CONT (07:53)
[2024-11-04 08:49] LABS: Basophils Percent Auto 0.3 % (0.2-1.2); Eosinophils Absolute Auto 0.1 K/mm3 (0-0.3); Eosinophils Percent Auto 0.5 % (0-4.4); Hematocrit 25.8 % (37.0-47.0); Hemoglobin 8.3 g/dL (12.0-15.0); Immature Granulocyte Percent A 0.8 % (0-0.5); Lymphocytes Percent Auto 17.3 % (18.3-44.2); Mean Corpuscular HGB Conc 32.2 g/dl (32-36); Mean Corpuscular Hemoglobin 26.9 pg (26-34); Mean Corpuscular Volume 83.8 fl (80-100); Mean Platelet Volume 8.9 fl (7.4-10.4); Monocytes Absolute Auto 0.9 K/mm3 (0.1-0.6); Monocytes Percent Auto 6.5 % (2.6-8.5); Neutrophils Absolute Auto 9.9 K/mm3 (1.3-6.7); Neutrophils Percent Auto 74.6 % (45.5-73.1); Platelet Count Result 365 k/mm3 (150-375); Red Blood Count 3.08 M/mm3 (4.2-5.4); Red Cell Distribution Width 18.5 % (11.5-14.5); White Blood Count 13.3 K/mm3 (4.5-10.0)
[2024-11-04] MEDS: MEROPENEM 1 GM/NS 100 ML 1 GM/100 ML BAG IVPB (09:27)
[2024-11-04] MEDS: THIAMINE HCL 100 MG TABLET PO (09:28)
[2024-11-04] MEDS: VITAMIN B CMPLX/VIT C/FOLIC AC 1 CAPSULE 1 CAP PO (09:28)
[2024-11-04] MEDS: HEPARIN SODIUM 5,000 UNITS/ML VIAL 5000 UNITS SUB-Q (09:28)
[2024-11-04 09:46] LABS: Alanine Aminotransferase 16 U/L (6-35); Albumin Level 2.7 g/dL (3.5-5.1); Alkaline Phosphatase 112 U/L (38-126); Anion Gap 8 mmol/L (4-12); Aspartate Amino Transferase 35 U/L (14-36); Bilirubin,Total 0.4 mg/dL (0.2-1.3); Blood Urea Nitrogen 20 mg/dL (7-17); Calcium 8.6 mg/dL (8.4-10.2); Carbon Dioxide 21 mmol/L (22-30); Chloride 113 mmol/L (98-107); Estimated CRCL calculation 32 ml/min; Estimated Glomerular Filt Rate 60; Glucose 90 mg/dL (65-110); Magnesium 1.5 mg/dL (1.6-2.3); Sodium 142 mmol/L (137-145)
--- NOTE | 2024-11-04 09:49 | PCPTNOTE ---
attempted PT eval, pt refused at this time d/t severe low back/glute pain, this PT informed her that getting up out of bed with therapy will help with her back pain, pt still refused, will follow
[2024-11-04 12:25] LABS: Glucose Point of Care 102 mg/dl (65-105)
[2024-11-04 14:14] VITALS: BP 115/65; PULSE 104; RESP 17; TEMP 36.9; O2SAT 100
--- NOTE | 2024-11-12 07:49 | PM.TDS ---
Transfer Discharge Sum: Prov Provider Date of admission: 10/30/24 16:23 Primary care physician: Anthony Bennett, PA-C Admitting clinician: Vee Tadeo MD Consults: 10/29/24 Consult to Dietitian Routine Reason for Consult:: tube feeds Consult to Physician Routine Comment: Called office and notified them of consult Consulting Provider: Marcelino Mccartney call center assistant/MD group to consult: surgery Reason for consultation: purulent drainage ostomy/fistula Has provider been notified: Yes Consult to Physician Routine Comment: Consulting Provider: Sofi Hooker Reason for consultation: Acute kidney injury Has provider been notified: Yes Wound/ET Consult Routine Reason for Consult:: foot wound 10/30/24 Consult to Physician Routine Comment: Consulting Provider: Man Valencia call center assistant/MD group to consult: Urology Reason for consultation: Mild right hydroureteronephrosis with ELIZABETH Has provider been notified: Yes DS: Admitting Diagnosis Discharge Date 11/04/24 Admitting Diagnosis Failure to thrive. DS: Discharge Diagnosis Discharge Diagnosis (1) Acute kidney injury: Code(s): N17.9 - Acute kidney failure, unspecified Status: Acute (2) High-output external gastrointestinal fistula: Code(s): K31.6 - Fistula of stomach and duodenum Status: Acute Transfer Discharge Sum: Med Medications Active and Home Medications: Home Medications magnesium oxide 400 mg PO DAILY #90 tabs 05/16/23 [Rx Confirmed 10/30/24] cholecalciferol (vitamin D3) 50 mcg (2,000 unit) capsule 50 mcg PO DAILY 10/31/23 [History Confirmed 10/30/24] potassium chloride 20 mEq tablet,extended release 20 meq PO BID 10/31/23 [History Confirmed 10/30/24] cephalexin 500 mg capsule 500 mg PO Q6H 7 days #28 caps 09/06/24 [Rx Confirmed 10/30/24] gabapentin 300 mg capsule 300 mg PO TID 10/30/24 [History Confirmed 10/30/24] hydrocodone 5 mg-acetaminophen 325 mg tablet 1 tablet PO Q4-6H PRN pain 10/30/24 [History Confirmed 10/30/24] loperamide 2 mg capsule 2 mg PO QID 10/30/24 [History Confirmed 10/30/24] mirtazapine 15 mg tablet 15 mg PO HS 10/30/24 [History Confirmed 10/30/24] multivitamin (Daily Multi-Vitamin tablet) 1 tablet PO DAILY 10/30/24 [History Confirmed 10/30/24] sertraline 50 mg tablet (Zoloft) 75 mg PO DAILY 10/30/24 [History Confirmed 10/30/24] thiamine HCl (vitamin B1) 100 mg tablet (Vitamin B-1) 100 mg PO DAILY 10/30/24 [History Confirmed 10/30/24] vitamins B1 2.5 mg-B2 2.5 mg-niacin 5 mg-B12 100 mcg-protease tablet (B-Complex With B-12) 1 tablet PO DAILY 10/30/24 [History Confirmed 10/30/24] Transfer Discharge Sum: Hosp Hospital Course Hospital course: Victor Manuel Ndiaye is a 73 year old female with rectal adenocarcinoma status post laparoscopic diverting descending loop colostomy in February 2023 for bowel obstruction status post chemotherapy and remote history of cervical cancer status post hysterectomy and chemoradiation who presented to the emergency department via EMS from home for evaluation of failure to thrive. The patient provides the following history and some of the following is supplemented via a review of her electronic medical records. It is my understanding that she was recently discharged home from rehab and has been home for about a week. She is supposed to have another bowel surgery at some point however her nutrition is poor in because she was not eating or drinking a PEG tube was placed. Apparently home health came to see her today and referred her to the ED. the patient does not have any specific complaints aside from the fact that she is cold. She denies fever, cold and flu symptoms, chest pain, shortness of breath, cough, abdominal pain, nausea, and dysuria. In the ED: She was afebrile on arrival with stable vital signs. Labs are significant for WBC count of 11.7, sodium 121, potassium 5.9, chloride 83, carbon dioxide 13, anion gap 25, BUN greater than 120, creatinine 5.42, glucose 111, calcium 10.5, AST 37, ALT, 32, alkaline phosphatase 171, total protein 10.0, albumin 4.5. Urinalysis was positive for 2+ protein, trace ketones, 3+ blood, 1+ bilirubin, 3+ leukocyte esterase, 21 to 50 RBC, greater than 100 WBC, many squamous cells, and 4+ bacteria. 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 She received ceftriaxone 1 g for suspected urinary tract infection and was started on IV fluid and she is being admitted in this setting for further treatment and evaluation. Patient was started oN IVF and renal function resolved to baseline, creatinine down to 1.08 from 5.42. Also she was started on oral feeds with supplemental tube feeds, initially did not tolerate the intake which improved on starting Reglan 5mg, then resolved when increased to 10mg. however due to the high output fistula her Colorectal surgeon at [facility] was consulted and they accepted patient and she was eventually transferred. Also managed for iron deficiency anemia, received 1000mg IV iron, hemoglobin was stable throughout her stay. Initially was thought to have ostomy infection and our surgery evaluated and stated there is no evidence of infection, he also recommended that patient be transferred to [facility] where her care is domiciled for fistula eval. Also managed for Cystitis, urine culture positive for ESBL and was started on Meropenem. patient was eventually transferred to [facility] for higher level of care Continue care at [facility]. Time Spent with Patient Time attestation: Total time spent providing and/or coordinating transfer services: DS: Data Additional Comments Additional comments: patient was stable on transfer
== END 2024-11-04 18:10 | disposition short-term general hospital (02) | DRG 682 ==
LOC: ANHED 18:10 → ANHIMU 19:25 → ANH3MEDSUR 11-04 18:34 → ANHIMU 11-06 13:23
PROVIDERS: Internal Medicine; Internal Medicine Nephrology; Physician Assistant; Admitting Provider Hospitalist; Emergency Provider Emergency Medicine; PCP Physician Assistant; Visit Provider Internal Medicine
DX: N17.9 Acute kidney failure, unspecified (principal); E43 Unspecified severe protein-calorie malnutrition; R64 Cachexia; Z68.1 Body mass index [BMI] 19.9 or less, adult; K31.6 Fistula of stomach and duodenum; K94.29 Other complications of gastrostomy; B96.1 Klebsiella pneumoniae [K. pneumoniae] as the cause of diseases classified elsewhere; N13.6 Pyonephrosis; N30.90 Cystitis, unspecified without hematuria; E78.5 Hyperlipidemia, unspecified; I10 Essential (primary) hypertension; E86.0 Dehydration; D50.9 Iron deficiency anemia, unspecified; E87.8 Other disorders of electrolyte and fluid balance, not elsewhere classified; R62.7 Adult failure to thrive; D64.9 Anemia, unspecified; E78.1 Pure hyperglyceridemia; Z85.41 Personal history of malignant neoplasm of cervix uteri; Z85.048 Personal history of other malignant neoplasm of rectum, rectosigmoid junction, and anus; Z90.49 Acquired absence of other specified parts of digestive tract; Z90.710 Acquired absence of both cervix and uterus
CPT/HCPCS: 36415; 71250; 74018; 74176; 76775; 80048; 80053; 81001; 81050; 82274; 82550; 82570; 82728; 82948; 83540; 83550; 83605; 83735; 84100; 84156; 84300; 84540; 85025; 85027; 85610; 85730; 85999; 86703; 86803; 87040; 87086; 87186; 87340; 87637; 92610; 93005; 96361; 96365; 96375; 97165; 99212; 99285; A9270; G0378; G0432; G0463; J0696; J1171; J1644; J1756; J2185; J2270; J2405; J2765; J3411; J3475; J3480; J7030; J7040; J7042; J7050